=== PATIENT | female | born 1995 | race Caucasian/White ===

== ENCOUNTER 2020-06-16 15:54 | Emergency (ER) | payer OTHER ==
[~2020-06-16] VITALS: Ht 167.6 cm; Wt 80.1 kg
--- OUTSIDE RECORDS SUMMARY | 2020-06-16 15:59 | CCD ---
Author Author [employer] [facility] Syst ems Organization [employer] Syst em[employer] Address Unknown Phone Unavailable Care Team Providers Care Recruiting Specialist Name Role Phone Concha Obrien Unavailable PROBLEMS Type Condition ICD9-CM Code CCI27-AN Code Onset Dates Condition S tatus W/U Status Risk SNOMED Code Notes Problem Supervision of other normal Z34.80 Ac tive confirm [id number] Problem 11 weeks gestation of Z3A.11 Active confi rmed [id number] ALLERGIES No Known Allergies ENCOUNTERS from 1995 to 2020-05-31 Encounter Location Date Provider Diagnosis [facility] [address] [place] [address] May, Concha Obrien IMMUNIZATIONS No Information SOCIAL HISTORY Tobacco Use: Social History Observation Description Date Details (start date - stop date) Former Smoker Sex Assigned At : Social History Observation Description Sex Assigned At Unknown Domestic Violence: Question Answer Notes Status: No history of abuse Tobacco Use: Question Answer Notes Are you a: former smoker REASON FOR REFERRAL No Information VITAL SIGNS No information MEDICATIONS Medication SIG (Take, Route, Frequency, Duration) Notes Start Da te End Date Status Azithromycin (5 day) 250 mg as directed Orally 2 pills on day 1, then 1 pill daily until gone for 5 days May, Acti ve Wellbutrin XL 150 MG 1 tablet in the morning Orally Once a day f or 30 day(s) May, Active 27-1 MG 1 tablet Orally Once a day Active Glycerin (Adult) 2 GM 1 suppository as needed for constipation Rectal Once a day for 30 day(s) Apr, Active Crinone 8 % 1 applicator full Vaginal every night for 30 day(s) Jan, Not-Taking Zofran 4 MG 1 tablet Orally every 6 hours as needed for nausea Jan, Active Protonix 40 MG 1 tablet Orally Once a day for 30 day(s) Active Reglan 10 MG 1 tablet before meals Orally once per day for 30 day(s) Apr, Active Diflucan 150 MG 1 tablet Orally now and agai n in 5 days if symptoms are still present Jan, Not-Taking Keflex 500 MG 1 capsule Orally every 6 hours for 5 day(s) Not-Taking PROCEDURES No Information RESULTS No Results REASON FOR VISIT sinus infection MEDICAL (GENERAL) HISTORY Type Description Date Medical History Esophageal reflux Medical History Atrial fibrillation x1 - fixed itself Surgical History gall bladder Hospitalization History childbirth Hospitalization History surgery Goals Section No Information Health Concerns No Information MEDICAL EQUIPMENT No Information MENTAL STATUS No Information FUNCTIONAL STATUS No Information ASSESSMENTS No Information PLAN OF TREATMENT Medication Medication Name Sig Start Date Stop Date Azithromycin (5 day) 250 mg as directed Orally 2 pills on day 1, then 1 pill daily until gone for 5 days May, Reglan 10 MG 1 tablet before meals Orally once per da y for 30 day(s) Apr, Wellbutrin XL 150 MG 1 tablet in the morning Orally Once a d ay for 30 day(s) May, Next Appt Details Provider Name:Concha Obrien, 2020-06-05 02:20:00 PM, [address] [place], [address], Insurance Providers Payer Name Payer Address Payer Phone Insured Name Patient Relati onship to Insured Coverage Start Date Coverage End Date [facility] [address] [facility] [id number] [address]YSSA BISHOP [facility] HEALTH INSURANCE [address] [place] [address] SHITAL PFEIFFER
--- OUTSIDE RECORDS SUMMARY | 2020-06-16 15:59 | CCD ---
Author Author [facility] Syst ems Organization [employer] Syst ems Address Unknown Phone Unavailable Care Team Providers Care Outsole Compressor Name Role Phone Concha Obrien Unavailable PROBLEMS Type Condition ICD9-CM Code BVM87-CK Code Onset Dates Condition S tatus W/U Status Risk SNOMED Code Notes Problem Supervision of other normal Z34.80 Ac tive confirm [id number] Problem 11 weeks gestation of Z3A.11 Active confi rmed [id number] ALLERGIES No Known Allergies ENCOUNTERS from 1995 to 2020-05-28 Encounter Location Date Provider Diagnosis [facility] [address] [place] [address] May, Concha Obrien IMMUNIZATIONS No Information SOCIAL [...] Notes Start Da te End Date Status Protonix 40 MG 1 tablet Orally Once a day for 30 day(s) Active 27-1 MG 1 tablet Orally Once a day Active Keflex 500 MG 1 capsule Orally every 6 hours for 5 day(s) Not-Taking Glycerin (Adult) 2 GM 1 suppository as needed for constipation Rectal Once a day for 30 day(s) Apr, Active Wellbutrin XL 150 MG 1 tablet in the morning Orally Once a day f or 30 day(s) May, Active Diflucan 150 MG 1 tablet Orally now and agai n in 5 days if symptoms are still present Jan, Not-Taking Reglan 10 MG 1 tablet before meals Orally once per day for 30 day(s) Apr, Active Crinone 8 % 1 applicator full Vaginal every night for 30 day(s) Jan, Not-Taking Zofran 4 MG 1 tablet Orally every 6 hours as needed for nausea Jan, Active PROCEDURES No Information RESULTS No Results REASON FOR VISIT refill MEDICAL (GENERAL) HISTORY Type Description Date Medical History Esophageal reflux Medical History Atrial fibrillation x1 - fixed itself Surgical History gall bladder Hospitalization History childbirth Hospitalization History surgery Goals Section No Information Health Concerns No Information MEDICAL EQUIPMENT No Information MENTAL STATUS No Information FUNCTIONAL STATUS No Information ASSESSMENTS No Information PLAN OF TREATMENT Medication Medication Name Sig Start Date Stop Date Wellbutrin XL 150 MG 1 tablet in the morning Orally Once a d ay for 30 day(s) May, Reglan 10 MG 1 tablet before meals Orally once per da y for 30 day(s) Apr, Next Appt Details Provider Name:Concha Obrien, 2020-06-05 02:20:00 PM, [address] [place], [address], Insurance Providers Payer Name Payer Address Payer Phone Insured Name Patient Relati onship to Insured Coverage Start Date Coverage End Date [facility] [address] [facility] [id number] ELYSSA BISHOP [facility] HE[facility] INSURANCE [address] [place] [address] SHITAL PFEIFFER
--- OUTSIDE RECORDS SUMMARY | 2020-06-16 15:59 | CCD ---
Author Author [facility] Syst ems Organization [employer] Syst ems Address Unknown Phone Unavailable Care Team Providers Care Solid Waste Division Supervisor Name Role Phone Concha Obrien Unavailable PROBLEMS Type Condition ICD9-CM Code NRJ65-XM Code Onset Dates Condition S tatus SNOMED Code Notes Problem Supervision of other normal Z34.80 Ac tive [id number] Problem 11 weeks gestation of Z3A.11 Active 24149213 ALLERGIES No Known Allergies ENCOUNTERS from 1995 to 2020-05-19 Encounter Location Date Provider Diagnosis [facility] [address] [place] [address] Apr, Concha Obrien Dysuria R30.0 and Ot her specified related conditions, first trimester O26.891 IMMUNIZATIONS No Information SOCIAL HISTORY Tobacco Use: [...] Once a day for 30 day(s) Active Keflex 500 MG 1 capsule Orally every 6 hours for 5 day(s) Not-Taking Glycerin (Adult) 2 GM 1 suppository as needed for constipation Rectal Once a day for 30 day(s) Apr, Active 27-1 MG 1 tablet Orally Once a day Active Diflucan 150 MG 1 tablet Orally [...] nausea Jan, Active PROCEDURES No Information RESULTS Component Value Reference Range UA URINALYSIS Reviewed date:05/19/2020 18:35:32 Interpretation: Performing Lab:[facility], [facility] [address] [facility] [address] , ,[place] [address] REASON FOR VISIT UTI? MEDICAL (GENERAL) HISTORY Type Description Date Medical History Esophageal reflux Medical History Atrial fibrillation x1 - fixed itself Surgical History gall bladder Hospitalization History childbirth Hospitalization History surgery Goals Section No Information Health Concerns No Information MEDICAL EQUIPMENT No Information MENTAL STATUS No Information FUNCTIONAL STATUS No Information ASSESSMENTS Encounter Date Diagnosis Assessment Notes Treatment Notes Treatm ent Clinical Notes Apr, Dysuria (ICD-10 - R30.0) Apr, Other specified re lated conditions, first trimester (ICD- 10 - O26.891) PLAN OF TREATMENT Medication Medication Name Sig Start Date Stop Date Reglan 10 MG 1 tablet before meals Orally once per da y for 30 day(s) Apr, Treatment Notes Test Name Order Date URINE CULTURE 2020-05-19 Next Appt Details Provider Name:Concha Obrien, 2020-06-05 02:20:00 PM, [address] [place], [address], Insurance Providers Payer Name Payer Address Payer Phone Insured Name Patient Relati onship to Insured Coverage Start Date Coverage End Date [facility]URANCE [address] [place] [facility] [address] SHITAL PFEIFFER [facility] [address] [facility] [address] ELYSSA BISHOP
--- OUTSIDE RECORDS SUMMARY | 2020-06-16 16:00 | CCD ---
Author Author [facility] [employer] [facility] Syst ems Organization [facility] Syst ems Address Unknown Phone Unavailable Care Team Providers Care Assistant Manager Retail Name Role Phone Concha Obrien Unavailable PROBLEMS Type Condition ICD9-CM Code WHN21-XW Code Onset Dates Condition S tatus SNOMED Code Notes Problem Supervision of other normal Z34.80 Ac tive 955162210 Problem 11 weeks gestation of Z3A.11 Active 88058566 ALLERGIES No Known Allergies ENCOUNTERS from 1995 to 2020-05-14 Encounter Location Date Provider Diagnosis [facility] [address] [place] [address] Apr, Concha Obrien Other specified preg yaa related conditions, first trimester O26.891 ; Epigastric pain R10.13 and 11 weeks gestation of Z3A.11 IMMUNIZATIONS No Information SOCIAL HISTORY Tobacco Use: Social History Observation Description Date Details (start date - stop date) Former Smoker Sex Assigned At : Social History Observation Description Sex Assigned At Unknown Domestic Violence: Question Answer Notes Status: No history of abuse Tobacco Use: Question Answer Notes Are you a: former smoker REASON FOR REFERRAL No Information VITAL SIGNS Weight 172 lbs Apr, Height 66 in Apr, BMI 27.762 kg/m2 Apr, Blood pressure systolic 100 mm Hg Apr, Blood pressure diastolic 62 mm Hg Apr, MEDICATIONS Medication SIG (Take, Route, Frequency, Duration) [...] No Information RESULTS Component Value Reference Range H PYLORI STOOL ANTIGEN Reviewed date:05/12/2020 09:13:57 Interpretation: Performing Lab:[facility], [facility] [address] [address] , ,[place] [address] H PYLORI STOOL ANTIGEN Negative Negative REASON FOR VISIT 4wk pn MEDICAL (GENERAL) HISTORY Type Description Date Medical History Esophageal reflux Medical History Atrial fibrillation x1 - fixed itself Surgical History gall bladder Hospitalization History childbirth Hospitalization History surgery Goals Section No Information Health Concerns No Information MEDICAL EQUIPMENT No Information MENTAL STATUS No Information FUNCTIONAL STATUS No Information ASSESSMENTS Encounter Date Diagnosis Assessment Notes Treatment Notes Treatm ent Clinical Notes Apr, Other specified re lated conditions, first trimester (ICD- 10 - O26.891) Apr, Epigastric pain (ICD-10 - R10.13) Apr, 11 weeks gestation of (ICD-10 - Z3A.11 ) PLAN OF TREATMENT Medication Medication Name Sig Start Date Stop Date Reglan 10 MG 1 tablet before meals Orally once per da y for 30 day(s) Apr, Next Appt Details 4 Weeks Reason: Provider Name:Concha Obrien, 2020-06-05 02:20:00 PM, [address] [place], [address], Follow Up:4 Weeksprenatal Insurance Providers Payer Name Payer Address Payer Phone Insured Name Patient Relati onship to Insured Coverage Start Date Coverage End Date [facility] [address] [facility] [address] [place]FEIFFER [facility] [address] [facility] [id number] ELYSSA BISHOP
--- OUTSIDE RECORDS SUMMARY | 2020-06-16 16:00 | CCD ---
Author Author [employer] Syst em[facility] Organization [employer] Syst [facility] Address Unknown Phone Unavailable Care Team Providers Care Advanced Quality Engineer Name Role Phone Concha Obrien Unavailable PROBLEMS Type Condition ICD9-CM Code XGE94-JN Code Onset Dates Condition S tatus SNOMED Code Notes Problem Supervision of other normal Z34.80 Ac tive 677909692 ALLERGIES No Known Allergies ENCOUNTERS from 1995 to 2020-04-23 Encounter Location Date Provider Diagnosis [facility] [address] [place] [phone] Mar, Concha Micah IMMUNIZATIONS No Information SOCIAL HISTORY Tobacco Use: [...] Once a day for 30 day(s) Active Diflucan 150 MG 1 tablet Orally now and agai n in 5 days if symptoms are still present Jan, Not-Taking Keflex 500 MG 1 capsule Orally every 6 hours for 5 day(s) Not-Taking 27-1 MG 1 tablet Orally Once a day Active Zofran 4 MG 1 tablet Orally every 6 hours as needed for nausea Jan, Active Crinone 8 % 1 applicator full Vaginal every night for 30 day(s) Jan, Not-Taking Lovenox 40 MG/0.4ML 0.4 ml Subcutaneous Once a day for 30 day(s) Mar, Active PROCEDURES No Information RESULTS No Results [...] Medication Name Sig Start Date Stop Date Lovenox 40 MG/0.4ML 0.4 ml Subcutaneous Once a day for 30 day(s) Mar, Zofran 4 MG 1 tablet Orally every 6 hours as needed for naus ea Jan, Next Appt Details Provider Name:Concha Obrien, 2020 11:40:00 AM, [address] [place], [address], Insurance Providers Payer Name Payer Address Payer Phone Insured Name Patient Relati onship to Insured Coverage Start Date Coverage End Date [facility] INSURANCE [address] [facility] [address] SHITAL PFEIFFER [facility] [address] [facility] [id number] ELYSSA BISHOP
--- OUTSIDE RECORDS SUMMARY | 2020-06-16 16:00 | CCD ---
Author Author [employer] [facility] Syst ems Organization [employer] Syst ems Address Unknown Phone Unavailable Care Team Providers Care Assistant Front Office Manager Name Role Phone Concha Obrien Unavailable PROBLEMS Type Condition ICD9-CM Code IST14-WB Code Onset Dates Condition S tatus SNOMED Code Notes Problem Supervision of other normal Z34.80 Ac tive 743847735 ALLERGIES No Known Allergies ENCOUNTERS from 1995 to 2020-05-01 Encounter Location Date Provider Diagnosis [facility] [place] [address] Apr, Concha Obrien IMMUNIZATIONS No Information SOCIAL HISTORY [...] every 6 hours for 5 day(s) Not-Taking Crinone 8 % 1 applicator full Vaginal every night for 30 day(s) Jan, Not-Taking Lovenox 40 MG/0.4ML 0.4 ml Subcutaneous Once a day for 30 day(s) Mar, Active 27-1 MG 1 tablet Orally Once a day Active Zofran 4 MG 1 tablet Orally every 6 hours as needed for nausea Jan, Active Glycerin (Adult) 2 GM 1 suppository as needed for constipation Rectal Once a day for 30 day(s) Apr, Active Diflucan 150 MG 1 tablet Orally now and agai n in 5 days if symptoms are still present Jan, Not-Taking PROCEDURES No Information RESULTS No Results REASON FOR VISIT constipation MEDICAL (GENERAL) HISTORY Type Description Date Medical History Esophageal reflux Medical History Atrial fibrillation x1 - fixed itself Surgical History gall bladder Hospitalization History childbirth Hospitalization History surgery Goals Section No Information Health Concerns No Information MEDICAL EQUIPMENT No Information MENTAL STATUS No Information FUNCTIONAL STATUS No Information ASSESSMENTS No Information PLAN OF TREATMENT Medication Medication Name Sig Start Date Stop Date Glycerin (Adult) 2 GM 1 suppository as needed for constipation Rectal Once a day for 30 day(s) Apr, Zofran 4 MG 1 tablet Orally every 6 hours as needed for naus ea Jan, Lovenox 40 MG/0.4ML 0.4 ml Subcutaneous Once a day for 30 day(s) Mar, Next Appt Details Provider Name:Concha Weiss Micah, 2020 11:40:00 AM, [address] [place], [address], Insurance Providers Payer Name Payer Address Payer Phone Insured Name Patient Relati onship to Insured Coverage Start Date Coverage End Date [facility] [address] [facility] [address] ELYSSA BISHOP [facility] HEALTH INSURANCE [address] [place] [address] SHITAL PFEIFFER
--- OUTSIDE RECORDS SUMMARY | 2020-06-16 16:00 | CCD ---
Author Author [facility] [facility] Syst ems Organization [employer] Syst ems Address Unknown Phone Unavailable Care Team Providers Care Town Planner Name Role Phone Concha Obrien Unavailable PROBLEMS Type Condition ICD9-CM Code HRS91-IM Code Onset Dates Condition S tatus SNOMED Code Notes Problem Supervision of other normal Z34.80 Ac tive 843643263 ALLERGIES No Known Allergies ENCOUNTERS from 1995 to 2020-04-20 Encounter Location Date Provider Diagnosis [facility] [place] [address] Mar, Concha Obrien Other diseases of th e blood and blood- forming organs and certain disorders involving the immune mechanism complicating , first trimester O99.111 ; 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 ; 7 weeks gestation of Z3A.01 and 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, 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 IMMUNIZATIONS No Information SOCIAL HISTORY Tobacco Use: Social History Observation Description Date Details (start date - stop date) Former Smoker Sex Assigned At : Social History Observation Description Sex Assigned At Unknown Domestic Violence: Question Answer Notes Status: No history of abuse Tobacco Use: Question Answer Notes Are you a: former smoker REASON FOR REFERRAL No Information VITAL SIGNS Weight 177.8 lbs Mar, Height 66 in Mar, BMI 28.698 kg/m2 Mar, Blood pressure systolic 110 mm Hg Mar, Blood pressure diastolic 70 mm Hg Mar, MEDICATIONS Medication SIG (Take, Route, Frequency, Duration) Notes Start Da te End Date Status 27-1 MG 1 tablet Orally Once a day Active Diflucan 150 MG 1 tablet Orally now and agai n in 5 days if symptoms are still present Jan, Not-Taking Keflex 500 MG 1 capsule Orally every 6 hours for 5 day(s) Not-Taking Crinone 8 % 1 applicator full Vaginal every night for 30 day(s) Jan, Not-Taking Protonix 40 MG 1 tablet Orally Once a day for 30 day(s) Active Zofran 4 MG 1 tablet Orally every 8 hours as needed for nausea Jan, Active Lovenox 40 MG/0.4ML 0.4 ml Subcutaneous Once a day for 30 day(s) Mar, Active PROCEDURES No Information RESULTS REASON FOR VISIT 1ST PN MEDICAL (GENERAL) HISTORY Type Description Date Medical History Esophageal reflux Medical History Atrial fibrillation x1 - fixed itself Surgical History gall bladder Hospitalization History childbirth Hospitalization History surgery Goals Section No Information Health Concerns No Information MEDICAL EQUIPMENT No Information MENTAL STATUS No Information FUNCTIONAL STATUS No Information ASSESSMENTS Encounter Date Diagnosis Assessment Notes Treatment Notes Treatm ent Clinical Notes Mar, Other diseases of the blood and blood-forming organs and certain disorders involving the immune mechanism complicating , first trimester (ICD-10 - O99.111) Mar, 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, antepartum (ICD-10 - O26.21) PLAN OF TREATMENT Medication Medication Name Sig Start Date Stop Date Lovenox 40 MG/0.4ML 0.4 ml Subcutaneous Once a day for 30 day(s) Mar, Treatment Notes Test Name Order Date CHLAMYDIA & GC DNA AMPLIFICAT 2020-04-20 Next Appt Details Provider Name:Concha Obrien, 2020 11:40:00 AM, [address] [place], [address], Insurance Providers Payer Name Payer Address Payer Phone Insured Name Patient Relati onship to Insured Coverage Start Date Coverage End Date [facility] [address] [facility] [address] ELYSSA BISHOP [facility] INSURANCE [address] [place] [address] SHITAL PFEIFFER
--- OUTSIDE RECORDS SUMMARY | 2020-06-16 16:00 | CCD ---
Author Author [facility] Syst ems Organization [employer] Syst ems Address Unknown Phone Unavailable Care Team Providers Care Economic Research Assistant Name Role Phone Concha Obrien Unavailable PROBLEMS Type Condition ICD9-CM Code NCB31-PI Code Onset Dates Condition S tatus SNOMED Code Notes Problem Supervision of other normal Z34.80 Ac tive 693141979 Problem 11 weeks gestation of Z3A.11 Active 80443394 ALLERGIES No Known Allergies ENCOUNTERS from 1995 to 2020-05-16 Encounter Location Date Provider Diagnosis [facility] [address] [place] [phone] Apr, Concha Micah IMMUNIZATIONS No Information SOCIAL HISTORY [...] Information RESULTS No Results REASON FOR VISIT medications MEDICAL (GENERAL) HISTORY Type Description Date Medical [...] day(s) Apr, Next Appt Details Provider Name:Concha Weiss Micah, 2020-06-05 02:20:00 PM, [address] [place], [address], Insurance Providers Payer Name Payer Address Payer Phone Insured Name Patient Relati onship to Insured Coverage Start Date Coverage End Date [facility] [address] [facility] [id number] [facility] [address] [facility] [address] SHITAL PFEIFFER
--- OUTSIDE RECORDS SUMMARY | 2020-06-16 16:01 | CCD ---
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 Name Role Phone Mita Zavala MD Unavailable Unavailable Mita Zavala MD Unavailable Unavailable Mita Zavala MD Unavailable Unavailable Mita Zavala MD Unavailable Unavailable Mita Zavala MD Unavailable Unavailable Mita Zavala MD Unavailable Unavailable Mita Zavala MD Unavailable Unavailable Mita Zavala MD Unavailable Unavailable Mita Zavala MD Unavailable Unavailable Mita Zavala MD Unavailable Unavailable Mita Zavala MD Unavailable Unavailable Mita Zavala MD Unavailable Unavailable Mita Zavala MD Unavailable Unavailable Mita Zavala MD Unavailable Unavailable Mita Zavala MD Unavailable Unavailable Mita Zavala MD Unavailable Unavailable Mita Zavala MD Unavailable Unavailable Mita Zavala MD Unavailable Unavailable Mita Zavala MD Unavailable Unavailable Mita Zavala MD Unavailable Unavailable Mita Zavala MD Unavailable Unavailable Mita Zavala MD Unavailable Unavailable Mita Zavala MD Unavailable Unavailable Mita Zavala MD Unavailable Unavailable Mita Zavala MD Unavailable Unavailable Mita Zavala MD Unavailable Unavailable Mita Zavala MD Unavailable Unavailable Mita aZvala MD Unavailable Unavailable Sally S Armando LUNA Unavailable Unavailable Sally, S Armando MD Unavailable Unavailable Sally, S Armando MD Unavailable Unavailable Sally, S Armando LUNA Unavailable Unavailable Sally, S Armando MD Unavailable Unavailable Sally, S Armando MD Unavailable Unavailable Sally, S Armando MD Unavailable Unavailable Sally, S Armando MD Unavailable Unavailable Sally, S Armando MD Unavailable Unavailable Sally, S Armando MD Unavailable Unavailable Sally, S Armando MD Unavailable Unavailable Sally, S Armando MD Unavailable Unavailable Sally, S Armando MD Unavailable Unavailable Sally, S Armando MD Unavailable Unavailable Sally, S Armando MD Unavailable Unavailable Sally, S Armando MD Unavailable Unavailable Sally, S Armando MD Unavailable Unavailable Sally, S Armando MD Unavailable Unavailable Sally, S Armando MD Unavailable Unavailable Sally, S Armando MD Unavailable Unavailable Sally, S Armando MD Unavailable Unavailable Sally, S Armando MD Unavailable Unavailable Swatsworth, A Alexys PA Unavailable Unavailable Swatsworth, A Alexys PA Unavailable Unavailable Swatsworth, A Alexys PA Unavailable Unavailable Swatsworth, A Alexys PA Unavailable Unavailable Swatsworth, A Alexys PA Unavailable Unavailable Swatsworth, A Alexys PA Unavailable Unavailable Swatsworth, A Alexys PA Unavailable Unavailable Swatsworth, A Alexys PA Unavailable Unavailable Swatsworth, A Alexys PA Unavailable Unavailable Swatsworth, A Alexys PA Unavailable Unavailable Swatsworth, A Alexys PA Unavailable Unavailable Swatsworth, A Alexys PA Unavailable Unavailable Swatsworth, A Alexys PA Unavailable Unavailable Swatsworth, A Alexys PA Unavailable Unavailable Mollura, E Hazel PA Unavailable Unavailable Mollura, E Hazel PA Unavailable Unavailable Mollura, E Hazel PA Unavailable Unavailable Mollura, E Hazel PA Unavailable Unavailable Mollura, E Hazel PA Unavailable Unavailable Mollura, E Hazel PA Unavailable Unavailable Mollura, E Hazel PA Unavailable Unavailable Mollura, E Hazel PA Unavailable Unavailable Mollura, E Hazel PA Unavailable Unavailable Mollura, E Hazel PA Unavailable Unavailable Mollura, E Hazel PA Unavailable Unavailable Mollura, E Hazel PA Unavailable Unavailable Mollura, E Hazel PA Unavailable Unavailable Mollura, E Hazel PA Unavailable Unavailable Mollura, E Hazel PA Unavailable Unavailable Mollura, E Hazel PA Unavailable Unavailable Mollura, E Hazel PA Unavailable Unavailable Mollura, E Hazel PA Unavailable Unavailable Mollura, E Hazel PA Unavailable Unavailable Mollura, E Hazel PA Unavailable Unavailable Mollura, E Hazel PA Unavailable Unavailable Mollura, E Hazel PA Unavailable Unavailable Mollura, E Hazel PA Unavailable Unavailable Mollura, E Hazel PA Unavailable Unavailable Mollura, E Hazel PA Unavailable Unavailable Mollura, E Hazel PA Unavailable Unavailable Mollura, E Hazel PA Unavailable Unavailable Mollura, E Hazel PA Unavailable Unavailable Mollura, E Hazel PA Unavailable Unavailable Mollura, E Hazel PA Unavailable Unavailable Mollura, E Hazel PA Unavailable Unavailable Mollura, E Hazel PA Unavailable Unavailable Mollura, E Hazel PA Unavailable Unavailable Mollura, E Hazel PA Unavailable Unavailable Mollura, E Hazel PA Unavailable Unavailable Mollura, E Hazel PA Unavailable Unavailable Alfreda, Juanita Beasley PA-C Unavailable Unavailable Alfreda, Juanita Beasley PA-C Unavailable Unavailable Alfreda, Juanita Beasley PA-C Unavailable Unavailable Alfreda, Juanita Beasley PA-C Unavailable Unavailable Alfreda, Juanita Beasley PA-C Unavailable Unavailable Alfreda, Juanita Beasley PA-C Unavailable Unavailable Alfreda, Juanita Beasley PA-C Unavailable Unavailable Alfreda, Juanita Beasley PA-C Unavailable Unavailable Alfreda, Juanita Beasley PA-C Unavailable Unavailable Alfreda, Juanita Beasley PA-C Unavailable Unavailable Alfreda, Juanita Beasley PA-C Unavailable Unavailable TURRIN, CEDRIC Unavailable Unavailable TURRIN, CEDRIC Unavailable Unavailable TURRIN, CEDRIC Unavailable Unavailable TURRIN, CEDRIC Unavailable Unavailable TORRES, MAQBOOL CARLOS MD Unavailable Unavailable TORRES, MAQBOOL CARLOS MD Unavailable Unavailable TORRES, MAQBOOL CARLOS MD Unavailable Unavailable TORRES, MAQBOOL CARLOS MD Unavailable Unavailable TORRES, MAQBOOL CARLOS MD Unavailable Unavailable TORRES, MAQBOOL CARLOS MD Unavailable Unavailable TORRES, MAQBOOL CARLOS MD Unavailable Unavailable TORRES, MAQBOOL CARLOS MD Unavailable Unavailable TORRES, MAQBOOL CARLOS MD Unavailable Unavailable TORRES, MAQBOOL CARLOS MD Unavailable Unavailable TORRES, MAQBOOL CARLOS MD Unavailable Unavailable TORRES, MAQBOOL CARLOS MD Unavailable Unavailable TORRES, MAQBOOL CARLOS MD Unavailable Unavailable TORRES, MAQBOOL CARLOS MD Unavailable Unavailable TORRES, MAQBOOL CARLOS MD Unavailable Unavailable TORRES, MAQBOOL CARLOS MD Unavailable Unavailable TORRES, MAQBOOL CARLOS MD Unavailable Unavailable TORRES, MAQBOOL CARLOS MD Unavailable Unavailable TORRES, MAQBOOL CARLOS MD Unavailable Unavailable TORRES, MAQBOOL CARLOS MD Unavailable Unavailable TORRES, MAQBOOL CARLOS MD Unavailable Unavailable TORRES, MAQBOOL CARLOS MD Unavailable Unavailable TORRES, MAQBOOL CARLOS MD Unavailable Unavailable TORRES, MAQBOOL CARLOS MD Unavailable Unavailable TORRES, MAQBOOL CARLOS MD Unavailable Unavailable TORRES, MAQBOOL CARLOS MD Unavailable Unavailable TORRES, MAQBOOL CARLOS MD Unavailable Unavailable TORRES, MAQBOOL CARLOS MD Unavailable Unavailable TORRES, MAQBOOL CARLOS MD Unavailable Unavailable TORRES, MAQBOOL CARLOS MD Unavailable Unavailable TORRES, MAQBOOL CARLOS MD Unavailable Unavailable TORRES, MAQBOOL CARLOS MD Unavailable Unavailable TORRES, MAQBOOL CARLOS MD Unavailable Unavailable TORRES, MAQBOOL CARLOS MD Unavailable Unavailable TORRES, MAQBOOL CARLOS MD Unavailable Unavailable TORRES, MAQBOOL CARLOS MD Unavailable Unavailable TORRES, MAQBOOL CARLOS MD Unavailable Unavailable TORRES, MAQBOOL CARLOS MD Unavailable Unavailable TORRES, MAQBOOL CARLOS MD Unavailable Unavailable TORRES, MAQBOOL CARLOS MD Unavailable Unavailable TORRES, MAQBOOL CARLOS MD Unavailable Unavailable TORRES, MAQBOOL CARLOS MD Unavailable Unavailable TORRES, MAQBOOL CARLOS MD Unavailable Unavailable TORRES, MAQBOOL CARLOS MD Unavailable Unavailable TORRES, MAQBOOL CARLOS MD Unavailable Unavailable TORRES, MAQBOOL CARLOS MD Unavailable Unavailable TORRES, MAQBOOL CARLOS MD Unavailable Unavailable TORRES, MAQBOOL CARLOS MD Unavailable Unavailable TORRES, MAQBOOL CARLOS MD Unavailable Unavailable TORRES, MAQBOOL CARLOS MD Unavailable Unavailable TORRES, MAQBOOL CARLOS MD Unavailable Unavailable TORRES, MAQBOOL CARLOS MD Unavailable Unavailable TORRES, MAQBOOL CARLOS MD Unavailable Unavailable TORRES, MAQBOOL CARLOS MD Unavailable Unavailable TORRES, MAQBOOL CARLOS MD Unavailable Unavailable TORRES, MAQBOOL CARLOS MD Unavailable Unavailable TORRES, MAQBOOL CARLOS MD Unavailable Unavailable TORRES, MAQBOOL CARLOS MD Unavailable Unavailable TORRES, MAQBOOL CARLOS MD Unavailable Unavailable TORRES, MAQBOOL CARLOS MD Unavailable Unavailable TORRES, MAQBOOL CARLOS MD Unavailable Unavailable TORRES, MAQBOOL CARLOS MD Unavailable Unavailable TORRES, MAQBOOL CARLOS MD Unavailable Unavailable TORRES, MAQBOOL CARLOS MD Unavailable Unavailable TORRES, MAQBOOL CARLOS MD Unavailable Unavailable TORRES, MAQBOOL CARLOS MD Unavailable Unavailable TORRES, MAQBOOL CARLOS MD Unavailable Unavailable TORRES, MAQBOOL CARLOS MD Unavailable Unavailable TORRES, MAQBOOL CARLOS MD Unavailable Unavailable TORRES, MAQBOOL CARLOS MD Unavailable Unavailable TORRES, MAQBOOL CARLOS MD Unavailable Unavailable TORRES, MAQBOOL CARLOS MD Unavailable Unavailable TORRES, MAQBOOL CARLOS MD Unavailable Unavailable TORRES, MAQBOOL CARLOS MD Unavailable Unavailable Kunnumpurath, F Lisandra MD Unavailable Unavailable Kunnumpurath, F Lisandra MD Unavailable Unavailable Kunnumpurath, F Lisandra MD Unavailable Unavailable Kunnumpurath, F Lisandra MD Unavailable Unavailable Kunnumpurath, F Lisandra MD Unavailable Unavailable Kunnumpurath, F Lisandra MD Unavailable Unavailable Kunnumpurath, F Lisandra MD Unavailable Unavailable Kunnumpurath, F Lisandra MD Unavailable Unavailable Kunnumpurath, F Lisandra MD Unavailable Unavailable Kunnumpurath, F Lisandra MD Unavailable Unavailable Kunnumpurath, F Lisandra MD Unavailable Unavailable Kunnumpurath, F Lisandra MD Unavailable Unavailable Kunnumpurath, F Lisandra MD Unavailable Unavailable Kunnumpurath, F Lisandra MD Unavailable Unavailable Kunnumpurath, F Lisandra MD Unavailable Unavailable Kunnumpurath, F Lisandra MD Unavailable Unavailable Kunnumpurath, F Lisandra MD Unavailable Unavailable Kunnumpurath, F Lisandra MD Unavailable Unavailable Kunnumpurath, F Lisandra MD Unavailable Unavailable Kunnumpurath, F Lisandra MD Unavailable Unavailable Kunnumpurath, F Lisandra MD Unavailable Unavailable Kunnumpurath, F Lisandra MD Unavailable Unavailable Kunnumpurath, F Lisandra MD Unavailable Unavailable Kunnumpurath, F Lisandra MD Unavailable Unavailable Kunnumpurath, F Lisandra MD Unavailable Unavailable Kunnumpurath, F Lisandra MD Unavailable Unavailable Kunnumpurath, F Lisandra MD Unavailable Unavailable Kunnumpurath, F Lisandra MD Unavailable Unavailable Kunnumpurath, F Lisandra MD Unavailable Unavailable Kunnumpurath, F Lisandra MD Unavailable Unavailable Kunnumpurath, F Lisandra MD Unavailable Unavailable Kunnumpurath, F Lisandra MD Unavailable Unavailable Kunnumpurath, F Lisandra MD Unavailable Unavailable Kunnumpurath, F Lisandra MD Unavailable Unavailable Kunnumpurath, F Lisandra MD Unavailable Unavailable Kunnumpurath, F Lisandra MD Unavailable Unavailable Kunnumpurath, F Lisandra MD Unavailable Unavailable Kunnumpurath, F Lisandra MD Unavailable Unavailable Kunnumpurath, F Lisandra MD Unavailable Unavailable Kunnumpurath, F Lisandra MD Unavailable Unavailable Kunnumpurath, F Lisandra MD Unavailable Unavailable Kunnumpurath, F Lisandra MD Unavailable Unavailable Kunnumpurath, F Lisandra MD Unavailable Unavailable Kunnumpurath, F Lisandra MD Unavailable Unavailable Kunnumpurath, F Lisandra MD Unavailable Unavailable Kunnumpurath, F Lisandra MD Unavailable Unavailable Kunnumpurath, F Lisandra MD Unavailable Unavailable Kunnumpurath, F Lisandra MD Unavailable Unavailable Kunnumpurath, F Lisandra MD Unavailable Unavailable Kunnumpurath, F Lisandra MD Unavailable Unavailable Kunnumpurath, F Lisandra MD Unavailable Unavailable Kunnumpurath, F Lisandra MD Unavailable Unavailable Kunn[place]urath, F Lisandra MD Unavailable Unavailable Kunnumpurath, F Lisandra MD Unavailable Unavailable K[place]urath, F Lisandra MD Unavailable Unavailable Kunnumpurath, F Lisandra MD Unavailable Unavailable Kunnumpurath, F Lisandra MD Unavailable Unavailable Kunnumpurath, F Lisandra MD Unavailable Unavailable Kunn[place]urath, F Lisandra MD Unavailable Unavailable Kunnumpurath, F Lisandra MD Unavailable Unavailable Kunnumpurath, F Lisandra MD Unavailable Unavailable Kunnumpurath, F Lisandra MD Unavailable Unavailable Kunnumpurath, F Lisandra MD Unavailable Unavailable Kunnumpurath, F Lisandra MD Unavailable Unavailable Kunn[place]urath, F Lisandra MD Unavailable Unavailable Kunnumpurath, F Lisandra MD Unavailable Unavailable K[place]urath, F Lisandra MD Unavailable Unavailable [place]urath, F Lisandra MD Unavailable Unavailable [place]ath, F Lisandra MD Unavailable Unavailable [place]urath, F Lisandra MD Unavailable Unavailable [place]ath, F Lisandra MD Unavailable Unavailable [place]ath, F Lisandra MD Unavailable Unavailable [place], F Lisandra MD Unavailable Unavailable [place]ath, F Lisandra MD Unavailable Unavailable Kunn[place]ath, F Lisandra MD Unavailable Unavailable Kunnumpurath, F Lisandra MD Unavailable Unavailable LETTIERE, A VITA PA Unavailable Unavailable LETTIERE, A VITA PA Unavailable Unavailable LETTIERE, A VITA PA Unavailable Unavailable LETTIERE, A VITA PA Unavailable Unavailable LETTIERE, A VITA PA Unavailable Unavailable LETTIERE, A VITA PA Unavailable Unavailable LETTIERE, A VITA PA Unavailable Unavailable LETTIERE, A VITA PA Unavailable Unavailable LETTIERE, A VITA PA Unavailable Unavailable LETTIERE, A VITA PA Unavailable Unavailable LETTIERE, A VITA PA Unavailable Unavailable LETTIERE, A VITA PA Unavailable Unavailable LETTIERE, A VITA PA Unavailable Unavailable LETTIERE, A VITA PA Unavailable Unavailable LETTIERE, A VITA PA Unavailable Unavailable LETTIERE, A VITA PA Unavailable Unavailable LETTIERE, A VITA PA Unavailable Unavailable LETTIERE, A VITA PA Unavailable Unavailable LETTIERE, A VITA PA Unavailable Unavailable LETTIERE, A VITA PA Unavailable Unavailable LETTIERE, A VITA PA Unavailable Unavailable LETTIERE, A VITA PA Unavailable Unavailable LETTIERE, A VITA PA Unavailable Unavailable LETTIERE, A VITA PA Unavailable Unavailable LETTIERE, A VITA PA Unavailable Unavailable LETTIERE, A VITA PA Unavailable Unavailable LETTIERE, A VITA PA Unavailable Unavailable LETTIERE, A VITA PA Unavailable Unavailable LETTIERE, A VITA PA Unavailable Unavailable Re-disclosure Warning The records that you are about to access may contain information from federally-assisted alcohol or drug abuse programs. If such information is present, then the following federally mandated warning applies: This information has been disclosed to you from records protected by federal confidentiality rules (42 CFR part 2). The federal rules prohibit you from making any further disclosure of this information unless further disclosure is expressly permitted by the written consent of the person to whom it pertains or as otherwise permitted by 42 CFR part 2. A general authorization for the release of medical or other information is NOT sufficient for this purpose. The Federal rules restrict any use of the information to criminally investigate or prosecute any alcohol or drug abuse patient.The records that you are about to access may contain highly sensitive health information, the redisclosure of which is protected by Article 27-F of the [facility] Public Health law. If you continue you may have access to information: Regarding HIV / AIDS; Provided by facilities licensed or operated by the [facility] Office of Mental Health; or Provided by the [facility] Office for People With Developmental Disabilities. If such information is present, then the following [facility] mandated warning applies: This information has been disclosed to you from confidential records which are protected by state law. State law prohibits you from making any further disclosure of this information without the specific written consent of the person to whom it pertains, or as otherwise permitted by law. Any unauthorized further disclosure in violation of state law may result in a fine or senior living sentence or both. A general authorization for the release of medical or other information is NOT sufficient authorization for further disc losure. Allergies and Adverse Reactions Type Description Substance Reaction Status Data Source(s ) NO KNOWN ALLERGIES NO KNOWN ALLERGIES [facility] ([place]) Drug Class NO KNOWN ALLERGIES NO KNOWN ALLERGIES [facility] Propensity to adverse reactions to drug PENICILLINS Penicillins Active (qualifier value) [facility] No Known Drug Allergies No Known Drug Allergies [facility] Family History Family Member Name Family Member Gender Family Member Status Date o f Status Description Data Source(s) Unknown Male Problem [facility]ENT ([facility]) Encounters Encounter Providers Location Date Indications Data Source(s ) [place] [address] [facility] [address] 05/30/2020 12:00:00 AM EST eCW1 ([facility]) [place] [address] [facility] [facility] [address] 05/27/2020 12:00:00 AM EST eCW1 ([facility]) [place] [address] [facility] [facility] [address] 05/19/2020 12:00:00 AM EST eCW1 ([facility]) [place] [address] [facility] [place] [address] 05/14/2020 12:00:00 AM EST eCW1 ([facility]) ( ESTOB) [facility] [address] [place] [address] 2020 12:00:00 AM EST eCW1 ([facility]) [place] [address] [facility] [address] 04/30/2020 12:00:00 AM EST eCW1 ([facility]) [place] [address] [facility] [address] 04/23/2020 12:00:00 AM EST eCW1 ([facility]) ( ESTOB) [facility] [address] [place] [address] 04/10/2020 12:00:00 AM EST eCW1 ([facility]) Emergency Attender: CEDRIC OHARAConsultant: Lisandra clifton MD 02/27/2020 08:00:00 PM EST - 02/27/2020 09:41:00 PM EST [facility] Patient discharged. Emergency Attender: Ramos PALOMO-CConsultant: Lisandra cerna MD 02/19/2020 05:47:00 PM EDT - 02/19/2020 06:45:00 PM EDT [facility] Patient discharged. Outpatient Attender: Armando Zavala MD Main Office 12/04/2019 01:30:00 PM EDT [facility] ([facility]) Outpatient Attender: Lisandra Nova MD 0 11/09/2019 02:16:00 PM EDT - 11/09/2019 02:16:00 PM EDT [facility] Outpatient Attender: Lisandra Nova MD Family Practice 0 11/09/2019 02:00:00 PM EDT [facility] Outpatient 11/01/2019 08:27:00 AM EDT [facility] ([facility]) Outpatient 10/31/2019 08:45:00 AM EDT [facility] ([place]) Outpatient 10/03/2019 11:00:00 AM EDT - 020 11:35:04 AM EDT [facility] Patient discharged. Outpatient 10/03/2019 11:00:00 AM EDT [facility] Outpatient 09/19/2019 03:15:00 PM EDT [facility] Outpatient 09/18/2019 04:00:00 PM EDT [facility] Outpatient 09/11/2019 04:00:00 PM EDT - 020 04:45:46 PM EDT [facility] Patient discharged. Outpatient 09/11/2019 03:45:00 PM EDT [facility] Outpatient 09/10/2019 02:15:00 PM EDT [facility] Emergency 09/08/2019 02:18:11 PM EDT - 020 03:46:00 PM EDT dizziness [facility] dizziness Patient discharged. Emergency 09/08/2019 12:00:00 AM EDT [facility] Outpatient 08/17/2019 01:00:00 PM EDT - 020 01:11:45 PM EDT [facility] Patient discharged. Outpatient 08/13/2019 04:58:35 PM EDT [facility] Outpatient 08/10/2019 06:58:00 AM EDT [facility] ([place]) Outpatient 08/09/2019 03:56:08 PM EDT - 020 11:59:00 PM EDT [facility] Outpatient 08/09/2019 02:15:00 PM EDT - 020 02:33:38 PM EDT [facility] Patient discharged. Outpatient 08/09/2019 07:12:00 AM EDT [facility] ([place]) Outpatient 08/09/2019 12:00:00 AM EDT [facility] Outpatient 07/11/2019 07:16:00 AM EDT [facility] ([facility]) Outpatient 07/10/2019 06:52:00 AM EDT [facility] ([facility]) Outpatient 06/30/2019 07:08:00 AM EST [facility] ([facility]) Outpatient 06/29/2019 07:27:00 AM EST [facility] ([facility]) Outpatient 06/28/2019 11:30:00 AM EST [facility] Outpatient 06/26/2019 04:45:00 PM EST [facility] Outpatient 06/23/2019 07:08:00 AM EST [facility] ([facility]) Outpatient 06/22/2019 07:13:00 AM EST [facility] ([facility]) Outpatient 06/18/2019 12:00:00 AM EST - 020 11:59:00 PM EST [facility] Outpatient 06/13/2019 03:45:00 PM EST [facility] Outpatient 06/12/2019 03:00:00 PM EST - 020 04:28:52 PM EST [facility] Patient discharged. Emergency Attender: CARLOS Knight lamberto: Alexys Ramsey PAConsultant: Hazel PALOMO 05/23/2019 05:15:00 PM EST - 05/23/2019 07:58: 00 PM EST [facility] Patient discharged. Outpatient Attender: VITA lara 05/23/2019 02:05:00 PM EST [facility] ([facility]) Emergency 04/20/2019 04:01:51 AM EST - 04/20/2019 05:22:00 AM EST chest pain [facility] chest pain Patient discharged. Emergency 04/20/2019 12:00:00 AM EST [facility] Medications Medication Brand Name Start Date Product Form Dose Route Admi nistrative Instructions Pharmacy Instructions Status Indications Reaction Description Data Source(s) Azithromycin (5 day) 250 mg UNK 05/30/2020 12:00:00 AM EST active Azithromycin (5 day) 250 mg eCW1 ([facility]) 250 mg 05/30/2020 12:00:00 AM EST tablet 6 TAKE TWO TABLETS BY MOUTH AT ONCE ON THE FIRST DAY THEN TAKE ONE DAILY THEREAFTER TAKE TWO TABLETS BY MOUTH AT ONCE ON THE FIRST DAY THEN TAKE ONE DAILY THEREAFTER SOLD: 06/01/2020 [facility] 24 HR Bupropion Hydrochloride 150 MG Extended Release Oral T ablet BUPROPION HCL 05/27/2020 12:00:00 AM EST tablet extended release 24 hr 30 TAKE ONE TABLET BY MOUTH EVERY MORNING TAKE ONE TABLET BY MOUTH EVERY MORNING SOLD: 06/01/2020 [facility] 24 HR Bupropion Hydrochloride 150 MG Ext ended Release Oral Tablet [Wellbutrin] Wellbutrin XL 150 MG Wellbutrin XL 150 MG 05/27/2020 12:00:00 AM EST 1.0 {tablet_in_the_morning} active Wellbutr in XL 150 MG eCW1 ([facility]) 24 HR Bupropion Hydrochloride 150 MG Ext ended Release Oral Tablet [Wellbutrin] Wellbutrin XL 150 MG Wellbutrin XL 150 MG 05/27/2020 12:00:00 AM EST 1.0 {tablet_in_the_morning} active Wellbutr in XL 150 MG eCW1 ([facility]) 10 mg 05/15/2020 12:00:00 AM EST tablet 30 TAKE ONE TABLET BY MOUTH EVERY DAY BEFORE A MEAL TAKE ONE TABLET BY MOUTH EVERY DAY BEFORE A MEAL SOLD: 05/15/2020 [facility] Metoclopramide 10 MG Oral Tablet [Reglan] Reglan 10 MG Latoya n 10 MG 05/14/2020 12:00:00 AM EST 1.0 {tablet_before_meals} active Reglan 10 MG eCW1 ([facility]) Metoclopramide 10 MG Oral Tablet [Reglan] Reglan 10 MG Latoya n 10 MG 05/14/2020 12:00:00 AM EST 1.0 {tablet_before_meals} active Reglan 10 MG eCW1 ([facility]) Metoclopramide 10 MG Oral Tablet [Reglan] Reglan 10 MG Latoya n 10 MG 05/14/2020 12:00:00 AM EST 1.0 {tablet_before_meals} active Reglan 10 MG eCW1 ([facility]) Metoclopramide 10 MG Oral Tablet [Reglan] Reglan 10 MG Latoya n 10 MG 05/14/2020 12:00:00 AM EST 1.0 {tablet_before_meals} active Reglan 10 MG eCW1 ([facility]) Metoclopramide 10 MG Oral Tablet [Reglan] Reglan 10 MG Latoya n 10 MG 05/14/2020 12:00:00 AM EST 1.0 {tablet_before_meals} active Reglan 10 MG eCW1 ([facility]) Glycerin 2000 MG Rectal Suppository Glycerin (Adult) 2 GM Gl ycerin (Adult) 2 GM 04/30/2020 12:00:00 AM EST active Glycerin (Adult) 2 GM eCW1 ([facility]) Glycerin 2000 MG Rectal Suppository Glycerin (Adult) 2 GM Gl ycerin (Adult) 2 GM 04/30/2020 12:00:00 AM EST active Glycerin (Adult) 2 GM eCW1 ([facility]) Glycerin 2000 MG Rectal Suppository Glycerin (Adult) 2 GM Gl ycerin (Adult) 2 GM 04/30/2020 12:00:00 AM EST active Glycerin (Adult) 2 GM eCW1 ([facility]) Glycerin 2000 MG Rectal Suppository Glycerin (Adult) 2 GM Gl ycerin (Adult) 2 GM 04/30/2020 12:00:00 AM EST active Glycerin (Adult) 2 GM eCW1 ([facility]) Glycerin 2000 MG Rectal Suppository Glycerin (Adult) 2 GM Gl ycerin (Adult) 2 GM 04/30/2020 12:00:00 AM EST active Glycerin (Adult) 2 GM eCW1 ([facility]) Glycerin 2000 MG Rectal Suppository Glycerin (Adult) 2 GM Gl ycerin (Adult) 2 GM 04/30/2020 12:00:00 AM EST active Glycerin (Adult) 2 GM eCW1 ([facility]) 4 mg 04/23/2020 12:00:00 AM EST tablet 45 TAKE ONE TABLET BY MOUTH EVERY 6 HOURS NEEDED FOR NAUSEA TAKE ONE TABLET BY MOUTH EVERY 6 HOURS A S NEEDED FOR NAUSEA SOLD: 05/15/2020 [facility] 4 mg 04/23/2020 12:00:00 AM EST tablet 45 TAKE ONE TABLET BY MOUTH EVERY 6 HOURS NEEDED FOR NAUSEA TAKE ONE TABLET BY MOUTH EVERY 6 HOURS A S NEEDED FOR NAUSEA SOLD: 04/23/2020 [facility] 0.4 ML Enoxaparin sodium 100 MG/ML Prefi lled Syringe [Lovenox] Lovenox 40 MG/0.4ML Lovenox 40 MG/0.4ML 04/10/2020 12:00:00 AM EST 0.4 {ml} active Lovenox 40 MG/0.4ML eCW1 ([facility]) 0.4 ML Enoxaparin sodium 100 MG/ML Prefi lled Syringe [Lovenox] Lovenox 40 MG/0.4ML Lovenox 40 MG/0.4ML 04/10/2020 12:00:00 AM EST 0.4 {ml} active Lovenox 40 MG/0.4ML eCW1 ([facility]) 0.4 ML Enoxaparin sodium 100 MG/ML Prefi lled Syringe [Lovenox] Lovenox 40 MG/0.4ML Lovenox 40 MG/0.4ML 04/10/2020 12:00:00 AM EST 0.4 {ml} active Lovenox 40 MG/0.4ML eCW1 ([facility]) 40 mg/0.4 mL 04/10/2020 12:00:00 AM EST syringe 12 INJECT 0.4ML UNDER THE SKIN ONCE DAILY INJECT 0.4ML UNDER THE SKIN ONCE DAILY SOLD: 04/10/2020 [facility] pantoprazole 40 MG Delayed Release Oral Tablet PANTOPRAZOLE SODIUM 03/13/2020 12:00:00 AM EST tablet,delayed release (DR/EC) 30 T FARIDA ONE TABLET BY MOUTH EVERY DAY TAKE ONE TABLET BY MOUTH EVERY DAY SOLD: 05/14/2020 [facility] pantoprazole 40 MG Delayed Release Oral Tablet PANTOPRAZOLE SODIUM 03/13/2020 12:00:00 AM EST tablet,delayed release (DR/EC) 30 T FARIDA ONE TABLET BY MOUTH EVERY DAY TAKE ONE TABLET BY MOUTH EVERY DAY SOLD: 03/14/2020 [facility] pantoprazole 40 MG Delayed Release Oral Tablet PANTOPRAZOLE SODIUM 03/13/2020 12:00:00 AM EST tablet,delayed release (DR/EC) 30 T FARIDA ONE TABLET BY MOUTH EVERY DAY TAKE ONE TABLET BY MOUTH EVERY DAY SOLD: 04/14/2020 [facility] Simethicone 80 MG Chewable Tablet Simethicone 03/05/2020 12:00:[address] active MEDENT ([facility] ) Ondansetron 4 MG Oral Tablet [Zofran] Zofran 4 MG Zofran 4 M G 02/18/2020 12:00:00 AM EDT 1.0 {tablet} active Zo david 4 MG eCW1 ([facility]) Ondansetron 4 MG Oral Tablet [Zofran] Zofran 4 MG Zofran 4 M G 02/18/2020 12:00:00 AM EDT 1.0 {tablet} active Zo david 4 MG eCW1 ([facility]) Ondansetron 4 MG Oral Tablet [Zofran] Zofran 4 MG Zofran 4 M G 02/18/2020 12:00:00 AM EDT 1.0 {tablet} active Zo david 4 MG eCW1 ([facility]) Ondansetron 4 MG Oral Tablet [Zofran] Zofran 4 MG Zofran 4 M G 02/18/2020 12:00:00 AM EDT 1.0 {tablet} active Zo david 4 MG eCW1 ([facility]) 4 mg 02/18/2020 12:00:00 AM EDT tablet 45 TAKE ONE TABLET BY MOUTH EVERY 8 HOURS NEEDED FOR NAUSEA TAKE ONE TABLET BY MOUTH EVERY 8 HOURS A S NEEDED FOR NAUSEA SOLD: 04/03/2020 [facility] Ondansetron 4 MG Oral Tablet [Zofran] Zofran 4 MG Zofran 4 M G 02/18/2020 12:00:00 AM EDT 1.0 {tablet} active Zo david 4 MG eCW1 ([facility]) Ondansetron 4 MG Oral Tablet [Zofran] Zofran 4 MG Zofran 4 M G 02/18/2020 12:00:00 AM EDT 1.0 {tablet} active Zo david 4 MG eCW1 ([facility]) Ondansetron 4 MG Oral Tablet [Zofran] Zofran 4 MG Zofran 4 M G 02/18/2020 12:00:00 AM EDT 1.0 {tablet} active Zo david 4 MG eCW1 ([facility]) Ondansetron 4 MG Oral Tablet [Zofran] Zofran 4 MG Zofran 4 M G 02/18/2020 12:00:00 AM EDT 1.0 {tablet} active Zo david 4 MG eCW1 ([facility]) 4 mg 02/18/2020 12:00:00 AM EDT tablet 45 TAKE ONE TABLET BY MOUTH EVERY 8 HOURS NEEDED FOR NAUSEA TAKE ONE TABLET BY MOUTH EVERY 8 HOURS A S NEEDED FOR NAUSEA SOLD: 02/19/2020 [facility] Progesterone 0.08 MG/MG Vaginal Gel [Crinone] Crinone 8 % Cr inone 8 % 02/15/2020 12:00:00 AM EDT suspended Crin one 8 % eCW1 ([facility]) Progesterone 0.08 MG/MG Vaginal Gel [Crinone] Crinone 8 % Cr inone 8 % 02/15/2020 12:00:00 AM EDT suspended Crin one 8 % eCW1 ([facility]) Progesterone 0.08 MG/MG Vaginal Gel [Crinone] Crinone 8 % Cr inone 8 % 02/15/2020 12:00:00 AM EDT suspended Crin one 8 % eCW1 ([facility]) Progesterone 0.08 MG/MG Vaginal Gel [Crinone] Crinone 8 % Cr inone 8 % 02/15/2020 12:00:00 AM EDT suspended Crin one 8 % eCW1 ([facility]) Progesterone 0.08 MG/MG Vaginal Gel [Crinone] Crinone 8 % Cr inone 8 % 02/15/2020 12:00:00 AM EDT suspended Crin one 8 % eCW1 ([facility]) Progesterone 0.08 MG/MG Vaginal Gel [Crinone] Crinone 8 % Cr inone 8 % 02/15/2020 12:00:00 AM EDT suspended Crin one 8 % eCW1 ([facility]) Progesterone 0.08 MG/MG Vaginal Gel [Crinone] Crinone 8 % Cr inone 8 % 02/15/2020 12:00:00 AM EDT suspended Crin one 8 % eCW1 ([facility]) Progesterone 0.08 MG/MG Vaginal Gel [Crinone] Crinone 8 % Cr inone 8 % 02/15/2020 12:00:00 AM EDT suspended Crin one 8 % eCW1 ([facility]) Fluconazole 150 MG Oral Tablet [Diflucan] Diflucan 150 MG Di flucan 150 MG 02/13/2020 12:00:00 AM EDT 1.0 {tablet} suspended Diflucan 150 MG eCW1 ([facility]) Fluconazole 150 MG Oral Tablet [Diflucan] Diflucan 150 MG Di flucan 150 MG 02/13/2020 12:00:00 AM EDT 1.0 {tablet} suspended Diflucan 150 MG eCW1 ([facility]) Fluconazole 150 MG Oral Tablet [Diflucan] Diflucan 150 MG Di flucan 150 MG 02/13/2020 12:00:00 AM EDT 1.0 {tablet} suspended Diflucan 150 MG eCW1 ([facility]) Fluconazole 150 MG Oral Tablet [Diflucan] Diflucan 150 MG Di flucan 150 MG 02/13/2020 12:00:00 AM EDT 1.0 {tablet} suspended Diflucan 150 MG eCW1 ([facility]) 150 mg 02/13/2020 12:00:00 AM EDT tablet 2 TAKE ONE TABLET BY MOUTH NOW, REPEAT IN 5 DAYS IF SYMPTOMS ARE STILL PRESENT TAKE ONE TABLET BY MOUTH NOW, REPEAT IN 5 DAYS IF SYMPTOMS ARE STILL PRESENT SOLD: 02/13/2020 [facility] Fluconazole 150 MG Oral Tablet [Diflucan] Diflucan 150 MG Di flucan 150 MG 02/13/2020 12:00:00 AM EDT 1.0 {tablet} suspended Diflucan 150 MG eCW1 ([facility]) Fluconazole 150 MG Oral Tablet [Diflucan] Diflucan 150 MG Di flucan 150 MG 02/13/2020 12:00:00 AM EDT 1.0 {tablet} suspended Diflucan 150 MG eCW1 ([facility]) Fluconazole 150 MG Oral Tablet [Diflucan] Diflucan 150 MG Di flucan 150 MG 02/13/2020 12:00:00 AM EDT 1.0 {tablet} suspended Diflucan 150 MG eCW1 ([facility]) Fluconazole 150 MG Oral Tablet [Diflucan] Diflucan 150 MG Di flucan 150 MG 02/13/2020 12:00:00 AM EDT 1.0 {tablet} suspended Diflucan 150 MG eCW1 ([facility]) Cephalexin 500 MG Oral Capsule CEPHALEXIN 02/11/2020 12:00:00 AM EDT capsule 20 TAKE ONE CAPSULE BY MOUTH EVERY 6 HOURS FOR 5 DAYS LAYLA E ONE CAPSULE BY MOUTH EVERY 6 HOURS FOR 5 DAYS SOLD: 02/12/2020 [facility] 100 mg 01/31/2020 12:00:00 AM EDT capsule 10 TAKE ONE CAPSULE BY MOUTH TWICE A DAY TAKE ONE CAPSULE BY MOUTH TWICE A DAY SOLD: 01/31/2020 [facility] 200 mg 01/31/2020 12:00:00 AM EDT tablet 6 TAKE ONE TABLET BY MOUTH THREE TIMES A DAY TAKE ONE TABLET BY MOUTH THREE TIMES A DAY SOLD: 01/31/2020 [facility] 300 mg 01/14/2020 12:00:00 AM EDT capsule 20 TAKE ONE CAPSULE BY MOUTH EVERY 12 HOURS FOR 10 DAYS TAKE ONE CAPSULE BY MOUTH EVERY 12 HOURS FOR 10 DAYS S OLD: 01/14/2020 [facility] 90 mcg/actuation 01/14/2020 12:00:00 AM EDT HFA aerosol inha ler 8 INHALE 2 PUFFS BY MOUTH THREE TIMES A DAY FOR 10 DAYS INHALE 2 PUFFS BY MOUTH THREE TIMES A DAY FOR 10 DAYS SOLD: 01/14/2020 [facility] 250 mg 01/04/2020 12:00:00 AM EDT tablet 6 TAKE TWO TABLETS BY MOUTH AT ONCE ON THE FIRST DAY THEN TAKE ONE DAILY THEREAFTER TAKE TWO TABLETS BY MOUTH AT ONCE ON THE FIRST DAY THEN TAKE ONE DAILY THEREAFTER SOLD: 01/04/2020 [facility] 4 mg 12/26/2019 12:00:00 AM EDT tablet,disintegrating 1 6 DISSOLVE ONE TABLET ON TONGUE EVERY 6 TO 8 HOURS NEEDED FOR NAUSEA AND VOMITING DISSOLVE ONE TABLET ON TONGUE EVERY 6 TO 8 HOURS NEEDED FOR NAUSEA AND VOMITING SOLD: 12/27/2019 [facility] 17.5-3.13-1.6 gram 12/05/2019 12:00:00 AM EDT recon soln 354 USE DIRECTED USE DIRECTED SOLD: 12/10/2019 [facility] Suprep Bowel Prep Kit Suprep Bowel Prep Kit 12/04/2019 12:00:00 AM EDT active [facility]ENT ([facility]) 24 HR Bupropion Hydrochloride 150 MG Extended Release Oral T ablet BUPROPION HCL 11/21/2019 12:00:00 AM EDT tablet extended release 24 hr 90 TAKE ONE TABLET BY MOUTH EVERY DAY TAKE ONE TABLET BY MOUTH EVERY DAY SOLD: 11/21/2019 [facility] pantoprazole 40 MG Delayed Release Oral Tablet PANTOPRAZOLE SODIUM 11/09/2019 12:00:00 AM EDT tablet,delayed release (DR/EC) 30 T FARIDA ONE TABLET BY MOUTH EVERY DAY TAKE ONE TABLET BY MOUTH EVERY DAY SOLD: 12/10/2019 [facility] pantoprazole 40 MG Delayed Release Oral Tablet PANTOPRAZOLE SODIUM 11/09/2019 12:00:00 AM EDT tablet,delayed release (DR/EC) 30 T FARIDA ONE TABLET BY MOUTH EVERY DAY TAKE ONE TABLET BY MOUTH EVERY DAY SOLD: 11/10/2019 [facility] pantoprazole 40 MG Delayed Release Oral Tablet PANTOPRAZOLE SODIUM 11/09/2019 12:00:00 AM EDT tablet,delayed release (DR/EC) 30 T FARIDA ONE TABLET BY MOUTH EVERY DAY TAKE ONE TABLET BY MOUTH EVERY DAY SOLD: 01/10/2020 [facility] pantoprazole 40 MG Delayed Release Oral Tablet PANTOPRAZOLE SODIUM 11/09/2019 12:00:00 AM EDT tablet,delayed release (DR/EC) 30 T FARIDA ONE TABLET BY MOUTH EVERY DAY TAKE ONE TABLET BY MOUTH EVERY DAY SOLD: 02/12/2020 [facility] 4 mg 10/30/2019 12:00:00 AM EDT tablet 10 TAKE ONE TABLET BY MOUTH TWICE A DAY NEEDED FOR NAUSEA AND VOMITING TAKE ONE TABLET BY MOUTH TWICE A DAY NEEDED FOR NAUSEA AND VOMITING SOLD: 10/30/2019 [facility] 24 HR Bupropion Hydrochloride 150 MG Extended Release Oral T ablet BUPROPION HCL 10/17/2019 12:00:00 AM EDT tablet extended release 24 hr 30 TAKE ONE TABLET BY MOUTH EVERY MORNING TAKE ONE TABLET BY MOUTH EVERY MORNING SOLD: 10/17/2019 [facility] pantoprazole (PROTONIX) 40 mg in 0.9% sodium chloride 10 mL injection 09/08/2019 02:32:00 PM EDT 40 mg IntraVENous completed 40 mg, IntraVENous, ONCE, 1 dose, 09/08/19 at 1432 [facility] Medication administered onsite sodium chloride 0.9 % bolus infusion 1,000 mL [id number] 09/08/2019 02:31:00 PM EDT 1000 mL IntraVENous completed 1, 000 mL, at 1,000 mL/hr, Administer over 60 Minutes, IntraVENous, 1 dose [facility] Medication administered onsite 1 ML Lorazepam 2 MG/ML Injection LORazepam (ATIVAN) in jection 1 mg LORazepam (ATIVAN) injection 1 mg 09/08/2019 02:31:00 PM EDT 1 mg IntraVENo us completed 1 mg, IntraVENous, ONCE, 1 dose, 09/08/19 at 1431 [facility] Medication administered onsite pantoprazole 40 MG Delayed Release Oral Tablet pantoprazole (Protonix) 40 mg tablet pantoprazole (Protonix) 40 mg tablet 09/08/2019 12:00:00 AM EDT 40 mg Oral active Take 1 Tab by mouth daily for 20 days. [facility] 24 HR Bupropion Hydrochloride 150 MG Ext ended Release Oral Tablet buPROPion XL (WELLBUTRIN XL) 150 mg tablet buPROPion XL (WELLBUTRIN XL) 150 mg tablet 08/17/2019 12:00:00 AM EDT 150 mg Oral active Take 1 Tab by mouth every morning. [facility] Dexamethasone 1 MG/ML / Tobramycin 3 MG/ ML Ophthalmic Suspension tobramycin- dexamethasone (TOBRADEX) ophthalmic suspension tobramycin-dexamethasone (TOBRADEX) ophthalmic suspension 08/09/2019 12:00:00 AM EDT 1 [drp] Right Eye aborted Acute follicular conjunctivitis of right eye Administer 1 Drop to right eye every four (4) hours (while awake). [facility] Acute follicular conjunctivitis of right eye Cefuroxime 250 MG Oral Tablet cefUROXime (CEFTIN) 250 mg tablet cefUROXime (CEFTIN) 250 mg tablet 06/12/2019 12:00:00 AM EST 250 mg Oral active Acute maxillary sinusitis, recurrence not specified Take 1 Tab by mouth two (2) times a day. [facility] Acute maxillary sinusitis, recurrence no t specified No Active Medications 05/23/2019 12:00:00 AM EST active MEDENT ([facility]) pantoprazole 40 MG Delayed Release Oral Tablet pantoprazole (PROTONIX) tablet 40 mg pantoprazole (PROTONIX) tablet 40 mg 04/20/2019 04:19:00 AM EST 40 mg Oral completed 40 mg, Oral, NOW, 1 dose, Tue04/20/19 at 0419 [email or web address] Medication administered onsite Aluminum Hydroxide 40 MG/ML / Magnesium Hydroxide 40 MG/ML / Simethicone 4 MG/ML Oral Suspension alum-mag hydroxide-simeth (MYLANTA) oral suspension 30 mL alum- mag hydroxide-simeth (MYLANTA) oral suspension 30 mL 04/20/2019 04:16:33 AM EST 30 mL Oral aborted 30 mL, Oral, JONATHAN RY 4 HOURS NEEDED, Starting Tue04/20/19 at 0416, Until Discontinued, Indigestion [facility] [facility] Medication administered onsite lansoprazole 30 MG Delayed Release Oral Capsule lansoprazole (PREVACID) 30 mg capsule lansoprazole (PREVACID) 30 mg capsule 04/20/2019 12:00:00 AM EST 30 mg Oral active Take 1 Cap by mouth hola y for 20 days. [facility] [facility] Insurance Providers Payer name Policy type / Coverage type Policy ID Covered republican ID Covered republican's relationship to manzanares Policy [place] Plan Information SELF PAY [facility] [id number] SP [id number] [facility] [id number] HU2 [id number] [facility] [id number] FA2 [id number] [facility] [id number] SP [id number] [facility] [[email or web address] [id number] [facility] [id number] SELF PAY ONLY [facility] O [id number] S [id number] [facility] O [id number] C [id number] [facility] EMPIRE BRAD DIV [id number] FA2 [id number] SELF PAY ONLY [id number] SP [id number] EMPIRE [employer] CLAIMS ONLY [id number] SP [id number] [facility] HUMANA - O/P [id number] 01 [id number] EMPIRE [facility] BLUE SHIELD -O/P [id number] 19 [id number] BC[employer] EMPIRE BRAD DIV [id number] FA2 [id number] [facility] [id number] SP [id number] [facility] [id number] 18 [id number] [facility] [place] [id number] [facility] THE EMPIRE PLAN [id number] [place] E[place] PPO [id number] GENERIC COMMERCIAL [id number] [facility] [id number] [place] P[place] [id number] [facility] THE EMPIRE PLAN [id number] [facility] PPO [id number] [employer] PPO [id number] GENERIC COMMERCIAL ERI, ELYSSA ERI, ELYSSA [facility] EMPIRE -PHYSICIAN [id number] 19 [id number] [facility] [id number] GENERIC COMMERCIAL Commerical [id number] [facility] PPO [id number] [facility] [id number] Child [id number] [place] [id number] Child [id number] [facility] AT [facility] [id number] 18 [id number] [facility] [id number] SP [id number] [facility] [id number] SP [id number] [facility] AT [facility] -PHYSICIAN [id number] 18 [id number] [facility] Commercial [id number] Self [id number] [facility] Commercial [id number] Self [id number] [facility] Commercial [id number] Self [id number] [facility] Commercial [id number] Self [id number] [facility] Commercial [id number] Self [id number] [facility] Commercial [id number] Self [id number] [employer] [place] [id number] [employer] PPO [id number] [facility] Commercial [id number] Self [id number] [facility] Commercial [id number] Self [id number] [facility] Commercial [id number] Self [id number] [facility] Commercial [id number] Self [id number] [facility] [id number] 18 [id number] [facility] [id number] 18 [id number] [facility] Commercial [id number] Self [id number] [facility] Commercial [id number] Self [id number] [facility] -PHYSICIAN [id number] 18 [id number] [facility] [id number] 18 [id number] [facility] AT [facility] -I/P [id number] 18 [id number] [facility] -I/P [id number] 18 [id number] [facility] [id number] 18 [id number] [facility] [place] [id number] 18 [id number] [facility] -[facility]YSICIAN [place] [id number] 18 [id number] [facility] Commercial [id number] Self [id number] [facility] Commercial [id number] Self [id number] [facility] Commercial [id number] Self [id number] [facility] Commercial [id number] Self [id number] [facility] Commercial [id number] Self 000 [id number] [facility] Commercial [id number] Self [id number] Problems, Conditions, and Diagnoses Code Display Name Description Problem Type Effective Dates Data Source(s) Z3A.11 [id number] 11 weeks gestation of Problem 2020 12:00:00 AM EST eCW1 ([facility]) Z34.80 care Supervision of other normal P roblem 04/04/2020 12:00:00 AM EST eCW1 ([facility]) [id number] Irritable bowel syndrome Irritable bowel syndrome Prob heath 12/04/2019 12:00:00 AM EDT MED[facility] ([facility]) [id number] Abdominal pain Abdominal pain Problem 11/09/2019 12:00: 00 AM EDT MEDENT ([facility]) H47515 Personal history of nicotine dependence Personal history of nicotine dependence Diagnosis 02/27/2020 08:00:00 PM [facility] Z7982 emt intermediate (current) use of aspirin emt intermediate (cu rrent) use of aspirin Diagnosis 02/27/2020 08:00:00 PM [facility] I4820 Chronic atrial fibrillation, unspecified Chronic atrial fibrillation, unspecified Diagnosis 02/27/2020 08:00:00 PM [facility] R1031 Right lower quadrant pain Right lower quadrant pain Di agnosis 02/27/2020 08:00:00 PM [facility] N760 Acute vaginitis Acute vaginitis Diagnosis 02/19/2020 05:4 7:00 PM EDT [facility] R102 Pelvic and perineal pain Pelvic and perineal pain Diag nosis 02/19/2020 05:47:00 PM EDT [facility] Z1331 Encounter for screening for depression E ncounter for screening for depression Diagnosis 11/09/2019 02:16:00 PM EDT [facility] J358 Other chronic diseases of tonsils and ad enoids Other chronic diseases of tonsils and adenoids Diagnosis 11/09/2019 02:16:[address] [facility] N924 Excessive bleeding in the premenopausal period Excessive bleeding in the premenopausal period Diagnosis 11/09/2019 02:16:[address] [facility] R110 Nausea Nausea Diagnosis 11/09/2019 02:16:00 PM ED T [facility] R109 Unspecified abdominal pain Unspecified abdominal pain Diagnosis 11/09/2019 02:16:00 PM EDT [facility] J06.9 Acute upper respiratory infection, unspe cified Acute upper respiratory infection, unspecified Diagnosis 09/11/2019 04:19:06 PM [facility]T [facility] [place] R07.89 Other chest pain Other chest pain Diagnosis 09/08/2019 02 :15:33 PM EDT [facility] K21.0 Gastro-esophageal reflux disease with es ophagitis Gastro-esophageal reflux disease with esophagitis Diagnosis 08/17/2019 01:01:34 PM EDT [facility] Z20.828 Contact with and (suspected) exposure to other viral communicable diseases Contact with and (suspected) exposure to other viral communicable diseases Diagnosis 08/09/2019 03:56:08 PM EDT [facility] H10.011 Acute follicular conjunctivitis, right e ye Acute follicular conjunctivitis, right eye Diagnosis 08/09/2019 02:10:08 PM EDT [facility] Z20.828 Contact with and (suspected) exposure to other viral communicable diseases Contact with and (suspected) exposure to other viral communicable diseases Diagnosis 08/09/2019 02:10:08 PM EDT [employer] Z00.00 Encounter for general adult medical examination without abnormal findings Encounter for general adult medical examination withou t abnormal findings Diagnosis 06/18/2019 11:30:00 AM [facility] J020 Streptococcal pharyngitis Streptococcal pharyngitis Di agnosis 05/23/2019 05:15:00 PM [facility] R05 Cough Cough Diagnosis 05/23/2019 05:15:00 PM ES [facility] K21.9 Gastro-esophageal reflux disease without esophagitis Gastro-esophageal reflux disease without esophagitis Diagnosis 04/20/2019 04:01:51 AM ES [facility] Surgeries/Procedures Procedure Description Date Indications Data Source(s) Brief Emotional/Behav Assessment W/ Scoring Doc Per Standard Inst 11/09/2019 12:00:00 AM EDT MEDENT ([facility]) Admin Patient Focused Health Risk Assessment Instrument 11/09/2019 12:00:00 AM EDT [facility] ([facility]) HCG QL SERUM HCG QL SERUM STAT 09/08/2019 2:40 PM EDT 09/08/2019 02:40:00 PM EDT [employer] CBC WITH AUTOMATED DIFF CBC WITH AUTOMATED DIFF STAT 0 2:40 PM EDT 09/08/2019 02:40:00 PM EDT [employer] METABOLIC PANEL, COMPREHENSIVE METABOLIC PANEL, COMPREHENSIVE S TAT 09/08/2019 2:40 PM EDT 09/08/2019 02:40:00 PM EDT [facility] [employer] MAGNESIUM MAGNESIUM STAT 09/08/2019 2:40 PM EDT 09/08/2019 02:40:00 PM EDT [employer] LIPASE LIPASE STAT 09/08/2019 2:40 PM EDT 09/08/19 20 02:40:00 PM EDT [employer] EKG, 12 LEAD, INITIAL EKG, 12 LEAD, INITIAL STAT 09/08/2019 2:2 5 PM EDT 09/08/2019 02:25:51 PM EDT [email or web address] QUANTIFERON-TB PLUS,RFLX QUANTIFERON-TB PLUS,RFLX Routine 06/18/2019 12:28 PM EST 06/18/2019 05:28:00 PM EST [facility] [email or web address] TB CELL MEDIATED ANTIGN RESPNSE GAMMA INTERFERON QUANTIFERO N-TB GOLD PLUS Routine 06/18/2019 12:28 PM EST Routine general medical examination at a health care facility 06/18/2019 05:28:00 PM EST Routine general medical examination at a health care [facility] Routine general medical examination at a health care facility HC REF HEPATITIS B SURFACE ANTI HC REF HEPATITIS B SURFACE ANTI Routine 06/18/2019 12:28 PM EST Routine general medical examination at a health care facility 06/18/2019 05:28:00 PM EST Routine general medical examination at a [facility] Routine general medical examination at a health care facility XR CHEST PA LAT XR CHEST PA LAT STAT 04/20/2019 4:42 AM EST 04/20/2019 09:42:32 AM EST [employer] CBC WITH AUTOMATED DIFF CBC WITH AUTOMATED DIFF STAT 9 4:23 AM EST 04/20/2019 09:23:00 AM EST [employer] [employer] TROPONIN I TROPONIN I STAT 04/20/2019 4:23 AM EST 04/20/2019 09:23:00 AM EST [employer] METABOLIC PANEL, COMPREHENSIVE METABOLIC PANEL, COMPREHENSIVE S TAT 04/20/2019 4:23 AM EST 04/20/2019 09:23:00 AM EST [email or web address] LIPASE LIPASE STAT 04/20/2019 4:23 AM EST 04/20/20 09:23:00 AM EST [employer] EKG, 12 LEAD, SUBSEQUENT EKG, 12 LEAD, SUBSEQUENT STAT 4:19 AM EST 04/20/2019 09:19:41 AM EST [employer] EKG, 12 LEAD, INITIAL EKG, 12 LEAD, INITIAL STAT 04/20/2019 4:0 6 AM EST 04/20/2019 09:06:17 AM EST [facility] Results ID Date Data Source UA URINALYSIS 05/19/2020 12:00:00 AM EST eCW1 ([facility]) Name Value Range Interpretation Code Description Data Jie rce(s) Supporting Document(s) UA URINALYSIS eCW1 ([facility]) ID Date Data Source H PYLORI STOOL ANTIGEN 05/09/2020 12:00:00 AM EST eCW1 ([facility]) Name Value Range Interpretation Code Description Data Jie rce(s) Supporting Document(s) Negative Negative H PYLORI STOOL ANTIGEN eC W1 ([facility]) ID Date Data Source [id number] 05/05/2020 12:30:00 PM EST [facility] Name Value Range Interpretation Code Description Data Jie rce(s) Supporting Document(s) SARS coronavirus 2 RNA Not Detected [facility] [place] This lab was ordered by [facility] and reported by [facility]. ID Date Data Source ANTI-CARDIOLIPIN ANTIBODIES 04/10/2020 12:00:00 AM EST eCW1 ([facility]) Name Value Range Interpretation Code Description Data Jie rce(s) Supporting Document(s) <9 0-11 eCW1 ([facility]) 11 0-12 eCW1 ([facility]) <9 0-14 eCW1 ([facility]) ID Date Data Source HBSAG 04/10/2020 12:00:00 AM EST eCW1 ([facility]) Name Value Range Interpretation Code Description Data Jie rce(s) Supporting Document(s) NEGATIVE NEGATIVE eCW1 ([facility]) ID Date Data Source URINE CULTURE 04/10/2020 12:00:00 AM EST eCW1 ([facility]) Name Value Range Interpretation Code Description Data Jie rce(s) Supporting Document(s) eCW1 ([facility]) ID Date Data Source RUBELLA IMMUNE STATUS IgG 04/10/2020 12:00:00 AM EST eCW1 ([facility]) Name Value Range Interpretation Code Description Data Jie rce(s) Supporting Document(s) IMMUNE IMMUNE eCW1 ([facility]) ID Date Data Source SYPHILIS ANTIBODY (RPR SCREEN) 04/10/2020 12:00:00 AM EST eC W1 ([facility]) Name Value Range Interpretation Code Description Data Jie rce(s) Supporting Document(s) NONREACTIVE NONREACTIVE eCW1 ([facility]) ID Date Data Source [id number] 04/10/2020 12:00:00 AM EST eCW1 ([facility]) Name Value Range Interpretation Code Description Data Jie rce(s) Supporting Document(s) eCW1 ([facility]) ID Date Data Source HEPATITIS C ANTIBODY INDEX 04/10/2020 12:00:00 AM EST eCW1 ( [facility]) Name Value Range Interpretation Code Description Data Jie rce(s) Supporting Document(s) 0.2 <0.8 eCW1 ([facility]) ID Date Data Source CBC - Complete Blood Count 04/10/2020 12:00:00 AM EST eCW1 ( [facility]) Name Value Range Interpretation Code Description Data Jie rce(s) Supporting Document(s) 4.06 4.00-5.40 eCW1 ([facility]) 38.7 36.0-47.0 eCW1 ([facility]) 12.4 12.0-15.5 eCW1 ([facility]) 10.4 4.0-10.0 eCW1 ([facility]) 32.0 32.0-36.5 eCW1 ([facility]) 11.9 11.5-14.5 eCW1 ([facility]) 249 150-450 eCW1 ([facility]) 95.3 80.0-96.0 eCW1 ([facility]) 30.5 27.0-33.0 eCW1 ([facility]) ID Date Data Source Type and Screen Prenatal1 04/10/2020 12:00:00 AM EST eCW1 ([facility]) Name Value Range Interpretation Code Description Data Jie rce(s) Supporting Document(s) NEGATIVE eCW1 ([facility]) ID Date Data Source [id number] 02/27/2020 08:00:00 PM EST [facility] 1 OrderSheet [facility] Emergency Department [address] [place] [address] Phone #: ext- [phone] 02/27/2020 19:47 Patient: ELYSSA PFEIFFER Sex: F : 1995 Age: 24yWEIGHT:80.7 kg HEIGHT:66 inches (S) BMI:28.7ALLERGIES: No Known Drug AllergyCHIEF COMPLAINT: abdominal painDIAGNOSIS: Abdominal painLAB ORDERSOrder Description Priority Entered Acknowledged InitialedCBC w Diff STAT 20:07 02/27/2020 20:20 Petra Beltran Riccardo Lynnette R.N. M.D.;CMP STAT 20:07 02/27/2020 20:20 Petra Beltran Riccardo Lynnette R.N. M.D.;Lipase STAT 20:07 02/27/2020 20:20 Petra Beltran Riccardo Lynnette R.N. M.D.;Urinalysis (Clean STAT 20:07 02/27/2020 20:14 DevinCatch) Cedric Ohara R.N. M.D.;Beta-HCG, Qual STAT 20:07 02/27/2020 20:20 Devin,Serum Cedric Ohara R.N. M.D.;Lactic Acid STAT 20:07 02/27/2020 20:20 ePtra Beltran Riccardo Lynnette R.N. M.D.;DIAGNOSTIC STUDY ORDERSOrder Description Priority Entered Acknowledged InitialedMEDICATION/IV/DRIP/FLUID ORDERSOrder Description Priority Entered Acknowledged InitialedNS IV 1000 mL 20:08 02/27/2020 20:22 Devin,Bolus: : Bolus 1000 Cedric Ohara R.N.mL (X1) M.DMarquis;Toradol 15 mg IVP 20:08 02/27/2020 20:24 Erica Beltran dose: 15 mg Cedric Ohara R.N.(NOW x1) M.DMarquis;Zofran 4 mg IVP X 1 20:08 02/27/2020 Cancelled: Physician Order 20:13 Turrin, 2 OrderSheet [facility] Emergency Department [address] [place] [address] Phone #: ext- [phone] 02/27/2020 19:47 Patient: ELYSSA PFEIFFER Sex: F : 1995 Age: 24ydose: 4 mg (NOW Cedric Ohara MAshax1) M.D.;GENERAL ORDERSOrder Description Priority Entered Acknowledged InitialedNPO 20:07 02/27/2020 20:14 Petra Beltran Riccardo Lynnette R.N. M.D.;Saline Lock 20:07 02/27/2020 20:14 Petra Beltran Riccardo Lynnette R.N. M.D.;[Electronically signed by Kim Beltran R.N. (21:44 02/27/2020)][Electronically signed by Cedric Ohara M.D. (08:34 02/28/2020)][Electronically locked by Kim Beltran R.N. (21:44 02/27/2020)] Name Value Range Interpretation Code Description Data Jie rce(s) Supporting Document(s) ID Date Data Source [id number] 02/27/2020 08:00:00 PM EST [facility] 1 Medication Reconciliation Report [facility] Emergency Department [address] [place] [address] Phone #: ext- [phone] 02/27/2020 19:47 [id number] Sex[facility] F : 1995 Age: 24yWeight: 80.7 kgHeight/Length: 66 in.BMI: 28.7ALLERGIES: No Known Drug AllergyThe patient's Home Medications are listed below:CONTINUE TAKING THE FOLLOWING MEDICATIONS: Aspirin Oral Pantoprazole Sodium Oral Wellbutrin Oral Zofran ODT OralThe source(s) of the original Home Medication information:patientThe following Medications were given to the patient in the Emergency Department:NS IV bolus 0, then 1000ml, administered: 02/27/2020 8:22:00 PMToradol [IVP] IVP 15 mg, administered: 02/27/2020 8:24:00 PMThe following Medications were prescribed to the patient:None. Name Value Range Interpretation Code Description Data Jie rce(s) Supporting Document(s) ID Date Data Source [id number] 02/27/2020 08:00:00 PM EST [facility] 1 Medication Administration Record [facility] Emergency Department [address] [place] [address] Phone #: ext- [phone] 02/27/2020 19:47 Patient: ELYSSA PFEIFFER Sex: F : 1995 Age: 24yWeight: 80.7 kgHeight/Length: 66 inBMI: 28.7ALLERGIES: No Known Drug Allergy Date/Time Medication Administered Medication OrderedStart NS * NS IV 1000 mL Bolus: : Bolus [id number] 02/27/2020 Dose: 1000ml * IV mL (X1)Kim Beltran R.N.----Stop21:04 02/27/2020Kim Beltran R.N.Given TORADOL [IVP] (KETOROLAC Toradol 15 mg IVP X1 dose: 15 mg20:24 02/27/2020 TROMETHAMINE) (NOW x1)Kim Beltran R.N. Dose: 15 mg IVP Site: #1 left Name Value Range Interpretation Code Description Data Jie rce(s) Supporting Document(s) ID Date Data Source [id number] 02/27/2020 08:00:00 PM EST [facility] 1 General Instructions [facility] Emergency Department [address] [place] [address] Phone #: ext- [phone] 02/27/2020 19:47 Patient: [id number] Sex: F : 1995 Age: 24yAcute right lower quadrant abdominal pain of unknown cause, now resolved.INSTRUCTIONSDrink plenty of fluids. Avoid alcohol. Avoid fatty, fried/greasy, lactose-containing (such as milk, cheeseand ice cream), salty and spicy foods. No alcohol. Do not smoke.Warnings: Further evaluation is necessary. It is very important to follow up with a healthcare provider.GENERAL WARNINGS: Return or contact your physician immediately if your condition worsens orchanges unexpectedly, if not improving as expected, or if other problems arise. SPECIFICALLY, return ifyou develop pain in the abdomen, pelvis, back or shoulder, fever, vomiting, the inability to keep fluidsdown, blood in vomitus, blood in diarrhea, fainting, lightheadedness or vaginal bleeding.Your Current Medications: Your current home medications have been reviewed.CONTINUE TAKING THE FOLLOWING MEDICATIONS:Aspirin Oral.Pantoprazole Sodium Oral.Wellbutrin Oral.Zofran ODT Oral.Follow-up:Return to the emergency department as needed. Follow up with your healthcare provider in two days ifnot better. Call for an appointment. Reason for referral: evaluation and treatment. Summary of careprovided to patient via paper.Understanding of the discharge instructions verbalized by patient. Expected course of illness, dischargeinstructions, activity level, diet, follow-up appointment and risks and benefits of treatment reviewed withpatient and understanding verbalized. Agrees to plan of care. ADDITIONAL INFORMATIONUnknown Causes of Abdominal Pain (Female) 2 General Instructions [facility] Emergency Department [address] [place] [address] Phone #: ext- [phone] 02/27/2020 19:47 Patient: ELYSSA PFEIFFER Sex: F : 1995 Age: 24yThe exact cause of your belly (abdominal) pain is not clear. This does not mean that this is somethingto worry about. Everyone likes to know the exact cause of the problem. But sometimes with bellypain, there is no clear-cut cause, and this could be a good thing. The good news is that yoursymptoms can be treated, and you will feel better.Your condition does not seem serious now. But sometimes the signs of a serious problem may takemore time to appear. For this reason, it is important for you to watch for any new symptoms,problems, or worsening of your condition.Over the next few days, the abdominal pain may come and go. Or it may be constant. Other commonsymptoms can include nausea and vomiting. Sometimes it can be difficult to tell if you feel nauseous.You may just feel bad and not connect that feeling to nausea. Constipation, diarrhea, and a fever maygo along with the pain.The pain may continue even if treated correctly over the following days. Depending on how things go,sometimes the cause can become clear and may need more or different treatment. Additionalevaluations, medicines, or tests may also be needed.Home careYour healthcare provider may prescribe medicine for pain, symptoms, or an infection. Follow thehealthcare provider's instructions for taking these medicines. 3 General Instructions [facility] Emergency Department [address] [place] [address] Phone #: ext- [phone] 02/27/2020 19:47 Patient: ELYSSA PFEIFFER Sex: F : 1995 Age: 24yGeneral care Rest as much as you can until your next exam. No strenuous activities. Try to find positions that ease discomfort. A small pillow placed on the abdomen may help relieve pain. Something warm on your abdomen (such as a heating pad) may help, but be careful not to burn yourself.Diet Don't force yourself to eat, especially if having cramps, vomiting, or diarrhea. Water is important so you don't get dehydrated. Soup may also be good. Sports drinks may also help, especially if they are not too acidic. Don't drink sugary drinks as this can make things worse. Take liquids in small amounts. Don't guzzle them. Caffeine sometimes makes the pain and cramping worse. Don't take dairy products if you have vomiting or diarrhea. Don't eat large amounts at a time. Wait a few minutes between bites. Eat a diet low in fiber (called a low-residue diet). Foods allowed include refined breads, white rice, fruit and vegetable juices without pulp, tender meats. These foods will pass more easily through the intestine. Don't have whole-grain foods, whole fruits and vegetables, meats, seeds and nuts, fried or fatty foods, dairy, alcohol and spicy foods until your symptoms go away.Follow-up careFollow up with your healthcare provider, or as advised, if your pain does not begin to improve in thenext 24 hours.Call [phone] if any of these occur: Trouble breathing Confusion Fainting or loss of consciousness Rapid heart rate 4 General Instructions [facility] Emergency Department [address] [place] [address] Phone #: ext- [phone] 02/27/2020 19:47 Patient: ELYSSA PFEIFFER Sex: F : 1995 Age: 24y SeizureWhen to seek medical adviceCall your healthcare provider right away if any of these occur: Pain gets worse or moves to the right lower abdomen New or worsening vomiting or diarrhea Swelling of the abdomen Unable to pass stool for more than 3 days Fever of 100.4F (38C) or higher, or as directed by your healthcare provider. Blood in vomit or bowel movements (dark red or black color) Yellow color of eyes and skin (jaundice) Weakness, dizziness Chest, arm, back, neck, or jaw pain Unexpected vaginal bleeding or missed period Can't keep down liquids or water and you are getting dehydrated [phone] [employer]. [address] [place] [address]. All rights reserved. This information is not intended as asubstitute for professional medical care. Always follow your healthcare professional's instructions. You have been given the following additional information: Abdominal Pain, Unknown Cause, (Female)(Electronically signed by Cedric Ohara M.D. 02/28/2020 08:34) Name Value Range Interpretation Code Description Data Jie rce(s) Supporting Document(s) ID Date Data Source [id number] 02/27/2020 08:00:00 PM EST [facility] 1 Clinical Report - Nurses [facility] Emergency Department [address] [place] [address] Phone #: [phone]- [phone] 02/27/2020 19:47 Patient: ELYSSA PFEIFFER Sex: F : 1995 Age: 24yTRIAGEArrived by private vehicle. Historian: patient. ( pt reports sudden onset right sided abd pain that startedafter she came home from work. Pt has hx of colitis and diverticulitis. pt took 8mg of zofran [employer]. Pt reportsshe has a prescription. Pt saw GI over the summer (Sally) Pt did not get a colonoscopy.).Triage time: 19:48 02/27/2020. Acuity: LEVEL 3.Alert.This started just prior to arrival. 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 The patient has hadnausea (zofran not helping). Last oral intake by patient was (1700).Treatment [employer]:(zofran). --19:54 02/27/20 Kim Beltran R.N.19:48 02/27/20. BP: 131/72. HR: 84. RR: 19. O2 saturation: 98%. Temp: 96.9 F. Pain level now 11/01.--19:54 02/27/20 Kim Beltran R.N.Chief Complaint: ABDOMINAL PAIN.20:43 02/27/20. --21:43 02/27/20 Kim Beltran R.N.Weight: 80.7 kg. Height/Length: 66 inches Per Patient. BMI: 28.7. --19:47 02/27/20 Kim Beltran R.N.MedicationsZofran ODT Oral. --19:55 02/27/20 Kim Beltran R.N. Pantoprazole Sodium Oral. --19:55 02/27/20 Kim Beltran R.N. Wellbutrin Oral. --19:55 02/27/20 Kim Beltran R.N. Aspirin Oral. --19:55 02/27/20 Kim Beltran R.N.AllergiesNo Known Drug Allergy. --19:55 02/27/20 Kim Beltran R.N.PROBLEMS:GERD.Diverticulosis. --19:56 02/27/20 Kim Beltran R.N.Anxiety Reaction.Atrial Fibrillation: (Pt admitted for this once about 2 years ago at [facility] but never had another episode. ptsaw dr way). --20:12 02/27/20 Cedric Ohara M.D.Colitis. --20:16 02/27/20 Cedric Ohara M.D.The following entry was modified by Cedric Ohara M.D., 20:12 02/27/20Atrial Fibrillation: (Pt admitted for this once about 2 years ago at [facility] but never had another episode. pt 2 Clinical Report - Nurses [facility] Emergency Department [address] [place] [address] Phone #: ext- [phone] 02/27/2020 19:47 Patient: ELYSSA PFEIFFER Sex: F : 1995 Age: 24[address]). --19:56 02/27/20 Kim Beltran R.N. The following entry was modified by Cedric Ohara M.D., 20:12 02/27/20 Anxiety Reaction. --19:56 02/27/20 Kim Beltran R.N. The following entry was modified by Cedric Ohara M.D., 20:16 02/27/20 Colitis. --19:55 02/27/20 Kim Beltran R.N.. Medication/allergy information source: the patient. --19:54 02/27/20 Kim Beltran R.N. ADDITIONAL SURGERIES: Cholecystectomy. --19:56 02/27/20 Kim Beltran R.N. History PAST MEDICAL HX: Immunizations: up-to-date. Last normal menstrual period- february 19. SOCIAL HX: Former smoker. No alcohol use or drug use. No recent travel. No known contact with a sick individual. The patient was offered HIV testing but declined and hepatitis C testing but declined. The patient has not traveled outside the [place] Infectious disease exposure: No infectious disease exposure. SELF HARM ASSESSMENT: Self harm assessment was performed. The patient answered "no" to the question(s) "Have you recently felt down, depressed, or hopeless?", "Do you have thoughts of harming or killing yourself?", "Do you have a plan for harming or killing yourself?", "Have you recently had thoughts about harming or killing others?", "Do you have any dangerous items in your possession?", "Have you noticed less interest or pleasure in doing things?", "Are you here because you tried to hurt yourself?" and "Have you ever tried to hurt yourself before today?". ABUSE ASSESSMENT: Abuse assessment. No suspicion of abuse. No report of abuse. NUTRITIONAL RISK ASSESSMENT: The nutritional risk assessment revealed no deficiencies. FUNCTIONAL ASSESSMENT: Functional assessment: no impairments noted. LEARNING NEEDS ASSESSMENT: The learning needs assessment revealed no barriers. FALL RISK ASSESSMENT: Fall risk assessment completed per protocol. SKIN INTEGRITY ASSESSMENT: Skin integrity risk assessment completed. No skin integrity risk identified. --19:54 02/27/20 Kim Beltran R.N.PHYSICAL ASSESSMENTGENERAL / NEURO / PSYCH: Alert. Oriented X 4. Appears in pain.RESPIRATORY: Respirations not labored.CVS: Normal sinus rhythm noted.GI / : Abdomen soft. Abdominal t enderness diffusely and in the right side of the abdomen. Guardingpresent. Bowel sounds within normal limits. No diarrhea. No CVA tenderness. No blood in the stool. 3 Clinical Report - Nurses [facility] Emergency Department [address] [place] [address] Phone #: ext- [phone] 02/27/2020 19:47 Patient: ELYSSA PFEIFFER Sex: F : 1995 Age: 24y ( pt reports pain in right side does radiate into back slightly and to other side of abd). SKIN: Skin is warm and dry. --19:59 02/27/20 Kim Beltran R.N.NURSING PROGRESS NOTESThe plan of care for this patient has been created. Patient gowned. Head of bed elevated.Reassurance given. Call light placed in reach. Bed placed in lowest position. Brakes of bed on.Patient ready for evaluation. --19:54 02/27/20 Kim Beltran R.N. 20:22 02/27/2020 NS * IV 1000ml --20:22 02/27/20 Kim Beltran R.N. 20:23 02/27/2020 Site #1 started via IV in the left antecubital space with an 20g angiocath, with aseptic technique and good blood return; one attempt. Blood drawn: rainbow set. Labeled in the presence of the patient and sent to the lab. Saline lock flushed with 5 mL saline. --20:23 02/27/20 Kim Beltran R.N. 20:24 02/27/2020 Toradol (Ketorolac Tromethamine) IVP 15 mg given over 30 second(s) via site #1. Allergies verified and confirmed 5 rights. IV patency established. IV site checked: no pain, redness, or swelling. IV flushed thoroughly pre- and post- medication administration. IVP given by RN. Information reviewed with patient including reason for taking this medication. Verbalizes understanding. --20:24 02/27/20 Kim Beltran R.N. The patient reports no complaints and she is calm. ( pt resting in room. awaiting further tx plan. pt medicated for pain. will continue to monitor.). --20:41 02/27/20 Kim Beltran R.N. 21:04 02/27/2020 NS IV Discontinued: bag #1 completed. Total amount infused: 1000 mL. IV patency established. IV site checked: no pain, redness, or swelling. IV flushed thoroughly. --21:04 02/27/20 Kim Beltran R.N. Overall patient status is improved. --21:41 02/27/20 Kim Beltran R.N. 21:38 02/27/2020 Site #1 removed upon discharge. Bandaid applied. --21:43 02/27/20 Kim Beltran R.N.DISPOSITION / DISCHARGE Departure time: 21:41 02/27/2020. Condition at departure: stable. No learning barriers present. Reviewed medication(s). Reviewed diet. Patient verbalized understanding. Written instructions provided in Hebrew. The patient was discharged by the physician. She was discharged home and unaccompanied at time of discharge. She left ambulatory and via private vehicle. Patient driving. Medication list reviewed and validated. --21:43 02/27/20 Kim Beltran R.N. 21:41 02/27/20. BP: deferred. HR: 80. RR: 16. O2 saturation: 98% on room air. Temp: 97.8 F. Pain level now: 0/10. Additional comments: PT DECLINED. --21:43 02/27/20 Kim Beltran R.N. 4 Clinical Report - Nurses [facility] Emergency Department [address] [place] [address] Phone #: ext- [phone] 02/27/2020 19:47 Patient: ELYSSA PFEIFFER Sex: F : 1995 Age: 24yLocked/Released at 02/27/2020 21:44 by Kim Beltran R.N. Name Value Range Interpretation Code Description Data Jie rce(s) Supporting Document(s) ID Date Data Source [id number] 02/27/2020 08:00:00 PM EST [facility] 1 Clinical Report - Physicians/Mid Levels [facility] Emergency Department [address] [place] [address] Phone #: ext- [phone] 02/27/2020 19:47 Patient: ELYSSA PFEIFFER Sex: F : 1995 Age: 24y Time Seen: 20:00 02/27/2020; initial patient contact. Arrived- By private vehicle. Historian- patient. Disposition decision: 21:31 02/27/2020.HISTORY OF PRESENT ILLNESS Chief Complaint: ABDOMINAL PAIN. It is described as "pain" and sharp. No radiation. It is described as located in the right abdomen and right lower quadrant. This started 3 hours ago and is still present. It was abrupt in onset and has been constant. At its maximum, severity described as severe and 8 / 10. When seen in the E.D., severity described as severe and 8 / 10. Modifying factors. Not worsened by anything. Not relieved by anything. The patient has had nausea. No loss of appetite, vomiting or diarrhea. No recent travel. Similar symptoms previously. Patient has had similar symptoms many times. ( has Hx of recurrent abdominal pain, has been here a few times for this; was dxed w colitis on CT in 2019; saw 2 GI's this year, no colonoscopy yet, was told she has IBS). Recent medical care: Not recently seen/assessed.REVIEW OF SYSTEMSNo constipation, black stools, hematemesis, difficulty with urination or pain with urination. No urinaryfrequency, bloody stools, fever, headache or sore throat. No blurred vision, chest pain, difficulty breathing,cough or joint pain. No skin rash, chills or back pain. The patient has not had weight loss. All othersystems reviewed and are negative.PAST HISTORYSee nurses notes. Problems: Colitis. Gastroesophageal Reflux Disease. Anxiety Reaction. Atrial Fibrillation. GERD. Diverticulosis. Additional Surgeries: Cholecystectomy. Medications: Aspirin Oral. 2 Clinical Report - Physicians/Mid Levels [facility] Emergency Department [address] [place] [address] Phone #: [phone] 02/27/2020 19:47 Patient: ELYSSA PFEIFFER Sex: F : 1995 Age: 24y Wellbutrin Oral. Pantoprazole Sodium Oral. Zofran ODT Oral. Allergies: No Known Drug Allergy.SOCIAL HISTORYFormer smoker. No alcohol use or drug use.ADDITIONAL NOTESThe nursing notes have been reviewed with agreement regarding the chief complaint, HPI, ROS, PMH andpatient medications and allergies.PHYSICAL EXAMVital Signs: 02/27/2020 19:48 BP: 131/72. MAP: 91. HR: 84. RR: 19. O2 saturation: 98%. Temp: 96.9 F.Have been reviewed. Oxygen saturation normal.Appearance: Alert. Oriented X3. No acute distress.Eyes: Pupils equal, round and reactive to light. Eyes normal inspection.ENT: Ears normal. Nose normal. Pharynx normal.Neck: Normal inspection. Neck supple.CVS: Normal heart rate and rhythm. Heart sounds normal. Pulses normal.Respiratory: No respiratory distress. Painless inspiration. Breath sounds normal. Chest nontender.Abdomen: Soft. Mild tenderness in the right side of the abdomen and right lower quadrant. No guardingor rebound tenderness. Bowel sounds normal. No organomegaly. No mass. Femoral pulses equal.Back: Normal inspection. No CVA tenderness.Skin: Skin warm and dry. Normal skin color. No rash. Normal skin turgor.Extremities: Extremities exhibit normal ROM. No lower extremity edema.Neuro: Oriented X 3. No motor deficit. No sensory deficit. Reflexes normal.LABS, X-RAYS, AND EKGLaboratory Tests: Laboratory tests have been ordered, with results reviewed and considered in themedical decision making process. CBC w Diff: (JELLY: 02/27/2020 20:17) ( MsgRcvd 02/27/2020 20:30) Final results Test Result Flag Units (Reference) CBC W/AUTOMATED DIFF COMPLETE BLOOD COUNT WBC 9.7 10/uL (4.2 - 11.0) RBC 4.18 L 10/uL (4.20 - 5.40) HEMOGLOBIN 13.3 g/dL (12.0 - 16.0) HEMATOCRIT 39.2 % (37.0 - 47.0) MCV 93.8 fL (81.0 - 101) MCH 31.8 pg (27.0 - 34.0) MCHC 33.9 g/dL (31.0 - 36.0) RDW 11.8 % (11.5 - 14.5) PLATELETS 265 10/uL (150 - 450) MPV 8.6 fL (7.4 - 10.4) NEUT 67.0 % (37.0 - 80.0) 3 Clinical Report - Physicians/Mid Levels [facility] Emergency Department [address] [place] [address] Phone #: ext- [phone] 02/27/2020 19:47 Patient: ELYSSA PFEIFFER Sex: F : 1995 Age: 24y LYMPH 22.3 L % (25.0 - 40.0) MONO 7.7 % (3.0 - 8.0) EOS 2.3 % (0.0 - 7.0) BASO 0.5 % (0.0 - 2.5) %IG 0.2 H % (0.0 - 0.0) %NRBC 0.0 % (0.0 - 0.0) #NEUT 6.53 10/uL (2.00 - 6.90) #LYMPH 2.17 10/uL (0.60 - 3.40) #MONO 0.75 10/uL (0.00 - 0.90) #EOS 0.22 10/uL (0.00 - 0.70) #BASO 0.05 10/uL (0.00 - 0.20) #IG 0.02 10/uL (0.00 - 0.10) #NRBC 0.00 10/uL (0.00 - 0.00) MANUAL DIFF NOT INDICATED RBC MORPH NOT INDICATEDCMP: (JELLY: 02/27/2020 20:17) ( MsgRcvd 02/27/2020 20:51) Final results Test Result Flag Units (Reference) COMPREHENSIVE METABOLIC PANEL COMPREHENSIVE METABOLIC PANEL SODIUM 138 mEq/L (134 - 153) POTASSIUM 3.8 mEq/L (3.6 - 5.0) CHLORIDE 102 mEq/L (98 - 107) CO2 30 MEQ/L (22 - 30) GLUCOSE 98 MG/DL (65 - 110) BUN 13 MG/DL (7 - 21) CREATININE 0.8 MG/DL (0.7 - 1.5) BUN/CREAT 16 (8 - 27) TOTAL PROTEIN 8.0 G/DL (6.3 - 8.2) ALBUMIN 4.6 G/DL (3.9 - 5.0) GLOBULIN 3.4 H GM/DL (2.4 - 3.2) A/G RATIO 1.4 (0.8 - 2.0) CALCIUM 9.6 MG/DL (8.4 - 10.2) TOTAL BILI <0.7 MG/DL (0.2 - 1.3) ALKALINE PHOS 79 U/L (38 - 126) SGOT/AST 23 U/L (5 - 40) SGPT/ALT 16 U/L (7 - 56) ANION GAP 6.0 L mmol/L (8.0 - 16.0) AGE 24 yrs NON-AA GFR >60 mL/min AFR AMER GFR >60 mL/min Male GFR Interprentation 20-49 yrs >60 mL/min Sifexz30-02 yrs >56 mL/min Normal 60-69 yrs >49 mL/min Normal 70-79yrs>42 mL/min Normal 80 and above >35 mL/min Normal Female GFRInterpretation 20-39 yrs >60 mL/min Normal 40-49 yrs >58 mL/minNormal 50-59 yrs >51 mL/min Normal 60-69 yrs >45 mL/min Otrtly99-90 yrs >39 mL/min Normal 80 and above >32 mL/min NormalLipase: (JELLY: 02/27/2020 20:17) ( MsgRcvd 02/27/2020 20:51) Final results Test Result Flag Units (Reference) LIPASE 36 U/L (13 - 60)Urinalysis: (JELLY: 02/27/2020 20:05) ( MsgRcvd 02/27/2020 20:31) Final results Test Result Flag Units (Reference) URINALYSIS URINALYSIS 4 Clinical Report - Physicians/Mid Levels [facility] Emergency Department [address] [place] [address] Phone #: ext- [phone] 02/27/2020 19:47 Patient: ELYSSA PFEIFFER Sex: F : 1995 Age: 24y SOURCE Clean Catch COLOR yellow (NORMAL: Yello CLARITY clear (NORMAL: Clear SPEC GRAVITY 1.010 (1.001 - 1.030 pH 8 (5 - 9) GLUCOSE NORM (NORMAL: Negat BILIRUBIN NEG (NORMAL: Negat KETONE NEG (NORMAL: Negat PROTEIN NEG (NORMAL: Negat NITRITE NEG (NORMAL: Negat BLOOD NEG (NORMAL: Negat LEUK EST 25 (NORMAL: Negat UROBILINOGEN NOR (less than 1.0 MICROSCOPIC See Below WBC 3 - 5 (NORMAL: NONE EPITHELIAL FEW (NORMAL: NONE BACTERIA Trace (NORMAL: NONE Beta-HCG, Qual Serum: (JELLY: 02/27/2020 20:17) ( [facility]38[facility] Final results Test Result Flag Units (Reference) HCG SERUM QUAL NEGATIVE (NORMAL: NEGAT HCG SERUM QL REENTER NEGATIVE (NORMAL: NEGAT { KIT LOT # [id number] ){ KIT EXP DATE 01/28/21 ){ PROCEDURAL CONTROL VALID ) Lactic Acid: (JELLY: 02/27/2020 20:17) ( [facility] 02/27/2020 20:28) Final results Test Result Flag Units (Reference) LACTIC ACID 1.3 MMOL/L (0.2 - 2.2).PROGRESS AND PROCEDURESCourse of Care: 21:28 02/27/20. workup all in and reviewed and nml, incl. WBC, lactic, UA, lipase; pt isnow asymptomatic, feeling great; pt reexamined and abdomen is soft and has no pain; pt had multiple CT'sin the past and right now, radiation risks outweigh benefits; pt agrees that CT is not warranted now sincepain is gone and abdomen is benign, so will d/c home and advised to return to ER if pain recurs; ptunderstands and agrees. Patient counseled in person regarding the patient's stable condition, test results, diagnosis and need for follow-up. Patient agrees with plan of care. Disposition: Condition: good and stable. Discharge decision based on the following: patient's condition is stable; patient's condition is improved; patient is ambulatory; patient is active; patient drinking fluids; patient eating; patient's pain is controlled; patient's exam is improved; no abnormal test results; resolved condition on multiple repeat evaluations; social support is good; transportation is available; follow-up is available; clinical impression is consistent with outpatient treatment.CLINICAL IMPRESSION 5 Clinical Report - Physicians/Mid Levels [facility] Emergency Department [address] [place] [address] Phone #: ext- [phone] 02/27/2020 19:47 [id number] Sex[facility] F : 1995 Age: 24y Acute right lower quadrant abdominal pain of unknown cause, now resolved.INSTRUCTIONS Drink plenty of fluids. Avoid alcohol. Avoid fatty, fried/greasy, lactose-containing (such as milk, cheese and ice cream), salty and spicy foods. No alcohol. Do not smoke. Warnings: Further evaluation is necessary. It is very important to follow up with a healthcare provider. GENERAL WARNINGS: Return or contact your physician immediately if your condition worsens or changes unexpectedly, if not improving as expected, or if other problems arise. SPECIFICALLY, return if you develop pain in the abdomen, pelvis, back or shoulder, fever, vomiting, the inability to keep fluids down, blood in vomitus, blood in diarrhea, fainting, lightheadedness or vaginal bleeding. Your Current Medications: Your current home medications have been reviewed. CONTINUE TAKING THE FOLLOWING MEDICATIONS: Aspirin Oral. Pantoprazole Sodium Oral. Wellbutrin Oral. Zofran ODT Oral. Follow-up: Return to the emergency department as needed. Follow up with your healthcare provider in two days if not better. Call for an appointment. Reason for referral: evaluation and treatment. Summary of care provided to patient via paper. Understanding of the discharge instructions verbalized by patient. Expected course of illness, discharge instructions, activity level, diet, follow-up appointment and risks and benefits of treatment reviewed with patient and understanding verbalized. Agrees to plan of care.(Electronically signed by Cedric Ohara M.D. 02/28/2020 08:34) Name Value Range Interpretation Code Description Data [facility] rce(s) Supporting Document(s) ID Date Data Source [id number] 02/27/2020 08:25:00 PM EST [facility] Name Value Range Interpretation Code Description Data [facility] rce(s) Supporting Document(s) CBC W/AUTOMATED DIFF [facility] COMPLETE BLOOD COUNT Leukocytes [#/volume] in Blood by Automated count 9.7 10^3/uL 4.2 - 1 1.0 [facility] Erythrocytes [#/volume] in Blood by Automated count 4.18 10^6/uL 4. 20 - 5.40 L [facility] Hemoglobin [Mass/volume] in Blood 13.3 g/dL 12.0 - 16.0 [facility] Hematocrit [Volume Fraction] of Blood by Automated count 39.2 % 3 7.0 - 47.0 [facility] Erythrocyte mean corpuscular volume [Entitic volume] by Auto mated count 93.8 fL 81.0 - 101 [facility] Erythrocyte mean corpuscular hemoglobin [Entitic mass] by Automated count 31.8 pg 27.0 - 34.0 [facility] Erythrocyte mean corpuscular hemoglobin concentration [Mass/volume] by Automated count 33.9 g/dL 31.0 - 36.0 [facility] Erythrocyte distribution width [Ratio] by Automated count 11.8 % 11.5 - 14.5 [facility] Platelets [#/volume] in Blood by Automated count 265 10^3/uL 150 - 45 0 [facility] Platelet mean volume [Entitic volume] in Blood by Automated count 8.6 fL 7.4 - 10.4 [facility] Neutrophils/100 leukocytes in Blood by Automated count 67.0 % 37. 0 - 80.0 [facility] Lymphocytes/100 leukocytes in Blood by Manual count 22.3 % 25.0 - 40.0 L [facility] Monocytes/100 leukocytes in Blood by Automated count 7.7 % 3.0 - 8.0 [facility] Eosinophils/100 leukocytes in Blood by Automated count 2.3 % 0.0 - 7.0 [facility] Basophils/100 leukocytes in Blood by Automated count 0.5 % 0.0 - 2.5 [facility] %IG 0.2 % 0.0 - 0.0 H [facility] %NRBC 0.0 % 0.0 - 0.0 [facility] al Neutrophils [#/volume] in Blood by Automated count 6.53 10^3/uL 2.00 - 6.90 [facility] Lymphocytes [#/volume] in Blood by Automated count 2.17 10^3/uL 0.60 - 3.40 [facility] Monocytes [#/volume] in Blood by Automated count 0.75 10^3/uL 0.00 - 0.90 [facility] Eosinophils [#/volume] in Blood by Automated count 0.22 10^3/uL 0.00 - 0.70 [facility] Basophils [#/volume] in Blood by Automated count 0.05 10^3/uL 0.00 - 0.20 [facility] #IG 0.02 10^3/uL 0.00 - 0.10 [facility] #NRBC 0.00 10^3/uL 0.00 - 0.00 [facility] MANUAL DIFF NOT INDICATED [facility] RBC MORPH NOT INDICATED [facility] ID Date Data Source [id number] 02/27/2020 08:28:00 PM EST [facility] Name Value Range Interpretation Code Description Data Jie rce(s) Supporting Document(s) Lactate [Moles/volume] in Serum or Plasma 1.3 MMOL/L 0.2 - 2.2 [facility] ID Date Data Source [id number] 02/27/2020 08:17:00 PM EST [facility] ([facility]) Name Value Range Interpretation Code Description Data Jie rce(s) Supporting Document(s) Lipase [Enzymatic activity/volume] in Serum or Plasma 36 U/L 13-6 0 [facility] ([facility]) ID Date Data Source [id number] 02/27/2020 08:17:00 PM EST [facility] ([facility]) Name Value Range Interpretation Code Description Data Jie rce(s) Supporting Document(s) Sodium 138 meq/L 134-153 [facility] ([facility]) Comprehensive [employer]abo Laboratory test result [facility] ([facility]) COMPREHENSIVE METABOLIC PANEL Chloride 102 meq/L 98-107 [facility] ([facility]) Potassium 3.8 meq/L 3.6-5.0 [facility] ([facility]) Glucose 98 mg/dL 65-110 [facility] ([facility]) Co2 30 meq/L 22-30 [facility] ([facility]) BUN 13 mg/dL 7-21 [facility] ([facility]) BUN/Creat 16 8-27 [facility] ([facility]) Creatinine 0.8 mg/dL 0.7-1.5 [facility] ([facility]) Albumin 4.6 g/dL 3.9-5.0 [facility] ([facility]) A/G Ratio 1.4 0.8-2.0 [facility] ([facility]) Total Protein 8.0 g/dL 6.3-8.2 [facility] ([facility]) Globulin 3.4 GM/DL 2.4-3.2 Above high normal [facility] ([facility]) Calcium 9.6 mg/dL 8.4-10.2 [facility] ([facility]) Total Bili Laboratory test result 0.2-1.3 [facility] ([facility]) Alkaline Phos 79 U/L 38-126 [facility] ([facility]) Age 24 yrs [facility] ([facility]) Sgot/Ast 23 U/L 5-40 [facility] ([facility]) Anion Gap 6.0 mmol/L 8.0-16.0 Below low normal [facility] ( [facility]) SGPT/Alt 16 U/L 7-56 [facility] ([facility]) Non-Aa GFR Laboratory test result [facility] ([facility]) Afr Amer GFR Laboratory test result [facility] ([facility]) Male GFR Interprentation 20-49 yrs >60 mL/min Normal 50-59 yrs >56 mL/min Normal 60-69 yrs >49 mL/min Normal 70-79yrs >42 mL/min Normal 80 and above >35 mL/min Normal Female GFR Interpretation 20-39 yrs >60 mL/min Normal 40-49 yrs >58 mL/min Normal 50-59 yrs >51 mL/min Normal 60-69 yrs >45 mL/min Normal 70-79 yrs >39 mL/min Normal 80 and above >32 mL/min Normal ID Date Data Source [id number] 02/27/2020 08:17:00 PM EST [facility] ([facility]) Name Value Range Interpretation Code Description Data Jie rce(s) Supporting Document(s) HCG Serum Qual Laboratory test result [facility] ([facility]) HCG Serum QL [place]enter Laboratory test result [facility] ([facility]) { KIT LOT # [id number] ) { KIT EXP DATE 01/28/21 ) { PROCEDURAL CONTROL VALID ) ID Date Data Source [id number] 02/27/2020 08:17:00 PM EST [facility] ([facility]) Name Value Range Interpretation Code Description Data Jie rce(s) Supporting Document(s) CBC W/Automated Diff Laboratory test result [facility] ([facility]) COMPLETE BLOOD COUNT Hemoglobin 13.3 g/dL 12.0-16.0 [facility] ([facility]) Hematocrit 39.2 % 37.0-47.0 [facility] ([facility]) RBC 4.18 10^6/uL 4.20-5.40 Below low normal [facility] ([facility]) WBC 9.7 10^3/uL 4.2-11.0 [facility] ([facility]) MCH 31.8 pg 27.0-34.0 [facility] ([facility]) MCHC 33.9 g/dL 31.0-36.0 [facility] ([facility]) MCV 93.8 fL 81.0-101 [facility] ([facility]) MPV 8.6 fL 7.4-10.4 [facility] ([facility]) Platelets 265 10^3/uL 150-450 [facility] ([facility]) Neut 67.0 % 37.0-80.0 [facility] ([facility]) RDW 11.8 % 11.5-14.5 [facility] ([facility]) Baso 0.5 % 0.0-2.5 [facility] ([facility]) Lymph 22.3 % 25.0-40.0 Below low normal [facility] ( [facility]) [place] 7.7 % 3.0-8.0 [facility] ([facility]) Eos 2.3 % 0.0-7.0 [facility] ([facility]) %NRBC 0.0 % 0.0-0.0 [facility] ([facility]) %Ig 0.2 % 0.0-0.0 Above high normal [facility] ([facility]) #Neut 6.53 10^3/uL 2.00-6.90 [facility] ([facility]) #Eos 0.22 10^3/uL 0.00-0.70 [facility] ([facility]) #Lymph 2.17 10^3/uL 0.60-3.40 [facility] ([facility]) #[place] 0.75 10^3/uL 0.00-0.90 [facility] ([facility]) #Baso 0.05 10^3/uL 0.00-0.20 [facility] ([facility]) Manual Diff Laboratory test result M [facility] ([facility]) #NRBC 0.00 10^3/uL 0.00-0.00 [facility] ([facility]) #Ig 0.02 10^3/uL 0.00-0.10 [facility] ([facility]) RBC Morph Laboratory test result [facility] ([facility]) ID Date Data Source [id number] 02/27/2020 08:17:00 PM EST [facility] ([facility]) Name Value Range Interpretation Code Description Data Jie rce(s) Supporting Document(s) Lactate [Mass/volume] in Serum or Plasma 1.3 mmol/L 0.2-2.2 [facility] ([facility]) ID Date Data Source [id number] 02/27/2020 08:51:00 PM [facility] Name Value Range Interpretation Code Description Data Jie rce(s) Supporting Document(s) Lipase [Enzymatic activity/volume] in Serum or Plasma 36 U/L 13 - 60 [facility] ID Date Data Source [id number] 02/27/2020 08:51:00 PM EST [facility] Name Value Range Interpretation Code Description Data Jie rce(s) Supporting Document(s) COMPREHENSIVE METABOLIC PANEL [facility] COMPREHENSIVE METABOLIC PANEL Sodium [Moles/volume] in Serum or Plasma 138 mEq/L 134 - 153 [facility] Potassium [Moles/volume] in Serum or Plasma 3.8 mEq/L 3.6 - 5.0 [facility] Chloride [Moles/volume] in Serum or Plasma 102 mEq/L 98 - 107 [facility] Carbon dioxide, total [Moles/volume] in Serum or Plasma 30 MEQ/L 22 - 30 [facility] Glucose [Mass/volume] in Serum or Plasma 98 MG/DL 65 - 110 [facility] BUN 13 MG/DL 7 - 21 [facility] al Creatinine [Mass/volume] in Serum or Plasma 0.8 MG/DL 0.7 - 1.5 [facility] BUN/CREAT 16 8 - 27 [facility] Protein [Mass/volume] in Serum or Plasma 8.0 G/DL 6.3 - 8.2 [facility] Albumin [Mass/volume] in Serum or Plasma 4.6 G/DL 3.9 - 5.0 [facility] Globulin [Mass/volume] in Serum by calculation 3.4 GM/DL 2.4 - 3.2 H [facility] A/G RATIO 1.4 0.8 - 2.0 [facility] Calcium [Mass/volume] in Serum or Plasma 9.6 MG/DL 8.4 - 10.2 [facility] Bilirubin.total [Mass/volume] in Serum or Plasma <0.7 MG/DL 0.2 - 1.3 [facility] Alkaline phosphatase [Enzymatic activity/volume] in Serum or Plasma 79 U/L 38 - 126 [facility] Aspartate aminotransferase [Enzymatic activity/volume] in Serum or Plasma 23 U/L 5 - 40 [facility] Alanine aminotransferase [Enzymatic activity/volume] in Seru m or Plasma 16 U/L 7 - 56 [facility] Anion gap 3 in Serum or Plasma 6.0 mmol/L 8.0 - 16.0 L [facility] 24 [facility]60 mL/min [facility] AFR AMER GFR >60 mL/min [facility] Male GFR In terprentation 20-49 yrs >60 mL/min Normal 50-59 yrs >56 mL/min Normal 60-69 yrs >49 mL/min Normal 70-79yrs >42 mL/min Normal 80 and above >35 mL/min Normal Female GFR Interpretation 20-39 yrs >60 mL/min Normal 40-49 yrs >58 mL/min Normal 50-59 yrs >51 mL/min Normal 60-69 yrs >45 mL/min Normal 70-79 yrs >39 mL/min Normal 80 and above >32 mL/min Normal ID Date Data Source [id number] 02/27/2020 08:38:00 PM EST [facility] Name Value Range Interpretation Code Description Data Jie rce(s) Supporting Document(s) HCG SERUM QUAL NEGATIVE NORMAL: NEGATIVE [facility] HCG SERUM QL REENTER NEGATIVE NORMAL: NEGATIVE [facility] { KIT LOT # [id number] ){ KIT EXP DATE 01/28/21 ){ PROCEDURAL CONTROL VALID ) ID Date Data Source [id number] 02/27/2020 08:30:00 PM [facility] Name Value Range Interpretation Code Description Data Jie rce(s) Supporting Document(s) [facility] SOURCE Clean Catch [facility] COLOR yellow NORMAL: Yellow [facility] CLARITY clear NORMAL: Clear [facility] Specific gravity of Urine by Test strip 1.010 1.001 - 1.030 [facility] pH 8 5 - 9 [facility] Glucose [Mass/volume] in Urine by Test strip NORM NORMAL: [facility]at [facility] Bilirubin.total [Presence] in Urine by Test strip NEG NORMAL: Negative [facility] Ketones [Presence] in Urine by Test strip NEG NORMAL: Negative [facility] Protein [Mass/volume] in Urine by Test strip NEG NORMAL: Negat [facility] Nitrite [Presence] in Urine by Test strip NEG NORMAL: Negative [facility] BLOOD NEG NORMAL: Negative [facility] Leukocyte esterase [Presence] in Urine by Test strip 25 MEKHI L: Negative [facility] Urobilinogen [Mass/volume] in Urine by Test strip NOR less dragan n 1.0 mg/dL [facility] MICROSCOPIC See Below [facility] ital WBC 3 - 5 NORMAL: NONE SEEN [facility] EPITHELIAL FEW NORMAL: NONE SEEN [facility] Bacteria [Presence] in Urine sediment by Light microscopy Tr claudia NORMAL: NONE SEEN [facility] ID Date Data Source [id number] 02/27/2020 08:05:00 PM EST [facility] ([facility]) Name Value Range Interpretation Code Description Data Jie rce(s) Supporting Document(s) Urinalysis Laboratory test result [facility] ([facility]) SOURCE: Clean Catch Source Laboratory test result [facility] ([facility]) SOURCE: Clean Catch Color Laboratory test result [facility] ([facility]) SOURCE: Clean Catch Clarity Laboratory test result [facility] ([facility]) SOURCE: Clean Catch Glucose Laboratory test result [facility] ([facility]) SOURCE: Clean Catch Spec Castine 1.010 1.001-1.030 [facility] ([facility]) SOURCE: Clean Catch pH 8 5-9 [facility] ([facility]) SOURCE: Clean Catch Bilirubin Laboratory test result [facility] ([facility]) SOURCE: Clean Catch Protein Laboratory test result [facility] ([facility]) SOURCE: Clean Catch Ketone Laboratory test result [facility] ([facility]) SOURCE: Clean Catch Blood Laboratory test result [facility] ([facility]) SOURCE: Clean Catch Nitrite Laboratory test result [facility] ([facility]) SOURCE: Clean Catch Urobilinogen Laboratory test result [facility] ([facility]) SOURCE: Clean Catch Leuk Est 25 [facility] ([facility]) SOURCE: Clean Catch Microscopic Laboratory test result [facility] ([facility]) SOURCE: Clean Catch WBC Laboratory test result [facility] ([facility]) SOURCE: Clean Catch Epithelial Laboratory test result [facility] ([facility]) SOURCE: Clean Catch Bacteria Laboratory test result [facility] ([facility]) SOURCE: Clean Catch ID Date Data Source [id number] 02/19/2020 05:47:00 PM EDT [facility] 1 OrderSheet [facility] Emergency Department [address] [place], [place] [address] Phone #: [phone]- [phone] 02/19/2020 17:30 Patient: ELYSSA PFEIFFER Sex: F : 1995 Age: 24yWEIGHT:81.1 kg (S)ALLERGIES: PenicillinsCHIEF COMPLAINT: pelvic pain, dysuriaDIAGNOSIS: VaginitisLAB ORDERSOrder Description Priority Entered Acknowledged InitialedUrinalysis (Clean STAT 17:44 02/19/2020 18:02 Nancy Peraza R.N.;HCG Urine Qual STAT 17:44 02/19/2020 18:02 Delmi Peraza R.N.;Culture, Genital STAT 18:09 02/19/2020 18:41 Delmi Peraza R.N.; NOTES: VaginalChlamydia/GC STAT 18:09 02/19/2020 18:41 Delmi Peraza R.N.;Bacterial Vaginosis STAT 18:09 02/19/2020 18:41 Delmi Peraza R.N.;Culture, Urine STAT 18:09 02/19/2020 18:10 Sorbero,(Urine, Angela PALOMO;DIAGNOSTIC STUDY ORDERSOrder Description Priority Entered Acknowledged InitialedMEDICATION/IV/DRIP/FLUID ORDERSOrder Description Priority Entered Acknowledged InitialedGENERAL ORDERSOrder Description Priority Entered Acknowledged InitialedPelvic Exam Setup 18:09 02/19/2020 18:15 Delmi Peraza R.N.; 2 OrderSheet [facility] Emergency Department [address] [place] [address] Phone #: ext- [phone] 02/19/2020 17:30 Patient: ELYSSA PFEIFFER Sex: F : 1995 Age: 24y[Electronically signed by Delmi Peraza R.N. (18:48 02/19/2020)][Electronically signed by Alexys Ramsey (20:56 02/19/2020)][Electronically locked by Delmi Peraza R.N. (18:48 02/19/2020)] Name Value Range Interpretation Code Description Data Jie rce(s) Supporting Document(s) ID Date Data Source [id number] 02/19/2020 05:47:00 PM EDT [facility] 1 Medication Reconciliation Report [facility] Emergency Department [address] [place] [address] Phone #: ext- [phone] 02/19/2020 17:30 Patient: ELYSSA PFEIFFER Sex: F : 1995 Age: 24yWeight: 81.1 kgHeight/Length: 66 in.BMI: 28.9ALLERGIES: PenicillinsThe patient's Home Medications are listed below:NONE.The source(s) of the original Home Medication information:patientThe following Medications were given to the patient in the Emergency Department:None.The following Medications were prescribed to the patient:fluconazole 150 mg tablet Take 1 tablet single dose as needed for 1 days -- May repeat in 1 week if s/spersist. Dispense 2 tablet. Refills: 0. Substitution permitted.[id number] [phone]. .Flagyl 500 mg tablet Take 1 tablet twice a day as directed for 7 days -- Dispense 14 tablet. Refills: 0.Substitution permitted.[id number] [address] [place], [place] [phone]. .Pyridium 200 mg tablet Take 1 tablet three times a day as needed for pain for 2 days -- Dispense 6tablet. Refills: 0. Substitution permitted.Pharmacy [id number] [place] [phone]. . -- STACIA Waed Name Value Range Interpretation Code Description Data Jie rce(s) Supporting Document(s) ID Date Data Source [id number] 02/19/2020 05:47:00 PM EDT [facility] 1 Medication Administration Record [facility] Emergency Department [address] [place] [address] Phone #: ext- [phone] 02/19/2020 17:30 Patient: ELYSSA PFEIFFER Sex: F : 1995 Age: 24yWeight: 81.1 kgHeight/Length: 66 inBMI: 28.9ALLERGIES: PenicillinsDate/Time Medication Administered Medication Ordered Name Value Range Interpretation Code Description Data Jie rce(s) Supporting Document(s) ID Date Data Source [id number] 02/19/2020 05:47:00 PM EDT [facility] 1 General Instructions [facility] Emergency Department [address] [place], [place] [address] Phone #: ext- [phone] 02/19/2020 17:30 Patient: ELYSSA PFEIFFER Sex: F : 1995 Age: 24yAcute moderate vaginitisINSTRUCTIONSYour Current Medications: .No home medication.Prescription Medications:fluconazole 150 mg tablet Take 1 tablet single dose as needed for 1 days -- May repeat in 1 week if s/spersist. Dispense 2 tablet. Refills: 0. Substitution permitted.[id number] [place] [phone]. .Flagyl 500 mg tablet Take 1 tablet twice a day as directed for 7 days -- Dispense 14 tablet. Refills: 0.Substitution permitted.[id number] [phone]. .Pyridium 200 mg tablet Take 1 tablet three times a day as needed for pain for 2 days -- Dispense 6tablet. Refills: 0. Substitution permitted.[id number] [address] [place], [place] [phone]. .Follow-up:Follow up with your doctor in three days if not better. Reason for referral: evaluation and treatment.Summary of care provided to patient.Understanding of the discharge instructions verbalized by patient. ADDITIONAL INFORMATIONYeast Infection (Cheryl Vaginal Infection) 2 General Instructions [facility] Emergency Department [address] [place] [address] Phone #: ext- [phone] 02/19/2020 17:30 Patient: ELYSSA PFEIFFER Sex: F : 1995 Age: 24yYou have a Cheryl vaginal infection. This is also known as a yeast infection. It is most often causedby a type of yeast (fungus) called Cheryl. Cheryl are normally found in the vagina. But if theyincrease in number, this can lead to infection and cause symptoms.Symptoms of a yeast infection can include: Clumpy or thin, white discharge, which may look like cottage cheese Itching or burning Burning with urinationCertain factors can make a yeast infection more likely. These can include: Taking certain medicines, such as antibiotics or control pills Diabetes Weak immune systemA yeast infection is most often treated with antifungal medicine. This may be given as a vaginal creamor pills you take by mouth. Treatment may last for about 1 to 7 days. Women with severe or recurrentinfections may need longer courses of treatment.Home care If you're prescribed medicine, be sure to use it as directed. Finish all of the medicine, even if your symptoms go away. Note: Don't try to treat yourself using mcdo-jfg-pqhvuvx products without talking to your provider first. He or she will let you know if this is a good option for you. Ask your provider what steps you can take to help reduce your risk of having a yeast infection 3 General Instructions [facility] Emergency Department [address] [place] [address] Phone #: ext- [phone] 02/19/2020 17:30 Patient: ELYSSA PFEIFFERN: [id number] Sex: F : 1995 Age: 24y in the future.Follow-up careFollow up with your healthcare provider, or as directed.When to seek medical adviceCall your healthcare provider right away if: You have a fever of 100.4F (38C) or higher, or as directed by your provider. Your symptoms worsen, or they don't go away within a few days of starting treatment. You have new pain in the lower belly or pelvic region. You have side effects that bother you or a reaction to the cream or pills you're prescribed. You or any partners you have sex with have new symptoms, such as a rash, joint pain, or sores. 4443-7160 [employer]. [address] [place] [address]. All rights reserved. This information is not intended as asubstitute for professional medical care. Always follow your healthcare professional's instructions. You have been given the following additional information: Yeast Infection, Vaginal (Cheryl Vaginal Infection)(Electronically signed by STACIA Wade 02/19/2020 20:56) Name Value Range Interpretation Code Description Data Jie rce(s) Supporting Document(s) ID Date Data Source [id number] 02/19/2020 05:47:00 PM EDT [facility] 1 Clinical Report - Nurses [facility] Emergency Department [address] [place] [address] Phone #: ext- [phone] 02/19/2020 17:30 Patient: ELYSSA PFEIFFER Sex: F : 1995 Age: 24yTRIAGEArrived by private vehicle. Historian: patient. ( presents with pelvic pain, pressureburning on urination).Triage time: 17:38 02/19/2020. Acuity: LEVEL 3.Chief Complaint: PELVIC PAIN and PAINFUL URINATION and URGENCY.17:37 02/19/20. Alert. No acute distress.Onset. (4 days). The patient has had abdominal pain. 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 No suspected or confirmed signs of infection present. --17: Preston Ramires R.N.17:37 02/19/20. BP: 132/77. MAP: 95. HR: 76. RR: 16. O2 saturation: 100% on room air. Temp: 97.5 F.Pain level now: 12/02. --17:44 02/19/20 Preston Ramires R.N.Weight: 81.1 kg stated. Height/Length: 66 inches Per Patient. BMI: 28.9. --17:37 02/19/20 Preston Ramires R.N.MedicationsNone. --18:14 02/19/20 Preston Ramires R.N.AllergiesPenicillins. --18:14 02/19/20 Preston Ramires R.N.The following entry was struck by Preston Ramires R.N., 18:14 (02/19/20) Reason - wrong value. No Known Drug Allergy. --17:40 02/19/20 Preston Ramires R.N. .PROBLEMS:Acid reflux. --17:44 02/19/20 Preston Ramires R.N.Anxiety Reaction. --18:07 02/19/20 Alexys Roxy, PACystitis.Colitis: Onset 05/2018.Abdominal Pain.Diver ticulitis.Pharyngitis.Palpitations.UTI - Urinary Tract Infection. 2 Clinical Report - Nurses [facility] Emergency Department [address] [place] [address] Phone #: ext- [phone] 02/19/2020 17:30 Patient: ELYSSA PFEIFFER Sex: F : 1995 Age: 24yGastroenteritis.Dizziness. --18:15 02/19/20 Preston Ramires R.N.The following entry was modified by STACIA Wade, 18:07 02/19/20Anxiety Reaction. --17:43 02/19/20 Preston Ramires R.N.The following entry was modified by Preston Ramires R.N., 18:15 02/19/20Atrial Fibrillation. --18:14 02/19/20 Preston Ramires R.N.The following entry was modified by Preston Ramires R.N., 18:15 02/19/20Gastroesophageal Reflux Disease. --18:14 02/19/20 Preston Ramires R.N..17:37 02/19/20. Medication/allergy information source: the patient. --17:44 02/19/20 Preston Ramires R.N.ADDITIONAL SURGERIES:Cholecystectomy. --17:44 02/19/20 Preston Ramires R.N.Zubtxfi13:37 02/19/20.PAST MEDICAL HX: Possibly : unsure if . Denies current .SOCIAL HX: Never smoker. No alcohol use or drug use. The patient was offered HIV testing butdeclined and hepatitis C testing but declined. The patient has not traveled outside the [place]Infectious disease exposure: No infectious disease exposure. The patient was not exposed to Coronavirus.Patient is not a known carrier of tuberculosis, hepatitis, HIV, MRSA or VRE. Patient is not a known carrierof CRE.SELF HARM ASSESSMENT: Self harm assessment was performed. The patient answered "no" to thequestion(s) "Have you recently felt down, depressed, or hopeless?", "Do you have thoughts of harming orkilling yourself?", "Do you have a plan for harming or killing yourself?" and "Have you recently had thoughtsabout harming or killing others?".ABUSE ASSESSMENT: No report of abuse.FALL RISK ASSESSMENT: Fall risk assessment completed. No risk factors identified. --17:44 02/19/20Preston interiano R.N.Lmzvuvouya66:37 02/19/20. The patient states feels the same. --17:44 02/19/20 Preston Ramires R.N.Bnhltxqovkrsa42:37 02/19/20. Identification band on patient. To treatment room. --17:44 02/19/20 Preston Ramires R.N.PHYSICAL ASSESSMENT 3 Clinical Report - Nurses [facility] Emergency Department [address] [place] [address] Phone #: ext- [phone] 02/19/2020 17:30 Patient: ELYSSA PFEIFFER Sex: F : 1995 Age: 24y GENERAL / NEURO / PSYCH: Alert. Oriented X 4. Appears in no acute distress. HEENT: Mucous membranes are pink. RESPIRATORY: Respirations not labored. Breath sounds within normal limits. CVS: Capillary refill less than 2 seconds. GI / : Abdomen soft and nontender. Bowel sounds within normal limits. ( Pt c/o suprapubic pain, center of body, does not radiate. Denies N/V, dysuria. Remains in NAD). SKIN: Skin is warm and dry. --18:03 02/19/20 Delmi Peraaz R.N.NURSING PROGRESS NOTES17:44 02/19/20. Patient gowned. Reassurance given. Two patient identifiers checked. Call lightplaced in reach. Bed placed in lowest position. Brakes of bed on. Patient ready for evaluation- PAnotified. --17:44 02/19/20 Preston Ramires R.N. 18:32 02/19/20. ( PA explained dc instructions, pt verbalizes understanding). --18:47 02/19/20 Delmi Peraza R.N.DISPOSITION / DISCHARGE 18:42 02/19/20. BP: 127/87. MAP: 100. HR: 81. RR: 16. O2 saturation: 99%. Temp: 98.1 F. --18:42 02/19/20 Slime [facility] ED, ER Tech1 18:45 02/19/20. Condition at departure: stable. No learning barriers present. Discharge instructions provided and reviewed with the patient. Reviewed medication(s) side effects, precautions, dosing and course information. Prescription(s) sent electronically to pharmacy. Patient verbalized understanding. Written instructions provided in Hebrew. The patient was discharged by the physician facilities maintenance assistant. She was discharged home. She left ambulatory and via private vehicle. Patient driving. --18:48 02/19/20 Delmi Peraza R.N. 18:45 02/19/20. BP: 121/67. MAP: 85. HR: 73. RR: 18. O2 saturation: 98% on room air. Temp: deferred. Pain level now: 07/02. --18:48 02/19/20 Delmi Peraza R.N.Locked/Released at 02/19/2020 18:48 by Delmi Peraza R.N. Name Value Range Interpretation Code Description Data Jie rce(s) Supporting Document(s) ID Date Data Source [id number] 02/19/2020 05:47:00 PM EDT [facility] 1 Clinical Report - Physicians/Mid Levels [facility] Emergency Department [address] [place] [address] Phone #: ext- [phone] 02/19/2020 17:30 Patient: ELYSSA PFEIFFER Sex: F : 1995 Age: 24y Time Seen: 17:55 02/19/2020. Arrived- By private vehicle. Historian- patient.HISTORY OF PRESENT ILLNESS Chief Complaint: PELVIC PAIN and DYSURIA. This started 2 weeks ago; presents with pelvic pain, pressureburning on urination was seen by PCP 2 weeks ago and took 5 day course of Macrobid, no relief, worse pain and pressure for the past 4 days, whitish discharge. and still present. It was abrupt in onset and has been constant. The symptoms are de scribed as moderate. The patient has had pelvic pain and a vaginal discharge. No abdominal pain, vaginal pain, low back pain, flank pain or missed period(s). No irregular periods, abnormal bleeding, vaginal itching, genital lesions or urgency of urination. No hematuria. The patient has had pain with urination. The patient has had urinary frequency. Last normal menstrual period unknown. Similar symptoms previously. Patient has had similar symptoms several times. Recent medical care: The patient was seen recently in a clinic.REVIEW OF SYSTEMSNo nausea, vomiting, diarrhea, black stools or headache. No fever, chills, anorexia, eye discomfort orsore throat. No cough, difficulty breathing, chest pain, skin rash or enlarged lymph nodes. No joint pain.PAST HISTORYProblems:.Acid reflux. Additional Surgeries: Cholecystectomy. Allergies: No Known Drug Allergy.SOCIAL HISTORYNever smoker. No alcohol use or drug use.PHYSICAL EXAMVital Signs: 02/19/2020 17:37 BP: 132/77. MAP: 95. HR: 76. RR: 16. O2 saturation: 100% on room air.Temp: 97.5 F. Pain level now: 12/02. Have been reviewed as normal. Oxygen saturation normal.Appearance: Alert. Oriented X3. No acute distress. 2 Clinical Report - Physicians/Mid Levels [facility] Emergency Department [address] [place] [address] Phone #: ext- [phone] 02/19/2020 17:30 [id number] Sex[facility] F : 1995 Age: 24y HEENT: Normal external inspection. Neck: Neck supple. CVS: Heart sounds normal. Respiratory: No respiratory distress. Abdomen: Soft. Mild tenderness in the suprapubic area. Bowel sounds normal. No organomegaly. No mass. Back: No CVA tenderness. : Speculum exam performed. A scant amount of thick, white and malodorous vaginal discharge present. No vaginal bleeding. Cervical os closed. No cervical dilation. No cervicitis. No herpes-like lesions. No tenderness with movement of the cervix. Skin: Skin warm and dry. Normal skin color. No rash. Normal skin turgor. Extremities: Extremities nontender. Neuro: Oriented X 3.LABS, X-RAYS, AND EKGLaboratory Tests: Laboratory tests have been ordered, with results reviewed and considered in themedical decision making process. Culture, Urine: (JELLY: 02/19/2020 18:09) ( [facility] 18:11) Canceled SOURCE: Urine, Clean Catch Urinalysis: (JELLY: 02/19/2020 17:50) ( [facility] 02/19/2020 18:07) Final results Test Result Flag Units (Reference) URINALYSIS URINALYSIS SOURCE R COLOR juanita (NORMAL: Yello CLARITY clear (NORMAL: Clear SPEC GRAVITY 1.030 (1.001 - 1.030 pH 5 (5 - 9) GLUCOSE NORM (NORMAL: Negat BILIRUBIN NEG (NORMAL: Negat KETONE 5 A (NORMAL: Negat PROTEIN 15 (NORMAL: Negat NITRITE POS (NORMAL: Negat BLOOD NEG (NORMAL: Negat LEUK EST 25 (NORMAL: Negat UROBILINOGEN 1 (less than 1.0 MICROSCOPIC See Below WBC 3 - 5 (NORMAL: NONE RBC 0 - 1 (NORMAL: NONE EPITHELIAL MODERATE A (NORMAL: NONE BACTERIA 2+ MOD A (NORMAL: NONE MUCOUS 2+ A (NORMAL: NONE Beta-HCG, Qual Urine: (JELLY: 02/19/2020 17:50) ( [facility] 18:08) Final results Test Result Flag Units (Reference) HCG URINE QUAL NEGATIVE (NORMAL: NEGAT HCG URINE QL REENTER NEGATIVE (NORMAL: NEGAT { KIT LOT # [id number] ){ KIT EXP DATE 01.28.21 ){ PROCEDURAL CONTROL VALID 3 Clinical Report - Physicians/Mid Levels [facility] Emergency Department [address] [place] [address] Phone #: ext- [phone] 02/19/2020 17:30 Patient: ELYSSA PFEIFFER Sex: F : 1995 Age: 24y ) . Lab Tests Pending: Urine and gonorrhea / chlamydia c ulture. (BV).PROGRESS AND PROCEDURESCourse of Care: 18:35 Feb 19 2020. Evaluation after observation. (Discussed UA and Pelvic examfindings and pt is agreeable with dx and tx plan.). Patient counseled in person regarding the patient's stable condition, test results, diagnosis and need for follow-up. Patient agrees with plan of care. 18:36 Feb 19 2020. Disposition: Discharged home in good and improved condition (18:36 Feb 19 2020).CLINICAL IMPRESSION Acute moderate vaginitisINSTRUCTIONS Your Current Medications: . No home medication. Prescription Medications: fluconazole 150 mg tablet Take 1 tablet si ngle dose as needed for 1 days -- May repeat in 1 week if s/s persist. Dispense 2 tablet. Refills: 0. Substitution permitted. [id number] [phone]. . Flagyl 500 mg tablet Take 1 tablet twice a day as directed for 7 days -- Dispense 14 tablet. Refills: 0. Substitution permitted. [id number] [address] [place], [place] [phone]. . Pyridium 200 mg tablet Take 1 tablet three times a day as needed for pain for 2 days -- Dispense 6 tablet. Refills: 0. Substitution permitted. [id number] [address] [place], [place] [phone]. . Follow-up: Follow up with your doctor in three days if not better. Reason for referral: evaluation and treatment. 4 Clinical Report - Physicians/Mid Levels [facility] Emergency Department [address] [place] [address] Phone #: ext- [phone] 02/19/2020 17:30 Patient: ELYSSA PFEIFFER Sex: F : 1995 Age: 24y Summary of care provided to patient. Understanding of the discharge instructions verbalized by patient.(Electronically signed by STACIA Wade 02/19/2020 20:56) Name Value Range Interpretation Code Description Data Jie rce(s) Supporting Document(s) ID Date Data Source [id number] 02/25/2020 09:58:00 AM EST [facility] Name Value Range Interpretation Code Description Data Jie rce(s) Supporting Document(s) CULTURE GENITAL [facility] _GENITAL CULTURE_$$[id number]$$[id number]$$ [id number]$$[id number]$$[id number]$$[id number] DATE/TIME: 02/25/2020 09:05Culture: CULTURE GENITAL Status: FinalGenital Culture, Routine: [id number] genital trini.P1 Test performed by: Gali SARGENT #: [id number] [address] [place] [phone] [facility] [id number] Director : John Crespo MD NPI #:Tip Banding Machine Operator : 02/25/[email or web address].XMT.SENT REF ID Date Data Source [id number] 02/23/2020 06:55:00 AM EDT [facility] Name Value Range Interpretation Code Description Data Jie rce(s) Supporting Document(s) Chlamydia trachomatis rRNA [Presence] in Unspecified specimen by Probe and target amplification method Negative Negative [facility] Neisseria gonorrhoeae rRNA [Presence] in Unspecified specimen by Probe and target amplification method Negative Negative [facility] ID Date Data Source [id number] 02/22/2020 08:28:00 PM EDT [facility] Name Value Range Interpretation Code Description Data Jie rce(s) Supporting Document(s) Cheryl sp rRNA [Presence] in Vaginal fluid by DNA probe Negative N egative [facility] Gardnerella vaginalis rRNA [Presence] in Genital specimen by DNA probe Negative Negative [facility] Trichomonas vaginalis rRNA [Presence] in Genital specimen by DNA probe Negative Negative [facility] ID Date Data Source [id number] 02/19/2020 06:30:00 PM EDT [facility]) Name Value Range Interpretation Code Description Data Jie rce(s) Supporting Document(s) Culture Genital Laboratory test result [facility] ([facility]) _GENITAL CULTURE_ ^^[id number] ^$[id number] $$[id number] ^^[id number] $$[id number] $$[id number] $$[id number] $$[id number] $$[id number] REPORTED DATE/TIME: 02/25/2020 09:05 Culture: CULTURE GENITAL Status: Final Genital Culture, Routine: P1 Routine genital trini. P1 Test performed by: [facility] #: [id number] [address] [place] [phone] [facility] [id number] Manager Community : John Crespo MD NPI #: Tip Banding Machine Operator : 02/25/[email or web address].XMT.SENT REF ID Date Data Source [id number] 02/19/2020 06:30:00 PM EDT [facility] ([facility]) Name Value Range Interpretation Code Description Data Jie rce(s) Supporting Document(s) Chlamydia trachomatis,Britni Laboratory test result [facility] ([facility]) Neisseria gonorrhoeae,Britni Laboratory test result [facility] ([facility]) ID Date Data Source [id number] 02/19/2020 06:30:00 PM EDT [facility] ([facility]) Name Value Range Interpretation Code Description Data Jie rce(s) Supporting Document(s) Cheryl species Laboratory test result [facility] ([facility]) Trichomonas vaginalis Laboratory test result [facility] ([facility]) Gardnerella vaginalis Laboratory test result [facility] ([facility]) ID Date Data Source [id number] 02/19/2020 05:50:00 PM EDT [facility] ([facility]) Name Value Range Interpretation Code Description Data Jie rce(s) Supporting Document(s) Culture Urine Laboratory test result [facility] ([facility]) _CULTURE URINE_ ^$[id number] ^^[id number] $$[id number] ^^[id number] $$[id number] $$[id number] $$[id number] $$[id number] $$[id number] $$601937 $$[id number] $$288002 $$596800 $$084893 $$323271 $$[id number] $$[id number] $$[id number] $$228500 $$[id number] $$[id number] $$263115 $$257592 $$[id number] $$463204 $$[id number] $$[id number] ^^611027 $$[id number] $$[id number] $$[id number] -- Continued on next page -- Patient: KENTRELL Weiss Order: [id number] Page 2 Culture: CULTURE URINE Status: Final -- Continued on next page -- Patient: KENTRELL Weiss Order: [id number] Page 2 Culture: CULTURE URINE Status: Prelim $$[id number] $$[id number] REPORTED DATE/TIME: 02/24/2020 15:05 Culture: CULTURE URINE Status: Final Urine Culture,Comprehensive: P1 No growth in 36 - 48 hours. Previous result entered on 02/23/2020 09:20 ET No growth after 18-24 hours. P1 Test performed by: [facility] SARGENT #: [id number] [address] [place] [address] [id number] [facility] [id number] Manager Community : John Crespo MD NPI #: Tip Banding Machine Operator : 02/23/20.1024.XMT.SENT REF 02/24/20.1526.XMT.SENT REF ID Date Data Source [id number] 02/24/2020 03:26:00 PM EST [facility] Name Value Range Interpretation Code Description Data Jie rce(s) Supporting Document(s) CULTURE URINE [facility] _CULTURE URINE_$$[id number]$$[id number]$$[id number]$$[id number]$$[id number]$$415201$$050732$$554230$$513328$$ 361035$$816747$$270869$$824025$$221146$$276104$$164725$$748453$$767477$$466288$$ 426829$$168805$$086325$$094598$$631303$$646971$$125071$$[id number] -- Continued on next page --Patient: KENTRELL Weiss Order: [id number] Page 2Culture: CULTURE URINE Status: Final ==== -- Continued on next page --Patient: KENTRELL Weiss Order: [id number] Page 2Culture: CULTURE URINE Status: Prelim =====$$[id number]$$[id number] DATE/TIME: 02/24/2020 15:05Culture: CULTURE URINE Status: FinalUrine Culture,Comprehensive: P1No growth in 36 - 48 hours. Previous result entered on 02/23/2020 09:20 ET No growth after 18-24 hours.P1 Test performed by: [facility] #: [id number] [address] [facility] [address] [phone] [facility] [id number] Director : John Crespo MD NPI #:Lab Di mark : 02/23/20.1024.XMT.SENT REF 02/24/20.1526.XMT.SENT REF ID Date Data Source [id number] 02/19/2020 06:08:00 PM EDT [facility] Name Value Range Interpretation Code Description Data Jie rce(s) Supporting Document(s) HCG URINE QUAL NEGATIVE NORMAL: NEGATIVE [facility] HCG URINE QL REENTER NEGATIVE NORMAL: NEGATIVE [facility] { KIT LOT # [id number] ){ KIT EXP DATE 01.28.21 ){ PROCEDURAL CONTROL VALID ) ID Date Data Source [id number] 02/19/2020 06:06:00 PM EDT [facility] Name Value Range Interpretation Code Description Data Jie rce(s) Supporting Document(s) [facility] juanita NORMAL: Yellow [facility] CLARITY clear NORMAL: Clear [facility] Specific gravity of Urine by Test strip 1.030 1.001 - 1.030 [facility] pH 5 5 - 9 [facility] Glucose [Mass/volume] in Urine by Test strip NORM NORMAL: Negat [facility] Bilirubin.total [Presence] in Urine by Test strip NEG NORMAL: Negative [facility] Ketones [Presence] in Urine by Test strip 5 NORMAL: Negative A [facility] Protein [Mass/volume] in Urine by Test strip 15 NORMAL: Negat [facility] Nitrite [Presence] in Urine by Test strip POS NORMAL: Negative [facility] BLOOD NEG NORMAL: Negative [facility] Leukocyte esterase [Presence] in Urine by Test strip 25 MEKHI L: Negative [facility] Urobilinogen [Mass/volume] in Urine by Test strip 1 less dragan n 1.0 mg/dL [facility] MICROSCOPIC See Below [facility] WBC 3 - [address]: [address] [facility] Erythrocytes [#/volume] in Urine by Test strip 0 - 1 NORMAL: NON E SEEN [facility] EPITHELIAL MODERATE NORMAL: NONE SEEN A [facility] Bacteria [Presence] in Urine sediment by Light microscopy 2+ MOD NORMAL: NONE SEEN A [facility] Mucus [Presence] in Urine sediment by Light microscopy 2+ NOR MAL: NONE SEEN A [facility] ID Date Data Source [id number] 02/19/2020 05:50:00 PM EDT [facility] ([facility]) Name Value Range Interpretation Code Description Data Jie rce(s) Supporting Document(s) HCG Urine Qual Laboratory test result [facility] ([facility]) HCG Urine QL [facility] Laboratory test result [facility] ([facility]) { KIT LOT # [id number] ) { KIT EXP DATE 01.28.21 ) { PROCEDURAL CONTROL VALID ) ID Date Data Source [id number] 02/19/2020 05:50:00 PM EDT [facility] ([facility]) Name Value Range Interpretation Code Description Data Jie rce(s) Supporting Document(s) Urinalysis Laboratory test result [facility] ([facility]) URINALYSIS Source Laboratory test result [facility] ([facility]) Color Laboratory test result [facility] ([facility]) Spec Castine 1.030 1.001-1.030 [facility] ([facility]) Clarity Laboratory test result [facility] ([facility]) Glucose Laboratory test result [facility] ([facility]) pH 5 5-9 [facility] ([facility]) Bilirubin Laboratory test result [facility] ([facility]) Ketone 5 Abnormal (applies to non-numeric res ults) [facility] ([facility]) Protein 15 [facility] ([facility]) Nitrite Laboratory test result [facility] ([facility]) Leuk Est 25 [facility] ([facility]) Blood Laboratory test result [facility] ([facility]) Urobilinogen 1 [facility] ([facility]) Microscopic Laboratory test result [facility] ([facility]) RBC Laboratory test result [facility] ([facility]) WBC Laboratory test result [facility] ([facility]) Epithelial Laboratory test result Abnormal (applies to non -numeric results) [facility] ([facility]) Bacteria Laboratory test result Abnormal (applies to non -numeric results) [facility] ([facility]) Mucous Laboratory test result Abnormal (applies to non -numeric results) [facility] ([facility]) ID Date Data Source [id number] 11/09/2019 03:19:00 PM EDT [facility] ([facility]) Name Value Range Interpretation Code Description Data Jie rce(s) Supporting Document(s) Thyrotropin [Units/volume] in Serum or Plasma 0.68 uIU/mL 0.47-5.01 [facility] ([facility]) Is patient fasting? N ID Date Data Source [id number] 11/09/2019 03:19:00 PM EDT [facility] ([facility]) Name Value Range Interpretation Code Description Data Jie rce(s) Supporting Document(s) Sodium 138 meq/L 134-153 [facility] ([facility]) Is patient fasting? N Potassium 3.9 meq/L 3.6-5.0 [facility] ([facility]) Is patient fasting? N Comprehensive Metabo Laboratory test result [facility] ([facility]) Is patient fasting? N Co2 28 meq/L 22-30 [facility] ([facility]) Is patient fasting? N Glucose 97 mg/dL 65-110 [facility] ([facility]) Is patient fasting? N Chloride 101 meq/L 98-107 [facility] ([facility]) Is patient fasting? N BUN 12 mg/dL 7-21 [facility] ([facility]) Is patient fasting? N Creatinine 0.7 mg/dL 0.7-1.5 [facility] ([facility]) Is patient fasting? N BUN/Creat 17 8-27 [facility] ([facility]) Is patient fasting? N Total Protein 7.0 g/dL 6.3-8.2 [facility] ([facility]) Is patient fasting? N A/G Ratio 2.0 0.8-2.0 [facility] ([facility]) Is patient fasting? N Albumin 4.7 g/dL 3.9-5.0 [facility] ([facility]) Is patient fasting? N Globulin 2.3 GM/DL 2.4-3.2 Below low normal [facility]) Is patient fasting? N Total Bili 0.9 mg/dL 0.2-1.3 [facility] ([facility]) Is patient fasting? N Calcium 9.6 mg/dL 8.4-10.2 [facility] ([facility]) Is patient fasting? N Alkaline Phos 77 U/L 38-126 [facility] ([facility]) Is patient fasting? N Anion Gap 9.0 mmol/L 8.0-16.0 [facility] ([facility]) Is patient fasting? N SGPT/Alt 11 U/L 7-56 [facility] ([facility]) Is patient fasting? N Sgot/Ast 15 U/L 5-40 [facility] ([facility]) Is patient fasting? N Non-Aa GFR Laboratory test result [facility] ([facility]) Is patient fasting? N Age 24 yrs [facility] ([facility]) Is patient fasting? N Afr Amer GFR Laboratory test result [facility] ([facility]) Is patient fasting? N ID Date Data Source [id number] 11/09/2019 03:19:00 PM EDT [facility] ([facility]) Name Value Range Interpretation Code Description Data Jie rce(s) Supporting Document(s) CBC No Diff Laboratory test result [facility] ([facility]) Is patient fasting? N RBC 3.96 10^6/uL 4.20-5.40 Below low normal [facility] ([facility]) Is patient fasting? N Hemoglobin 12.6 g/dL 12.0-16.0 [facility] ([facility]) Is patient fasting? N WBC 7.6 10^3/uL 4.2-11.0 [facility] ([facility]) Is patient fasting? N Hematocrit 38.2 % 37.0-47.0 [facility] ([facility]) Is patient fasting? N MCV 96.5 fL 81.0-101 [facility] ([facility]) Is patient fasting? N MCH 31.8 pg 27.0-34.0 [facility] ([facility]) Is patient fasting? N MCHC 33.0 g/dL 31.0-36.0 [facility] ([facility]) Is patient fasting? N Platelets 242 10^3/uL 150-450 [facility] ([facility]) Is patient fasting? N RDW 12.0 % 11.5-14.5 [facility] ([facility]) Is patient fasting? N MPV 9.8 fL 7.4-10.4 [facility] ([facility]) Is patient fasting? N ID Date Data Source [id number] 11/09/2019 09:12:00 PM EDT [facility] Name Value Range Interpretation Code Description Data Jie rce(s) Supporting Document(s) Thyrotropin [Units/volume] in Serum or Plasma by Detec tion limit <= 0.05 mIU/L 0.68 uIU/mL 0.47 - 5.01 [facility] ID Date Data Source [id number] 11/09/2019 09:09:00 PM EDT [facility] Name Value Range Interpretation Code Description Data Jie rce(s) Supporting Document(s) COMPREHENSIVE METABOLIC PANEL [facility] COMPREHENSIVE METABOLIC PANEL Sodium [Moles/volume] in Serum or Plasma 138 mEq/L 134 - 153 [facility] Potassium [Moles/volume] in Serum or Plasma 3.9 mEq/L 3.6 - 5.0 [facility] Chloride [Moles/volume] in Serum or Plasma 101 mEq/L 98 - 107 [facility] Carbon dioxide, total [Moles/volume] in Serum or Plasma 28 MEQ/L 22 - 30 [facility] Glucose [Mass/volume] in Serum or Plasma 97 MG/DL 65 - 110 [facility] BUN 12 MG/DL 7 - 21 [facility] Creatinine [Mass/volume] in Serum or Plasma 0.7 MG/DL 0.7 - 1.5 [facility] BUN/CREAT 17 8 - 27 [facility] al Protein [Mass/volume] in Serum or Plasma 7.0 G/DL 6.3 - 8.2 [facility] Albumin [Mass/volume] in Serum or Plasma 4.7 G/DL 3.9 - 5.0 [facility] Globulin [Mass/volume] in Serum by calculation 2.3 GM/DL 2.4 - 3.2 L [facility] A/G RATIO 2.0 0.8 - 2.0 [facility] Calcium [Mass/volume] in Serum or Plasma 9.6 MG/DL 8.4 - 10.2 [facility] Bilirubin.total [Mass/volume] in Serum or Plasma 0.9 MG/DL 0.2 - 1.3 [facility] Alkaline phosphatase [Enzymatic activity/volume] in Serum or Plasma 77 U/L 38 - 126 [facility] Aspartate aminotransferase [Enzymatic activity/volume] in Serum or Plasma 15 U/L 5 - 40 [facility] Alanine aminotransferase [Enzymatic activity/volume] in Seru m or Plasma 11 U/L 7 - 56 [facility] Anion gap 3 in Serum or Plasma 9.0 mmol/L 8.0 - 16.0 [facility] AGE 24 yrs [facility] al NON-AA GFR >60 mL/min [facility] AFR AMER GFR >60 mL/min [facility] Male GFR In terprentation 20-49 yrs >60 mL/min Normal 50-59 yrs >56 mL/min Normal 60-69 yrs >49 mL/min Normal 70-79yrs >42 mL/min Normal 80 and above >35 mL/min Normal Female GFR Interpretation 20-39 yrs >60 mL/min Normal 40-49 yrs >58 mL/min Normal 50-59 yrs >51 mL/min Normal 60-69 yrs >45 mL/min Normal 70-79 yrs >39 mL/min Normal 80 and above >32 mL/min Normal ID Date Data Source [id number] 11/09/2019 08:37:00 PM EDT [facility] Name Value Range Interpretation Code Description Data Jie rce(s) Supporting Document(s) CBC NO DIFF [facility] ital COMPLETE BLOOD COUNT Leukocytes [#/volume] in Blood by Automated count 7.6 10^3/uL 4.2 - 1 1.0 [facility] Erythrocytes [#/volume] in Blood by Automated count 3.96 10^6/uL 4. 20 - 5.40 L [facility] Hemoglobin [Mass/volume] in Blood 12.6 g/dL 12.0 - 16.0 [facility] Hematocrit [Volume Fraction] of Blood by Automated count 38.2 % 3 7.0 - 47.0 [facility] Erythrocyte mean corpuscular volume [Entitic volume] by Auto mated count 96.5 fL 81.0 - 101 [facility] Erythrocyte mean corpuscular hemoglobin [Entitic mass] by Automated count 31.8 pg 27.0 - 34.0 [facility] Erythrocyte mean corpuscular hemoglobin concentration [Mass/volume] by Automated count 33.0 g/dL 31.0 - 36.0 [facility] Erythrocyte distribution width [Ratio] by Automated count 12.0 % 11.5 - 14.5 [facility] Platelets [#/volume] in Blood by Automated count 242 10^3/uL 150 - 45 0 [facility] Platelet mean volume [Entitic volume] in Blood by Automated count 9.8 fL 7.4 - 10.4 [facility] ID Date Data Source [id number] 09/08/2019 03:46:56 PM EDT [facility] ENCY DEPT [address] [place] [id number] Elyssa Nolan (Female) [id number] CARIDAD 3 ED Dispo:DISCHARGE Chief Complaint: Chest Pain Diagnosis: Anxiety [] Gastroesophageal reflux disease without esophagitis [] Atypical chest pain [] Current Providers: Attending: Tashia Byrnes Primary Nurse: VIRGIE KayN: [phone] [phone] [employer] [phone] - [facility] MrnMRN: [id number] [employer] [id number] - [facility] Age SexDOB 1995 AGE 24 SEX Female Primary Care Provider: Bairon Gallegos MD Oaeepcg Agents Noted Type Reaction(s)PENICILLINS 06/12/2019 9 - Nausea and *Date Reviewed: 09/08/2019Reviewed by: Marisol Kay RN - Review CompleteED Provider Notes: All notesHNO ID: [id number]: Marquise Byrnes MDService: Emergency MedicineAuthor Type: PhysicianFiled: 09/08/19 1533Note Text:24 yrs old female with PMHX of anxiety and depression.BIBA because of Dizziness,Chest tightness,abdominal discomfort withdecrease PO intake for 3 days.Associated with nausea,No vomiting.Nothing makes her symptoms better or worse.Past Medical History:Diagnosis Date Anxiety Atrial fibrillation (HCC) Depression GERD (gastroesophageal reflux disease)Past Surgical History:Procedure Laterality Date HX CHOLECYSTECTOMYFamily History:Problem Relation Age of Onset Asthma Mother Diabetes Father Hypertension Father Heart Disease Paternal GrandmotherSocial HistorySocioeconomic History Marital status: Spouse name: Shaggy Number of children: Not on file Years of education: Not on file Highest education level: Not on fileOccupational History Not on fileSocial Needs Financial resource strain: Not hard at all Food insecurity Worry: Never true Inability: Never true Transportation needs Medical: No Non-medical: NoTobacco Use Smoking status: Former Smoker Years: 1.00 Types: Cigarettes Last attempt to quit: 04/11/2013 Years since quittin.4 Smokeless tobacco: Never UsedSubstance and Sexual Activity Alcohol use: Not Currently Frequency: Monthly or less Drinks per session: 1 or 2 Binge frequency: Never Drug use: No Sexual activity: Yes Partners: Male control/protection: PillLifestyle Physical activity Days per week: Not on file Minutes per session: Not on file Stress: Not on fileRelationships Social connections Talks on phone: More than three times a week Gets together: Three times a week Attends hinduism service: Never Active member of club or organization: No Attends meetings of clubs or organizations: Never Relationship status: Intimate partner violence Fear of current or ex partner: Not on file Emotionally abused: Not on file Physically abused: Not on file Forced sexual activity: Not on fileOther Topics Concern Not on fileSocial History Narrative Not on fileALLERGIES: PenicillinsReview of SystemsConstitutional: Negative for chills, diaphoresis and fever.HENT: Negative for facial swelling and hearing loss.Eyes: Negative for photophobia and pain.Respiratory: Negative for cough and shortness of breath.Cardiovascular: Positive for chest pain. Negative for palpitations.Gastrointestinal: Positive for abdominal pain and nausea. Negative fordiarrhea and vomiting.Endocrine: Negative for polydipsia and polyuria.Genitourinary: Negative for dysuria and urgency.Musculoskeletal: Negative for back pain and neck stiffness.Skin: Negative for rash and wound.Allergic/Immunologic: Negative for environmental allergies andimmunocompromised state.Neurological: Positive for dizziness. Negative for weakness and numbness.Hematological: Negative for adenopathy.Psychiatric/Behavioral: Negative for agitation and hallucinations.Vitals: 09/08/19 1415 09/08/19 1424BP: 115/73Pulse: 76Resp: 18Temp: 98.3 F (36.8 C)SpO2: 100% 100%Weight: 83.5 kg (184 lb)Height: 5' 6" (1.676 m)Physical ExamConstitutional: Appearance: She is well-developed.HENT: Head: Normocephalic and atraumatic.Eyes: Extraocular Movements: Extraocular movements intact. Conjunctiva/sclera: Conjunctivae normal. Pupils: Pupils are equal, round, and reactive to light.Neck: Musculoskeletal: Normal range of motion and neck supple. Vascular: No JVD.Cardiovascular: Rate and Rhythm: Normal rate and regular rhythm. Heart sounds: Normal heart sounds. No murmur. No friction rub. [place].Pulmonary: Effort: Pulmonary effort is normal. No respiratory distress. Breath sounds: Normal breath sounds. No decreased breath sounds,wheezing or rales.Chest: Chest wall: No tenderness.Abdominal: General: Bowel sounds are normal. There is no distension. Palpations: Abdomen is soft. There is no mass. Tenderness: There is no abdominal tenderness. There is no guarding orrebound. Hernia: No hernia is present.Musculoskeletal: Normal range of motion. General: No tenderness.Lymphadenopathy: Cervical: No cervical adenopathy.Skin: General: Skin is warm and dry. Capillary Refill: Capillary refill takes less than 2 seconds.Neurological: General: No focal deficit present. Mental Status: She is alert and oriented to person, place, and time. Cranial Nerves: No cranial nerve deficit.Psychiatric: Behavior: Behavior normal. Comments: AnxiousMDM<EMERGENCY DEPARTMENT CASE SUMMARY> Impression/Differential Diagnosis: Chest pain,Anxiety,GERD.Plan: D/C home.ED Course:Time:1532I reviewed imaging results with pt.Pt feels better after she was medicated in the ED.Pt will be D/C home on Protonix to F/U with PMD.No results found.Recent Results (from the past 24 hour(s))EKG, 12 LEAD, INITIAL Collection Time: 09/08/19 2:25 PMResult Value Ref Range Ventricular Rate 62 BPM Atrial Rate 62 BPM P-R Interval 136 ms QRS Duration 104 ms Q-T Interval 384 ms QTC Calculation (Bezet) 389 ms Calculated P [place] 44 degrees Calculated R [place] 79 degrees Calculated T [place] 55 degrees Diagnosis Normal sinus rhythmNormal ECGMETABOLIC PANEL, COMPREHENSIVE Collection Time: 09/08/19 2:40 PMResult Value Ref Range Sodium 142 136 - 145 mmol/L Potassium 3.6 3.5 - 5.1 mmol/L Chloride 103 98 - 107 mmol/L CO2 27 21 - 32 mmol/L Anion gap 12 4 - 12 mmol/L Glucose 100 74 - 106 mg/dL BUN 12 7 - 18 mg/dL Creatinine 0.86 0.55 - 1.02 mg/dL GFR est AA >60 >60 ml/min/1.73m2 GFR est non-AA >60 >60 ml/min/1.73m2 Calcium 9.0 8.5 - 10.1 mg/dL Bilirubin, total 1.3 (H) 0.2 - 1.0 mg/dL ALT (SGPT) 29 12 - 78 U/L AST (SGOT) 20 15 - 37 U/L Alk. phosphatase 112 46 - 116 U/L Protein, total 8.2 6.4 - 8.2 g/dL Albumin 4.2 3.4 - 5.0 g/dL Globulin 4.0 (H) 2.8 - 3.9 g/dL A-G Ratio 1.0 1.0 - 1.5MAGNESIUM Collection Time: 09/08/19 2:40 PMResult Value Ref Range Magnesium 1.9 1.8 - 2.4 mg/dLCBC WITH AUTOMATED DIFF Collection Time: 09/08/19 2:40 PMResult Value Ref Range WBC 8.0 4.8 - 10.6 K/uL RBC 4.41 4.20 - 5.40 M/uL HGB 14.1 12.0 - 16.0 g/dL HCT 41.5 36.0 - 47.0 % MCV 94.1 (H) 81.0 - 94.0 FL MCH 32.0 27.0 - 35.0 PG MCHC 34.0 30.7 - 37.3 g/dL RDW 11.8 11.5 - 14.0 % PLATELET 260 130 - 400 K/uL MPV 8.7 (L) 9.2 - 11.8 FL NRBC 0.0 0 PER 100 WBC ABSOLUTE NRBC 0.00 0.0 - 0.01 K/uL NEUTROPHILS 63 48.0 - 72.0 % LYMPHOCYTES 26 18.0 - 40.0 % MONOCYTES 10 2.0 - 12.0 % EOSINOPHILS 1 0.0 - 7.0 % BASOPHILS 1 0.0 - 3.0 % IMMATURE GRANULOCYTES 0 0.0 - 0.5 % ABS. NEUTROPHILS 5.0 2.3 - 7.6 K/UL ABS. LYMPHOCYTES 2.0 0.9 - 4.2 K/UL ABS. MONOCYTES 0.8 0.1 - 1.7 K/UL ABS. EOSINOPHILS 0.1 0.0 - 1.0 K/UL ABS. BASOPHILS 0.1 0.0 - 0.4 K/UL ABS. IMM. GRANS. 0.0 0.0 - 0.17 K/UL DF AUTOMATEDHCG QL SERUM Collection Time: 09/08/19 2:40 PMResult Value Ref Range HCG, Ql. Negative NEGLIPASE Collection Time: 09/08/19 2:40 PMResult Value Ref Range Lipase 89 73 - 393 U/LFinal Impression/Diagnosis: Anxiety,GERD,Atypical CP.Patient condition at time of disposition: Improved.I have reviewed the following home medications:Prior to Admission medicationsMedication Sig Start Date End Date Taking? Authorizing ProviderbuPROPion XL (WELLBUTRIN XL) 150 mg tablet Take 1 Tab by mouth everymorning. 08/17/19 Yes Bairon Gallegos MDtobramycin-dexamethasone (TOBRADEX) ophthalmic suspension Administer 1Drop to right eye every four (4) hours (while awake). 08/09/19 09/08/19Bairon maguire MDAbdul Elfar, MDEKG shows SR @62/m,Nl axis,Nl intervals,No acute ischemic changes.ProceduresED Orders [id number] EKG, 12 LEAD, INITIAL [#[id number]] Priority: STAT Class: Hospital Performed Standing Order Information Remaining Occurrences:0/1 Interval:ONE TIME Last released:09/08/2019 Released orders: Sat September 08, 2019 2:23 PM by: MARISOL KAY Reason for Exam: -> chest tightness [id number] EKG, 12 LEAD, INITIAL [#[id number]] Priority: STAT Class: Hospital Performed Specimen Collected: 09/08/2019 2:25 PM Resulting Agency: [facility] MUSE Test ID: [id number] Reason for Exam: -> chest tightness Released on: 09/08/2019 2:23 PM [id number] METABOLIC PANEL, COMPREHENSIVE [#[id number]] Priority: STAT Class: ER Collect Standing Order Information Remaining Occurrences:0/1 Interval:ONE TIME Last released:09/08/2019 Released orders: Sat September 08, 2019 2:30 PM by: MARQUISE BYRNES [id number] MAGNESIUM [#[id number]] Priority: STAT Class: ER Collect Standing Order Information Remaining Occurrences:0/1 Interval:ONE TIME Last released:09/08/2019 Released orders: Sat September 08, 2019 2:30 PM by: MARQUISE BYRNES [id number] CBC WITH AUTOMATED DIFF [#[id number]] Priority: STAT Class: ER Collect Standing Order Information Remaining Occurrences:0/1 Interval:ONE TIME Last released:09/08/2019 Released orders: Sat September 08, 2019 2:30 PM by: MARQUISE BYRNES [id number] HCG QL SERUM [#[id number]] Priority: STAT Class: ER Collect Standing Order Information Remaining Occurrences:0/1 Interval:ONE TIME Last released:09/08/2019 Released orders: Sat September 08, 2019 2:30 PM by: MARQUISE BYRNES [id number] LIPASE [#[id number]] Priority: STAT Class: ER Collect Standing Order Information Remaining Occurrences:0/1 Interval:ONE TIME Last released:09/08/2019 Released orders: Sat September 08, 2019 2:30 PM by: MARQUISE BYRNES [id number] METABOLIC PANEL, COMPREHENSIVE [#[id number]] Priority: STAT Class: ER Collect Specimen Source: Plasma Specimen Collected: 09/08/2019 2:40 PM Resulting Agency: [facility] Test ID: MPL Released on: 09/08/2019 2:30 PM [id number] MAGNESIUM [#[id number]] Priority: STAT Class: ER Collect Specimen Source: Plasma Specimen Collected: 09/08/2019 2:40 PM Resulting Agency: [facility] Test ID: MGPL Released on: 09/08/2019 2:30 PM [id number] CBC WITH AUTOMATED DIFF [#[id number]] Priority: STAT Class: ER Collect Specimen Source: Whole Blood Specimen Collected: 09/08/2019 2:40 PM Resulting Agency: [facility] Test ID: [id number] Released on: 09/08/2019 2:30 PM [id number] HCG QL SERUM [#[id number]] Priority: STAT Class: ER Collect Specimen Source: Serum Specimen Collected: 09/08/2019 2:40 PM Resulting Agency: [facility] Test ID: [id number] Released on: 09/08/2019 2:30 PM [id number] LIPASE [#[id number]] Priority: STAT Class: ER Collect Specimen Source: Plasma Specimen Collected: 09/08/2019 2:40 PM Resulting Agency: [facility] Test ID: HLPSE Released on: 09/08/2019 2:30 PM SODIUM CHLORIDE 0.9% BOLUS IV [#[id number]] Priority: STAT Class: Normal LORAZEPAM 2 MG/ML IJ SOLN [#[id number]] Priority: STAT Class: Normal PANTOPRAZOLE 40 MG + NS 10 ML IV [#[id number]] Priority: STAT Class: Normal PPI INDICATION -> Symptomatic GERD PANTOPRAZOLE 40 MG TAB, DELAYED RELE* [#[id number]] Priority: Routine Class: Elyssa Colvin MR#: [id number] * Rm: [id number]: 5' 6" Wt: 184 lb Code: Not on file Iso:Diagnosis:Allergies: Penicillins Current as of: 09/08/19 1546 GI=Given IC=IV Completed NB=New Bag ---------pantoprazole (PROTONIX) injection 40 mg #[id number] Admin Amount: 40 mg Ordered Dose: 40 mg Route: IntraVENous Freq: ONCE Start Date: 03/16/14 No administration times (back 96 hours, ahead 96 hours). ------pantoprazole (PROTONIX) injection 40 mg #[id number] Admin Amount: 40 mg Ordered Dose: 40 mg Route: IntraVENous Freq: ONCE Start Date: 04/17/14 No administration times (back 96 hours, ahead 96 hours). ------sodium chloride 0.9 % bolus infusion 1,000 mL #[id number] Admin Amount: 1,000 mL Ordered Dose: 1,000 mL Route: IntraVENous Freq: ONCE Start Date: 04/17/14 Rate: 1,000 mL/hr Duration: 60 Minutes No administration times (back 96 hours, ahead 96 hours). ------ondansetron (ZOFRAN) injection 4 mg #[id number] Admin Amount: 2 mL = 4 mg of 4 mg/2 mL Ordered Dose: 4 mg Route: IntraVENous Freq: ONCE Start Date: 04/17/14 No administration times (back 96 hours, ahead 96 hours).----- dicycl omine (BENTYL) capsule 10 mg #[id number] Admin Amount: 1 Cap (1 x 10 mg Cap) Ordered Dose: 10 mg Route: Oral Freq: NOW Start Date: 04/17/14 No administration times (back 96 hours, ahead 96 hours). alum-mag hydroxide-simeth (MYLANTA) oral suspension 30 mL #[id number] Admin Amount: 30 mL Ordered Dose: 30 mL Route: Oral Freq: NOW Start Date: 04/17/14 No administration times (back 96 hours, ahead 96 hours). ------lidocaine (XYLOCAINE) 2 % viscous solution 15 mL #[id number] Admin Amount: 15 mL Ordered Dose: 15 mL Route: Mouth/Throat Freq: NOW Start Date: 04/17/14 No administration times (back 96 hours, ahead 96 hours).Elyssa Nolan MR#: [id number] * Rm: [id number]: 5' 6" Wt: 184 lb Code: Not on file Iso:Diagnosis:Allergies: Peni cillins ------ Current as of: 09/08/19 1546 GI=Given IC=IV Completed NB=New Bag lidocaine (XYLOCAINE) 2 % viscous solution 15 mL #[id number] Admin Amount: 15 mL Ordered Dose: 15 mL Route: Mouth/Throat Freq: NOW Start Date: 05/19/14 No administration times (back 96 hours, ahead 96 hours). ------alum-mag hydroxide-simeth (MYLANTA) oral suspension 30 mL #[id number] Admin Amount: 30 mL Ordered Dose: 30 mL Route: Oral Freq: NOW Start Date: 05/19/14 No administration times (back 96 hours, ahead 96 hours). ------famotidine (PF) (PEPCID) 20 mg in sodium chloride 0.9 % 10 mL inject*#[id number] Admin Amount: 20 mg Ordered Dose: 20 mg Route: IntraVENous Freq: NOW Start Date: 05/19/14 No administration times (back 96 hours, ahead 96 hours). ondansetron (ZOFRAN) injection 4 mg #[id number] Admin Amount: 2 mL = 4 mg of 4 mg/2 mL Ordered Dose: 4 mg Route: IntraVENous Freq: ONCE Start Date: 05/19/14 No administration times (back 96 hours, ahead 96 hours). iohexol (OMNIPAQUE) solution 10-50 mL #[id number] Admin Amount: 10-50 mL Ordered Dose: 10-50 mL Route: Oral Freq: RAD ONCE Start Date: 05/19/14 No administration times (back 96 hours, ahead 96 hours). ------ioversol (OPTIRAY) 320 mg iodine/mL contrast injection 51-100 mL #[id number] Admin Amount: 51-100 mL Ordered Dose: 51-100 mL Route: IntraVENous Freq: RAD ONCE Start Date: 05/19/14 No administration times (back 96 hours, ahead 96 hours). ------famotidine (PF) (PEPCID) injection 20 mg #[id number] Admin Amount: 20 mg Ordered Dose: 20 mg Route: IntraVENous Freq: NOW Start Date: 06/15/14 No administration times (back 96 hours, ahead 96 hours). ondansetron (ZOFRAN) injection 4 mg #[id number] Admin Amount: 2 mL = 4 mg of 4 mg/2 mL Ordered Dose: 4 mg Route: IntraVENous Freq: NOW Start Date: 06/15/14 No administration times (back 96 hours, ahead 96 hours).Elyssa Nolan MR#: [id number] * Rm: [id number]: 5' 6" Wt: 184 lb Code: Not on file Iso:Diagnosis:Allergies: Penicillins Current as of: 09/08/19 1546 GI=Given IC=IV Completed NB=New Bag --morphine injection 2 mg #[id number] Admin Amount: 0.5 mL = 2 mg of 4 mg/mL Ordered Dose: 2 mg Route: IntraVENous Freq: NOW Start Date: 06/15/14 No administration times (back 96 hours, ahead 96 hours). ------ondansetron (ZOFRAN) injection 4 mg #[id number] Admin Amount: 2 mL = 4 mg of 4 mg/2 mL Ordered Dose: 4 mg Route: IntraVENous Freq: NOW Start Date: 06/24/14 No administration times (back 96 hours, ahead 96 hours).--- famo tidine (PF) (PEPCID) injection 20 mg #[id number] Admin Amount: 20 mg Ordered Dose: 20 mg Route: IntraVENous Freq: NOW Start Date: 06/24/14 No administration times (back 96 hours, ahead 96 hours). bnlnvosqd-fjrzff-qioaxzje-scop () elixir 10 mL #[id number] Admin Amount: 10 mL Ordered Dose: 10 mL Route: Oral Freq: NOW Start Date: 06/24/14 No administration times (back 96 hours, ahead 96 hours). ------sodium chloride 0.9 % bolus infusion 1,000 mL #[id number] Admin Amount: 1,000 mL Ordered Dose: 1,000 mL Route: IntraVENous Freq: ONCE Start Date: 06/24/14 Rate: 1,000 mL/hr Duration: 60 Minutes No administration times (back 96 hours, ahead 96 hours). ------dicyclomine (BENTYL) capsule 20 mg #[id number] Admin Amount: 2 Cap (2 x 10 mg Cap) Ordered Dose: 20 mg Route: Oral Freq: NOW Start Date: 06/24/14 No administration times (back 96 hours, ahead 96 hours). ------0.9% sodium chloride infusion #[id number] Ordered Dose: 1,000 mL/hr Route: IntraVENous Freq: CONTINUOUS Start Date: 07/29/14 Rate: 1,000 mL/hr Duration: No administration times (back 96 hours, ahead 96 hours).Elyssa Nolan MR#: [id number] * Rm: [id number]: 5' 6" Wt: 184 lb Code: Not on file Iso:Diagnosis:Allergies: Penicillins Current as of: 09/08/19 1546 GI=Given IC=IV Completed NB=New Bag --ondansetron (ZOFRAN) injection 4 mg #[id number] Admin Amount: 2 mL = 4 mg of 4 mg/2 mL Ordered Dose: 4 mg Route: IntraVENous Freq: NOW Start Date: 07/29/14 No administration times (back 96 hours, ahead 96 hours). ------ketorolac (TORADOL) injection 30 mg #[id number] Admin Amount: 1 mL = 30 mg of 30 mg/mL Ordered Dose: 30 mg Route: IntraVENous Freq: NOW Start Date: 07/29/14 No administration times (back 96 hours, ahead 96 hours). ------0.9% sodium chloride infusion 1,000 mL #[id number] Admin Amount: 1,000 mL Ordered Dose: 1,000 mL Route: IntraVENous Freq: NOW Start Date: 08/13/14 No administration times (back 96 hours, ahead 96 hours).- ke torolac (TORADOL) injection 30 mg #[id number] Admin Amount: 1 mL = 30 mg of 30 mg/mL Ordered Dose: 30 mg Route: IntraVENous Freq: NOW Start Date: 08/13/14 No administration times (back 96 hours, ahead 96 hours). ondansetron (ZOFRAN ODT) tablet 4 mg #[id number] Admin Amount: 1 Tab (1 x 4 mg Tab) Ordered Dose: 4 mg Route: Oral Freq: NOW Start Date: 09/30/14 No administration times (back 96 hours, ahead 96 hours). ------trimethoprim-sulfamethoxazole (BACTRIM DS, SEPTRA DS) 160-800 mg per*#[id number] Admin Amount: 1 Tab Ordered Dose: 1 Tab Route: Oral Freq: NOW Start Date: 09/30/14 No administration times (back 96 hours, ahead 96 hours). ------0.9% sodium chloride infusion #[id number] Ordered Dose: 1,000 mL/hr Route: IntraVENous Freq: CONTINUOUS Start Date: 11/16/14 Rate: 1,000 mL/hr Duration: No administration times (back 96 hours, ahead 96 hours). ------ondansetron (ZOFRAN) injection 4 mg #[id number] Admin Amount: 2 mL = 4 mg of 4 mg/2 mL Ordered Dose: 4 mg Route: IntraVENous Freq: NOW Start Date: 11/16/14 No administration times (back 96 hours, ahead 96 hours).Elyssa Nolan MR#: [id number] * Rm: [id number]: 5' 6" Wt: 184 lb Code: Not on file Iso:Diagnosis:Allergies: Penicillins Current as of: 09/08/19 0666 GI=Given IC=IV Completed NB=New Bag --pantoprazole (PROTONIX) injection 40 mg #[id number] Admin Amount: 40 mg Ordered Dose: 40 mg Route: IntraVENous Freq: NOW Start Date: 11/16/14 No a dministration times (back 96 hours, ahead 96 hours). ------ondansetron (ZOFRAN) injection 4 mg #[id number] Admin Amount: 2 mL = 4 mg of 4 mg/2 mL Ordered Dose: 4 mg Route: IntraVENous Freq: ONCE Start Date: 04/04/15 No administration times (back 96 hours, ahead 96 hours). ------ketorolac (TORADOL) injection 60 mg #[id number] Admin Amount: 2 mL = 60 mg of 30 mg/mL Ordered Dose: 60 mg Route: IntraMUSCular Freq: NOW Start Date: 04/11/15 No administration times (back 96 hours, ahead 96 hours). hydrOXYzine HCl (ATARAX) tablet 50 mg #[id number] Admin Amount: 1 Tab (1 x 50 mg Tab) Ordered Dose: 50 mg Route: Oral Freq: NOW Start Date: 04/09/17 No administration times (back 96 hours, ahead 96 hours). acetaminophen (OFIRMEV) infusion 1,000 mg #[id number] Admin Amount: 100 mL = 1,000 mg of 1,000 mg/100 mL Ordered Dose: 1,000 mg Route: IntraVENous Freq: ONCE Start Date: 09/17/17 Rate: 400 mL/hr Duration: 15 Minutes No administration times (back 96 hours, ahead 96 hours). ondansetron (ZOFRAN) injection 4 mg #[id number] Admin Amount: 2 mL = 4 mg of 4 mg/2 mL Ordered Dose: 4 mg Route: IntraVENous Freq: ONCE Start Date: 09/17/17 No administration times (back 96 hours, ahead 96 hours). iohexol (OMNIPAQUE) solution 50 mL #[id number] Admin Amount: 50 mL Ordered Dose: 50 mL Route: Oral Freq: RAD ONCE Start Date: 09/17/17 No administration times (back 96 hours, ahead 96 hours).Elyssa Nolan MR#: [id number] * Rm: [id number]: 5' 6" Wt: 184 lb Code: Not on file Iso:Diagnosis:Allergies: Penicillins Current as of: 09/08/19 1546 GI=Given IC=IV Completed NB=New Bag------- iopamido l (ISOVUE 300) 61 % contrast injection 100 mL #[id number] Admin Amount: 100 mL Ordered Dose: 100 mL Route: IntraVENous Freq: RAD ONCE Start Date: 09/17/17 No administration times (back 96 hours, ahead 96 hours). ondansetron (ZOFRAN) injection 4 mg #[id number] Admin Amount: 2 mL = 4 mg of 4 mg/2 mL Ordered Dose: 4 mg Route: IntraVENous Freq: ONCE Start Date: 09/17/17 No administration times (back 96 hours, ahead 96 hours). ------ciprofloxacin HCl (CIPRO) tablet 500 mg #[id number] Admin Amount: 2 Tab (2 x 250 mg Tab) Ordered Dose: 500 mg Route: Oral Freq: NOW Start Date: 09/17/17 No administration times (back 96 hours, ahead 96 hours). ------metroNIDAZOLE (FLAGYL) tablet 500 mg #[id number] Admin Amount: 2 Tab (2 x 250 mg Tab) Ordered Dose: 500 mg Route: Oral Freq: NOW Start Date: 09/17/17 No administration times (back 96 hours, ahead 96 hours). ------ketorolac (TORADOL) injection 30 mg #[id number] Admin Amount: 1 mL = 30 mg of 30 mg/mL Ordered Dose: 30 mg Route: IntraVENous Freq: NOW Start Date: 09/19/17 No administration times (back 96 hours, ahead 96 hours). sodium chloride 0.9 % bolus infusion 1,000 mL #[id number] Admin Amount: 1,000 mL Ordered Dose: 1,000 mL Route: IntraVENous Freq: ONCE Start Date: 09/19/17 Rate: 1,000 mL/hr Duration: 60 Minutes No administration times (back 96 hours, ahead 96 hours). dicyclomine (BENTYL) capsule 20 mg #[id number] Admin Amount: 2 Cap (2 x 10 mg Cap) Ordered Dose: 20 mg Route: Oral Freq: NOW Start Date: 09/19/17 No administration times (back 96 hours, ahead 96 hours).Elyssa Nolan MR#: [id number] * Rm: [id number]: 5' 6" Wt: 184 lb Code: Not on file Iso:Diagnosis:Allergies: Penicillins Current as of: 09/08/19 1546 GI=Given IC=IV Completed NB=New Bag --acetaminophen (OFIRMEV) infusion 1,000 mg #[id number] Admin Amount: 100 mL = 1,000 mg of 1,000 mg/100 mL Ordered Dose: 1,000 mg Route: IntraVENous Freq: ONCE Start Date: 09/19/17 Rate: 400 mL/hr Duration: 15 Minutes No administration times (back 96 hours, ahead 96 hours). ------alum-mag hydroxide-simeth (MYLANTA) oral suspension 30 mL #[id number] Admin Amount: 30 mL Ordered Dose: 30 mL Route: Oral Freq: NOW Start Date: 09/19/17 No administration times (back 96 hours, ahead 96 hours). ------lidocaine (XYLOCAINE) 2 % viscous solution 15 mL #[id number] Admin Amount: 15 mL Ordered Dose: 15 mL Route: Mouth/Throat Freq: NOW Start Date: 09/19/17 No administration times (back 96 hours, ahead 96 hours). ondansetron (ZOFRAN ODT) tablet 8 mg #[id number] Admin Amount: 2 Tab (2 x 4 mg Tab) Ordered Dose: 8 mg Route: Oral Freq: NOW Start Date: 04/30/18 No administration times (back 96 hours, ahead 96 hours). -------rho D immune globulin (RHOGAM) 1,500 unit (300 mcg) injection 0.3 mg #[id number] Admin Amount: 1 mL = 0.3 mg of 0.3 mg/mL Ordered Dose: 300 mcg Route: IntraMUSCular Freq: ONCE Start Date: 10/21/18 No administration times (back 96 hours, ahead 96 hours). ------pantoprazole (PROTONIX) tablet 40 mg #[id number] Admin Amount: 1 Tab (1 x 40 mg Tab) Ordered Dose: 40 mg Route: Oral Freq: NOW Start Date: 04/20/19 No ad ministration times (back 96 hours, ahead 96 hours). ------sodium chloride 0.9 % bolus infusion 1,000 mL #[id number] Admin Amount: 1,000 mL Ordered Dose: 1,000 mL Route: IntraVENous Freq: ONCE Start Date: 09/08/19 Rate: 1,000 mL/hr Duration: 60 Minutes Administration times (back 96 hours, ahead 96 hours): 09/08/19: 1445NB 1541Elyssa Jules MR#: [id number] * Rm: [id number]: 5' 6" Wt: 184 lb Code: Not on file Iso:Diagnosis:Allergies: Penicillins Current as of: 09/08/19 1546 GI=Given IC=IV Completed NB=New Bag---- LORaz epam (ATIVAN) injection 1 mg #[id number] Admin Amount: 0.5 mL = 1 mg of 2 mg/mL Ordered Dose: 1 mg Route: IntraVENous Freq: ONCE Start Date: 09/08/19 Administration times (back 96 hours, ahead 96 hours): 09/08/19: 1449GI pantoprazole (PROTONIX) 40 mg in 0.9% sodium chloride 10 mL injection#[id number] Admin Amount: 10 mL = 40 mg of 40 mg/10 mL Ordered Dose: 40 mg Route: IntraVENous Freq: ONCE Start Date: 09/08/19 Administration times (back 96 hours, ahead 96 hours): 09/08/19: 1448 ED Current OP Medicationspantoprazole (Protonix) 40 mg tabletSig:Take 1 Tab by mouth daily for 20 days.Dispense Amount:20 TabStart Date:09/08/2019End Date:09/28/2019Doc. Provider: Marquise Byrnes MDbuPROPion XL (WELLBUTRIN XL) 150 mg tabletSig:Take 1 Tab by mouth every morning.Dispense Amount:30 TabStart Date:08/17/2019End Date:Doc. Provider: Bairon Gallegos MDtobramycin-dexamethasone (TOBRADEX) ophthalmic suspension (Status: Discontinued)Sig:Administer 1 Drop to right eye every four (4) hours (while awake).Dispense Amount:10 mLStart Date:08/09/2019End Date:09/08/2019Doc. Provider: Bairon Gallegos MD ED Prescriptionspantoprazole (Protonix) 40 mg tabletSig:Take 1 Tab by mouth daily for 20 days.Dispense Amount:20 TabStart Date:09/08/2019End Date:09/28/2019[facility]. Provider: Marquise Byrnes MDFollow-up InformationFollow-up With:[facility] DEPTDetails:In 2 daysComments:If symptoms worsenContact Info:[address] [facility] [phone] [id number] With:Bairon Gallegos MDDetails:Schedule an appointment as soon as possible for a visit in 1 dayComments:Contact Info:[address] [facility] [phone] Name Value Range Interpretation Code Description Data Jie rce(s) Supporting Document(s) ID Date Data Source [id number] 09/08/2019 03:41:28 PM EDT [facility] Pt. Discharged with understanding to ret urn if worse, and to follow up with PMD. Name Value Range Interpretation Code Description Data Jie rce(s) Supporting Document(s) ID Date Data Source [id number] 09/08/2019 03:36:48 PM EDT [facility] Pt. Denies chest heaviness, feeling a lo t better. Name Value Range Interpretation Code Description Data Jie rce(s) Supporting Document(s) ID Date Data Source [id number] 09/08/2019 03:33:58 PM EDT [facility] 24 yrs old female with PMHX of anxiety a nd depression.BIBA because of Dizziness,Chest tightness,abdominal discomfort with decrease POintake for 3 days.Associated with nausea,No vomiting.Nothing makes her symptoms better or worse.Past Medical History:Diagnosis Date Anxiety Atrial fibrillation (HCC) Depression GERD (gastroesophageal reflux disease)Past Surgical History:Procedure Laterality Date HX CHOLECYSTECTOMYFamily History:Problem Relation Age of Onset Asthma Mother Diabetes Father Hypertension Father Heart Disease Paternal GrandmotherSocial HistorySocioeconomic History Marital status: Spouse name: Shaggy Number of children: Not on file Years of education: Not on file Highest education level: Not on fileOccupational History Not on fileSocial Needs Financial resource strain: Not hard at all Food insecurity Worry: Never true Inability: Never true Transportation needs Medical: No Non-medical: NoTobacco Use Smoking status: Former Smoker Years: 1.00 Types: Cigarettes Last attempt to quit: 04/11/2013 Years since quittin.4 Smokeless tobacco: Never UsedSubstance and Sexual Activity Alcohol use: Not Currently Frequency: Monthly or less Drinks per session: 1 or 2 Binge frequency: Never Drug use: No Sexual activity: Yes Partners: Male control/protection: PillLifestyle Physical activity Days per week: Not on file Minutes per session: Not on file Stress: Not on fileRelationships Social connections Talks on phone: More than three times a week Gets together: Three times a week Attends hinduism service: Never Active member of club or organiz ation: No Attends meetings of clubs or organizations: Never Relationship status: Intimate partner violence Fear of current or ex partner: Not on file Emotionally abused: Not on file Physically abused: Not on file Forced sexual activity: Not on fileOther Topics Concern Not on fileSocial History Narrative Not on fileALLERGIES: PenicillinsReview of SystemsConstitutional: Negative for chills, diaphoresis and fever.HENT: Negative for facial swelling and hearing loss.Eyes: Negative for photophobia and pain.Respiratory: Negative for cough and shortness of breath.Cardiovascular: Positive for chest pain. Negative for palpitations.Gastrointestinal: Positive for abdominal pain and nausea. Negative for diarrheaand vomiting.Endocrine: Negative for polydipsia and polyuria.Genitourinary: Negative for dysuria and urgency.Musculoskeletal: Negative for back pain and neck stiffness.Skin: Negative for rash and wound.Allergic/Immunologic: Negative for environmental allergies and immunocompromisedstate.Neurological: Positive for dizziness. Negative for weakness and numbness.Hematological: Negative for adenopathy.Psychiatric/Behavioral: Negative for agitation and hallucinations.Vitals: 09/08/19 1415 09/08/19 1424BP: 115/73Pulse: 76Resp: 18Temp: 98.3 F (36.8 C)SpO2: 100% 100%Weight: 83.5 kg (184 lb)Height: 5' 6" (1.676 m)Physical ExamConstitutional: Appearance: She is well-developed.HENT: Head: Normocephalic and atraumatic.Eyes: Extraocular Movements: Extraocular movements intact. Conjunctiva/sclera: Conjunctivae normal. Pupils: Pupils are equal, round, and reactive to light.Neck: Musculoskeletal: Normal range of motion and neck supple. Vascular: No JVD.Cardiovascular: Rate and Rhythm: Normal rate and regular rhythm. Heart sounds: Normal heart sounds. No murmur. No friction rub. No gallop.Pulmonary: Effort: Pulmonary effort is normal. No respiratory distress. Breath sounds: Normal breath sounds. No decreased breath sounds, wheezing orrales.Chest: Chest wall: No tenderness.Abdominal: General: Bowel sounds are normal. There is no distension. Palpations: Abdomen is soft. There is no mass. Tenderness: There is no abdominal tenderness. There is no guarding orrebound. Hernia: No hernia is present.Musculoskeletal: Normal range of motion. General: No tenderness.Lymphadenopathy: Cervical: No cervical adenopathy.Skin: General: Skin is warm and dry. Capillary Refill: Capillary refill takes less than 2 seconds.Neurological: General: No focal deficit present. Mental Status: She is alert and oriented to person, place, and time. Cranial Nerves: No cranial nerve deficit.Psychiatric: Behavior: Behavior normal. Comments: AnxiousMDM<EMERGENCY DEPARTMENT CASE SUMMARY>Impression/Differential Diagnosis: Chest pain,Anxiety,GERD.Plan: D/C home.ED Course:Time:1531I reviewed imaging results with pt.Pt feels better after she was medicated in the ED.Pt will be D/C home on Protonix to F/U with PMD.No results found.Recent Results (from the past 24 hour(s))EKG, 12 LEAD, INITIAL Collection Time: 09/08/19 2:25 PMResult Value Ref Range Ventricular Rate 62 BPM Atrial Rate 62 BPM P-R Interval 136 ms QRS Duration 104 ms Q-T Interval 384 ms QTC Calculation (Bezet) 389 ms Calculated P [place] 44 degrees Calculated R [place] 79 degrees Calculated T [place] 55 degrees Diagnosis Normal sinus rhythmNormal ECGMETABOLIC PANEL, COMPREHENSIVE Collection Time: 09/08/19 2:40 PMResult Value Ref Range Sodium 142 136 - 145 mmol/L Potassium 3.6 3.5 - 5.1 mmol/L Chloride 103 98 - 107 mmol/L CO2 27 21 - 32 mmol/L Anion gap 12 4 - 12 mmol/L Glucose 100 74 - 106 mg/dL BUN 12 7 - 18 mg/dL Creatinine 0.86 0.55 - 1.02 mg/dL GFR est AA >60 >60 ml/min/1.73m2 GFR est non-AA >60 >60 ml/min/1.73m2 Calcium 9.0 8.5 - 10.1 mg/dL Bilirubin, total 1.3 (H) 0.2 - 1.0 mg/dL ALT (SGPT) 29 12 - 78 U/L AST (SGOT) 20 15 - 37 U/L Alk. phosphatase 112 46 - 116 U/L Protein, total 8.2 6.4 - 8.2 g/dL Albumin 4.2 3.4 - 5.0 g/dL Globulin 4.0 (H) 2.8 - 3.9 g/dL A-G Ratio 1.0 1.0 - 1.5MAGNESIUM Collection Time: 09/08/19 2:40 PMResult Value Ref Range Magnesium 1.9 1.8 - 2.4 mg/dLCBC WITH AUTOMATED DIFF Collection Time: 09/08/19 2:40 PMResult Value Ref Range WBC 8.0 4.8 - 10.6 K/uL RBC 4.41 4.20 - 5.40 M/uL HGB 14.1 12.0 - 16.0 g/dL HCT 41.5 36.0 - 47.0 % MCV 94.1 (H) 81.0 - 94.0 FL MCH 32.0 27.0 - 35.0 PG MCHC 34.0 30.7 - 37.3 g/dL RDW 11.8 11.5 - 14.0 % PLATELET 260 130 - 400 K/uL MPV 8.7 (L) 9.2 - 11.8 FL NRBC 0.0 0 PER 100 WBC ABSOLUTE NRBC 0.00 0.0 - 0.01 K/uL NEUTROPHILS 63 48.0 - 72.0 % LYMPHOCYTES 26 18.0 - 40.0 % MONOCYTES 10 2.0 - 12.0 % EOSINOPHILS 1 0.0 - 7.0 % BASOPHILS 1 0.0 - 3.0 % IMMATURE GRANULOCYTES 0 0.0 - 0.5 % ABS. NEUTROPHILS 5.0 2.3 - 7.6 K/UL ABS. LYMPHOCYTES 2.0 0.9 - 4.2 K/UL ABS. MONOCYTES 0.8 0.1 - 1.7 K/UL ABS. EOSINOPHILS 0.1 0.0 - 1.0 K/UL ABS. BASOPHILS 0.1 0.0 - 0.4 K/UL ABS. IMM. GRANS. 0.0 0.0 - 0.17 K/UL DF AUTOMATEDHCG QL SERUM Collection Time: 09/08/19 2:40 PMResult Value Ref Range HCG, Ql. Negative NEGLIPASE Collection Time: 09/08/19 2:40 PMResult Value Ref Range Lipase 89 73 - 393 U/LFinal Impression/Diagnosis: Anxiety,GERD,Atypical CP.Patient condition at time of disposition: Improved.I have reviewed the following home medications:Prior to Admission medicationsMedication Sig Start Date End Date Taking? Authorizing ProviderbuPROPion XL (WELLBUTRIN XL) 150 mg tablet Take 1 Tab by mouth every morning.08/17/19 Yes Bairon Gallegos MDtobramycin-dexamethasone (TOBRADEX) ophthalmic suspension Administer 1 Drop toright eye every four (4) hours (while awake). 08/09/19 09/08/19 Bairon Gallegos MDAbdul Elfar, MDEKG shows SR @62/m,Nl axis,Nl intervals,No acute ischemic changes.Procedures Name Value Range Interpretation Code Description Data [employer] [facility] Supporting Document[facility]s) ID Date Data Source [id number] 09/08/2019 03:02:56 PM EDT [facility] Pt. Resting, texting on cell phone, stat es feeling "Okay". Will continue tomonitor. Name Value Range Interpretation Code Description Data [facility](s) Supporting Document(s) ID Date Data Source [id number] 09/08/2019 02:53:32 PM EDT [facility] Pt. Medicated as ordered, side rails up. Call mesa in reach. Will monitor. Name Value Range Interpretation Code Description Data [facility](s) Supporting Document(s) ID Date Data Source [id number] 09/08/2019 02:46:21 PM EDT [facility] The patient received Ativan while in the Emergency Department which canpotentially cause sedation. Prior to receipt of that medication, the patient waswarned of the potential side effects including, but not limited to, drowsiness,dizziness, loss of balance and confusion. The patient also was advised not todrive a vehicle, operate machinery, or participate in any activities which couldpotentially result in injury (i.e., standing on a ladder or riding a bicycle)for 24 hours following receipt of medication. The patient was advised She shouldnot drive home. Should discharge be indicated today, She will need to arrange aride home. Patient confirms She will ride home with Mom. Name Value Range Interpretation Code Description Data [facility] Supporting Document(s) ID Date Data Source [id number] 09/08/2019 03:03:22 PM ED[address] [facility] Name Value Range Interpretation Code Description Data [facility]s) Supporting Document(s) Sodium [Moles/volume] in Serum or Plasma 142 mmol/L 136-145 [facility] Potassium [Moles/volume] in Serum or Plasma 3.6 mmol/L 3.5-5.1 [facility] [employer] [facility] Chloride [Moles/volume] in Serum or Plasma 103 mmol/L 98-107 [facility] [employer] [facility] Carbon dioxide, total [Moles/volume] in Serum or Plasma 27 mmol/L 21 -32 [facility] [employer] [facility] Anion gap in Serum or Plasma 12 mmol/L 4-12 [facility] [employer] [facility] Glucose [Mass/volume] in Serum or Plasma 100 mg/dL 74-106 [facility] [employer] [facility] Urea nitrogen [Mass/volume] in Serum or Plasma 12 mg/dL 7-18 [facility] [employer] [facility] Creatinine [Mass/volume] in Serum or Plasma 0.86 mg/dL 0.55-1.[address] [facility] Agnes [employer] [facility] Glomerular filtration rate/1.73 sq M pre dicted among blacks [Volume Rate/Area] in Serum or Plasma by Creatinine-based formula (MDRD) >60 [facility] [employer] AgnesReframe It [facility] Glomerular filtration rate/1.73 sq M pre dicted among non-blacks [Volume Rate/Area] in Serum or Plasma by Creatinine-based formula (MDRD) >[address] [facility] AgnesCelltrix [facility] (NOTE)Estimated GFR is calculated using the Modification of Diet in RenalDisease (MDRD) Study equation, reported for both Americans(GFRAA) and non- Americans (GFRNA), and normalized to 1.66f9ljlt surface area. The physician must decide which value applies tothe patient. The MDRD study equation should only be used inindividuals age 18 or older. It has not been validated for thefollowing: women, patients with serious comorbid conditions,or on certain medications, or persons with extremes of body size,muscle mass, or nutritional status. Calcium [Mass/volume] in Serum or Plasma 9.0 mg/dL 8.5-10.1 [email or web address] Bilirubin.total [Mass/volume] in Serum or Plasma 1.3 mg/dL 0.2-1.0 Above high normal [email or web address] Alanine aminotransferase [Enzymatic activity/volume] in Seru m or Plasma 29 U/L 12-78 [employer] Aspartate aminotransferase [Enzymatic ac tivity/volume] in Serum or Plasma by With P-5'-P 20 U/L 15-37 [employer] [place] [employer] [facility] Alkaline phosphatase [Enzymatic activity/volume] in Serum or Plasma 112 U/L 46-116 [employer] Protein [Mass/volume] in Serum or Plasma 8.2 g/dL 6.4-8.2 [employer] Albumin [Mass/volume] in Serum or Plasma by Bromocresol purple (BCP) dye binding method 4.2 g/dL 3.4-5.0 [facility] Globulin [Mass/volume] in Serum by calculation 4.0 g/dL 2 .8-3.9 Above high normal [employer] Albumin/Globulin [Mass Ratio] in Serum or Plasma 1.0 1.0-1.5 [email or web address] ID Date Data Source [id number] 09/08/2019 03:03:22 PM EDT [employer] Name Value Range Interpretation Code Description Data Jie rce(s) Supporting Document(s) Magnesium [Mass/volume] in Serum or Plasma 1.9 mg/dL 1.8-2.4 [email or web address] ID Date Data Source [id number] 09/08/2019 03:03:06 PM EDT [employer] Name Value Range Interpretation Code Description Data Jie rce(s) Supporting Document(s) Choriogonadotropin ( test) [Presence] in Serum or Plasma NEG [employer] BannerMedlert [facility] ID Date Data Source [id number] 09/08/2019 02:57:59 PM EDT [employer] Name Value Range Interpretation Code Description Data Jie rce(s) Supporting Document(s) Lipase [Enzymatic activity/volume] in Serum or Plasma 89 U/L 73-3 93 [facility] [employer] [facility] ID Date Data Source [id number] 09/08/2019 02:49:04 PM EDT [employer] BannerDish.fm [facility] [employer] Name Value Range Interpretation Code Description Data Jie rce(s) Supporting Document(s) Leukocytes [#/volume] in Blood by Automated count 8.0 K/uL 4.8-10.[address] [facility] Ag[facility]Cellt[facility] Erythrocytes [#/volume] in Blood by Automated count 4.41 M/uL 4.20-[address] [facility] [employer]Cell[employer] [facility] Hemoglobin [Mass/volume] in Blood 14.1 g/dL 12.0-16.0 [facility] Hematocrit [Volume Fraction] of Blood by Automated count 41.5 % 3 6.0-47.[address] [facility] AgnesCell[employer] Erythrocyte mean corpuscular volume [Entitic volume] by Auto mated count 94.1 FL 81.0-94.0 Above high normal [facility] [employer] Erythrocyte mean corpuscular hemoglobin [Entitic mass] by Automated count 32.0 PG 27.0-35.0 [facility] [employer] Erythrocyte mean corpuscular hemoglobin concentration [Mass/volume] by Automated count 34.0 g/dL 30.7-37.[address] [facility] Agnes [facility] h System [facility] Erythrocyte distribution width [Ratio] by Automated count 11.8 % 11.5-14.[address] [facility] AgnesCelltrix [facility] Platelets [#/volume] in Blood by Automated count 260 K/uL 130-[address] [facility] AgnesCelltrix [facility] Platelet mean volume [Entitic volume] in Blood by Automated count 8.7 FL 9.2-11.8 Below low normal [facility] [employer] Nucleated erythrocytes/100 leukocytes [Ratio] in Blood 0.0 PER 100 WB C [address] [facility] HospitalIND[facility] Biosciences AgnesCelltrix [facility] Inc Nucleated erythrocytes [#/volume] in Blood 0.00 K/uL 0.0-0.01 [email or web address] Segmented neutrophils/100 leukocytes in Blood 63 % 48.0-72.[address] [employer] [address] [facility] Lymphocytes/100 leukocytes in Blood 26 % 18.0-40.[address] [facility] Monocytes/100 leukocytes in Blood 10 % 2.0-12.[address] [facility] Eosinophils/100 leukocytes in Blood 1 % 0.0-7.[address] [facility] Basophils/100 leukocytes in Blood 1 % 0.0-3.0 [email or web address] Immature granulocytes/100 leukocytes in Blood by Automated count 0 % 0.0-0.5 [email or web address] Segmented neutrophils [#/volume] in Blood 5.0 K/UL 2.3-7.6 [facility] [employer]or [facility] Lymphocytes [#/volume] in Blood 2.0 K/UL 0.9-4.2 [email or web address] Monocytes [#/volume] in Blood 0.8 K/UL 0.1-1.[address] [facility] Eosinophils [#/volume] in Blood 0.1 K/UL 0.0-1.[address] [facility] Basophils [#/volume] in Blood 0.1 K/UL 0.0-0.4 [facility] [employer] Immature granulocytes [#/volume] in Blood by Automated count 0.0 K/UL 0.0-0.17 [facility] [employer] Differential cell count method - Blood [facility] [employer] [facility] ID Date Data Source [id number] 09/08/2019 02:25:55 PM EDT [facility] Physical assessment completed. The patie nt's level of consciousness is alert.The patient's mood is calm. The patient's appearance shows normal skinassessment. The patient does not indicate signs or symptoms of abuse orneglect. Name Value Range Interpretation Code Description Data Jie rce(s) Supporting Document(s) ID Date Data Source [id number] 09/08/2019 02:25:40 PM EDT [facility] Pt. 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 Name Value Range Interpretation Code Description Data Jie rce(s) Supporting Document(s) ID Date Data Source [id number] 09/08/2019 02:18:11 PM EDT [facility] Pt. C/o tightness in chest, nausea, dizz iness, started 3 days ago, no pain. Novomiting or diarrhea. Name Value Range Interpretation Code Description Data Jie rce(s) Supporting Document(s) ID Date Data Source [id number] 08/14/2019 03:52:33 PM EDT [facility] Patient notified. Name Value Range Interpretation Code Description Data Jie rce(s) Supporting Document(s) ID Date Data Source [id number] 08/14/2019 01:01:01 PM EDT [facility] Please let pt know.she is covid neg Name Value Range Interpretation Code Description Data Jie rce(s) Supporting Document(s) ID Date Data Source [id number] 08/13/2019 04:59:22 PM EDT [facility] Patient contacted regarding pending COVI D test result and was offeredopportunity to ask questions.PATIENTS SYMPTOMS ARE improved. States she has some congestion. Last weeksymptoms were sore throat, headache, felt tired. States, no cough, no fever, noSOB. Relates her symptoms to her quitting vaping.Reinforced the following education with patient:? Stay home, whether you are ill or not. Practice social distancing when in sameroom as others, spacing 6' from others? Avoid public areas, unless absolutely necessary (i.e supermarket). Wash anddisinfect hands immediately upon return home? Wash your hands often with soap and water for at least 20 seconds especiallyafter you have been in a public place, or after blowing your nose, coughing, orsneezing. If soap and water are not readily available, use a hand sanitizerthat contains at least 60% alcohol. Cover all surfaces of your hands and rubthem together until they feel dry.? Avoid touching your eyes, nose, and mouth? Avoid close contact with everyone, whether sick or not? Put distance between yourself and other people. This is especially importantfor people who are at higher risk of getting very sick.? >65 years old? Underlying medical conditions considered high risk (respiratory conditions,Cardiac conditions, DM, Renal disease)? Frail, immunocompromised? Stay in touch with your doctor. Call before you get medical care. Be sure toget care if you feel worse or you think it is an emergency. Monitor for thesessymptoms and contact your provider if they develop:? Fever? Cough? Shortness of breath? Flu-Like Symptoms? Decreased appetite? DiarrheaSYMPTOMS NEEDING IMMEDIATE EVALUATION? Trouble breathing? Persistent pain or pressure in the chest? New confusion or inability to arouse? Bluish lips or facePNEUMONIA PREVENTION AND EDUCATION* Get plenty of rest. Getting enough sleep will give your body the strength itneeds to fight the illness.* Take deep breaths and cough several times each hour to loosen up mucus and getit out of your lungs.* Wash your hands with soap and water or use an alcohol-based hand rub afterblowing your nose,using the bathroom, before you eat.* Cough or sneeze into a tissue or into your elbow or sleeve.* If you smoke, stop. Ask your healthcare provider about support groups,medicines, and other ways to help you quit smoking.* Drink several glasses of water a day. Fluids help thin and loosen up the mucusin your lungs and throat. (unless Contraindicated by tour physician)* Eat a balanced diet so your body can work its best and heal quicklyDEHYDRATION To prevent dehydration, drink plenty of fluids, enough so that your urine islight yellow or clear like water. Choose water and other caffeine-free clearliquids until you feel better. If you have kidney, heart, or liver disease andhave to limit fluids, talk with your doctor before you increase the amount offluids you drink. If you do not feel like eating or drinking, try taking small sips of water,sports drinks, or other rehydration drinks, pedialyte or gatorade Get plenty of rest. If you are on a diuretic and are vomiting or have diarrhea, speak with yourdoctor regarding your medication as taking it could worsen your condition duringthis episodeReinforced need to contact PCP with any symptoms lasting >24hrs, s/s of fever (2degrees higher than normal temp), n/v/d, chills, h/a, palpitations, change ineating or bowel habits and sob lasting > 6 hours. Educated on 15/11 availabilityof providers. Recommended contacting PCP prior to going to ED for possiblecoordination of alternative options. Provided number to [email or web address] hotline [phone] they have additional questions or to follow up on test results. Name Value Range Interpretation Code Description Data Jie rce(s) Supporting Document(s) ID Date Data Source [id number] 08/14/2019 11:57:31 AM EDT [facility] Name Value Range Interpretation Code Description Data Jie rce(s) Supporting Document(s) SARS coronavirus 2 RNA [Presence] in uns pecified specimen by BRITNI with probe detection Not detected [facility] (NOTE)NOTE: Please consider re-collectio n of a new specimen, if clinicallyindicated.NOTE: The COVID-19 assay has been cleared by the U.S. Food and DrugAdministration under the Emergency Use Authorization (EUA).[facility] is designated as a high complexity laboratory by theClinicalLaboratory Improvement Amendments of 1988(CLIA) and is qualified toperformthis test. ASSAY INFORMATION: Real Time RT-[id number] Michael Reyes [place], [place] [address]HzasxKailash Camara M.D. ID Date Data Source [id number] 08/09/2019 12:00:00 AM EDT [facility] Name Value Range Interpretation Code Description Data Jie rce(s) Supporting Document(s) 2019-nCoV RNA XXX BRITNI+probe-Imp [facility] This lab was ordered by [facility] and reported by [employer] ID Date Data Source [id number] 06/21/2019 03:05:21 AM EST [facility] Name Value Range Interpretation Code Description Data Jie rce(s) Supporting Document(s) [facility] Mycobacterium tuberculosis stimulated gamma interferon [Pres ence] in Blood NEGATIVE [facility] (NOTE)Performed At: [facility] [place] [id number] Crespo MD Ph:[phone] ID Date Data Source [id number] 06/21/2019 03:05:21 AM [facility] Comment(NOTE)The QuantiFERON-TB Gold Plu s result is determined by subtractingthe Nil value from either TB antigen (Ag) tube. The mitogen tubeserves as a control for the test.0.090.110.10>10.00(NOTE)Performed At: [facility] [address] [place], [place] [id number] Crespo MD Ph:[phone] Name Value Range Interpretation Code Description Data Jie rce(s) Supporting Document(s) ID Date Data Source [id number] 06/19/2019 06:05:59 AM [facility] Name Value Range Interpretation Code Description Data Jie rce(s) Supporting Document(s) Hepatitis B virus surface Ab [Presence] in Serum [facility] (NOTE) Non Reactive: Inconsi stent with immunity, less than 10 mIU/mL Reactive: Consistent with immunity, greater than 9.9 mIU/mLPerformed At: [facility] [place], [place] [id number] Crespo MD Ph:[phone] ID Date Data Source [id number] 05/25/2019 09:17:00 [place] [address] PHONE: [phone] FAX: [phone] Name .................. : KENTRELL Weiss Acct Number.................. : [id number] ROOM. ................. : TR-1B MR Number ................... : [id number] Stay type ............. : E/R Discharge Date......... ... : 05/23/19 Admit Date ......... : 05/23/19 Admit Phys .................... : TORRES BARRERA Date of ....... : 1995 Family Phys ................... : SEBASTIEN Phone .................. : [phone] Age ................................ : 24 Film# .................. .:[id number] Sex ................................. : F Unsigned transcriptions are preliminary reports and do not represent a medical or legal document CHEST 2 VIEWS [id number] COMPLETE:05/23/19 18:09 [facility] [place] [id number] Reason(s): Fever CHEST X-RAY: PA AND LATERAL VIEWS HISTORY: Fever. COMPARISON: 06/06/18 FINDINGS: The cardiac and mediastinal silhouettes appear normal and the lungs are clear. The bones and soft tissues are normal. The upper abdomen is unremarkable. IMPRESSION: No acute disease identifiable. Electronically Reviewed and Signed By Vita Goyal MD , 05/25/19 09:17, [facility] Transcribe Initials: DARRIAN , Transcribe Date: 05/23/19 20:46, Dictation Date: Copy for: EVGENY WARE via fax Copy for: ROXY ROBISON via fax Copy for: EMERGENCY DEPT via mode Copy for: 710 MED REC DISCHARGED Page 1 of 1 Name Value Range Interpretation Code Description Data Jie rce(s) Supporting Document(s) ID Date Data Source [id number] 05/23/2019 05:03:00 PM EST [facility] 1 OrderSheet [facility] Emergency Department [address] [place] [address] Phone #: ext- [phone] 05/23/2019 16:53 Patient: ELYSSA PFEIFFER Sex: F : 1995 Age: 24yWEIGHT:86.1 kg (S) HEIGHT:66 inches (S) BMI:30.7ALLERGIES: PenicillinsCHIEF COMPLAINT: fever, coughDIAGNOSIS: PharyngitisLAB ORDERSOrder Description Priority Entered Acknowledged InitialedInfluenza Nasal A B STAT 17:12 05/23/2019 17:12 Kristi Miller Julie R.N.; R.N. Verbal order per; Lc Mendez-CRapid Strep Screen STAT 17:12 05/23/2019 17:12 Kristi Miller Julie R.N.; R.N. Verbal order per; Lc Mendez-CCBC w Diff STAT 17:27 05/23/2019 17:27 Kristi Miller R.N. P.A.-C;CMP STAT 17:27 05/23/2019 17:27 Kristi Miller R.N. P.A.-C;Urinalysis (Clean STAT 17:05/23/2019 17:35 Winifred Miller) Lc Roberto R.N. P.A.-C;DIAGNOSTIC STUDY ORDERSOrder Description Priority Entered Acknowledged InitialedChest 2 View STAT 17:27 05/23/2019 17:27 Kristi Miller(Oxygen?(No)) Lc Robetro R.N. P.A.-C; Reason for Study: FeverMEDICATION/IV/DRIP/FLUID ORDERSOrder Description Priority Entered Acknowledged InitialedAcetaminophen PO 17 :16 05/23/2019 17:17 Kristi Miller1000 mg (NOW x1) Kristi Miller R.N.; R.N. 2 OrderSheet [facility] Emergency Department [address] [place] [address] Phone #: ext- [phone] 05/23/2019 16:53 Patient: ELYSSA PFEIFFER Sex: F : 1995 Age: 24y Verbal order per; Lc FIORE NS : Bolus 500 17:27 05/23/2019 17:54 Kathie Miller, then 125 mL/hr Lc Roberto R.N. P.A.-C;Zofran IVP 4 mg 17:05/23/2019 17:55 Kristi Miller R.N. P.A.-C;GENERAL ORDERSOrder Description Priority Entered Acknowledged InitialedNPO 17:05/23/2019 17:27 Kristi Miller R.N.AMarquis-Pablo;Saline Lock 17:05/23/2019 17:54 Kristi Miller R.N. PMarquisAMarquis-C;[Electronically signed by Lc Roberto P.A.-C (21:49 05/23/2019)][Electronically signed by Abiola Mckay R.N. (01:31 05/24/2019)][Electronically locked by Abiola Mckay R.N. (01:31 0 05/24/2019)] Name Value Range Interpretation Code Description Data Jie rce(s) Supporting Document(s) ID Date Data Source [id number] 05/23/2019 05:03:00 PM EST [facility] 1 Medication Reconciliation Report [facility] Emergency Department [address] [place] [address] Phone #: ext- [phone] 05/23/2019 16:53 Patient: ELYSSA PFEIFFER Sex: F : 1995 Age: 24yWeight: 86.1 kgHeight/Length: 66 in.BMI: 30.7ALLERGIES: PenicillinsThe patient's Home Medications are listed below:NONE.The source(s) of the original Home Medication information:Not obtained.The following Medications were given to the patient in the Emergency Department:Acetaminophen [PO] PO 1000 mg, administered: 05/23/2019 5:17:00 PMIV NS IV Fluids bolus 500 mL over 1 hour(s), then 125 mL/hr, administered: 05/23/2019 5:54:00 PMZofran [IVP] IVP 4 mg, administered: 05/23/2019 5:55:00 PMThe following Medications were prescribed to the patient:azithromycin 250 mg tablet Take 2 tablet single dose for 1 days -- Take 2 tabs by mouth and day 1 andthen 1 tab by mouth for days 2-5. Dispense 6 tablet. Refills: 0. Substitution permitted. Note to Pharmacy -z-pac pack.Pharmacy - [id number] - [address], [place] [id number]. . -- Lc Roberto P.A.-C Name Value Range Interpretation Code Description Data Jie rce(s) Supporting Document(s) ID Date Data Source [id number] 05/23/2019 05:03:00 PM EST [facility] 1 Medication Administration Record [facility] Emergency Department [address] [place] [address] Phone #: ext- [phone] 05/23/2019 16:53 Patient: ELYSSA PFEIFFER Sex: F : 1995 Age: 24yWeight: 86.1 kgHeight/Length: 66 inBMI: 30.7ALLERGIES: Penicillins Date/Time Medication Administered Medication OrderedGiven ACETAMINOPHEN [PO] Acetaminophen PO 1000 mg17:17 05/23/2019 Dose: 1000 mg Tablets PO (NOW x1)Kristi Miller R.N.Start IV NS IV NS : Bolus 500 mL, then 52046:54 05/23/2019 Dose: IV Fluids mL/hrKristi Miller R.N. Rate: 125 mL/hr over 2 hour(s)---- Bolus: 500 mL over 1 hour(s)Stop Dispensed: 1000 mL bag19:16 05/23/2019 Site: #1 right Kristi Petersen R.N.Given ZOFRAN [IVP] (ONDANSETRON HCL) Zofran IVP 4 mg17:55 05/23/2019 Dose: 4 mg IVPRoKristi leblanc R.N. Site: #1 right AC Name Value Range Interpretation Code Description Data Jie rce(s) Supporting Document(s) ID Date Data Source [id number] 05/23/2019 05:03:00 PM EST [facility] 1 General Instructions [facility] Emergency Department [address] [place] [address] Phone #: ext- [phone] 05/23/2019 16:53 Patient: ELYSSA PFEIFFER Sex: F : 1995 Age: 24yAcute streptococcal pharyngitis.INSTRUCTIONSTake Tylenol (Acetaminophen) or Motrin (Ibuprofen) as needed for fever control. Take medicationaccording to label instructions. Do not work tomorrow or go to school tomorrow.Drink plenty of fluids. No dietary restrictions.(Recommend to utilize OTC Motrin and Tylenol to control inflammation and pain management.Recommend to follow the instructions on the bottle and not to exceed.).Warnings: GENERAL WARNINGS: Return or contact your physician immediately if your conditionworsens or changes unexpectedly, if not improving as expected, or if other problems arise.Prescription Medications:azithromycin 250 mg tablet Take 2 tablet single dose for 1 days -- Take 2 tabs by mouth and day 1 andthen 1 tab by mouth for days 2-5. Dispense 6 tablet. Refills: 0. Substitution permitted. Note to Pharmacy -z-pac pack.[id number] [address] [facility] [address] ; [place], [place] [id number]. .Follow-up:Return to the emergency department as needed. Follow up with your healthcare provider in about threedays if not better. Call for an appointment. ADDITIONAL INFORMATIONPharyngitis: Strep (Presumed) 2 General Instructions [facility] Emergency Department [address] [place] [address] Phone #: ext- [phone] 05/23/2019 16:53 Patient: ELYSSA PFEIFFER Sex: F : 1995 Age: 24yYou have pharyngitis (sore throat). The healthcare staff think your sore throat is caused bystreptococcus (strep) bacteria. This is often called strep throat. Strep throat can cause throat pain thatis worse when swallowing, aching all over, headache, and fever. The infection is contagious. It maybe spread by coughing, kissing, or touching others after touching your mouth or nose. Antibioticmedicine is given to treat the infection. 3 General Instructions [facility] Emergency Department [address] [place] [address] Phone #: ext- [phone] 05/23/2019 16:53 Patient: ELYSSA PFEIFFER Abhishek Sex: Valarie : 1995 Age: 2 4yHome care Rest at home. Drink plenty of fluids so you won't get dehydrated. Stay home from work or school for the first 2 days of taking the antibiotics. After this time, you will not be contagious. You can then return to work or school if you are feeling better. Take the antibiotic medicine for the full 10 days, even when you feel better. This is very important to make sure the infection is fully treated. It is also important to prevent medicine- resistant germs from growing. If you were given an antibiotic shot, no more antibiotics are needed. You may use acetaminophen or ibuprofen to control pain or fever, unless another medicine was prescribed for this. If you have chronic liver or kidney disease or ever had a stomach ulcer or GI bleeding, talk with your healthcare provider before using these medicines. Use throat lozenges or a throat-numbing spray to help reduce throat pain. Gargling with warm salt water can also help reduce throat pain. Dissolve 1/2 teaspoon of salt in 1 glass of warm water. Don't eat salty or spicy foods. These can irritate the throat.Follow-up careFollow up with your healthcare provider or our staff if you don't get better over the next week.When to seek medical adviceCall your healthcare provider right away if any of these occur: Fever as directed by your healthcare provider New or worse ear pain, sinus pain, or headache Painful lumps in the back of neck Stiff neck Lymph nodes that get larger Can't swallow liquids, a lot of drooling, or can't open mouth wide due to throat pain Signs of dehydration, such as very dark urine or no urine, sunken eyes, dizziness Trouble breathing or noisy breathing Muffled voice New rash 4 General Instructions [facility] Emergency Department [address] [place] [address] Phone #: ext- [phone] 05/23/2019 16:53 Patient: ELYSSA PFEIFFER Sex: F : 1995 Age: 24yPreventionHere are steps you can take to help prevent an infection: Keep good hand washing habits. Don't have close contact with people who have sore throats, colds, or other upper respiratory infections. Don't smoke, and stay away from secondhand smoke. Stay up to date with of your vaccines. 5100-0120 [employer]. [address] [place] [address], [place] [address]. All rights reserved. This information is not intended as asubstitute for professional medical care. Always follow your healthcare professional's instructions. You have been given the following additional information: Pharyngitis, Strep (Presumed) Do not work tomorrow or go to school tomorrow.(Electronically signed by Lc Roberto P.A.-C 05/23/2019 21:49) Name Value Range Interpretation Code Description Data Jie rce(s) Supporting Document(s) ID Date Data Source [id number] 05/23/2019 05:03:00 PM EST [facility] 1 Clinical Report - Nurses [facility] Emergency Department [address] [place] [address] Phone #: ext- [phone] 05/23/2019 16:53 Patient: ELYSSA PFEIFFER Sex: F : 1995 Age: 24yTRIAGEArrived by private vehicle. Historian: patient.Acuity: LEVEL 3.Chief Complaint: BODY ACHES and SINUS CONGESTION (LEFT EAR PAIN, CHEST CONGESTION,HEADACHE).( Kristi CISNEROS was made aware that said pt was positive for sepsis due to the increased HR and Temp).This started yesterday. 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 (0700).SEPSIS SCREEN: POSITIVE temperature greater than 38.3 degrees C (101 degrees F) and heart rategreater than 90.ABDIRAHMAN COMA SCORE: 15- eyes open- spontaneous (4); best verbal response- oriented (5); bestmotor response- obeys commands (6). --17:00 05/23/19 Aquilino Arellano RN16:53 05/23/19. BP: 129/77. MAP: 94. HR: 113. RR: 16. O2 saturation: 99% on room air. Temp: 101.1 F(oral). Pain level now: 08/02. --17:00 05/23/19 Aquilino Arellano RN.Weight: 86.1 kg stated. Height/Length: 66 inches Per Patient. BMI: 30.7. --16:52 05/23/19 Aquilino Arellano RN.MedicationsNone. --16:55 05/23/19 Aquilino Arellano RN.AllergiesPenicillins. --16:55 05/23/19 Aquilino Arellano RN.PROBLEMS:no known problems.ADDITIONAL SURGERIES:Cholecystectomy. --16:56 05/23/19 Aquilino Arellano RN.HistoryPAST MEDICAL HX: Immunizations: up-to-date. Last normal menstrual period- May 08.SOCIAL HX: Never smoker. Occasional alcohol use; consumes wine by the glass. No drug use. No 2 Clinical Report - Nurses [facility] Emergency Department [address] [place] [address] Phone #: ext- [phone] 05/23/2019 16:53 Patient: ELYSSA PFEIFFER Sex: F : 1995 Age: 24y recent travel. No known contact with a sick individual. She was offered HIV testing but declined and hepatitis C testing but declined. She has not traveled outside the [place] Infectious disease exposure: No infectious disease exposure. SELF HARM ASSESSMENT: Self harm assessment was performed. The patient answered "no" to the question(s) "Have you recently felt down, depressed, or hopeless?", "Do you have thoughts of harming or killing yourself?", "Do you have a plan for harming or killing yourself?", "Have you recently had thoughts about harming or killing others?", "Do you have any dangerous items in your possession?", "Have you noticed less interest or pleasure in doing things?", "Are you here because you tried to hurt yourself?" and "Have you ever tried to hurt yourself before today?". ABUSE ASSESSMENT: No report of abuse. NUTRITIONAL RISK ASSESSMENT: The nutritional risk assessment revealed no deficiencies. FUNCTIONAL ASSESSMENT: Functional assessment: no impairments noted. LEARNING NEEDS ASSESSMENT: The learning needs assessment revealed no barriers. FALL RISK ASSESSMENT: Fall risk assessment completed. No risk factors identified. SKIN INTEGRITY ASSESSMENT: Skin integrity risk assessment completed. No skin integrity risk identified. --17:00 05/23/19 Aquilino Arellano RN. Interventions To treatment room. --17:00 05/23/19 Aquilino Arellano RN.PHYSICAL ASSESSMENTGENERAL / NEURO / PSYCH: Alert. Oriented X 4. Appears in no acute distress.HEENT: Pharyngeal erythema. Runny nose. Mucous membranes are pink.RESPIRATORY: Respirations not labored. Chest nontender. Breath sounds within normal limits.CVS: Normal sinus rhythm noted. Capillary refill less than 2 seconds. Pulses within normal limits.GI / : Abdomen soft and nontender and normal bowel sounds.SKIN: Skin intact. Skin is warm and dry. Normal skin turgor. --17:11 05/23/19 Kristi Miller R.N.NURSING PROGRESS NOTESPatient gowned. Reassurance given. Patient ID band checked for patient name and birthdate: patientconfirmed. Flu swab obtained by RN via nasal swab. Labeled in the presence of the patient and sent to lab.Patient ID band checked for patient name and birthdate: patient confirmed. Throat swab obtained by nursefor rapid strep; labeled in the presence of the patient and sent to lab. Two patient identifiers checked.Call light placed in reach. Side rails up x 2. Bed placed in lowest position. Brakes of bed on. Patientready for evaluation- PA notified. --17:12 05/23/19 Kristi Miller R.N. 17:17 05/23/2019 Acetaminophen PO Tablets 1000 mg given. Allergies verified and confirmed 5 rights. 3 Clinical Report - Nurses [facility] Emergency Department [address] [place] [address] Phone #: ext- [phone] 05/23/2019 16:53 Patient: ELYSSA PFEIFFER Sex: F : 1995 Age: 24y Information reviewed with patient including reason for taking this medication, signs of allergic reaction and precautions. Verbalizes understanding . --17:17 05/23/19 Kristi Miller R.N. Patient walked to radiology with tech. --17:35 05/23/19 Kristi Miller R.N. Patient ID band checked for patient name and birthdate: patient confirmed. Instructions provided to collect clean catch urine and patient verbalized understanding. Clean catch urine collected; sample sent to lab for urinalysis. Specimen labeled in the presence of the patient. --17:36 05/23/19 Kristi Miller R.N. Patient walked back from radiology with tech. --17:43 05/23/19 Kristi Miller R.N. 17:54 05/23/2019 Site #1 started via IV in the right antecubital space with an 20g angiocath, with aseptic technique and good blood return; two attempts. --17:54 05/23/19 Kristi Miller R.N. 17:54 05/23/2019 Started bag #1 1000 mL IV Fluids IV NS; bolus of 500 mL over 1 hour(s) then at 125 mL/hr over 2 hour(s) via site #1 via IV pump. Allergies verified and confirmed 5 rights. IV patency established. IV site checked: no pain, redness, or swelling. IV flushed thoroughly pre- and post-medication administration. Information reviewed with patient including reason for taking this medication, signs of allergic reaction and precautions. Verbalizes understanding. --17:54 05/23/19 Kristi Miller R.N. 17:55 05/23/2019 Zofran (Ondansetron HCl) IVP 4 mg given over 2 minute(s) via site #1. Allergies verified and confirmed 5 rights. IV patency established. IV site checked: no pain, redness, or swelling. IV flushed thoroughly pre- and post-medication administration. IVP given by RN. Information reviewed with patient. --17:55 05/23/19 Kristi Miller R.N. 18:16 05/23/19. BP: 112/74. MAP: 86. HR: 110. RR: 17. O2 saturation: 100%. Temp: 99.5 F. --18:17 05/23/19 [facility] auger supervisor, SPENCER Jeffries Tech1 ( pt made aware that strep and flu negative awaiting PA). --18:51 05/23/19 Kristi Miller R.N. 19:16 05/23/2019 Site #1 removed upon discharge. Pressure dressing applied. --19:17 05/23/19 Kristi Miller R.N. 19:16 05/23/2019 IV Fluids IV NS via IV site #1 Discontinued: STOPPED upon discharge. Total amount infused: 750 mL. IV patency established. IV site checked: no pain, redness, or swelling. IV flushed thoroughly. --19:16 05/23/19 Kristi Miller R.N. Care transferred and report given (abiola). --19:26 05/23/19 Kristi Miller R.N.DISPOSITION / DISCHARGE 19:17 05/23/19. BP: 117/77. MAP: 90. HR: 97. RR: 18. O2 saturation: 100%. Temp: 98.9 F. Pain level now: 07/02. --19:17 05/23/19 Kristi Miller R.N. Departure time: 19:58 05/23/2019. --20:03 05/23/19 Abiola Spicer R.N. 4 Clinical Report - Nurses [facility] Emergency Department [address] [place] [address] Phone #: ext- [phone] 05/23/2019 16:53 [id number] Sex[facility] F : 1995 Age: 24y Condition at departure: improved and stable. No learning barriers present. Reviewed medication(s). Prescription(s) sent electronically to pharmacy. Patient verbalized understanding. Written instructions provided in Hebrew. The patient was discharged by the physician facilities maintenance assistant. She was discharged home. She left ambulatory and via private vehicle. --20:03 05/23/19 Abiola Spicer R.N.Locked/Released at 05/24/2019 01:31 by Abiola Spicer R.N. Name Value Range Interpretation Code Description Data Jie rce(s) Supporting Document(s) ID Date Data Source [id number] 05/23/2019 05:03:00 PM [facility] 1 Clinical Report - Physicians/Mid Levels [facility] Emergency Department [address] [place] [address] Phone #: ext- [phone] 05/23/2019 16:53 Patient: ELYSSA PFEIFFER Sex: F : 1995 Age: 24y Time Seen: 17:26 05/23/2019; initial patient contact, initial documentation. Arrived- By private vehicle. Historian- patient.HISTORY OF PRESENT ILLNESS Chief Complaint: FEVER and COUGH. This started yesterday and is still present. The patient has had sinus drainage, a sore throat, fever and a nasal discharge. No muscle aches, headache, nasal congestion, chills or cough. No difficulty breathing, chest discomfort or chest pain, nausea or vomiting. No diarrhea, loss of appetite or sputum production. The patient has had contact with a sick relative. Symptoms of the sick contact include fever and sore throat. They have had similar symptoms. Similar symptoms previously. None. Recent medical care: Not recently seen/assessed.REVIEW OF SYSTEMSNo fatigue, weight loss, photophobia, sinus pain or weakness. No dizziness, palpitations, calf pain,abdominal pain or bloody stools. No urinary incontinence, joint pain, enlarged lymph nodes or back pain.All other systems reviewed and are negative.PAST HISTORYSee nurses notes. Problems: Colitis. Cystitis. Abdominal Pain. Anxiety Reaction. Atrial Fibrillation. Diverticulitis. Palpitations. UTI - Urinary Tract Infection. Dizziness. Gastroenteritis. Gastroesophageal Reflux Disease. Additional Surgeries: Cholecystectomy. Immunizations: Immunization status is up-to-date. 2 Clinical Report - Physicians/Mid Levels [facility] Emergency Department [address] [place] [address] Phone #: ext- [phone] 05/23/2019 16:53 Patient: [id number] Sex: F : 1995 Age: 24y Medications: None. Allergies: Penicillins.SOCIAL HISTORYNever smoker. Occasional alcohol use. No drug use.ADDITIONAL NOTESThe nursing notes have been reviewed.PHYSICAL EXAMVital Signs: 05/23/2019 16:53 BP: 129/77. MAP: 94. HR: 113. RR: 16. O2 saturation: 99% on room air.Temp: 101.1 F. Pain level now: 10. Have been reviewed. Tachycardic. Febrile. Oxygen saturationnormal.Appearance: Alert. No acute distress.ENT: Airway intact. Rhinorrhea present. Nose normal. Nares normal. Uvula not deviated.Pharyngeal erythema. Abnormal tonsils. Moist mucous membranes. Uvula midline. Voice normal.Ear (right): There is dullness of the tympanic membrane and abnormal insufflation. No tenderness of theauricle, pain with movement of the auricle, erythema of the external canal, swelling of the external canal ormaterial in the external canal. Right ear normal. Normal mastoid. No hearing deficit.Ear (left): There is dullness of the tympanic membrane and abnormal insufflation. No tenderness of theauricle, pain with movement of the auricle, lymphadenopathy, erythema of the external canal or swelling ofthe external canal. No material in the external canal. Left ear normal. Normal mastoid. No hearingdeficit.Neck: Mild right submandibular and mild left submandibular lymphadenopathy present.CVS: Normal heart rate and rhythm. No JVD present. Pulses normal. Capillary refill normal. Strongperipheral pulses. Heart sounds normal. Pulses: right radial 2+; left radial 2+.Respiratory: Chest normal on inspection. No respiratory distress. Unlabored respirations. Lungs clear.Good chest movement. Breath sounds normal and equal.Back: Normal inspection.Skin: Skin warm and dry.Neuro: Awake. Alert. Mood/affect normal. Speech normal. No motor deficit. No sensory deficit.Psych: Cognition normal. Thought process and content normal. Insight and judgement normal.LABS, X-RAYS, AND EKGChest X-ray: No acute disease. (Jay Jay simon Michael - 05/23/2019 5:38:41 PM Normal). The X-rays were interpreted by the radiologist. Laboratory Tests: CBC w Diff: (JELLY: 05/23/2019 17:46) ( MsgRcvd 05/23/2019 17:53) Final results Test Result Flag Units (Reference) CBC W/AUTOMATED DIFF COMPLETE BLOOD COUNT 3 Clinical Report - Physicians/Mid Levels [facility] Emergency Department [address] [place] [address] Phone #: ext- [phone] 05/23/2019 16:53 Patient: ELYSSA PFEIFFER Sex: F : 1995 Age: 24y WBC 10.0 10/uL (4.2 - 11.0) RBC 4.30 10/uL (4.20 - 5.40) HEMOGLOBIN 13.4 g/dL (12.0 - 16.0) HEMATOCRIT 40.0 % (37.0 - 47.0) MCV 93.0 fL (81.0 - 101) MCH 31.2 pg (27.0 - 34.0) MCHC 33.5 g/dL (31.0 - 36.0) RDW 12.2 % (11.5 - 14.5) PLATELETS 234 10/uL (150 - 450) MPV 8.7 fL (7.4 - 10.4) NEUT 79.5 % (37.0 - 80.0) LYMPH 10.6 L % (25.0 - 40.0) MONO 8.3 H % (3.0 - 8.0) EOS 0.7 % (0.0 - 7.0) BASO 0.5 % (0.0 - 2.5) %IG 0.4 H % (0.0 - 0.0) %NRBC 0.0 % (0.0 - 0.0) #NEUT 7.92 H 10/uL (2.00 - 6.90) #LYMPH 1.06 10/uL (0.60 - 3.40) #MONO 0.83 10/uL (0.00 - 0.90) #EOS 0.07 10/uL (0.00 - 0.70) #BASO 0.05 10/uL (0.00 - 0.20) #IG 0.04 10/uL (0.00 - 0.10) #NRBC 0.00 10/uL (0.00 - 0.00) MANUAL DIFF NOT INDICATED RBC MORPH NOT INDICATEDCMP: (JELLY: 05/23/2019 17:46) ( MsgRcvd 05/23/2019 18:25) Final results Test Result Flag Units (Reference) COMPREHENSIVE METABOLIC PANEL COMPREHENSIVE METABOLIC PANEL SODIUM 141 mEq/L (134 - 153) POTASSIUM 3.8 mEq/L (3.6 - 5.0) CHLORIDE 103 mEq/L (98 - 107) CO2 27 MEQ/L (22 - 30) GLUCOSE 107 MG/DL (65 - 110) BUN 8 MG/DL (7 - 21) CREATININE 0.6 L MG/DL (0.7 - 1.5) BUN/CREAT 13 (8 - 27) TOTAL PROTEIN 8.4 H G/DL (6.3 - 8.2) ALBUMIN 4.8 G/DL (3.9 - 5.0) GLOBULIN 3.6 H GM/DL (2.4 - 3.2) A/G RATIO 1.3 (0.8 - 2.0) CALCIUM 9.7 MG/DL (8.4 - 10.2) TOTAL BILI 0.9 MG/DL (0.2 - 1.3) ALKALINE PHOS 115 U/L (38 - 126) SGOT/AST 24 U/L (5 - 40) SGPT/ALT 20 U/L (7 - 56) ANION GAP 11.0 mmol/L (8.0 - 16.0) AGE 24 yrs NON-AA GFR >60 mL/min AFR AMER GFR >60 mL/min Male GFR Interprentation 20-49 yrs >60 mL/min Ukflim05-97 yrs >56 mL/min Normal 60-69 yrs >49 mL/min Normal 70-79yrs>42 mL/min Normal 80 and above >35 mL/min Normal Female GFRInterpretation 20-39 yrs >60 mL/min Normal 40-49 yrs >58 mL/minNormal 50-59 yrs >51 mL/min Normal 60-69 yrs >45 mL/min Ldojyq10-83 yrs >39 mL/min Normal 80 and above >32 mL/min NormalUrinalysis: (JELLY: 05/23/2019 17:25) ( MsgRcvd 05/23/2019 19:46) Final results Test Result Flag Units (Reference) URINALYSIS URINALYSIS SOURCE R 4 Clinical Report - Physicians/Mid Levels [facility] Emergency Department [address] [place] [address] Phone #: ext- [phone] 05/23/2019 16:53 Patient: ELYSSA PFEIFFER Sex: F : 1995 Age: 24y COLOR yellow (NORMAL: Yello CLARITY clear (NORMAL: Clear SPEC GRAVITY 1.030 (1.001 - 1.030 pH 8 (5 - 9) GLUCOSE NORM (NORMAL: Negat BILIRUBIN NEG (NORMAL: Negat KETONE NEG (NORMAL: Negat PROTEIN NEG (NORMAL: Negat NITRITE NEG (NORMAL: Negat BLOOD NEG (NORMAL: Negat LEUK EST NEG (NORMAL: Negat UROBILINOGEN NOR (less than 1.0 MICROSCOPIC Not Indicate Chest 2 View: (JELLY: 05/23/2019 17:27) ( [facility]09[facility] In Progress CHEST 2 VIEWS Reason(s): Fever TRANSPORTATION: IV? O2? Oxygen?(No) Room: ED : Will sign waiver Influenza Nasal A B: (JELLY: 05/23/2019 17:05) ( [facility] 17:50) Final results Test Result Flag Units (Reference) INFLUENZA A NEGATIVE (NORMAL: NEGAT INFLUENZA B NEGATIVE (NORMAL: NEGAT INFLUENZA A REENTER NEGATIVE (NORMAL: NEGAT INFLUENZA B REENTER NEGATIVE (NORMAL: NEGAT PROCEDURAL CONTROL VALID KIT LOT # [id number] 05/23/19.[place] . . . KIT EXP DATE _02/23/20 05/23/19.[place] . . .The Influenza A utilizing an isothermal nucleic acid amplification technology for thequalitative detection of influenza A and B viral RNA.Negative results do not preclude influenza virus infection and should not beused as the sole basis for diagnosis, treatment or other patient managementdecisions. Rapid Strep Screen: (JELLY: 05/23/2019 17:05) ( MsgRcvd 05/23/2019 17:47) Final results Test Result Flag Units (Reference) RAPID STREP NEGATIVE (NORMAL: NEGAT RAPID STREP REENTER NEGATIVE (NORMAL: NEGAT { PROCEDURAL CONTROL VALID ){ KIT LOT # [id number] ){ KIT EXP DATE 06/21/20 )The Strep A 2 assay utilizes isothermal nucleic acid amplification technology fothe qualitative detection of Group A Strep bacterial nucleic acid in throat swabspecimens.All negative test results no longer need to be confirmed with a culture. Follow-up testing requiring a culture is necessary if clinical symptoms persist, or inthe event of an acute rheumatic fever outbreak. A culture will need to beordered by the Qualified Medical Provider.Negative results do not preclude infection with Group A Strep and should not beused as the sole basis for treatment..PROGRESS AND PROCEDURESCourse of Care: VSS, NAD, AOx3, interacting well and appropriately, no use of accessory muscle, able tospeak full sentences, stable, non-toxic looking. Enter room and pt lying peacefully in bed in NAD. Patient stable. Denies any new issues, concerns, or complaints. PE demos potential st rep throat, recent (+) exposure. Pending results. Will obtina labs and imaigng for furhter eval. Pending results. Enter room and patient lying peacefully in bed in NAD. Patient stable. Denies any new issues, concerns, 5 Clinical Report - Physicians/Mid Levels [facility] Emergency Department [address] [place] [address] Phone #: ext- [phone] 05/23/2019 16:53 Patient: ELYSSA PFIEFFER Sex: F : 1995 Age: 24y or complaints. Pending full reuslts. Pt sts that she feels much better, has no complaints; noted that temp decreased and pulse decreased. Pendng final results. Reviewed results. Enter room and patient lying peacefully in bed in NAD. Patient stable. Denies any new issues, concerns, or complaints. Discussed results with pt. Discussed tx plan with pt. Discussed and counseled on stable condition. Discussed importance of a f/u with PCP. Discussed return to ER criteria. Answered their questions. Indicates and verbalizes that they understand, agree, and will comply with above. Denies any new questions or concerns. Patient has capacity to understand. Based on PE and exposure, will tx. Pt agrees. Discharge decision based on the following: patient's condition is stable; patient's exam is stable; social support is adequate; transportation is available; follow-up is available. Discussed of OTC Motrin and Tylenol to control inflammation and pain management. Informed to follow directions on bottle that are appropriate for age and/or weight. Disposition: Discharged home in good and improved condition. Condition: good and stable.CLINICAL IMPRESSION Acute streptococcal pharyngitis.INSTRUCTIONS Take Tylenol (Acetaminophen) or Motrin (Ibuprofen) as needed for fever control. Take medication according to label instructions. Do not work tomorrow or go to school tomorrow. Drink plenty of fluids. No dietary restrictions. (Recommend to utilize OTC Motrin and Tylenol to control inflammation and pain management. Recommend to follow the instructions on the bottle and not to exceed.). Warnings: GENERAL WARNINGS: Return or contact your physician immediately if your condition worsens or changes unexpectedly, if not improving as expected, or if other problems arise. Prescription Medications: azithromycin 250 mg tablet Take 2 tablet single dose for 1 days -- Take 2 tabs by mouth and day 1 and then 1 tab by mouth for days 2- 5. Dispense 6 tablet. Refills: 0. Substitution permitted. Note to Pharmacy - z- pac pack. 6 Clinical Report - Physicians/Mid Levels [facility] Emergency Department [address] [place] [address] Phone #: ext- [phone] 05/23/2019 16:53 Patient: [id number] Sex: F : 1995 Age: 24y Pharmacy - [id number] - [address] [place], [place] [id number]. . Follow-up: Return to the emergency department as needed. Follow up with your healthcare provider in about three days if not better. Call for an appointment.(Electronically signed by Lc Roberto P.A.-C 05/23/2019 21:49) Name Value Range Interpretation Code Description Data Jie e(s) Supporting Document(s) ID Date Data Source [id number] 05/23/2019 06:25:00 PM EST [facility] Name Value Range Interpretation Code Description Data [facility](s) Supporting Document(s) COMPREHENSIVE METABOLIC PANEL [facility] COMPREHENSIVE METABOLIC PANEL Sodium [Moles/volume] in Serum or Plasma 141 mEq/L 134 - 153 [facility] Potassium [Moles/volume] in Serum or Plasma 3.8 mEq/L 3.6 - 5.0 [facility] Chloride [Moles/volume] in Serum or Plasma 103 mEq/L 98 - 107 [facility] Carbon dioxide, total [Moles/volume] in Serum or Plasma 27 MEQ/L 22 - 30 [facility] Glucose [Mass/volume] in Serum or Plasma 107 MG/DL 65 - 110 [facility] BUN 8 MG/DL 7 - 21 [facility] Creatinine [Mass/volume] in Serum or Plasma 0.6 MG/DL 0.7 - 1.5 L [facility] BUN/CREAT 13 8 - 27 [facility] Protein [Mass/volume] in Serum or Plasma 8.4 G/DL 6.3 - 8.2 H [facility] Albumin [Mass/volume] in Serum or Plasma 4.8 G/DL 3.9 - 5.0 [facility] Globulin [Mass/volume] in Serum by calculation 3.6 GM/DL 2.4 - 3.2 H [facility] A/G RATIO 1.3 0.8 - 2.0 [facility] Calcium [Mass/volume] in Serum or Plasma 9.7 MG/DL 8.4 - 10.2 [facility] Bilirubin.total [Mass/volume] in Serum or Plasma 0.9 MG/DL 0.2 - 1.3 [facility] Alkaline phosphatase [Enzymatic activity/volume] in Serum or Plasma 115 U/L 38 - 126 [facility] Aspartate aminotransferase [Enzymatic activity/volume] in Serum or Plasma 24 U/L 5 - 40 [facility] Alanine aminotransferase [Enzymatic activity/volume] in Seru m or Plasma 20 U/L 7 - 56 [facility] Anion gap 3 in Serum or Plasma 11.0 mmol/L 8.0 - 16.0 [facility] AGE 24 yrs [facility] NON-AA GFR >60 mL/min [facility] ital AFR AMER GFR >60 mL/min [facility] spital Male GFR In terprentation 20-49 yrs >60 mL/min Normal 50-59 yrs >56 mL/min Normal 60-69 yrs >49 mL/min Normal 70-79yrs >42 mL/min Normal 80 and above >35 mL/min Normal Female GFR Interpretation 20-39 yrs >60 mL/min Normal 40-49 yrs >58 mL/min Normal 50-59 yrs >51 mL/min Normal 60-69 yrs >45 mL/min Normal 70-79 yrs >39 mL/min Normal 80 and above >32 mL/min Normal ID Date Data Source [id number] 05/23/2019 05:53:00 PM EST [facility] Name Value Range Interpretation Code Description Data Jie rce(s) Supporting Document(s) CBC W/AUTOMATED DIFF [facility] COMPLETE BLOOD COUNT Leukocytes [#/volume] in Blood by Automated count 10.0 10^3/uL 4.2 - 11.0 [facility] Erythrocytes [#/volume] in Blood by Automated count 4.30 10^6/uL 4. 20 - 5.40 [facility] Hemoglobin [Mass/volume] in Blood 13.4 g/dL 12.0 - 16.0 [facility] Hematocrit [Volume Fraction] of Blood by Automated count 40.0 % 3 7.0 - 47.0 [facility] Erythrocyte mean corpuscular volume [Entitic volume] by Auto mated count 93.0 fL 81.0 - 101 [facility] Erythrocyte mean corpuscular hemoglobin [Entitic mass] by Automated count 31.2 pg 27.0 - 34.0 [facility] Erythrocyte mean corpuscular hemoglobin concentration [Mass/volume] by Automated count 33.5 g/dL 31.0 - 36.0 [facility] Erythrocyte distribution width [Ratio] by Automated count 12.2 % 11.5 - 14.5 [facility] Platelets [#/volume] in Blood by Automated count 234 10^3/uL 150 - 45 0 [facility] Platelet mean volume [Entitic volume] in Blood by Automated count 8.7 fL 7.4 - 10.4 [facility] Neutrophils/100 leukocytes in Blood by Automated count 79.5 % 37. 0 - 80.0 [facility] Lymphocytes/100 leukocytes in Blood by Manual count 10.6 % 25.0 - 40.0 L [facility] Monocytes/100 leukocytes in Blood by Automated count 8.3 % 3.0 - 8.0 H [facility] Eosinophils/100 leukocytes in Blood by Automated count 0.7 % 0.0 - 7.0 [facility] Basophils/100 leukocytes in Blood by Automated count 0.5 % 0.0 - 2.5 [facility] %IG 0.4 % 0.0 - 0.0 [facility] %NRBC 0.0 % 0.0 - 0.0 [facility] al Neutrophils [#/volume] in Blood by Automated count 7.92 10^3/uL 2.00 - 6.90 H [facility] Lymphocytes [#/volume] in Blood by Automated count 1.06 10^3/uL 0.60 - 3.40 [facility] Monocytes [#/volume] in Blood by Automated count 0.83 10^3/uL 0.00 - 0.90 [facility] Eosinophils [#/volume] in Blood by Automated count 0.07 10^3/uL 0.00 - 0.70 [facility] Basophils [#/volume] in Blood by Automated count 0.05 10^3/uL 0.00 - 0.20 [facility] #IG 0.04 10^3/uL 0.00 - 0.10 [facility] ospital #NRBC 0.00 10^3/uL 0.00 - 0.00 [facility] MANUAL DIFF NOT INDICATED [facility] RBC MORPH NOT INDICATED [facility] ID Date Data Source [id number] 05/23/2019 07:46:00 PM EST [facility] Name Value Range Interpretation Code Description Data Jie rce(s) Supporting Document(s) URINALYSIS [facility] sharmaine UR[facility] yellow NORMAL: Yellow [facility] CLARITY clear NORMAL: Clear [facility] Specific gravity of Urine by Test strip 1.030 1.001 - 1.030 [facility] pH 8 5 - 9 [facility] Glucose [Mass/volume] in Urine by Test strip NORM NORMAL: Negat [facility] Bilirubin.total [Presence] in Urine by Test strip NEG NORMAL: Negative [facility] Ketones [Presence] in Urine by Test strip NEG NORMAL: Negative [facility] Protein [Mass/volume] in Urine by Test strip NEG NORMAL: Negat [facility] Nitrite [Presence] in Urine by Test strip NEG NORMAL: Negative [facility] BLOOD NEG NORMAL: Negative [facility] Leukocyte esterase [Presence] in Urine by Test strip NEG MEKHI L: Negative [facility] Urobilinogen [Mass/volume] in Urine by Test strip NOR less dragan n 1.0 mg/dL [facility] MICROSCOPIC Not Indicate [facility] ID Date Data Source [id number] 05/23/2019 05:50:00 PM [facility] Name Value Range Interpretation Code Description Data Jie rce(s) Supporting Document(s) Influenza virus A Ag [Presence] in Nasopharynx by Immunoassa y NEGATIVE NORMAL: NEGATIVE [facility] Influenza virus B Ag [Presence] in Nasopharynx by Immunoassa y NEGATIVE NORMAL: NEGATIVE [facility] NEGATIVENEGATIVE PROCEDURAL CO NTROL VALID KIT LOT # _[id number] 05/23/19.[facility] . . . KIT EXP DATE _02/23/20 05/23/19.[facility] . . .The Influenza A & B assay is a rapid molecular in vitro diagnostic testutilizing an isothermal nucleic acid amplification technology for thequalitative detection of influenza A and B viral RNA.Negative results do not preclude influenza virus infection and should not beused as the sole basis for diagnosis, treatment or other patient managementdecisions. ID Date Data Source [id number] 05/23/2019 05:47:00 PM [facility] Name Value Range Interpretation Code Description Data Jie rce(s) Supporting Document(s) RAPID STREP NEGATIVE NORMAL: NEGATIVE [facility] RAPID STREP REENTER NEGATIVE NORMAL: NEGATIVE [facility] { PROCEDURAL CONTROL VALID ){ KIT LOT # [id number] ){ KIT EXP DATE 06/21/20 )The Strep A 2 assay utilizes isothermal nucleic acid amplification technology fothe qualitative detection of Group A Strep bacterial nucleic acid in throat swabspecimens.All negative test results no longer need to be confirmed with a culture. Follow-up testing requiring a culture is necessary if clinical symptoms persist, or inthe event of an acute rheumatic fever outbreak. A culture will need to beordered by the Qualified Medical Provider.Negative results do not preclude infection with Group A Strep and should not beused as the sole basis for treatment. ID Date Data Source [id number] 04/20/2019 07:57:11 AM [facility] X-RAY CHEST PA & LATERALPRIOR: Multiple: Most recent April 30, 2018: "No evidence of active chestdisease or significant change from the prior study. "HISTORY: Chest pain, unspecified type, gastroesophageal reflux, esophagitis,anxiety, atrial fibrillation-I48.91.FINDINGS: No infiltrates, effusions, nodules or masses are identified. The heart, elaina and mediastinum are unremarkable.IMPRESSION: 1. No acute cardiopulmonary disease. Signing date/time: 04/20/2019 7:57 AMSigned by: FERCHO JEFFERSON Name Value Range Interpretation Code Description Data Jie rce(s) Supporting Document(s) ID Date Data Source [id number]*ENCOUNTER [id number] 04/20/2019 05:22:10 AM [facility] DEPT [address] [place] [id number] Elyssa Pfeiffer (Female) [id number] CARIDAD 3 ED Dispo:DISCHARGE Chief Complaint: Chest Pain Diagnosis: Chest pain, unspecified type [] Gastroesophageal reflux disease, esophagitis presence not specified [] Current Providers: Attending: Jon Clark Primary Nurse: VIRGIE SilvaN: [id number] [employer] [id number] - [facility] MrnMRN: [id number] [employer] [id number] - [facility] Age SexDOB 1995 AGE 23 SEX Female Primary Care Provider: Donnellergies: (No Known Allergies)Date Reviewed: 04/20/2019Reviewed by: Milagros Silva RN - Review CompleteED Provider Notes: All notesHNO ID: [id number]: Libertad Clark MDService: -Author Type: PhysicianFiled: 04/20/19 0509Note Text:CC: Chest tightnessHPI:Patient is a 23 y.o. female who presents with L sided chest tightnessthat began last jonathan. Pt sates she was able to go to sleep but then awokewith the pain again and c/o SOBPt sates the pain is intermittent lasting for min at a timePt also noted epigastric burning t hroughout the day todaySx present for 1 daysPt denies: fever, cough, radiation of the painPCP: NonePMHx:Past Medical History:Diagnosis Date Anxiety Atrial fibrillation (HCC) Depression GERD (gastroesophageal reflux disease)PSHx:Past Surgical History:Procedure Laterality Date HX CHOLECYSTECTOMYSoc Hx / Fam Hx:Social HistorySocioeconomic History Marital status: Spouse name: Not on file Number of children: Not on file Years of education: Not on file Highest education level: Not on fileSocial Needs Financial resource strain: Not hard at all Food insecurity: Worry: Never true Inability: Never true Transportation needs: Medical: No Non- medical: NoTobacco Use Smoking status: Former Smoker Years: 1.00 Types: Cigarettes Last attempt to quit: 04/11/2013 Years since quittin.0 Smokeless tobacco: Never UsedSubstance and Sexual Activity Alcohol use: Yes Frequency: Monthly or less Drinks per session: 1 or 2 Binge frequency: Never Drug use: No Sexual activity: Yes Partners: Male control/protection: PillFamily HistoryProblem Relation Age of Onset GERD Mother Diabetes Father Hypertension Father Blindness Maternal AuntROS:Const: no fever, no fatigueEy es; no pain, no vision changesOrophar: no sore throat, no ear painResp: no cough, no SOBCard: chest pain, no palpitationsAbd: no vomiting, no diarrheaGU: no dysuria, no hematuriaMusc: no back pain, no joint painNeuro: no headache, no numbnessSkin: no rash, no petechiaPE:Vs: per RN notesVisit VitalsBP 107/70Pulse 81Temp 98.2 F (36.8 C)Resp 20Ht 5' 6" (1.676 m)Wt 84.8 kg (187 lb)SpO2 98%BMI 30.18 kg/m Head: NCATConst: WDWN, no distressEyes: conj pink, anictericOrophar: no edema, no erythemaNeck: trachea midline, suppleResp: nl excursions, normal BS, no rales, no wheezesCard: nl rate, regular rhythm, no murmur, Good cap refill in all extrem (< 3 sec)Abd: non- distended, soft, tenderness = slight epigastricBack: supple, not tenderGU:Musc: no leg edema, no cyanosisNeuro: awake and alert CN: no facial asymmetry Motor: symmetric strength in upper and lower extremSkin: warm, moist, no rashPsych: calm, normal affectLab results:Recent Results (from the past 24 hour(s))EKG, 12 LEAD, INITIAL Collection Time: 04/20/19 4:06 AMResult Value Ref Range Ventricular Rate 66 BPM Atrial Rate 66 BPM P-R Interval 150 ms QRS Duration 98 ms Q-T Interval 386 ms QTC Calculation (Bezet) 404 ms Calculated P [place] 51 degrees Calculated R [place] 79 degrees Calculated T [place] 55 degrees Diagnosis Normal sinus rhythmNormal ECGNo previous ECGs availableEKG, 12 LEAD, SUBSEQUENT Collection Time: 04/20/19 4:19 AMResult Value Ref Range Ventricular Rate 65 BPM Atrial Rate 65 BPM P-R Interval 148 ms QRS Duration 96 ms Q-T Interval 400 ms QTC Calculation (Bezet) 416 ms Calculated P [place] 47 degrees Calculated R [place] 73 degrees Calculated T [place] 53 degrees Diagnosis Normal sinus rhythm with sinus arrhythmiaNormal ECGWhen compared with ECG of 20-APR-2019 04:06,No significant change was foundCBC WITH AUTOMATED DIFF Collection Time: 04/20/19 4:23 AMResult Value Ref Range WBC 8.6 4.8 - 10.6 K/uL RBC 4.08 (L) 4.20 - 5.40 M/uL HGB 12.8 12.0 - 16.0 g/dL HCT 38.6 36.0 - 47.0 % MCV 94.6 (H) 81.0 - 94.0 FL MCH 31.4 27.0 - 35.0 PG MCHC 33.2 30.7 - 37.3 g/dL RDW 12.0 11.5 - 14.0 % PLATELET 232 130 - 400 K/uL MPV 9.0 (L) 9.2 - 11.8 FL NRBC 0.0 0 PER 100 WBC ABSOLUTE NRBC 0.00 0.0 - 0.01 K/uL NEUTROPHILS 51 48.0 - 72.0 % LYMPHOCYTES 38 18.0 - 40.0 % MONOCYTES 9 2.0 - 12.0 % EOSINOPHILS 1 0.0 - 7.0 % BASOPHILS 1 0.0 - 3.0 % IMMATURE GRANULOCYTES 0 0.0 - 0.5 % ABS. NEUTROPHILS 4.4 2.3 - 7.6 K/UL ABS. LYMPHOCYTES 3.3 0.9 - 4.2 K/UL ABS. MONOCYTES 0.8 0.1 - 1.7 K/UL ABS. EOSINOPHILS 0.1 0.0 - 1.0 K/UL ABS. BASOPHILS 0.1 0.0 - 0.4 K/UL ABS. IMM. GRANS. 0.0 0.0 - 0.17 K/UL DF AUTOMATEDMETABOLIC PANEL, COMPREHENSIVE Collection Time: 04/20/19 4:23 AMResult Value Ref Range Sodium 135 (L) 136 - 145 mmol/L Potassium 4.0 3.5 - 5.1 mmol/L Chloride 104 98 - 107 mmol/L CO2 29 21 - 32 mmol/L Anion gap 2 (L) 4 - 12 mmol/L Glucose 102 74 - 106 mg/dL BUN 17 7 - 18 mg/dL Creatinine 0.81 0.55 - 1.02 mg/dL GFR est AA >60 >60 ml/min/1.73m2 GFR est non-AA >60 >60 ml/min/1.73m2 Calcium 8.8 8.5 - 10.1 mg/dL Bilirubin, total 0.5 0.2 - 1.0 mg/dL ALT (SGPT) 38 12 - 78 U/L AST (SGOT) 27 15 - 37 U/L Alk. phosphatase 103 46 - 116 U/L Protein, total 7.3 6.4 - 8.2 g/ dL Albumin 3.7 3.4 - 5.0 g/dL Globulin 3.6 2.8 - 3.9 g/dL A-G Ratio 1.0 1.0 - 1.5LIPASE Collection Time: 04/20/19 4:23 AMResult Value Ref Range Lipase 122 73 - 393 U/LTROPONIN I Collection Time: 04/20/19 4:23 AMResult Value Ref Range Troponin-I, Qt. <0.04 0.00 - 0.05 NG/MLRad results:XR CHEST PA LAT (Results Pending)ED Course: Pt reports relief with medicationsVisit VitalsBP 107/70Pulse 81Temp 98.2 F (36.8 C)Resp 20Ht 5' 6" (1.676 m)Wt 84.8 kg (187 lb)SpO2 98%BMI 30.18 kg/m Medicationsalum-mag hydroxide-simeth (MYLANTA) oral suspension 30 mL (30 mL OralGiven 04/20/19425)pantoprazole (PROTONIX) tablet 40 mg (40 mg Oral Given 04/20/19425)Critical care time (if provided) excluding procedural time was 0minutes.FINAL DX:Diagnoses that have been ruled out:NoneDiagnoses that are still under consideration:NoneFinal diagnoses:Chest pain, unspecified typeGastroesophageal reflux disease, esophagitis presence not specifiedDISPO:D/C HOMECondition: stableRx:I have reviewed the following home medications:Prior to Admission medicationsMedication Sig Start Date End Date Taking? Authorizing Providerondansetron hcl (ZOFRAN) 4 mg tablet Take 4 mg by mouth every eight (8)hours as needed for Nausea. Yes Other, Phys, lansoprazole (PREVACID) 30 mg capsule Take 1 Cap by mouth daily for 20days. 04/20/19 05/10/19 Yes Libertad Clark, Bouchra Clark MDED Orders ONDANSETRON HCL 4 MG TAB [#[id number]] Priority: Routine Class: Historical Med PANTOPRAZOLE 40 MG TAB, DELAYED RELE* [#[id number]] Priority: STAT Class: Normal PPI INDICATION -> Other (describe in comments) ALUM-MAG HYDROXIDE-SIMETH 200 MG-200* [#[id number]] Priority: STAT Class: Normal LANSOPRAZOLE 30 MG CAP, DELAYED RELE* [#[id number]] Priority: Routine Class: Normal [id number] EKG, 12 LEAD, INITIAL [#[id number]] Priority: STAT Class: Hospital Performed Standing Order Information Remaining Occurrences:0/1 Interval:ONE TIME Last released:04/20/2019 Released orders: TueApr 20, 2019 4:01 AM by: MILAGROS SILVA Reason for Exam: -> cp [id number] EKG, 12 LEAD, INITIAL [#[id number]] Priority: STAT Class: Hospital Performed Specimen Collected: 04/20/2019 4:06 AM Resulting Agency: [facility] Test ID: [id number] Reason for Exam: -> cp Released on: 04/20/2019 4:01 AM [id number] EKG, 12 LEAD, SUBSEQUENT [#[id number]] Priority: STAT Class: Hospital Performed Standing Order Information Remaining Occurrences:0/1 Interval:ONE TIME Last released:04/20/2019 Released orders: TueApr 20, 2019 4:15 AM by: LIBERTAD CLARK Reason for Exam: -> chest pain EKG, 12 LEAD, SUBSEQUENT [#[id number]] Priority: STAT Class: Hospital Performed Specimen Collected: 04/20/2019 4:19 AM Resulting Agency: [facility] Test ID: [id number] Reason for Exam: -> chest pain Released on: 04/20/2019 4:15 AM [id number] CBC WITH AUTOMATED DIFF [#[id number]] Priority: STAT Class: ER Collect Standing Order Information Remaining Occurrences:0/1 Interval:ONE TIME Last released:04/20/2019 Released orders: TueApr 20, 2019 4:15 AM by: LIBERTAD CLARK [id number] METABOLIC PANEL, COMPREHENSIVE [#[id number]] Priority: STAT Class: ER Collect Standing Order Information Remaining Occurrences:0/1 Interval:ONE TIME Last released:04/20/2019 Released orders: TueApr 20, 019 4:15 AM by: LIBERTAD CLARK [id number] LIPASE [#[id number]] Priority: STAT Class: ER Collect Standing Order Information Remaining Occurrences:0/1 Interval:ONE TIME Last released:04/20/2019 Released orders: TueApr 20, 2019 4:15 AM by: LIBERTAD CLARK [id number] TROPONIN I [#[id number]] Priority: STAT Class: ER Collect Standing Order Information Remaining Occurrences:0/1 Interval:ONE TIME Last released:04/20/2019 Released orders: TueApr 20, 2019 4:15 AM by: LIBERTAD CLARK [id number] CBC WITH AUTOMATED DIFF [#[id number]] Priority: STAT Class: ER Collect Specimen Source: Whole Blood Specimen Collected: 04/20/2019 4:23 AM Resulting Agency: [facility] Test ID: [id number] Released on: 04/20/2019 4:15 AM [id number] METABOLIC PANEL, COMPREHENSIVE [#[id number]] Priority: STAT Class: ER Collect Specimen Source: Plasma Specimen Collected: 04/20/2019 4:23 AM Resulting Agency: [facility] Test ID: MPL Released on: 04/20/2019 4:15 AM [id number] LIPASE [#[id number]] Priority: STAT Class: ER Collect Specimen Source: Plasma Specimen Collected: 04/20/2019 4:23 AM Resulting Agency: [facility] Test ID: [id number] Released on: 04/20/2019 4:15 AM [id number] TROPONIN I [#[id number]] Priority: STAT Class: ER Collect Specimen Source: Plasma Specimen Collected: 04/20/2019 4:23 AM Resulting Agency: [facility] Test ID: [id number] Released on: 04/20/2019 4:15 AM [id number] XR CHEST PA LAT [#[id number]] Priority: STAT Class: Hospital Performed Standing Order Information Remaining Occurrences:0/1 Interval:ONE TIME Last released:04/20/2019 Released orders: TueApr 20, 2019 4:21 AM by: LIBERTAD CLARK Reason for Exam -> chest pain [id number] XR CHEST PA LAT [#[id number]] Priority: STAT Class: Hospital Performed Resulting Agency: [facility] Test ID: [id number] Reason for Exam -> chest pain Released on: 04/20/2019 4:21 Elyssa Mishra MR#: [id number] * Rm: [id number]: 5' 6" Wt: 187 lb Code: Not on file Iso:Diagnosis:Allergies: No Known Allergies -------- Current as of: 04/20/19 0522 GI=Given pantoprazole (PROTONIX) injection 40 mg #[id number] Admin Amount: 40 mg Ordered Dose: 40 mg Route: IntraVENous Freq: ONCE Start Date: 03/16/14 No administration times (back 96 hours, ahead 96 hours). ------pantoprazole (PROTONIX) injection 40 mg #[id number] Admin Amount: 40 mg Ordered Dose: 40 mg Route: IntraVENous Freq: ONCE Start Date: 04/17/14 No administration times (back 96 hours, ahead 96 hours). ------sodium chloride 0.9 % bolus infusion 1,000 mL #[id number] Admin Amount: 1,000 mL Ordered Dose: 1,000 mL Route: IntraVENous Freq: ONCE Start Date: 04/17/14 Rate: 1,000 mL/hr Duration: 60 Minutes No administration times (back 96 hours, ahead 96 hours). ------ondansetron (ZOFRAN) injection 4 mg #[id number] Admin Amount: 2 mL = 4 mg of 4 mg/2 mL Ordered Dose: 4 mg Route: IntraVENous Freq: ONCE Start Date: 04/17/14 No administration times (back 96 hours, ahead 96 ho urs). ----dicyclomine (BENTYL) capsule 10 mg #[id number] Admin Amount: 1 Cap (1 x 10 mg Cap) Ordered Dose: 10 mg Route: Oral Freq: NOW Start Date: 04/17/14 No administration times (back 96 hours, ahead 96 hours). alum-mag hydroxide-simeth (MYLANTA) oral suspension 30 mL #[id number] Admin Amount: 30 mL Ordered Dose: 30 mL Route: Oral Freq: NOW Start Date: 04/17/14 No administration times (back 96 hours, ahead 96 hours). ------lidocaine (XYLOCAINE) 2 % viscous solution 15 mL #[id number] Admin Amount: 15 mL Ordered Dose: 15 mL Route: Mouth/Throat Freq: NOW Start Date: 04/17/14 No admin istration times (back 96 hours, ahead 96 hours).Elyssa Pfeiffer MR#: [id number] * Rm: [id number]: 5' 6" Wt: 187 lb Code: Not on file Iso:Diagnosis:Allergies: No Known Allergies -------- Current as of: 04/20/19 0522 GI=Given lidocaine (XYLOCAINE) 2 % viscous solution 15 mL #[id number] Admin Amount: 15 mL Ordered Dose: 15 mL Route: Mouth/Throat Freq: NOW Start Date: 05/19/14 No administration times (back 96 hours, ahead 96 hours). ------alum-mag hydroxide-simeth (MYLANTA) oral suspension 30 mL #[id number] Admin Amount: 30 mL Ordered Dose: 30 mL Route: Oral Freq: NOW Start Date: 05/19/14 No administration times (back 96 hours, ahead 96 hours). ------famotidine (PF) (PEPCID) 20 mg in sodium chloride 0.9 % 10 mL inject*#[id number] Admin Amount: 20 mg Ordered Dose: 20 mg Route: IntraVENous Freq: NOW Start Date: 05/19/14 No administration times (back 96 hours, ahead 96 hours). ondansetron (ZOFRAN) injection 4 mg #[id number] Admin Amount: 2 mL = 4 mg of 4 mg/2 mL Ordered Dose: 4 mg Route: IntraVENous Freq: ONCE Start Date: 05/19/14 No administration times (back 96 hours, ahead 96 hours). iohexol (OMNIPAQUE) solution 10-50 mL #[id number] Admin Amount: 10-50 mL Ordered Dose: 10-50 mL Route: Oral Freq: RAD ONCE Start Date: 05/19/14 No administration times (back 96 hours, ahead 96 hours). ------ioversol (OPTIRAY) 320 mg iodine/mL contrast injection 51-100 mL #[id number] Admin Amount: 51-100 mL Ordered Dose: 51-100 mL Route: IntraVENous Freq: RAD ONCE Start Date: 05/19/14 No administration times (back 96 hours, ahead 96 hours). ------famotidine (PF) (PEPCID) injection 20 mg #[id number] Admin Amount: 20 mg Ordered Dose: 20 mg Route: IntraVENous Freq: NOW Start Date: 06/15/14 No administration times (back 96 hours, ahead 96 hours). ondansetron (ZOFRAN) injection 4 mg #[id number] Admin Amount: 2 mL = 4 mg of 4 mg/2 mL Ordered Dose: 4 mg Route: IntraVENous Freq: NOW Start Date: 06/15/14 No administration times (back 96 hours, ahead 96 hours).Kentrell Elyssa MR#: [id number] * Rm: [id number]: 5' 6" Wt: 187 lb Code: Not on file Iso:Diagnosis:Allergies: No Known Allergies -------- Current as of: 04/20/19 0522 GI=Given -------morphine injection 2 mg #[id number] Admin Amount: 0.5 mL = 2 mg of 4 mg/mL Ordered Dose: 2 mg Route: IntraVENous Freq: NOW Start Date: 06/15/14 No administration times (back 96 hours, ahead 96 hours).---- ondan setron (ZOFRAN) injection 4 mg #[id number] Admin Amount: 2 mL = 4 mg of 4 mg/2 mL Ordered Dose: 4 mg Route: IntraVENous Freq: NOW Start Date: 06/24/14 No administration times (back 96 hours, ahead 96 hours). famotidine (PF) (PEPCID) injection 20 mg #[id number] Admin Amount: 20 mg Ordered Dose: 20 mg Route: IntraVENous Freq: NOW Start Date: 06/24/14 No administration times (back 96 hours, ahead 96 hours). ------ozlnlbvqt-pktwqk-rylkoald-scop () elixir 10 mL #[id number] Admin Amount: 10 mL Ordered Dose: 10 mL Route: Oral Freq: NOW Start Date: 06/24/14 No administration times (back 96 hours, ahead 96 hours). ------sodium chloride 0.9 % bolus infusion 1,000 mL #[id number] Admin Amount: 1,000 mL Ordered Dose: 1,000 mL Route: IntraVENous Freq: ONCE Start Date: 06/24/14 Rate: 1,000 mL/hr Duration: 60 Minutes No administration times (back 96 hours, ahead 96 hours). ------dicyclomine (BENTYL) capsule 20 mg #[id number] Admin Amount: 2 Cap (2 x 10 mg Cap) Ordered Dose: 20 mg Route: Oral Freq: NOW Start Date: 06/24/14 No administration times (back 96 hours, ahead 96 hours).- 0. 9% sodium chloride infusion #[id number] Ordered Dose: 1,000 mL/hr Route: IntraVENous Freq: CONTINUOUS Start Date: 07/29/14 Rate: 1,000 mL/hr Duration: No administration times (back 96 hours, ahead 96 hours).Elyssa Pfeiffer MR#: [id number] * Rm: [id number]: 5' 6" Wt: 187 lb Code: Not on file Iso:Diagnosis:Allergies: No Known Allergies Current as of: 04/20/19 0522 GI=Given -------ondansetron (ZOFRAN) injection 4 mg #[id number] Admin Amount: 2 mL = 4 mg of 4 mg/2 mL Ordered Dose: 4 mg Route: IntraVENous Freq: NOW Start Date: 07/29/14 No administration times (back 96 hours, ahead 96 hours). ------ketorolac (TORADOL) injection 30 mg #[id number] Admin Amount: 1 mL = 30 mg of 30 mg/mL Ordered Dose: 30 mg Route: IntraVENous Freq: NOW Start Date: 07/29/14 No administration times (back 96 hours, ahead 96 hours). 0.9% sodium chloride infusion 1,000 mL #[id number] Admin Amount: 1,000 mL Ordered Dose: 1,000 mL Route: IntraVENous Freq: NOW Start Date: 08/13/14 No administration times (back 96 hours, ahead 96 hours). ketorolac (TORADOL) injection 30 mg #[id number] Admin Amount: 1 mL = 30 mg of 30 mg/mL Ordered Dose: 30 mg Route: IntraVENous Freq: NOW Start Date: 08/13/14 No administration times (back 96 hours, ahead 96 hours). ------ondansetron (ZOFRAN ODT) tablet 4 mg #[id number] Admin Amount: 1 Tab (1 x 4 mg Tab) Ordered Dose: 4 mg Route: Oral Freq: NOW Start Date: 09/30/14 No administration times (back 96 hours, ahead 96 hours). ------trimethoprim-sulfamethoxazole (BACTRIM DS, SEPTRA DS) 160-800 mg per *#[id number] Admin Amount: 1 Tab Ordered Dose: 1 Tab Route: Oral Freq: NOW Start Date: 09/30/14 No administration times (back 96 hours, ahead 96 hours).-------- 0.9% sodium chloride infusion #[id number] Ordered Dose: 1,000 mL/hr Route: IntraVENous Freq: CONTINUOUS Start Date: 11/16/14 Rate: 1,000 mL/hr Duration: No administration times (back 96 hours, ahead 96 hours). ondansetron (ZOFRAN) injection 4 mg #[id number] Admin Amount: 2 mL = 4 mg of 4 mg/2 mL Ordered Dose: 4 mg Route: IntraVENous Freq: NOW Start Date: 11/16/14 No administration times (back 96 hours, ahead 96 hours).Elyssa Pfeiffer MR#: [id number] * Rm: [id number]: 5' 6" Wt: 187 lb Code: Not on file Iso:Diagnosis:Allergies: No Known Allergies -------- Current as of: 04/20/19 0522 GI=Given -------pantoprazole (PROTONIX) injection 40 mg #[id number] Admin Amount: 40 mg Ordered Dose: 40 mg Route: IntraVENous Freq: NOW Start Date: 11/16/14 No administration times (back 96 hours, ahead 96 hours). ondansetron (ZOFRAN) injection 4 mg #[id number] Admin Amount: 2 mL = 4 mg of 4 mg/2 mL Ordered Dose: 4 mg Route: IntraVENous Freq: ONCE Start Date: 04/04/15 No administration times (back 96 hours, ahead 96 hours). ketorolac (TORADOL) injection 60 mg #[id number] Admin Amount: 2 mL = 60 mg of 30 mg/mL Ordered Dose: 60 mg Route: IntraMUSCular Freq: NOW Start Date: 04/11/15 No administration times (back 96 hours, ahead 96 hours). ------hydrOXYzine HCl (ATARAX) tablet 50 mg #[id number] Admin Amount: 1 Tab (1 x 50 mg Tab) Ordered Dose: 50 mg Route: Oral Freq: NOW Start Date: 04/09/17 No administration times (back 96 hours, ahead 96 hours). ------acetaminophen (OFIRMEV) infusion 1,000 mg #[id number] Admin Amount: 100 mL = 1,000 mg of 1,000 mg/100 mL Ordered Dose: 1,000 mg Route: IntraVENous Freq: ONCE Start Date: 09/17/17 Rate: 400 mL/hr Duration: 15 Minutes No administration times (back 96 hours, ahead 96 hours). ------ondansetron (ZOFRAN) injection 4 mg #[id number] Admin Amount: 2 mL = 4 mg of 4 mg/2 mL Ordered Dose: 4 mg Route: IntraVENous Freq: ONCE Start Date: 09/17/17 No administration times (back 96 hours, ahead 96 hours). ------iohexol (OMNIPAQUE) solution 50 mL #[id number] Admin Amount: 50 mL Ordered Dose: 50 mL Route: Oral Freq: RAD ONCE Start Date: 09/17/17 No administration times (back 96 hours, ahead 96 hours).Elyssa Pfeiffer MR#: [id number] * Rm: [id number]: 5' 6" Wt: 187 lb Code: Not on file Iso:Diagnosis:Allergies: No Known Allergies Current as of: 04/20/19 0522 GI=Given -------iopamidol (ISOVUE 300) 61 % contrast injection 100 mL #[id number] Admin Amount: 100 mL Ordered Dose: 100 mL Route: IntraVENous Freq: RAD ONCE Start Date: 09/17/17 No administration times (back 96 hours, ahead 96 hours). ------ondansetron (ZOFRAN) injection 4 mg #[id number] Admin Amount: 2 mL = 4 mg of 4 mg/2 mL Ordered Dose: 4 mg Route: IntraVENous Freq: ONCE Start Date: 09/17/17 No administration times (back 96 hours, ahead 96 hours).----- ciprof loxacin HCl (CIPRO) tablet 500 mg #[id number] Admin Amount: 2 Tab (2 x 250 mg Tab) Ordered Dose: 500 mg Route: Oral Freq: NOW Start Date: 09/17/17 No administration times (back 96 hours, ahead 96 hours). metroNIDAZOLE (FLAGYL) tablet 500 mg #[id number] Admin Amount: 2 Tab (2 x 250 mg Tab) Ordered Dose: 500 mg Route: Oral Freq: NOW Start Date: 09/17/17 No administration times (back 96 hours, ahead 96 hours). ------ketorolac (TORADOL) injection 30 mg #[id number] Admin Amount: 1 mL = 30 mg of 30 mg/mL Ordered Dose: 30 mg Route: IntraVENous Freq: NOW Start Date: 09/19/17 No administration times (back 96 hours, ahead 96 hours). ------sodium chloride 0.9 % bolus infusion 1,000 mL #[id number] Admin Amount: 1,000 mL Ordered Dose: 1,000 mL Route: IntraVENous Freq: ONCE Start Date: 09/19/17 Rate: 1,000 mL/hr Duration: 60 Minutes No administration times (back 96 hours, ahead 96 hours). ------dicyclomine (BENTYL) capsule 20 mg #[id number] Admin Amount: 2 Cap (2 x 10 mg Cap) Ordered Dose: 20 mg Route: Oral Freq: NOW Start Date: 09/19/17 No administration times (back 96 hours, ahead 96 hours).Elyssa Pfeiffer MR#: [id number] * Rm: [id number]: 5' 6" Wt: 187 lb Code: Not on file Iso:Diagnosis:Allergies: No Known All ergies ----- Current as of: 04/20/19 0522 GI=Given -------acetaminophen (OFIRMEV) infusion 1,000 mg #[id number] Admin Amount: 100 mL = 1,000 mg of 1,000 mg/100 mL Ordered Dose: 1,000 mg Route: IntraVENous Freq: ONCE Start Date: 09/19/17 Rate: 400 mL/hr Duration: 15 Minutes No administration times (back 96 hours, ahead 96 hours). alum-mag hydroxide-simeth (MYLANTA) oral suspension 30 mL #[id number] Admin Amount: 30 mL Ordered Dose: 30 mL Route: Oral Freq: NOW Start Date: 09/19/17 No administration times (back 96 hours, ahead 96 hours). ------lidocaine (XYLOCAINE) 2 % viscous solution 15 mL #[id number] Admin Amount: 15 mL Ordered Dose: 15 mL Route: Mouth/Throat Freq: NOW Start Date: 09/19/17 No administr ation times (back 96 hours, ahead 96 hours). ------ondansetron (ZOFRAN ODT) tablet 8 mg #[id number] Admin Amount: 2 Tab (2 x 4 mg Tab) Ordered Dose: 8 mg Route: Oral Freq: NOW Start Date: 04/30/18 No administration times (back 96 hours, ahead 96 hours).------ rho D immune globulin (RHOGAM) 1,500 unit (300 mcg) injection 0.3 mg #[id number] Admin Amount: 1 mL = 0.3 mg of 0.3 mg/mL Ordered Dose: 300 mcg Route: IntraMUSCular Freq: ONCE Start Date: 10/21/18 No administration times (back 96 hours, ahead 96 hours). pantoprazole (PROTONIX) tablet 40 mg #[id number] Admin Amount: 1 Tab (1 x 40 mg Tab) Ordered Dose: 40 mg Route: Oral Freq: NOW Start Date: 04/20/19 Administration times (back 96 hours, ahead 96 hours): 04/20/19: 0426GI alum-mag hydroxide-simeth (MYLANTA) oral suspension 30 mL #[id number] Admin Amount: 30 mL Ordered Dose: 30 mL Route: Oral Freq: EVERY 4 HOURS NEEDED Start Date: 04/20/19 Administration times (back 96 hours, ahead 96 hours): 04/20/19: 0426GI ED Current OP Medicationsondansetron hcl (ZOFRAN) 4 mg tabletSig:Take 4 mg by mouth every eight (8) hours as needed for Nausea.Dispense Amount:Start Date:End Date:Doc. Provider: Reynold Sheridan MDlansoprazole (PREVACID) 30 mg capsuleSig:Take 1 Cap by mouth daily for 20 days.Dispense Amount:20 CapStart Date:04/20/2019End Date:05/10/2019Do. Provider: Libertad Clark MD ED Prescriptionslansoprazole (PREVACID) 30 mg capsuleSig:Take 1 Cap by mouth daily for 20 days.Dispense Amount:20 CapStart Date:04/20/2019End Date:05/10/2019[facility]. Provider: Libertad Clark MDFollow-up InformationFollow-up With:Tommy West DODetails:In 1 weekComments:for further evaluati onContact Info:1 Annamaria Baumann [address] [place] [address] [phone] Name Value Range Interpretation Code Description Data Jie rce(s) Supporting Document(s) ID Date Data Source [id number] 04/20/2019 05:21:49 AM [facility] I have reviewed discharge instructions w ith the patient. The patient verbalizedunderstanding. Instructed to f/u with primary care Stable at [place] with adultfemale Name Value Range Interpretation Code Description Data [facility] rce(s) Supporting Document(s) ID Date Data Source [id number] 04/20/2019 05:09:39 AM [facility] CC: Chest tightnessHPI:Patient is a 23 y.o. female who presents with L sided chest tightness thatbegan last jonathan. Pt sates she was able to go to sleep but then awoke with thepain again and c/o SOBPt sates the pain is intermittent lasting for min at a timePt also noted epigastric burning throughout the day todaySx present for 1 daysPt denies: fever, cough, radiation of the painPCP: NonePMHx:Past Medical History:Diagnosis Date Anxiety Atrial fibrillation (HCC) Depression GERD (gastroesophageal reflux disease)PSHx:Past Surgical History:Procedure Laterality Date HX CHOLECYSTECTOMYSoc Hx / Fam Hx:Social HistorySocioeconomic History Marital status: Spouse name: Not on file Number of children: Not on file Years of education: Not on file Highest education level: Not on fileSocial Needs Financial resource strain: Not hard at all Food insecurity: Worry: Never true Inability: Never true Transportation needs: Medical: No Non-medical: NoTobacco Use Smoking status: Former Smoker Years: 1.00 Types: Cigarettes Last attempt to quit: 04/11/2013 Years since quittin.0 Smokeless tobacco: Never UsedSubstance and Sexual Activity Alcohol use: Yes Frequency: Monthly or less Drinks per session: 1 or 2 Binge frequency: Never Drug use: No Sexual activity: Yes Partners: Male control/protection: PillFamily HistoryProblem Relation Age of Onset GERD Mother Diabetes Father Hypertension Father Blindness Maternal AuntROS:Const: no fever, no fatigueEyes; no pain, no vision changesOrophar: no sore throat, no ear painResp: no cough, no SOBCard: chest pain, no palpitationsAbd: no vomiting, no diarrheaGU: no dysuria, no hematuriaMusc: no back pain, no joint painNeuro: no headache, no numbnessSkin: no rash, no petechiaPE:Vs: per RN notesVisit VitalsBP 107/70Pulse 81Temp 98.2 F (36.8 C)Resp 20Ht 5' 6" (1.676 m)Wt 84.8 kg (187 lb)SpO2 98%BMI 30.18 kg/m Head: NCATConst: WDWN, no distressEyes: conj pink, anictericOrophar: no edema, no erythemaNeck: trachea midline, suppleResp: nl excursions, normal BS, no rales, no wheezesCard: nl rate, regular rhythm, no murmur, Good cap refill in all extrem (< 3 sec)Abd: non-distended, soft, tenderness = slight epigastricBack: supple, not tenderGU:Musc: no leg edema, no cyanosisNeuro: awake and alert CN: no facial asymmetry Motor: symmetric strength in upper and lower extremSkin: warm, moist, no rashPsych: calm, normal affectLab results:Recent Results (from the past 24 hour(s))EKG, 12 LEAD, INITIAL Collection Time: 04/20/19 4:06 AMResult Value Ref Range Ventricular Rate 66 BPM Atrial Rate 66 BPM P-R Interval 150 ms QRS Duration 98 ms Q-T Interval 386 ms QTC Calculation (Bezet) 404 ms Calculated P [place] 51 degrees Calculated R [place] 79 degrees Calculated T [place] 55 degrees Diagnosis Normal sinus rhythmNormal ECGNo previous ECGs availableEKG, 12 LEAD, SUBSEQUENT Collection Time: 04/20/19 4:19 AMResult Value Ref Range Ventricular Rate 65 BPM Atrial Rate 65 BPM P-R Interval 148 ms QRS Duration 96 ms Q-T Interval 400 ms QTC Calculation (Bezet) 416 ms Calculated P [place] 47 degrees Calculated R [place] 73 degrees Calculated T [place] 53 degrees Diagnosis Normal sinus rhythm with sinus arrhythmiaNormal ECGWhen compared with ECG of 20-APR-2019 04:06,No significant change was foundCBC WITH AUTOMATED DIFF Collection Time: 04/20/19 4:23 AMResult Value Ref Range WBC 8.6 4.8 - 10.6 K/uL RBC 4.08 (L) 4.20 - 5.40 M/uL HGB 12.8 12.0 - 16.0 g/dL HCT 38.6 36.0 - 47.0 % MCV 94.6 (H) 81.0 - 94.0 FL MCH 31.4 27.0 - 35.0 PG MCHC 33.2 30.7 - 37.3 g/dL RDW 12.0 11.5 - 14.0 % PLATELET 232 130 - 400 K/uL MPV 9.0 (L) 9.2 - 11.8 FL NRBC 0.0 0 PER 100 WBC ABSOLUTE NRBC 0.00 0.0 - 0.01 K/uL NEUTROPHILS 51 48.0 - 72.0 % LYMPHOCYTES 38 18.0 - 40.0 % MONOCYTES 9 2.0 - 12.0 % EOSINOPHILS 1 0.0 - 7.0 % BASOPHILS 1 0.0 - 3.0 % IMMATURE GRANULOCYTES 0 0.0 - 0.5 % ABS. NEUTROPHILS 4.4 2.3 - 7.6 K/UL ABS. LYMPHOCYTES 3.3 0.9 - 4.2 K/UL ABS. MONOCYTES 0.8 0.1 - 1.7 K/UL ABS. EOSINOPHILS 0.1 0.0 - 1.0 K/UL ABS. BASOPHILS 0.1 0.0 - 0.4 K/UL ABS. IMM. GRANS. 0.0 0.0 - 0.17 K/UL DF AUTOMATEDMETABOLIC PANEL, COMPREHENSIVE Collection Time: 04/20/19 4:23 AMResult Value Ref Range Sodium 135 (L) 136 - 145 mmol/L Potassium 4.0 3.5 - 5.1 mmol/L Chloride 104 98 - 107 mmol/L CO2 29 21 - 32 mmol/L Anion gap 2 (L) 4 - 12 mmol/L Glucose 102 74 - 106 mg/dL BUN 17 7 - 18 mg/dL Creatinine 0.81 0.55 - 1.02 mg/dL GFR est AA >60 >60 ml/min/1.73m2 GFR est non-AA >60 >60 ml/min/1.73m2 Calcium 8.8 8.5 - 10.1 mg/dL Bilirubin, total 0.5 0.2 - 1.0 mg/dL ALT (SGPT) 38 12 - 78 U/L AST (SGOT) 27 15 - 37 U/L Alk. phosphatase 103 46 - 116 U/L Protein, total 7.3 6.4 - 8.2 g/ dL Albumin 3.7 3.4 - 5.0 g/dL Globulin 3.6 2.8 - 3.9 g/dL A-G Ratio 1.0 1.0 - 1.5LIPASE Collection Time: 04/20/19 4:23 AMResult Value Ref Range Lipase 122 73 - 393 U/LTROPONIN I Collection Time: 04/20/19 4:23 AMResult Value Ref Range Troponin-I, Qt. <0.04 0.00 - 0.05 NG/MLRad results:XR CHEST PA LAT (Results Pending)ED Course: Pt reports relief with medicationsVisit VitalsBP 107/70Pulse 81Temp 98.2 F (36.8 C)Resp 20Ht 5' 6" (1.676 m)Wt 84.8 kg (187 lb)SpO2 98%BMI 30.18 kg/m Medicationsalum-mag hydroxide-simeth (MYLANTA) oral suspension 30 mL (30 mL Oral Given04/20/19425)pantoprazole (PROTONIX) tablet 40 mg (40 mg Oral Given 04/20/19425)Critical care time (if provided) excluding procedural time was 0 minutes.FINAL DX:Diagnoses that have been ruled out:NoneDiagnoses that are still under consideration:NoneFinal diagnoses:Chest pain, unspecified typeGastroesophageal reflux disease, esophagitis presence not specifiedDISPO:D/C HOMECondition: stableRx:I have reviewed the following home medications:Prior to Admission medicationsMedication Sig Start Date End Date Taking? Authorizing Providerondansetron hcl (ZOFRAN) 4 mg tablet Take 4 mg by mouth every eight (8) hours asneeded for Nausea. Yes Other, Phys, MDlansoprazole (PREVACID) 30 mg capsule Take 1 Cap by mouth daily for 20 days.04/20/19 05/10/19 Yes Libertad Clark, Bouchra Clark MD Name Value Range Interpretation Code Description Data Jie rce(s) Supporting Document(s) ID Date Data Source [id number] 04/20/2019 04:47:13 AM EST [email or web address] Name Value Range Interpretation Code Description Data Jie rce(s) Supporting Document(s) Troponin I.cardiac [Mass/volume] in Serum or Plasma 0.00-0 .05 [email or web address] (NOTE)The presence of detectable troponi n above the reference rangeindicates myocardial injury which may be due to ischemia,myocarditis, trauma, etc. Clinical correlation is necessary todetermine the significance of this finding. Sequential testing isrecommended to determine if the typical rise and fall of cTnI isdemonstrated. Note, cardiac troponin-I has a relatively longhalf-life and may be present well after the CK MB has returned tobaseline. cTnI results in the indeterminate/delcid zone for myocardial infarction: 0.06 to 0.59 ng/mL cTnI cutoff/range of values consistent with myocardial infarction: 0.60 to 1.50 ng/mL ID Date Data Source [id number] 04/20/2019 04:47:12 AM EST [employer] [facility] Name Value Range Interpretation Code Description Data [facility](s) Supporting Document(s) Sodium [Moles/volume] in Serum or Plasma 135 mmol/L 136-145 Below low normal [facility] AgnesReframe It [facility] Potassium [Moles/volume] in Serum or Plasma 4.0 mmol/L 3.5-5.[address] [facility] Chloride [Moles/volume] in Serum or Plasma 104 mmol/L 98-[address] [facility] HospitalIND[facility] Biosciences AgnesReframe It [facility] Carbon dioxide, total [Moles/volume] in Serum or Plasma 29 mmol/L 21 -[address] [facility] Anion gap in Serum or Plasma 2 mmol/L 4-12 Below low normal [facility] Glucose [Mass/volume] in Serum or Plasma 102 mg/dL 74-[address] [facility] Urea nitrogen [Mass/volume] in Serum or Plasma 17 mg/dL 7-[address] [facility] Creatinine [Mass/volume] in Serum or Plasma 0.81 mg/dL 0.55-1.[address] [facility] Glomerular filtration rate/1.73 sq M pre dicted among blacks [Volume Rate/Area] in Serum or Plasma by Creatinine-based formula (MDRD) >60 [facility] MobAppCreator [facility] Glomerular filtration rate/1.73 sq M pre dicted among non-blacks [Volume Rate/Area] in Serum or Plasma by Creatinine-based formula (MDRD) >6 0 [email or web address] (NOTE)Estimated GFR is calculated using the Modification of Diet in RenalDisease (MDRD) Study equation, reported for both Americans(GFRAA) and non- Americans (GFRNA), and normalized to 1.63v1weje surface area. The physician must decide which value applies tothe patient. The MDRD study equation should only be used inindividuals age 18 or older. It has not been validated for thefollowing: women, patients with serious comorbid conditions,or on certain medications, or persons with extremes of body size,muscle mass, or nutritional status. Calcium [Mass/volume] in Serum or Plasma 8.8 mg/dL 8.5-10.1 [email or web address] Bilirubin.total [Mass/volume] in Serum or Plasma 0.5 mg/dL 0.2-1.0 [email or web address] Alanine aminotransferase [Enzymatic activity/volume] in Seru m or Plasma 38 U/L 12-78 [employer] Aspartate aminotransferase [Enzymatic ac tivity/volume] in Serum or Plasma by With P-5'-P 27 U/L 15-37 [facility] [employer] [facility] Alkaline phosphatase [Enzymatic activity/volume] in Serum or Plasma 103 U/L 46-116 [employer] Protein [Mass/volume] in Serum or Plasma 7.3 g/dL 6.4-8.2 [email or web address] Albumin [Mass/volume] in Serum or Plasma by Bromocresol purple (BCP) dye binding method 3.7 g/dL 3.4-5.0 [facility] Globulin [Mass/volume] in Serum by calculation 3.6 g/dL 2.8-3.9 [email or web address] Albumin/Globulin [Mass Ratio] in Serum or Plasma 1.0 1.0-1.5 [email or web address] ID Date Data Source [id number] 04/20/2019 04:47:13 AM EST [employer] Name Value Range Interpretation Code Description Data Jie rce(s) Supporting Document(s) Lipase [Enzymatic activity/volume] in Serum or Plasma 122 U/L 73-3 93 [facility] [email or web address] ID Date Data Source [id number] 04/20/2019 04:29:55 AM EST [email or web address] [facility] Name Value Range Interpretation Code Description Data Jie rce(s) Supporting Document(s) Leukocytes [#/volume] in Blood by Automated count 8.6 K/uL 4.8-10.[address] [facility] HospitalMedl[facility] Erythrocytes [#/volume] in Blood by Automated count 4.08 M/uL 4.20-5.40 Below low normal [facility] Hemoglobin [Mass/volume] in Blood 12.8 g/dL 12.0-16.[address] [facility] Hematocrit [Volume Fraction] of Blood by Automated count 38.6 % 3 6.0-47.[address] [facility] Erythrocyte mean corpuscular volume [Entitic volume] by Auto mated count 94.6 FL 81.0-94.0 Above high normal [facility] Erythrocyte mean corpuscular hemoglobin [Entitic mass] by Automated count 31.4 PG 27.0-35.[address] [facility] HospitalIND[facility] [employer] Erythrocyte mean corpuscular hemoglobin concentration [Mass/volume] by Automated count 33.2 g/dL 30.7-37.[address] [facility] HospitalIND[facility] Erythrocyte distribution width [Ratio] by Automated count 12.0 % 11.5-14.[address] [facility] HospitalMed[facility] Platelets [#/volume] in Blood by Automated count 232 K/uL 130-[address] [facility] HospitalIND[facility] [employer]nesCelltrix [facility] Platelet mean volume [Entitic volume] in Blood by Automated count 9.0 FL 9.2-11.8 Below low normal [facility] HospitalMedlert [facility] Inc Nucleated erythrocytes/100 leukocytes [Ratio] in Blood 0.0 PER 100 WB C 0 [employer] [facility] AgnesCellt[facility] Nucleated erythrocytes [#/volume] in Blood 0.00 K/uL 0.0-0.01 [employer] [facility] Segmented neutrophils/100 leukocytes in Blood 51 % 48.0-72.0 [facility] Lymphocytes/100 leukocytes in Blood 38 % 18.0-40.[address] [employer] [address] [facility] Monocytes/100 leukocytes in Blood 9 % 2.0-12.[address] [employer] [address] [facility] Eosinophils/100 leukocytes in Blood 1 % 0.0-7.[address] [facility] Basophils/100 leukocytes in Blood 1 % 0.0-3.[address] [employer] [address] [facility] Immature granulocytes/100 leukocytes in Blood by Automated count 0 % 0.0-0.[address] [facility] Segmented neutrophils [#/volume] in Blood 4.4 K/UL 2.3-7.[address] [facility] Lymphocytes [#/volume] in Blood 3.3 K/UL 0.9-4.[address] [facility] Monocytes [#/volume] in Blood 0.8 K/UL 0.1-1.[address] [facility] Eosinophils [#/volume] in Blood 0.1 K/UL 0.0-1.[address] [facility] Basophils [#/volume] in Blood 0.1 K/UL 0.0-0.[address] [facility] Immature granulocytes [#/volume] in Blood by Automated count 0.0 K/UL 0.0-0.[address] [employer] [address] [facility] Differential cell count method - Blood [facility] HospitalAff[facility] Procedure Social History Code Duration Value Status Description Data Source(s ) Smoking 05/29/2020 12:00:00 AM EST Former Smoker completed Former Smoker [email or web address] ([facility]) Smoking 05/04/2020 12:00:00 AM EST Former Smoker completed Former Smoker eCW1 ([facility]) Smoking 05/04/2020 12:00:00 AM EST Former Smoker completed Former Smoker eCW1 ([facility]) Smoking 05/04/2020 12:00:00 AM EST Former Smoker completed Former Smoker eCW1 ([facility]) Smoking 05/04/2020 12:00:00 AM EST Former Smoker completed Former Smoker eCW1 ([facility]) Smoking 04/04/2020 12:00:00 AM EST Former Smoker completed Former Smoker eCW1 ([facility]) Smoking 04/04/2020 12:00:00 AM EST Former Smoker completed Former Smoker eCW1 ([facility]) Smoking 04/04/2020 12:00:00 AM EST Former Smoker completed Former Smoker eCW1 ([facility]) Alcohol intake 09/08/2019 12:00:00 AM EDT Ex-drinker (finding) comp leted [facility] [employer] [facility] Smoking 09/08/2019 12:00:00 AM EDT Former smoker completed [facility] [employer] Alcohol intake 08/09/2019 12:00:00 AM EDT Current drinker of al cohol (finding) completed Current drinker of alcohol (finding) [facility] [email or web address] [facility] Smoking 08/09/2019 12:00:00 AM EDT Former smoker completed [facility] [employer] Alcohol intake 06/12/2019 12:00:00 AM EST Current drinker of al cohol (finding) completed Current drinker of alcohol (finding) [facility] [email or web address] [facility] Smoking 06/12/2019 12:00:00 AM EST Former smoker completed [facility] Alcohol intake 04/20/2019 12:00:00 AM EST Current drinker of al cohol (finding) completed Current drinker of alcohol (finding) [facility] Smoking 04/20/2019 12:00:00 AM EST Former smoker completed [facility] Vital Signs ID Date Data Source UNK Name Value Range Interpretation Code Description Data Source(s) Body mass index (BMI) [Ratio] 27.762 kg/m2 27.7 62 kg/m2 W1 ([facility]) Body height 66 [in_i] 66 [in_i] W1 ([facility]) Body weight 172 [lb_av] 172 [lb_av] W1 ([facility]) Diastolic blood pressure 62 mm[Hg] 62 mm[Hg] eCW1 ([facility]) Systolic blood pressure 100 mm[Hg] 100 mm[Hg] e CW1 ([facility]) Diastolic blood pressure 70 mm[Hg] 70 mm[Hg] eCW1 ([facility]) Systolic blood pressure 110 mm[Hg] 110 mm[Hg] e CW1 ([facility]) Body mass index (BMI) [Ratio] 28.698 kg/m2 28.6 98 kg/m2 eCW1 ([facility]) Body height 66 [in_i] 66 [in_i] W1 ([facility]) Body weight 177.8 [lb_av] 177.8 [lb_av] eCW1 ([facility]) Body weight 83.462 kg 83.462 kg MEDENT ([facility], ) Excel body weight 130 [lb_av] 130 [lb_av] MEDEN T ([facility], ) Body mass index (BMI) [Ratio] 29.7 kg/m2 29.7 k g/m2 MEDENT ([facility]) Body weight 184.00 [lb_av] 184.00 [lb_av] MEDEN T ([facility], ) Body height 66 [in_i] 66 [in_i] MEDENT ([facility], ) 5'6" Diastolic blood pressure 62 mm[Hg] 62 mm[Hg] MEDENT ([facility], ) Systolic blood pressure 116 mm[Hg] 116 mm[Hg] [facility] Body weight 81.194 kg 81.194 kg MEDENT ([facility] Body mass index (BMI) [Ratio] 28.9 kg/m2 28.9 k g/m2 MEDENT ([facility]) Heart rate 70 /min 70 /min MEDENT ([facility]) Diastolic blood pressure 69 mm[Hg] 69 mm[Hg] MEDENT ([facility]) Systolic blood pressure 120 mm[Hg] 120 mm[Hg] M EDENT ([facility]) Body weight 179.00 [lb_av] 179.00 [lb_av] MEDEN T ([facility]) Temp 97.0 Body height 66 [in_i] 66 [in_i] MEDENT ([facility]) 5'6" Body surface area Derived from formula 1.89 m2 1.89 m2 MEDENT ([facility]) Body mass index (BMI) [Ratio] 28.4 kg/m2 28.4 k g/m2 MEDENT ([facility]) Body height 66 [in_i] 66 [in_i] [facility] ([facility]) 5'6" Body weight 79.834 kg 79.834 [facility] Body weight 176.00 [lb_av] 176.00 [lb_av] MEDEN T ([facility]) Oxygen saturation in Arterial blood by Pulse oximetry 97 % 97 % MEDENT ([facility]) Respiratory rate 16 /min 16 /min MEDENT ( [facility]) Body temperature 97.7 [degF] 97.7 [degF] MEDENT ([facility]) Heart rate 71 /min 71 /min [facility] ([facility]) Diastolic blood pressure 60 mm[Hg] 60 mm[Hg] MEDENT ([facility]) Systolic blood pressure 102 mm[Hg] 102 mm[Hg] M EDENT ([facility]) Body surface area 1.89 m2 1.89 m2 MEDENT ([facility]) Oxygen saturation in Arterial blood by Pulse oximetry 100 % 100 % [employer] Respiratory rate 15 /min 15 /min [facility] [employer] Heart rate 75 /min 75 /min [facility] [employer] Diastolic blood pressure 76 mm[Hg] 76 mm[Hg] [employer] Systolic blood pressure 113 mm[Hg] 113 mm[Hg] B on [employer] Body mass index (BMI) [Ratio] 29.70 kg/m2 29.70 kg/m2 [employer] Body weight 83.462 kg 83.462 kg [facility] Body height 167.6 cm 167.6 cm [facility] [employer] [facility] [employer] Body temperature 36.83 Jeannine 36.83 Jeannine [employer] Oxygen saturation in Arterial blood by Pulse oximetry 98 % 98 % [employer] Body mass index (BMI) [Ratio] 31.31 kg/m2 31.31 kg/m2 [employer] Body weight 87.998 kg 87.998 kg [employer] Body height 167.6 cm 167.6 cm [employer] Respiratory rate 16 /min 16 /min [employer] Body temperature 37.22 Jeannine 37.22 Jeannine [employer] Heart rate 72 /min 72 /min [employer] Diastolic blood pressure 68 mm[Hg] 68 mm[Hg] Bon [employer] Systolic blood pressure 108 mm[Hg] 108 mm[Hg] B on [employer] [facility] Body mass index (BMI) [Ratio] 30.7 kg/m2 30.7 k g/m2 MEDENT ([facility]) Body height 66 [in_i] 66 [in_i] MEDENT ([facility], [facility]) 5'6" Body weight 190.00 [lb_av] 190.00 [lb_av] MEDEN T ([facility], [facility]) Body temperature 98.6 [degF] 98.6 [degF] MEDENT ([facility], [facility]) Oxygen saturation in Arterial blood by Pulse oximetry 98 % 98 % MEDENT ([facility]) Respiratory rate 14 /min 14 /min MEDENT ( [facility]) Heart rate 83 /min 83 /min MEDENT ([facility], [facility]) Diastolic blood pressure 81 mm[Hg] 81 mm[Hg] MEDENT ([facility], [facility]) Systolic blood pressure 125 mm[Hg] 125 mm[Hg] EDENT ([facility], [facility]) Oxygen saturation in Arterial blood by Pulse oximetry 99 % 99 % [employer] Respiratory rate 18 /min 18 /min [employer] Heart rate 67 /min 67 /min [employer] Diastolic blood pressure 74 mm[Hg] 74 mm[Hg] [facility] [employer] Systolic blood pressure 95 mm[Hg] 95 mm[Hg] B on [employer] [facility] Body mass index (BMI) [Ratio] 30.18 kg/m2 30.18 kg/m2 [facility] [employer] [facility] Body weight 84.823 kg 84.823 kg Layo [facility]el [facility] [employer] [facility] Body height 167.6 cm 167.6 cm Layo Pawel [facility] [employer] [facility] Body temperature 36.78 Jeannine 36.78 Jeannine Layo godinez [facility] Patient Treatment Plan of Care Planned Activity Planned Date Details Description Data Source (s) Azithromycin (5 day) 250 mg 05/30/2020 12:00:00 AM EST eCW1 ([facility]) 24 HR Bupropion Hydrochloride 150 MG Extended Release Oral Tablet [Wellbutrin] 05/27/2020 12:00:00 AM EST eCW1 ([facility]) 24 HR Bupropion Hydrochloride 150 MG Extended Release Oral Tablet [Wellbutrin] 05/27/2020 12:00:00 AM EST eCW1 ([facility]) Metoclopramide 10 MG Oral Tablet [Reglan] 05/14/2020 12:00:00 AM ES T eCW1 ([facility]) Metoclopramide 10 MG Oral Tablet [Reglan] 05/14/2020 12:00:00 AM ES T eCW1 ([facility]) Metoclopramide 10 MG Oral Tablet [Reglan] 05/14/2020 12:00:00 AM ES T eCW1 ([facility]) Metoclopramide 10 MG Oral Tablet [Reglan] 05/14/2020 12:00:00 AM ES T eCW1 ([facility]) Metoclopramide 10 MG Oral Tablet [Reglan] 05/14/2020 12:00:00 AM ES T eCW1 ([facility]) Glycerin 2000 MG Rectal Suppository 04/30/2020 12:00:00 AM EST eCW1 ([facility]) 0.4 ML Enoxaparin sodium 100 MG/ML Prefilled Syringe [ Lovenox] 04/10/2020 12:00:00 AM EST eCW1 ([facility]) 0.4 ML Enoxaparin sodium 100 MG/ML Prefilled Syringe [ Lovenox] 04/10/2020 12:00:00 AM EST eCW1 ([facility]) 0.4 ML Enoxaparin sodium 100 MG/ML Prefilled Syringe [ Lovenox] 04/10/2020 12:00:00 AM EST eCW1 ([facility]) Ondansetron 4 MG Oral Tablet [Zofran] 02/18/2020 12:00:00 AM EDT eCW1 ([facility]) Ondansetron 4 MG Oral Tablet [Zofran] 02/18/2020 12:00:00 AM EDT eCW1 ([facility]) pantoprazole 40 MG Delayed Release Oral Tablet 09/08/2019 12:00:00 AM EDT [facility] 24 HR Bupropion Hydrochloride 150 MG Extended Release Oral Tablet 08/17/2019 12:00:00 AM EDT Layo [facility] Dexamethasone 1 MG/ML / Tobramycin 3 MG/ML Ophthalmic Suspension 08/09/2019 12:00:00 AM EDT Layo [facility] Cefuroxime 250 MG Oral Tablet 06/12/2019 12:00:00 AM EST [facility] lansoprazole 30 MG Delayed Release Oral Capsule 04/20/2019 12:00:00 AM EST [facility]
[2020-06-16] MEDS ORDERED: WELLTAB38 PO (16:03)
[2020-06-16] MEDS ORDERED: ZOFR4TAB16 PO (16:03)
[2020-06-16] MEDS ORDERED: FLIN1CHW PO (16:03)
[2020-06-16] MEDS ORDERED: PREN1CHW6 PO (16:03)
[2020-06-16] MEDS ORDERED: PANT40TA29 PO (16:03)
[2020-06-16] MEDS ORDERED: ECOT81TA5 PO (16:03)
--- OUTSIDE RECORDS SUMMARY | 2020-06-16 17:15 | CCD ---
Author Author [facility] Organization [facility] Address Unknown Phone Unavailable Care Team Providers Care Health Safety Instructor Name Role Phone Mita Zavala MD Unavailable [...] Unavailable Unavailable Mita Zavala MD Unavailable Unavailable Sally S Armando LUNA Unavailable Unavailable Sally S Armando LUNA Unavailable Unavailable Sally, S Armando LUNA Unavailable Unavailable Sally, S Armando LUNA Unavailable Unavailable Sally, S Armando LUNA Unavailable Unavailable Sally, S Armando LUNA Unavailable Unavailable Sally, S Armando LUNA Unavailable [...] is protected by Article 27-F of the [facility] Public Health law. If you continue you may have access to information: Regarding HIV / AIDS; Provided by facilities licensed or operated by the [facility] Office of Mental Health; or Provided by the [facility] Office for People With Developmental Disabilities. If such information is present, then the following [facility] mandated warning applies: This information has been [...] may result in a fine or senior care sentence or both. A general authorization for the release of medical or other information is NOT sufficient authorization for further disc losure. Allergies and Adverse Reactions Type Description Substance Reaction Status Data Source(s ) NO KNOWN ALLERGIES NO KNOWN ALLERGIES [facility] ([facility]) Drug Class NO KNOWN ALLERGIES NO KNOWN ALLERGIES [facility] Propensity to adverse reactions to drug PENICILLINS Penicillins Active (qualifier value) [facility] No Known Drug Allergies No Known Drug Allergies [facility] Family History Family Member Name Family Member Gender Family Member Status Date o f Status Description Data Source(s) Unknown Male Problem MEDENT ([facility]) Encounters Encounter Providers Location Date Indications Data Source(s ) [place] [address] [facility] [address] 05/30/2020 12:00:00 AM EST eCW1 ([facility]) [place] [address] [facility] [address] 05/27/2020 12:00:00 AM EST eCW1 ([facility]) [place] [address] [facility] [address] 05/19/2020 12:00:00 AM EST eCW1 ([facility]) [place] [address] [facility] [address] 05/14/2020 12:00:00 AM EST eCW1 ([facility]) (WC [facility]OB) [facility] [address] [place] [address] 2020 12:00:00 AM EST eCW1 ([facility]) [place] [address] [facility] [address] 04/30/2020 12:00:00 AM EST eCW1 ([facility]) [place] [address] [facility] [address] 04/23/2020 12:00:00 AM EST eCW1 ([facility]) ( ESTOB) [facility] [address] [place] [address] 04/10/2020 12:00:00 AM EST eCW1 ([facility]) Emergency Attender: CEDRIC OHARAConsultant: Lisandra clifton MD 02/27/2020 08:00:00 PM EST - 02/27/2020 09:41:00 PM EST [facility] Patient discharged. Emergency Attender: Ramos PALOMO-CConsultant: Lisandra cerna MD 02/19/2020 05:47:00 PM EDT - 02/19/2020 06:45:00 PM EDT [facility] Patient discharged. Outpatient Attender: Armando Zavala MD Main Office 12/04/2019 01:30:00 PM EDT [facility]OP[facility] ([facility]) Outpatient Attender: Lisandra Nova MD 0 11/09/2019 02:16:00 PM EDT - 11/09/2019 02:16:00 PM EDT [facility] Outpatient Attender: Lisandra Nova MD Family Practice 0 11/09/2019 02:00:00 PM EDT MEDOPHELIA ([facility]) Outpatient 11/01/2019 08:27:00 AM EDT NEXTGEN ([facility]) Outpatient 10/31/2019 08:45:00 AM EDT [facility] ([facility]) Outpatient 10/03/2019 11:00:00 AM EDT - 020 11:35:04 AM EDT [facility] Patient discharged. Outpatient 10/03/2019 11:00:00 AM EDT [facility] Outpatient 09/19/2019 03:15:00 PM EDT [facility] Outpatient 09/18/2019 04:00:00 PM EDT [facility] Outpatient 09/11/2019 04:00:00 PM EDT - 020 04:45:46 PM EDT [facility] Patient discharged. Outpatient 09/11/2019 03:45:00 PM EDT [facility] Outpatient 09/10/2019 02:15:00 PM EDT [facility] Emergency 09/08/2019 02:18:11 PM EDT - 020 03:46:00 PM EDT dizziness [facility] dizziness Patient discharged. Emergency 09/08/2019 12:00:00 AM EDT [facility] Outpatient 08/17/2019 01:00:00 PM EDT - 020 01:11:45 PM EDT [facility] Patient discharged. Outpatient 08/13/2019 04:58:35 PM EDT [facility] Outpatient 08/10/2019 06:58:00 AM EDT [facility] ([facility]) Outpatient 08/09/2019 03:56:08 PM EDT - 020 11:59:00 PM EDT [facility] Outpatient 08/09/2019 02:15:00 PM EDT - 020 02:33:38 PM EDT [facility] Patient discharged. Outpatient 08/09/2019 07:12:00 AM EDT [facility] ([facility]) Outpatient 08/09/2019 12:00:00 AM EDT [facility] 07:16:00 AM EDT N[facility] ([facility]) Outpatient 07/10/2019 06:52:00 AM EDT NEXTGEN ([facility]) Outpatient 06/30/2019 07:08:00 AM EST [facility] ([facility]) Outpatient 06/29/2019 07:27:00 AM EST [facility] ([facility]) Outpatient 06/28/2019 11:30:00 AM EST [facility] Outpatient 06/26/2019 04:45:00 PM EST [facility] Outpatient 06/23/2019 07:08:00 AM EST [facility] ([facility]) Outpatient 06/22/2019 07:13:00 AM EST [facility] ([facility]) Outpatient 06/18/2019 12:00:00 AM EST - 020 11:59:00 PM EST [facility] Outpatient 06/13/2019 03:45:00 PM EST [facility] Outpatient 06/12/2019 03:00:00 PM EST - 020 04:28:52 PM EST [facility] Patient discharged. Emergency Attender: CARLOS Knight lamberto: Alexys Ramsey PAConsultant: Hazel PALOMO 05/23/2019 05:15:00 PM EST - 05/23/2019 07:58: 00 PM EST [facility] Patient discharged. Outpatient Attender: VITA lara 05/23/2019 02:05:00 PM EST MEDENT ([facility]) Emergency 04/20/2019 04:01:51 AM EST - 04/20/2019 05:22:00 AM EST chest pain [facility] chest pain Patient discharged. Emergency 04/20/2019 12:00:00 AM EST [facility] Medications Medication Brand Name Start Date Product Form Dose Route Admi nistrative Instructions Pharmacy Instructions Status Indications Reaction Description Data Source(s) Azithromycin (5 day) 250 mg UNK 05/30/2020 12:00:00 AM EST active Azithromycin (5 day) 250 mg eCW1 ([facility]) 250 mg 05/30/2020 12:00:00 AM EST tablet 6 TAKE TWO TABLETS BY MOUTH AT ONCE ON THE FIRST DAY THEN TAKE ONE DAILY THEREAFTER TAKE TWO TABLETS BY MOUTH AT ONCE ON THE FIRST DAY THEN TAKE ONE DAILY THEREAFTER SOLD: 06/01/2020 [facility] 24 HR Bupropion Hydrochloride 150 MG Extended Release Oral T ablet BUPROPION HCL 05/27/2020 12:00:00 AM EST tablet extended release 24 hr 30 TAKE ONE TABLET BY MOUTH EVERY MORNING TAKE ONE TABLET BY MOUTH EVERY MORNING SOLD: 06/01/2020 [facility] 24 HR Bupropion Hydrochloride 150 MG Ext ended Release Oral Tablet [Wellbutrin] Wellbutrin XL 150 MG Wellbutrin XL 150 MG 05/27/2020 12:00:00 AM EST 1.0 {tablet_in_the_morning} active Wellbutr in XL 150 MG eCW1 ([facility]) 24 HR Bupropion Hydrochloride 150 MG Ext ended Release Oral Tablet [Wellbutrin] Wellbutrin XL 150 MG Wellbutrin XL 150 MG 05/27/2020 12:00:00 AM EST 1.0 {tablet_in_the_morning} active Wellbutr in XL 150 MG eCW1 ([facility]) 10 mg 05/15/2020 12:00:00 AM EST tablet 30 TAKE ONE TABLET BY MOUTH EVERY DAY BEFORE A MEAL TAKE ONE TABLET BY MOUTH EVERY DAY BEFORE A MEAL SOLD: 05/15/2020 [facility] Metoclopramide 10 MG Oral Tablet [Reglan] Reglan 10 MG Latoya n 10 MG 05/14/2020 12:00:00 AM EST 1.0 {tablet_before_meals} active Reglan 10 MG eCW1 ([facility]) Metoclopramide 10 MG Oral Tablet [Reglan] Reglan 10 MG Latoya n 10 MG 05/14/2020 12:00:00 AM EST 1.0 {tablet_before_meals} active Reglan 10 MG eCW1 ([facility]) Metoclopramide 10 MG Oral Tablet [Reglan] Reglan 10 MG Latoya n 10 MG 05/14/2020 12:00:00 AM EST 1.0 {tablet_before_meals} active Reglan 10 MG eCW1 ([facility]) Metoclopramide 10 MG Oral Tablet [Reglan] Reglan 10 MG Latoya n 10 MG 05/14/2020 12:00:00 AM EST 1.0 {tablet_before_meals} active Reglan 10 MG eCW1 ([facility]) Metoclopramide 10 MG Oral Tablet [Reglan] Reglan 10 MG Latoya n 10 MG 05/14/2020 12:00:00 AM EST 1.0 {tablet_before_meals} active Reglan 10 MG eCW1 ([facility]) Glycerin 2000 MG Rectal Suppository Glycerin (Adult) 2 GM Gl ycerin (Adult) 2 GM 04/30/2020 12:00:00 AM EST active Glycerin (Adult) 2 GM eCW1 ([facility]) Glycerin 2000 MG Rectal Suppository Glycerin (Adult) 2 GM Gl ycerin (Adult) 2 GM 04/30/2020 12:00:00 AM EST active Glycerin (Adult) 2 GM eCW1 ([facility]) Glycerin 2000 MG Rectal Suppository Glycerin (Adult) 2 GM Gl ycerin (Adult) 2 GM 04/30/2020 12:00:00 AM EST active Glycerin (Adult) 2 GM eCW1 ([facility]) Glycerin 2000 MG Rectal Suppository Glycerin (Adult) 2 GM Gl ycerin (Adult) 2 GM 04/30/2020 12:00:00 AM EST active Glycerin (Adult) 2 GM eCW1 ([facility]) Glycerin 2000 MG Rectal Suppository Glycerin (Adult) 2 GM Gl ycerin (Adult) 2 GM 04/30/2020 12:00:00 AM EST active Glycerin (Adult) 2 GM eCW1 ([facility]) Glycerin 2000 MG Rectal Suppository Glycerin (Adult) 2 GM Gl ycerin (Adult) 2 GM 04/30/2020 12:00:00 AM EST active Glycerin (Adult) 2 GM eCW1 ([facility]) 4 mg 04/23/2020 12:00:00 AM EST tablet [...] 0.4 {ml} active Lovenox 40 MG/0.4ML eCW1 ([facility]) 0.4 ML Enoxaparin sodium 100 MG/ML Prefi lled Syringe [Lovenox] Lovenox 40 MG/0.4ML Lovenox 40 MG/0.4ML 04/10/2020 12:00:00 AM EST 0.4 {ml} active Lovenox 40 MG/0.4ML eCW1 ([facility]) 0.4 ML Enoxaparin sodium 100 MG/ML Prefi lled Syringe [Lovenox] Lovenox 40 MG/0.4ML Lovenox 40 MG/0.4ML 04/10/2020 12:00:00 AM EST 0.4 {ml} active Lovenox 40 MG/0.4ML eCW1 ([facility]) 40 mg/0.4 mL 04/10/2020 12:00:00 AM EST syringe 12 INJECT 0.4ML UNDER THE SKIN ONCE DAILY INJECT 0.4ML UNDER THE SKIN ONCE DAILY SOLD: 04/10/2020 [facility] pantoprazole 40 MG Delayed Release Oral Tablet PANTOPRAZOLE SODIUM 03/13/2020 12:00:00 AM EST tablet,delayed release (DR/EC) 30 T FARIDA ONE TABLET BY MOUTH EVERY DAY TAKE ONE TABLET BY MOUTH EVERY DAY SOLD: 05/14/2020 [facility] pantoprazole 40 MG Delayed Release Oral [...] 03/05/2020 12:00:[address] active MEDENT ([facility] ) Ondansetron 4 MG Oral Tablet [Zofran] Zofran 4 MG Zofran 4 M G 02/18/2020 12:00:00 AM EDT 1.0 {tablet} active Zo david 4 MG eCW1 ([facility]) Ondansetron 4 MG Oral Tablet [Zofran] Zofran 4 MG Zofran 4 M G 02/18/2020 12:00:00 AM EDT 1.0 {tablet} active Zo david 4 MG eCW1 ([facility]) Ondansetron 4 MG Oral Tablet [Zofran] Zofran 4 MG Zofran 4 M G 02/18/2020 12:00:00 AM EDT 1.0 {tablet} active Zo david 4 MG eCW1 ([facility]) Ondansetron 4 MG Oral Tablet [Zofran] Zofran 4 MG Zofran 4 M G 02/18/2020 12:00:00 AM EDT 1.0 {tablet} active Zo david 4 MG eCW1 ([facility]) 4 mg 02/18/2020 12:00:00 AM EDT tablet 45 TAKE ONE TABLET BY MOUTH EVERY 8 HOURS NEEDED FOR NAUSEA TAKE ONE TABLET BY MOUTH EVERY 8 HOURS A S NEEDED FOR NAUSEA SOLD: 04/03/2020 [facility] Ondansetron 4 MG Oral Tablet [Zofran] Zofran 4 MG Zofran 4 M G 02/18/2020 12:00:00 AM EDT 1.0 {tablet} active Zo david 4 MG eCW1 ([facility]) Ondansetron 4 MG Oral Tablet [Zofran] Zofran 4 MG Zofran 4 M G 02/18/2020 12:00:00 AM EDT 1.0 {tablet} active Zo david 4 MG eCW1 ([facility]) Ondansetron 4 MG Oral Tablet [Zofran] Zofran 4 MG Zofran 4 M G 02/18/2020 12:00:00 AM EDT 1.0 {tablet} active Zo david 4 MG eCW1 ([facility]) Ondansetron 4 MG Oral Tablet [Zofran] Zofran 4 MG Zofran 4 M G 02/18/2020 12:00:00 AM EDT 1.0 {tablet} active Zo david 4 MG eCW1 ([facility]) 4 mg 02/18/2020 12:00:00 AM EDT tablet 45 TAKE ONE TABLET BY MOUTH EVERY 8 HOURS NEEDED FOR NAUSEA TAKE ONE TABLET BY MOUTH EVERY 8 HOURS A S NEEDED FOR NAUSEA SOLD: 02/19/2020 [facility] Progesterone 0.08 MG/MG Vaginal Gel [Crinone] Crinone 8 % Cr inone 8 % 02/15/2020 12:00:00 AM EDT suspended Crin one 8 % eCW1 ([facility]) Progesterone 0.08 MG/MG Vaginal Gel [Crinone] Crinone 8 % Cr inone 8 % 02/15/2020 12:00:00 AM EDT suspended Crin one 8 % eCW1 ([facility]) Progesterone 0.08 MG/MG Vaginal Gel [Crinone] Crinone 8 % Cr inone 8 % 02/15/2020 12:00:00 AM EDT suspended Crin one 8 % eCW1 ([facility]) Progesterone 0.08 MG/MG Vaginal Gel [Crinone] Crinone 8 % Cr inone 8 % 02/15/2020 12:00:00 AM EDT suspended Crin one 8 % eCW1 ([facility]) Progesterone 0.08 MG/MG Vaginal Gel [Crinone] Crinone 8 % Cr inone 8 % 02/15/2020 12:00:00 AM EDT suspended Crin one 8 % eCW1 ([facility]) Progesterone 0.08 MG/MG Vaginal Gel [Crinone] Crinone 8 % Cr inone 8 % 02/15/2020 12:00:00 AM EDT suspended Crin one 8 % eCW1 ([facility]) Progesterone 0.08 MG/MG Vaginal Gel [Crinone] Crinone 8 % Cr inone 8 % 02/15/2020 12:00:00 AM EDT suspended Crin one 8 % eCW1 ([facility]) Progesterone 0.08 MG/MG Vaginal Gel [Crinone] Crinone 8 % Cr inone 8 % 02/15/2020 12:00:00 AM EDT suspended Crin one 8 % eCW1 ([facility]) Fluconazole 150 MG Oral Tablet [Diflucan] Diflucan 150 MG Di flucan 150 MG 02/13/2020 12:00:00 AM EDT 1.0 {tablet} suspended Diflucan 150 MG eCW1 ([facility]) Fluconazole 150 MG Oral Tablet [Diflucan] Diflucan 150 MG Di flucan 150 MG 02/13/2020 12:00:00 AM EDT 1.0 {tablet} suspended Diflucan 150 MG eCW1 ([facility]) Fluconazole 150 MG Oral Tablet [Diflucan] Diflucan 150 MG Di flucan 150 MG 02/13/2020 12:00:00 AM EDT 1.0 {tablet} suspended Diflucan 150 MG eCW1 ([facility]) Fluconazole 150 MG Oral Tablet [Diflucan] Diflucan 150 MG Di flucan 150 MG 02/13/2020 12:00:00 AM EDT 1.0 {tablet} suspended Diflucan 150 MG eCW1 ([facility]) 150 mg 02/13/2020 12:00:00 AM EDT tablet [...] 1.0 {tablet} suspended Diflucan 150 MG eCW1 ([facility]) Fluconazole 150 MG Oral Tablet [Diflucan] Diflucan 150 MG Di flucan 150 MG 02/13/2020 12:00:00 AM EDT 1.0 {tablet} suspended Diflucan 150 MG eCW1 ([facility]) Fluconazole 150 MG Oral Tablet [Diflucan] Diflucan 150 MG Di flucan 150 MG 02/13/2020 12:00:00 AM EDT 1.0 {tablet} suspended Diflucan 150 MG eCW1 ([facility]) Fluconazole 150 MG Oral Tablet [Diflucan] Diflucan 150 MG Di flucan 150 MG 02/13/2020 12:00:00 AM EDT 1.0 {tablet} suspended Diflucan 150 MG eCW1 ([facility]) Cephalexin 500 MG Oral Capsule CEPHALEXIN 02/11/2020 [...] BY MOUTH EVERY DAY SOLD: 11/10/2019 [facility] pantoprazole 40 MG Delayed Release Oral Tablet [...] BY MOUTH EVERY MORNING SOLD: 10/17/2019 [facility] pantoprazole (PROTONIX) 40 mg in 0.9% sodium chloride 10 mL injection 09/08/2019 02:32:00 PM EDT 40 mg IntraVENous completed 40 mg, IntraVENous, ONCE, 1 dose, 09/08/19 at 1432 [facility] Medication administered onsite sodium chloride 0.9 % bolus infusion 1,000 mL [id number] 09/08/2019 02:31:00 PM EDT 1000 mL IntraVENous completed 1, 000 mL, at 1,000 mL/hr, Administer over 60 Minutes, IntraVENous, 1 dose [facility] Medication administered onsite 1 ML Lorazepam 2 MG/ML Injection LORazepam (ATIVAN) in jection 1 mg LORazepam (ATIVAN) injection 1 mg 09/08/2019 02:31:00 PM EDT 1 mg IntraVENo us completed 1 mg, IntraVENous, ONCE, 1 dose, 09/08/19 at 1431 [facility] Medication administered onsite pantoprazole 40 MG Delayed Release Oral Tablet pantoprazole (Protonix) 40 mg tablet pantoprazole (Protonix) 40 mg tablet 09/08/2019 12:00:00 AM EDT 40 mg Oral active Take 1 Tab by mouth daily for 20 days. [facility] 24 HR Bupropion Hydrochloride 150 MG Ext ended Release Oral Tablet buPROPion XL (WELLBUTRIN XL) 150 mg tablet buPROPion XL (WELLBUTRIN XL) 150 mg tablet 08/17/2019 12:00:00 AM EDT 150 mg Oral active Take 1 Tab by mouth every morning. [facility] Dexamethasone 1 MG/ML / Tobramycin 3 MG/ ML Ophthalmic Suspension tobramycin- dexamethasone (TOBRADEX) ophthalmic suspension tobramycin-dexamethasone (TOBRADEX) ophthalmic suspension 08/09/2019 12:00:00 AM EDT 1 [drp] Right Eye aborted Acute follicular conjunctivitis of right eye Administer 1 Drop to right eye every four (4) hours (while awake). [facility] Acute follicular conjunctivitis of right eye Cefuroxime 250 MG Oral Tablet cefUROXime (CEFTIN) 250 mg tablet cefUROXime (CEFTIN) 250 mg tablet 06/12/2019 12:00:00 AM EST 250 mg Oral active Acute maxillary sinusitis, recurrence not specified Take 1 Tab by mouth two (2) times a day. [facility] Acute maxillary sinusitis, recurrence no t specified No Active Medications 05/23/2019 12:00:00 AM EST active MEDENT ([facility]) pantoprazole 40 MG Delayed Release Oral Tablet pantoprazole (PROTONIX) tablet 40 mg pantoprazole (PROTONIX) tablet 40 mg 04/20/2019 04:19:00 AM EST 40 mg Oral completed 40 mg, Oral, NOW, 1 dose, Tue04/20/19 at 0419 [facility] Medication administered onsite Aluminum Hydroxide 40 MG/ML / Magnesium Hydroxide 40 MG/ML / Simethicone 4 MG/ML Oral Suspension alum-mag hydroxide-simeth (MYLANTA) oral suspension 30 mL alum- mag hydroxide-simeth (MYLANTA) oral suspension 30 mL 04/20/2019 04:16:33 AM EST 30 mL Oral aborted 30 mL, Oral, JONATHAN RY 4 HOURS NEEDED, Starting Tue04/20/19 at 0416, Until Discontinued, Indigestion [facility] [employer] [facility] Medication administered onsite lansoprazole 30 MG Delayed Release Oral Capsule lansoprazole (PREVACID) 30 mg capsule lansoprazole (PREVACID) 30 mg capsule 04/20/2019 12:00:00 AM EST 30 mg Oral active Take 1 Cap by mouth hola y for 20 days. [facility] [employer] [facility] Insurance Providers Payer name Policy type / Coverage type Policy ID Covered democrat ID Covered democrat's relationship to manzanares Policy [place] Plan Information [facility] [id number] HU2 [id number] [facility] [id number] FA2 [id number] [facility] [id number] FA2 [id number] SELF PAY [facility] [id number] SP [id number] [facility] [id number] FA2 [id number] [facility] [id number] [facility] [id number] SELF PAY ONLY HUMANA [facility] REG O [id number] S [id number] [facility] O [id number] C [id number] [facility] BRAD DIV [id number] [id number] SELF PAY ONLY [id number] SP [id number] [facility] IBM CLAIMS ONLY [id number] SP [id number] [facility] HUMANA - O/P [id number] 01 [id number] EMPIRE BLUE CROSS BLUE SHIELD -O/P [id number] [facility] [id number] SP [id number] [facility] [place] [id number] 18 [id number] [facility] [place] [id number] 18 [id number] [facility] THE EMPIRE PLAN [id number] [place] EMPIRE PPO [id number] GENERIC COMMERCIAL [id number] [facility] [id number] [place] [employer] EMPIRE PPO [id number] [facility] THE EMPIRE PLAN [id number] [facility] PPO [id number] BLUE CROSS PPO [id number] GENERIC COMMERCIAL ERI, ELYSSA ERI, ELYSSA [facility] EMPIRE -PHYSICIAN [id number] 19 [id number] [facility] EMPIRE PPO [id number] GENERIC COMMERCIAL Commerical [id number] [facility] PPO [id number] [facility] [id number] Child [id number] [place] [id number] Child [id number] [facility] [id number] 18 [id number] [facility] [id number] SP [id number] [facility] [id number] SP [id number] [facility] -PHYSICIAN [id number] 18 [id number] [facility] Commercial [id number] Self [id number] [facility] Commercial [id number] Self [id number] [facility] Commercial [id number] Self [id number] [facility] Commercial [id number] Self 000 [id number] [facility] Commercial [id number] Self [id number] [facility] Commercial [id number] Self 000 [id number] BLUE CROSS [id number] BLUE CROSS PPO [id number] [facility] Commercial [id number] Self [id number] [facility] Commercial [id number] Self 000 [id number] [facility] Commercial [id number] Self [id number] [facility] Commercial [id number] Self 000 [id number] [facility] [id number] 18 [id number] [facility] [id number] 18 0 [id number] [facility] Commercial [id number] Self [id number] [facility] Commercial [id number] Self 000 [id number] [facility] -PHYSICIAN [id number] 18 [id number] [facility] [id number] 18 [id number] [facility] -I/P [id number] 18 [id number] [facility] -I/P [id number] 18 [id number] [facility] [id number] 18 [id number] [facility] [place] [id number] 18 [id number] [facility] -PHYSICIAN [place] [id number] 18 [id number] [facility] Commercial [id number] Self [id number] [facility] Commercial [id number] Self [id number] [facility] Commercial [id number] Self 000 [id number] [facility] Commercial [id number] Self 000 [id number] [facility] Commercial [id number] Self 000 [id number] [facility] Commercial [id number] Self [id number] Problems, Conditions, and Diagnoses Code Display Name Description Problem Type Effective Dates Data Source(s) Z3A.11 [id number] 11 weeks gestation of Problem 2020 12:00:00 AM EST eCW1 ([facility]) Z34.80 care Supervision of other normal P roblem 04/04/2020 12:00:00 AM EST eC1 ([facility]) 47067298 Irritable bowel syndrome Irritable bowel syndrome Prob heath 12/04/2019 12:00:00 AM EDT MEDENT ([facility]) [id number] Abdominal pain Abdominal pain Problem 11/09/2019 12:00: 00 AM EDT MEDENT ([facility]) H43901 Personal history of nicotine dependence Personal history of nicotine dependence Diagnosis 02/27/2020 08:00:00 PM [facility] Z7982 [facility] (current) use of aspirin 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) use of aspirin Diagnosis 02/27/2020 08:00:00 PM [facility] I4820 Chronic atrial fibrillation, unspecified Chronic atrial fibrillation, unspecified Diagnosis 02/27/2020 08:00:00 PM [facility] R1031 Right lower quadrant pain Right lower quadrant pain Di agnosis 02/27/2020 08:00:00 PM [facility] N760 Acute vaginitis Acute vaginitis Diagnosis 02/19/2020 05:4 7:00 PM EDT [facility] R102 Pelvic and perineal pain Pelvic and perineal pain Diag nosis 02/19/2020 05:47:00 PM EDT [facility] Z1331 Encounter for screening for depression E ncounter for screening for depression Diagnosis 11/09/2019 02:16:00 PM EDT [facility] J358 Other chronic diseases of tonsils and ad enoids Other chronic diseases of tonsils and adenoids Diagnosis 11/09/2019 02:16:00 PM EDT [facility] N924 Excessive bleeding in the premenopausal period Excessive bleeding in the premenopausal period Diagnosis 11/09/2019 02:16:00 PM EDT [facility] R110 Nausea Nausea Diagnosis 11/09/2019 02:16:00 PM ED T [facility] R109 Unspecified abdominal pain Unspecified abdominal pain Diagnosis 11/09/2019 02:16:00 PM EDT [facility] J06.9 Acute upper respiratory infection, unspe cified Acute upper respiratory infection, unspecified Diagnosis 09/11/2019 04:19:06 PM [facility] [employer] R07.89 Other chest pain Other chest pain Diagnosis 09/08/2019 02 :15:33 PM EDT [facility] K21.0 Gastro-esophageal reflux disease with es ophagitis Gastro-esophageal reflux disease with esophagitis Diagnosis 08/17/2019 01:01:34 PM EDT [facility] [facility] Z20.828 Contact with and (suspected) exposure to other viral communicable diseases Contact with and (suspected) exposure to other viral communicable diseases Diagnosis 08/09/2019 03:56:08 PM EDT [facility] H10.011 Acute follicular conjunctivitis, right e ye Acute follicular conjunctivitis, right eye Diagnosis 08/09/2019 02:10:08 PM EDT [employer] [facility] Z20.828 Contact with and (suspected) exposure to other viral communicable diseases Contact with and (suspected) exposure to other viral communicable diseases Diagnosis 08/09/2019 02:10:08 PM EDT [employer] Z00.00 Encounter for general adult medical examination without abnormal findings Encounter for general adult medical examination withou t abnormal findings Diagnosis 06/18/2019 11:30:00 AM [facility] J020 Streptococcal pharyngitis Streptococcal pharyngitis Di agnosis 05/23/2019 05:15:00 PM [facility] R05 Cough Cough Diagnosis 05/23/2019 05:15:00 PM ES [facility] K21.9 Gastro-esophageal reflux disease without esophagitis Gastro-esophageal reflux disease without esophagitis Diagnosis 04/20/2019 04:01:51 AM ES [facility] Surgeries/Procedures Procedure Description Date Indications Data Source(s) Brief Emotional/Behav Assessment W/ Scoring Doc Per Standard Inst 11/09/2019 12:00:00 AM EDT [facility] ([facility]) Admin Patient Focused Health Risk Assessment Instrument 11/09/2019 12:00:00 AM EDT [facility] ([facility]) HCG QL SERUM HCG QL SERUM STAT 09/08/2019 2:40 PM EDT 09/08/2019 02:40:00 PM EDT [employer] CBC WITH AUTOMATED DIFF CBC WITH AUTOMATED DIFF STAT 0 2:40 PM EDT 09/08/2019 02:40:00 PM EDT [employer] METABOLIC PANEL, COMPREHENSIVE METABOLIC PANEL, COMPREHENSIVE S TAT 09/08/2019 2:40 PM EDT 09/08/2019 02:40:00 PM EDT [facility] [employer] MAGNESIUM MAGNESIUM STAT 09/08/2019 2:40 PM EDT 09/08/2019 02:40:00 PM EDT [employer] LIPASE LIPASE STAT 09/08/2019 2:40 PM EDT 09/08/19 20 02:40:00 PM EDT [employer] EKG, 12 LEAD, INITIAL EKG, 12 LEAD, INITIAL STAT 09/08/2019 2:2 5 PM EDT 09/08/2019 02:25:51 PM EDT [employer] QUANTIFERON-TB PLUS,RFLX QUANTIFERON-TB PLUS,RFLX Routine 06/18/2019 12:28 PM EST 06/18/2019 05:28:00 PM EST [facility] [employer] TB CELL MEDIATED ANTIGN RESPNSE GAMMA INTERFERON QUANTIFERO N-TB GOLD PLUS Routine 06/18/2019 12:28 PM EST Routine general medical examination at a health care facility 06/18/2019 05:28:00 PM EST Routine general medical examination at a health care [employer] Routine general medical examination at a health care facility HC REF HEPATITIS B SURFACE ANTI HC REF HEPATITIS B SURFACE ANTI Routine 06/18/2019 12:28 PM EST Routine general medical examination at a health care facility 06/18/2019 05:28:00 PM EST Routine general medical examination at a [facility] care [employer] Routine general medical examination at a health care facility XR CHEST PA LAT XR CHEST PA LAT STAT 04/20/2019 4:42 AM EST 04/20/2019 09:42:32 AM EST [employer] CBC WITH AUTOMATED DIFF CBC WITH AUTOMATED DIFF STAT 9 4:23 AM EST 04/20/2019 09:23:00 AM EST [employer] TROPONIN I TROPONIN I STAT 04/20/2019 4:23 AM EST 04/20/2019 09:23:00 AM EST [employer] METABOLIC PANEL, COMPREHENSIVE METABOLIC PANEL, COMPREHENSIVE S TAT 04/20/2019 4:23 AM EST 04/20/2019 09:23:00 AM EST [facility] [employer] LIPASE LIPASE STAT 04/20/2019 4:23 AM EST 04/20/20 09:23:00 AM EST [employer] EKG, 12 LEAD, SUBSEQUENT EKG, 12 LEAD, SUBSEQUENT STAT 4:19 AM EST 04/20/2019 09:19:41 AM EST [facility] [employer] EKG, 12 LEAD, INITIAL EKG, 12 LEAD, INITIAL STAT 04/20/2019 4:0 6 AM EST 04/20/2019 09:06:17 AM EST [facility] Results ID Date Data Source UA URINALYSIS 05/19/2020 12:00:00 AM EST eCW1 ([facility]) Name Value Range Interpretation Code Description Data Jie rce(s) Supporting Document(s) UA URINALYSIS eCW1 ([facility]) ID Date Data Source H PYLORI STOOL ANTIGEN 05/09/2020 12:00:00 AM EST eCW1 ([facility]) Name Value Range Interpretation Code Description Data Jie rce(s) Supporting Document(s) Negative Negative H PYLORI STOOL ANTIGEN eC W1 ([facility]) ID Date Data Source [id number] 05/05/2020 12:30:00 PM EST [facility] Name Value Range Interpretation Code Description Data Jie rce(s) Supporting Document(s) SARS coronavirus 2 RNA Not Detected [facility] [place] This lab was ordered by [facility] and reported by [facility]. ID Date Data Source ANTI-CARDIOLIPIN ANTIBODIES 04/10/2020 12:00:00 AM EST eCW1 ([facility]) Name Value Range Interpretation Code Description Data Jie rce(s) Supporting Document(s) <9 0-11 eCW1 ([facility]) 11 0-12 eCW1 ([facility]) <9 0-14 eCW1 ([facility]) ID Date Data Source HBSAG 04/10/2020 12:00:00 AM EST eCW1 ([facility]) Name Value Range Interpretation Code Description Data Jie rce(s) Supporting Document(s) NEGATIVE NEGATIVE eCW1 ([facility]) ID Date Data Source URINE CULTURE 04/10/2020 12:00:00 AM EST eCW1 ([facility]) Name Value Range Interpretation Code Description Data Jie rce(s) Supporting Document(s) eCW1 ([facility]) ID Date Data Source RUBELLA IMMUNE STATUS IgG 04/10/2020 12:00:00 AM EST eCW1 ([facility]) Name Value Range Interpretation Code Description Data Jie rce(s) Supporting Document(s) IMMUNE IMMUNE eCW1 ([facility]) ID Date Data Source SYPHILIS ANTIBODY (RPR SCREEN) 04/10/2020 12:00:00 AM EST eC W1 ([facility]) Name Value Range Interpretation Code Description Data Jie rce(s) Supporting Document(s) NONREACTIVE NONREACTIVE eCW1 ([facility]) ID Date Data Source [id number] 04/10/2020 12:00:00 AM EST eCW1 ([facility]) Name Value Range Interpretation Code Description Data Jie rce(s) Supporting Document(s) eCW1 ([facility]) ID Date Data Source HEPATITIS C ANTIBODY INDEX 04/10/2020 12:00:00 AM EST eCW1 ( [facility]) Name Value Range Interpretation Code Description Data Jie rce(s) Supporting Document(s) 0.2 <0.8 eCW1 ([facility]) ID Date Data Source CBC - Complete Blood Count 04/10/2020 12:00:00 AM EST eCW1 ( [facility]) Name Value Range Interpretation Code Description Data Jie rce(s) Supporting Document(s) 4.06 4.00-5.40 eCW1 ([facility]) 38.7 36.0-47.0 eCW1 ([facility]) 12.4 12.0-15.5 eCW1 ([facility]) 10.4 4.0-10.0 eCW1 ([facility]) 32.0 32.0-36.5 eCW1 ([facility]) 11.9 11.5-14.5 eCW1 ([facility]) 249 150-450 eCW1 ([facility]) 95.3 80.0-96.0 eCW1 ([facility]) 30.5 27.0-33.0 eCW1 ([facility]) ID Date Data Source Type and Screen Prenatal1 04/10/2020 12:00:00 AM EST eCW1 ([facility]) Name Value Range Interpretation Code Description Data Jie rce(s) Supporting Document(s) NEGATIVE eCW1 ([facility]) ID Date Data Source [id number] 02/27/2020 08:00:00 PM EST [facility] 1 OrderSheet [facility] Emergency Department [address] [place] [address] Phone #: ext- [phone] 02/27/2020 19:47 Patient: ELYSSA PFEIFFER Sex: F : 1995 Age: 24yWEIGHT:80.7 kg HEIGHT:66 inches (S) BMI:28.7ALLERGIES: No Known Drug AllergyCHIEF COMPLAINT: abdominal painDIAGNOSIS: Abdominal painLAB ORDERSOrder Description Priority Entered Acknowledged InitialedCBC w Diff STAT 20:07 02/27/2020 20:20 Petra Beltran Riccardo Lynnette R.N. M.D.;CMP STAT 20:07 02/27/2020 20:20 Petra Beltran Riccardo Lynnette R.N. M.D.;Lipase STAT 20:07 02/27/2020 20:20 ePtra Beltran Riccardo Lynnette R.N. M.D.;Urinalysis (Clean STAT 20:07 02/27/2020 20:14 DevinCatch) Cedric Ohara R.N. M.D.;Beta-HCG, Qual STAT 20:07 02/27/2020 20:20 Devin,Serum Cedric Ohara R.N. M.D.;Lactic Acid STAT 20:07 02/27/2020 20:20 Petra Beltran Riccardo Lynnette R.N. M.D.;DIAGNOSTIC STUDY ORDERSOrder Description Priority Entered Acknowledged InitialedMEDICATION/IV/DRIP/FLUID ORDERSOrder Description Priority Entered Acknowledged InitialedNS IV 1000 mL 20:08 02/27/2020 20:22 Devin,Bolus: : Bolus 1000 Cedric Ohara R.N.mL (X1) MMarquisDMarquis;Toradol 15 mg IVP 20:08 02/27/2020 20:24 Erica Beltran dose: 15 mg Cedric Ohara R.N.(NOW x1) LeeannaDMarquis;Zofran 4 mg IVP X 1 20:08 02/27/2020 Cancelled: Physician Order 20:13 Turrin, 2 OrderSheet [facility] Emergency Department [address] [place] [address] Phone #: ext- [phone] 02/27/2020 19:47 Patient: ELYSSA PFEIFFER Sex: F : 1995 Age: 24ydose: 4 mg (NOW Cedric Ohara MAshax1) M.DMarquis;GENERAL ORDERSOrder Description Priority Entered Acknowledged InitialedNPO 20:07 02/27/2020 20:14 Petra Beltran Riccardo Lynnette R.N. M.D.;Saline Lock 20:07 02/27/2020 20:14 Petra Beltran Riccardo Lynnette R.N. M.D.;[Electronically signed by Kim Beltran R.N. (21:44 02/27/2020)][Electronically signed by Cedric Ohara M.D. (08:34 02/28/2020)][Electronically locked by Kim Beltran R.N. (21:44 02/27/2020)] Name Value Range Interpretation Code Description Data Jie rce(s) Supporting Document(s) ID Date Data Source [id number] 02/27/2020 08:00:00 PM EST [facility] 1 Medication Reconciliation Report [facility] Emergency Department [address] [place] [address] Phone #: ext- [phone] 02/27/2020 19:47 [id number] Sex: F : 1995 Age: 24yWeight: 80.7 [...] rce(s) Supporting Document(s) ID Date Data Source [id number] 02/27/2020 08:00:00 PM EST [facility] 1 Medication Administration Record [facility] Emergency Department [address] [place] [address] Phone #: ext- [phone] 02/27/2020 19:47 Patient: ELYSSA PFEIFFER Sex: F : 1995 Age: 24yWeight: 80.7 kgHeight/Length: 66 inBMI: 28.7ALLERGIES: No Known Drug Allergy Date/Time Medication Administered Medication OrderedStart NS * NS IV 1000 mL Bolus: : Bolus 389192:[id number] 02/27/2020 Dose: 1000ml * IV mL (X1)Kim Beltran R.N.----Stop21:04 02/27/2020Kim Beltran R.N.Given TORADOL [IVP] (KETOROLAC Toradol 15 mg IVP X1 dose: 15 mg20:24 02/27/2020 TROMETHAMINE) (NOW x1)Kim Beltran R.N. Dose: 15 mg IVP Site: #1 left Name Value Range Interpretation Code Description Data Jie rce(s) Supporting Document(s) ID Date Data Source [id number] 02/27/2020 08:00:00 PM EST [facility] 1 General Instructions [facility] Emergency Department [address] [place] [address] Phone #: ext- [phone] 02/27/2020 19:47 [id number] Sex: F : 1995 Age: 24yAcute right [...] of Abdominal Pain (Female) 2 General Instructions [facility] Emergency Department [address] [place] [address] Phone #: ext- [phone] 02/27/2020 19:47 Patient: [...] for taking these medicines. 3 General Instructions [facility] Emergency Department [address] [place] [address] Phone #: ext- [phone] 02/27/2020 19:47 Patient: [...] begin to improve in thenext 24 hours.Call [phone] if any of these occur: Trouble breathing Confusion Fainting or loss of consciousness Rapid heart rate 4 General Instructions [facility] Emergency Department [address] [place] [address] Phone #: ext- [phone] 02/27/2020 19:47 Patient: ELYSSA PFEIFFER Sex: F [...] or water and you are getting dehydrated [id number] [employer] [address] [place] [address]. All rights reserved. This information is not intended as asubstitute for professional medical care. Always follow your healthcare professional's instructions. You have been given the following additional information: Abdominal Pain, Unknown Cause, (Female)(Electronically signed by Cedric Ohara M.D. 02/28/2020 08:34) Name Value Range Interpretation Code Description Data Jie rce(s) Supporting Document(s) ID Date Data Source [id number] 02/27/2020 08:00:00 PM EST [facility] 1 Clinical Report - Nurses [facility] Emergency Department [address] [place] [address] Phone #: [phone] qtb- [phone] 02/27/2020 19:47 Patient: ELYSSA PFEIFFER Sex: F : 1995 Age: 24yTRIAGEArrived by private vehicle. Historian: patient. ( pt reports sudden onset right sided abd pain that startedafter she came home from work. Pt has hx of colitis and diverticulitis. pt took 8mg of zofran [employer]. Pt reportsshe has a prescription. Pt saw GI over the summer (Sally) Pt did not get a colonoscopy.).Triage time: 19:48 02/27/2020. Acuity: LEVEL 3.Alert.This started just prior to arrival. 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 The patient has hadnausea (zofran not helping). Last oral intake by patient was (1700).Treatment [employer]:(zofran). --19:54 02/27/20 Kim Beltran R.N.19:48 02/27/20. BP: [...] this once about 2 years ago at [facility] but never had another episode. ptsaw dr way). --20:12 02/27/20 Cedric Ohara M.D.Colitis. --20:16 02/27/20 Cedric Ohara M.D.The following entry was modified by Cedric Ohara M.D., 20:12 02/27/20Atrial Fibrillation: (Pt admitted for this once about 2 years ago at [facility] but never had another episode. pt 2 Clinical Report - Nurses [facility] Emergency Department [address] [place] [address] Phone #: ext- [phone] 02/27/2020 19:47 Patient: [...] the stool. 3 Clinical Report - Nurses [facility] Emergency Department [address] [place] [address] Phone #: ext- [phone] 02/27/2020 19:47 Patient: [...] Patient verbalized understanding. Written instructions provided in Omani. The patient was discharged by the physician. [...] Beltran R.N. 4 Clinical Report - Nurses [facility] Emergency Department [address] [place] [address] Phone #: ext- [phone] 02/27/2020 19:47 Patient: ELYSSA PFEIFFER Sex: F : 1995 Age: 24yLocked/Released at 02/27/2020 21:44 by Kim Beltran R.N. Name Value Range Interpretation Code Description Data Jie rce(s) Supporting Document(s) ID Date Data Source [id number] 02/27/2020 08:00:00 PM EST [facility] 1 Clinical Report - Physicians/Mid Levels [facility] Emergency Department [address] [place] [address] Phone #: ext- [phone] 02/27/2020 19:47 Patient: [...] Oral. 2 Clinical Report - Physicians/Mid Levels [facility] Emergency Department [address] [place] [address] Phone #: [phone] lds- [phone] 02/27/2020 19:47 Patient: ELYSSA PFEIFFER Sex: F [...] 80.0) 3 Clinical Report - Physicians/Mid Levels [facility] Emergency Department [address] [place] [address] Phone #: ext- [phone] 02/27/2020 19:47 Patient: [...] Male GFR Interprentation 20-49 yrs >60 mL/min Hddech34-63 yrs >56 mL/min Normal 60-69 yrs >49 mL/min Normal 70-79yrs>42 mL/min Normal 80 and above >35 mL/min Normal Female GFRInterpretation 20-39 yrs >60 mL/min Normal 40-49 yrs >58 mL/minNormal 50-59 yrs >51 mL/min Normal 60-69 yrs >45 mL/min Lvklpk55-33 yrs >39 mL/min Normal 80 and above >32 mL/min NormalLipase: (JELLY: 02/27/2020 20:17) ( MsgRcvd 02/27/2020 20:51) Final results Test Result Flag Units (Reference) LIPASE 36 U/L (13 - 60)Urinalysis: (JELLY: 02/27/2020 20:05) ( MsgRcvd 02/27/2020 20:31) Final results Test Result Flag Units (Reference) URINALYSIS URINALYSIS 4 Clinical Report - Physicians/Mid Levels [facility] Emergency Department [address] [place] [address] Phone #: ext- [phone] 02/27/2020 19:47 Patient: [...] Beta-HCG, Qual Serum: (JELLY: 02/27/2020 20:17) ( [facility] 02/27/2020 20:38) Final results Test Result Flag Units (Reference) HCG SERUM QUAL NEGATIVE (NORMAL: NEGAT HCG SERUM QL REENTER NEGATIVE (NORMAL: NEGAT { KIT LOT # [id number] ){ KIT EXP DATE 01/28/21 ){ PROCEDURAL CONTROL VALID ) Lactic Acid: (JELLY: 02/27/2020 20:17) ( [facility] 02/27/2020 20:28) Final results Test Result Flag [...] IMPRESSION 5 Clinical Report - Physicians/Mid Levels [facility] Emergency Department [address] [place] [address] Phone #: ext- [phone] 02/27/2020 19:47 Patient: ELYSSA PFEIFFER [facility]#: [id number] Sex: F : 1995 Age: 24y Acute [...] Name Value Range Interpretation Code Description Data [facility] rce(s) Supporting Document(s) ID Date Data Source [id number] 02/27/2020 08:25:00 PM EST [facility] Name Value Range Interpretation Code Description Data [facility] rce(s) Supporting Document(s) CBC W/AUTOMATED DIFF [facility] COMPLETE BLOOD COUNT Leukocytes [#/volume] in Blood by Automated count 9.7 10^3/uL 4.2 - 1 1.0 [facility] Erythrocytes [#/volume] in Blood by Automated count 4.18 10^6/uL 4. 20 - 5.40 L [facility] Hemoglobin [Mass/volume] in Blood 13.3 g/dL 12.0 - 16.0 [facility] Hematocrit [Volume Fraction] of Blood by Automated count 39.2 % 3 7.0 - 47.0 [facility] Erythrocyte mean corpuscular volume [Entitic volume] by Auto mated count 93.8 fL 81.0 - 101 [facility] Erythrocyte mean corpuscular hemoglobin [Entitic mass] by Automated count 31.8 pg 27.0 - 34.0 [facility] Erythrocyte mean corpuscular hemoglobin concentration [Mass/volume] by Automated count 33.9 g/dL 31.0 - 36.0 [facility] Erythrocyte distribution width [Ratio] by Automated count 11.8 % 11.5 - 14.5 [facility] Platelets [#/volume] in Blood by Automated count 265 10^3/uL 150 - 45 0 [facility] Platelet mean volume [Entitic volume] in Blood by Automated count 8.6 fL 7.4 - 10.4 [facility] Neutrophils/100 leukocytes in Blood by Automated count 67.0 % 37. 0 - 80.0 [facility] Lymphocytes/100 leukocytes in Blood by Manual count 22.3 % 25.0 - 40.0 L [facility] Monocytes/100 leukocytes in Blood by Automated count 7.7 % 3.0 - 8.0 [facility] Eosinophils/100 leukocytes in Blood by Automated count 2.3 % 0.0 - 7.0 [facility] Basophils/100 leukocytes in Blood by Automated count 0.5 % 0.0 - 2.5 [facility] %IG 0.2 % 0.0 - 0.0 H [facility] %NRBC 0.0 % 0.0 - 0.0 [facility] Neutrophils [#/volume] in Blood by Automated count 6.53 10^3/uL 2.00 - 6.90 [facility] Lymphocytes [#/volume] in Blood by Automated count 2.17 10^3/uL 0.60 - 3.40 [facility] Monocytes [#/volume] in Blood by Automated count 0.75 10^3/uL 0.00 - 0.90 [facility] Eosinophils [#/volume] in Blood by Automated count 0.22 10^3/uL 0.00 - 0.70 [facility] Basophils [#/volume] in Blood by Automated count 0.05 10^3/uL 0.00 - 0.20 [facility] #IG 0.02 10^3/uL 0.00 - 0.10 [facility] #NRBC 0.00 10^3/uL 0.00 - 0.00 [facility] MANUAL DIFF NOT INDICATED [facility] RBC MORPH NOT INDICATED [facility] ID Date Data Source [id number] 02/27/2020 08:28:00 PM EST [facility] Name Value Range Interpretation Code Description Data Jie rce(s) Supporting Document(s) Lactate [Moles/volume] in Serum or Plasma 1.3 MMOL/L 0.2 - 2.2 [facility] ID Date Data Source [id number] 02/27/2020 08:17:00 PM EST [facility] ([facility]) Name Value Range Interpretation Code Description Data Jie rce(s) Supporting Document(s) Lipase [Enzymatic activity/volume] in Serum or Plasma 36 U/L 13-6 0 [facility] ([facility]) ID Date Data Source [id number] 02/27/2020 08:17:00 PM EST [facility] ([facility]) Name Value Range Interpretation Code Description Data Jie rce(s) Supporting Document(s) Sodium 138 meq/L 134-153 [facility] ([facility]) Comprehensive [facility]abo Laboratory test result [facility] ([facility]) COMPREHENSIVE METABOLIC PANEL Chloride 102 meq/L 98-107 [facility] ([facility]) Potassium 3.8 meq/L 3.6-5.0 [facility] ([facility]) Glucose 98 mg/dL 65-110 [facility] ([facility]) Co2 30 meq/L 22-30 [facility] ([facility]) BUN 13 mg/dL 7-21 [facility] ([facility]) BUN/Creat 16 8-27 [facility] ([facility]) Creatinine 0.8 mg/dL 0.7-1.5 [facility] ([facility]) Albumin 4.6 g/dL 3.9-5.0 [facility] ([facility]) A/G Ratio 1.4 0.8-2.0 [facility] ([facility]) Total Protein 8.0 g/dL 6.3-8.2 [facility] ([facility]) Globulin 3.4 GM/DL 2.4-3.2 Above high normal [facility] ([facility]) Calcium 9.6 mg/dL 8.4-10.2 [facility] ([facility]) Total Bili Laboratory test result 0.2-1.3 ME DENT ([facility]) Alkaline Phos 79 U/L 38-126 [facility] ([facility]) Age 24 yrs [facility] ([facility]) Sgot/Ast 23 U/L 5-40 [facility] ([facility]) Anion Gap 6.0 mmol/L 8.0-16.0 Below low normal [facility] ( [facility]) SGPT/Alt 16 U/L 7-56 [facility] ([facility]) Non-Aa GFR Laboratory test result [facility] ([facility]) Afr Amer GFR Laboratory test result [facility] ([facility]) Male GFR Interprentation 20-49 yrs >60 [...] >32 mL/min Normal ID Date Data Source [id number] 02/27/2020 08:17:00 PM EST [facility] ([facility]) Name Value Range Interpretation Code Description Data Jie rce(s) Supporting Document(s) HCG Serum Qual Laboratory test result [facility] ([facility]) HCG Serum QL [facility] Laboratory test result [facility] ([facility]) { KIT LOT # [id number] ) { KIT EXP DATE 01/28/21 ) { PROCEDURAL CONTROL VALID ) ID Date Data Source [id number] 02/27/2020 08:17:00 PM EST [facility] ([facility]) Name Value Range Interpretation Code Description Data Jie rce(s) Supporting Document(s) CBC W/Automated Diff Laboratory test result [facility] ([facility]) COMPLETE BLOOD COUNT Hemoglobin 13.3 g/dL 12.0-16.0 [facility] ([facility]) Hematocrit 39.2 % 37.0-47.0 [facility] ([facility]) RBC 4.18 10^6/uL 4.20-5.40 Below low normal [facility] ([facility]) WBC 9.7 10^3/uL 4.2-11.0 [facility] ([facility]) MCH 31.8 pg 27.0-34.0 [facility] ([facility]) MCHC 33.9 g/dL 31.0-36.0 [facility] ([facility]) MCV 93.8 fL 81.0-101 [facility] ([facility]) MPV 8.6 fL 7.4-10.4 [facility] ([facility]) Platelets 265 10^3/uL 150-450 [facility] ([facility]) Neut 67.0 % 37.0-80.0 [facility] ([facility]) RDW 11.8 % 11.5-14.5 [facility] ([facility]) Baso 0.5 % 0.0-2.5 [facility] ([facility]) Lymph 22.3 % 25.0-40.0 Below low normal [facility] ( [facility]) Gilpin 7.7 % 3.0-8.0 [facility] ([facility]) Eos 2.3 % 0.0-7.0 [facility] ([facility]) %NRBC 0.0 % 0.0-0.0 [facility] ([facility]) %Ig 0.2 % 0.0-0.0 Above high normal [facility] ([facility]) #Neut 6.53 10^3/uL 2.00-6.90 [facility] ([facility]) #Eos 0.22 10^3/uL 0.00-0.70 [facility] ([facility]) #Lymph 2.17 10^3/uL 0.60-3.40 [facility] ([facility]) #Gilpin 0.75 10^3/uL 0.00-0.90 [facility] ([facility]) #Baso 0.05 10^3/uL 0.00-0.20 [facility] ([facility]) Manual Diff Laboratory test result M [facility] ([facility]) #NRBC 0.00 10^3/uL 0.00-0.00 [facility] ([facility]) #Ig 0.02 10^3/uL 0.00-0.10 [facility] ([facility]) RBC Morph Laboratory test result [facility] ([facility]) ID Date Data Source [id number] 02/27/2020 08:17:00 PM EST [facility] ([facility]) Name Value Range Interpretation Code Description Data Jie rce(s) Supporting Document(s) Lactate [Mass/volume] in Serum or Plasma 1.3 mmol/L 0.2-2.2 [facility] ([facility]) ID Date Data Source [id number] 02/27/2020 08:51:00 PM EST [facility] Name Value Range Interpretation Code Description Data Jie rce(s) Supporting Document(s) Lipase [Enzymatic activity/volume] in Serum or Plasma 36 U/L 13 - 60 [facility] ID Date Data Source [id number] 02/27/2020 08:51:00 PM EST [facility] Name Value Range Interpretation Code Description Data Jie rce(s) Supporting Document(s) COMPREHENSIVE METABOLIC PANEL [facility] COMPREHENSIVE METABOLIC PANEL Sodium [Moles/volume] in Serum or Plasma 138 mEq/L 134 - 153 [facility] Potassium [Moles/volume] in Serum or Plasma 3.8 mEq/L 3.6 - 5.0 [facility] Chloride [Moles/volume] in Serum or Plasma 102 mEq/L 98 - 107 [facility] Carbon dioxide, total [Moles/volume] in Serum or Plasma 30 MEQ/L 22 - 30 [facility] Glucose [Mass/volume] in Serum or Plasma 98 MG/DL 65 - 110 [facility] BUN 13 MG/DL 7 - 21 [facility] al Creatinine [Mass/volume] in Serum or Plasma 0.8 MG/DL 0.7 - 1.5 [facility] BUN/CREAT 16 8 - 27 [facility] Protein [Mass/volume] in Serum or Plasma 8.0 G/DL 6.3 - 8.2 [facility] Albumin [Mass/volume] in Serum or Plasma 4.6 G/DL 3.9 - 5.0 [facility] Globulin [Mass/volume] in Serum by calculation 3.4 GM/DL 2.4 - 3.2 H [facility] A/G RATIO 1.4 0.8 - 2.0 [facility] Calcium [Mass/volume] in Serum or Plasma 9.6 MG/DL 8.4 - 10.2 [facility] Bilirubin.total [Mass/volume] in Serum or Plasma <0.7 MG/DL 0.2 - 1.3 [facility] Alkaline phosphatase [Enzymatic activity/volume] in Serum or Plasma 79 U/L 38 - 126 [facility] Aspartate aminotransferase [Enzymatic activity/volume] in Serum or Plasma 23 U/L 5 - 40 [facility] Alanine aminotransferase [Enzymatic activity/volume] in Seru m or Plasma 16 U/L 7 - 56 [facility] Anion gap 3 in Serum or Plasma 6.0 mmol/L 8.0 - 16.0 L [facility] AGE 24 yrs [facility] NON-AA GFR >60 mL/min [facility] ital AFR AMER GFR >60 mL/min [facility] Ho spital Male GFR In terprentation 20-49 [...] >32 mL/min Normal ID Date Data Source [id number] 02/27/2020 08:38:00 PM EST [facility] Name Value Range Interpretation Code Description Data Jie rce(s) Supporting Document(s) HCG SERUM QUAL NEGATIVE NORMAL: NEGATIVE [facility] HCG SERUM QL REENTER NEGATIVE NORMAL: NEGATIVE [facility] { KIT LOT # [id number] ){ KIT EXP DATE 01/28/21 ){ PROCEDURAL CONTROL VALID ) ID Date Data Source [id number] 02/27/2020 08:30:00 PM [facility] Name Value Range Interpretation Code Description Data Jie rce(s) Supporting Document(s) [facility]IS [facility] sh[facility] URINALYSIS SOURCE Clean Catch [facility] ital COLOR yellow NORMAL: Yellow [facility] CLARITY clear NORMAL: Clear [facility] Specific gravity of Urine by Test strip 1.010 1.001 - 1.030 [facility] pH 8 5 - 9 [facility] Glucose [Mass/volume] in Urine by Test strip NORM NORMAL: [facility]at [facility] Bilirubin.total [Presence] in Urine by Test strip NEG NORMAL: Negative [facility] Ketones [Presence] in Urine by Test strip NEG NORMAL: Negative [facility] Protein [Mass/volume] in Urine by Test strip NEG NORMAL: Negat [facility] Nitrite [Presence] in Urine by Test strip NEG NORMAL: Negative [facility] BLOOD NEG NORMAL: Negative [facility] Leukocyte esterase [Presence] in Urine by Test strip 25 MEKHI L: Negative [facility] Urobilinogen [Mass/volume] in Urine by Test strip NOR less dragan n 1.0 mg/dL [facility] MICROSCOPIC See Below [facility] ital WBC 3 - 5 NORMAL: NONE SEEN [facility] EPITHELIAL FEW NORMAL: NONE SEEN [facility] Bacteria [Presence] in Urine sediment by Light microscopy Tr claudia NORMAL: NONE SEEN [facility] ID Date Data Source [id number] 02/27/2020 08:05:00 PM EST [facility] ([facility]) Name Value Range Interpretation Code Description Data Jie rce(s) Supporting Document(s) Urinalysis Laboratory test result [facility] ([facility]) SOURCE: Clean Catch Source Laboratory test result [facility] ([facility]) SOURCE: Clean Catch Color Laboratory test result [facility] ([facility]) SOURCE: Clean Catch Clarity Laboratory test result [facility] ([facility]) SOURCE: Clean Catch Glucose Laboratory test result [facility] ([facility]) SOURCE: Clean Catch Spec [place] 1.010 1.001-1.030 [facility] ([facility]) SOURCE: Clean Catch pH 8 5-9 [facility] ([facility]) SOURCE: Clean Catch Bilirubin Laboratory test result [facility] ([facility]) SOURCE: Clean Catch Protein Laboratory test result [facility] ([facility]) SOURCE: Clean Catch Ketone Laboratory test result [facility] ([facility]) SOURCE: Clean Catch Blood Laboratory test result [facility] ([facility]) SOURCE: Clean Catch Nitrite Laboratory test result [facility] ([facility]) SOURCE: Clean Catch Urobilinogen Laboratory test result [facility] ([facility]) SOURCE: Clean Catch Leuk Est 25 [facility] ([facility]) SOURCE: Clean Catch Microscopic Laboratory test result M [facility] ([facility]) SOURCE: Clean Catch WBC Laboratory test result [facility] ([facility]) SOURCE: Clean Catch Epithelial Laboratory test result [facility] ([facility]) SOURCE: Clean Catch Bacteria Laboratory test result [facility] ([facility]) SOURCE: Clean Catch ID Date Data Source [id number] 02/19/2020 05:47:00 PM EDT [facility] 1 OrderSheet [facility] Emergency Department [address] [place] [address] Phone #: gve- [phone] 02/19/2020 17:30 Patient: ELYSSA PFEIFFER Sex: F [...] R.N.;Culture, Urine STAT 18:09 02/19/2020 18:10 Sorbero,(Urine, Clean Alexys PALOMO;DIAGNOSTIC STUDY ORDERSOrder Description Priority Entered Acknowledged InitialedMEDICATION/IV/DRIP/FLUID ORDERSOrder Description Priority Entered Acknowledged InitialedGENERAL ORDERSOrder Description Priority Entered Acknowledged InitialedPelvic Exam Setup 18:09 02/19/2020 18:15 Delmi Peraza R.N.; 2 OrderSheet [facility] Emergency Department [address] [place] [address] Phone #: ext- [phone] 02/19/2020 17:30 Patient: ELYSSA PFEIFFER Sex: F : 1995 Age: 24y[Electronically signed by Delmi Peraza R.N. (18:48 02/19/2020)][Electronically signed by Alexys Ramsey (20:56 02/19/2020)][Electronically locked by Delmi Peraza R.N. (18:48 02/19/2020)] Name Value Range Interpretation Code Description Data Jie rce(s) Supporting Document(s) ID Date Data Source [id number] 02/19/2020 05:47:00 PM EDT [facility] 1 Medication Reconciliation Report [facility] Emergency Department [address] [place] [address] Phone #: ext- [phone] 02/19/2020 17:30 Patient: [...] s/spersist. Dispense 2 tablet. Refills: 0. Substitution permitted.[facility] #[id number] [phone]. .Flagyl 500 mg tablet Take 1 tablet twice a day as directed for 7 days -- Dispense 14 tablet. Refills: 0.Substitution permitted.Pharmacy - [facility] #[id number] - [address], [place] [phone]. .Pyridium 200 mg tablet Take 1 tablet three times a day as needed for pain for 2 days -- Dispense 6tablet. Refills: 0. Substitution permitted.[id number] [place] [phone]. . -- STACIA Wade Name Value Range Interpretation Code Description Data Jie rce(s) Supporting Document(s) ID Date Data Source [id number] 02/19/2020 05:47:00 PM EDT [facility] 1 Medication Administration Record [facility] Emergency Department [address] [place] [address] Phone #: ext- [phone] 02/19/2020 17:30 Patient: ELYSSA PFEIFFER Sex: F : 1995 Age: 24yWeight: 81.1 kgHeight/Length: 66 inBMI: 28.9ALLERGIES: PenicillinsDate/Time Medication Administered Medication Ordered Name Value Range Interpretation Code Description Data Jie rce(s) Supporting Document(s) ID Date Data Source [id number] 02/19/2020 05:47:00 PM EDT [facility] 1 General Instructions [facility] Emergency Department [address] [place] [address] Phone #: ext- [phone] 02/19/2020 17:30 Patient: ELYSSA PFEIFFER Sex: F : 1995 Age: 24yAcute moderate vaginitisINSTRUCTIONSYour Current Medications: .No home medication.Prescription Medications:fluconazole 150 mg tablet Take 1 tablet single dose as needed for 1 days -- May repeat in 1 week if s/spersist. Dispense 2 tablet. Refills: 0. Substitution permitted.[id number] [place] [phone]. .Flagyl 500 mg tablet Take 1 tablet twice a day as directed for 7 days -- Dispense 14 tablet. Refills: 0.Substitution permitted.[id number] [phone]. .Pyridium 200 mg tablet Take 1 tablet three times a day as needed for pain for 2 days -- Dispense 6tablet. Refills: 0. Substitution permitted.[id number] [phone]. .Follow-up:Follow up with your doctor in three days if not better. Reason for referral: evaluation and treatment.Summary of care provided to patient.Understanding of the discharge instructions verbalized by patient. ADDITIONAL INFORMATIONYeast Infection (Cheryl Vaginal Infection) 2 General Instructions [facility] Emergency Department [address] [place] [address] Phone #: ext- [phone] 02/19/2020 17:30 Patient: [...] Note: Don't try to treat yourself using ntqr-gke-wpmplrt products without talking to your provider first. He or she will let you know if this is a good option for you. Ask your provider what steps you can take to help reduce your risk of having a yeast infection 3 General Instructions [facility] Emergency Department [address] [place], [place] [address] Phone #: ext- [phone] 02/19/2020 17:30 Patient: ELYSSA PFEIFFER Sex: F : 1995 Age: 24y in [...] as a rash, joint pain, or sores. [id number] [employer] [address] [place] [address]. All rights reserved. This information is not intended as asubstitute for professional medical care. Always follow your healthcare professional's instructions. 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 2 Clinical Report - Nurses [facility] Emergency Department [address] [place] [address] Phone #: ext- [phone] 02/19/2020 17:30 Patient: ELYSSA PFEIFFER Sex: F [...] Ramires R.N.ADDITIONAL SURGERIES:Cholecystectomy. --17:44 02/19/20 [place] Ramires R.N.Rxmkwqe26:37 02/19/20.PAST MEDICAL HX: Possibly : unsure if [...] No risk factors identified. --17:44 02/19/20[place] interiano R.N.Zgerwbdgcv64:37 02/19/20. The patient states feels the same. --17:44 02/19/20 [place] Ramires R.N.Sdzenremmbfbm51:37 02/19/20. Identification band on patient. To treatment room. --17:44 02/19/20 [place] Ramires R.N.PHYSICAL ASSESSMENT 3 Clinical Report - Nurses [facility] Emergency Department [address] [place] [address] Phone #: ext- [phone] 02/19/2020 17:30 Patient: [...] is warm and dry. --18:03 02/19/20 Delmi Peraza R.N.NURSING PROGRESS NOTES17:44 02/19/20. Patient gowned. Reassurance [...] saturation: 99%. Temp: 98.1 F. --18:42 02/19/20 Camilo GAUTHIER [employer] [facility] Tech1 18:45 02/19/20. Condition at departure: stable. No learning barriers present. Discharge instructions provided and reviewed with the patient. Reviewed medication(s) side effects, precautions, dosing and course information. Prescription(s) sent electronically to pharmacy. Patient verbalized understanding. Written instructions provided in Omani. 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 She was discharged home. She left [...] rce(s) Supporting Document(s) ID Date Data Source [id number] 02/19/2020 05:47:00 PM EDT [facility] 1 Clinical Report - Physicians/Mid Levels [facility] Emergency Department [address] [place] [address] Phone #: ext- [phone] 02/19/2020 17:30 Patient: [...] distress. 2 Clinical Report - Physicians/Mid Levels [facility] Emergency Department [address] [place] [address] Phone #: ext- [phone] 02/19/2020 17:30 [id number] Sex: F : 1995 Age: 24y HEENT: [...] process. Culture, Urine: (JELLY: 02/19/2020 18:09) ( [facility] 02/19/[facility] 18:11) Canceled SOURCE: Urine, Clean Catch Urinalysis: (JELLY: 02/19/2020 17:50) ( [facility] 02/19/2020 18:07) Final results Test Result Flag [...] Beta-HCG, Qual Urine: (JELLY: 02/19/2020 17:50) ( [facility] 02/19/2020 18:08) Final results Test Result Flag Units (Reference) HCG URINE QUAL NEGATIVE (NORMAL: NEGAT HCG URINE QL REENTER NEGATIVE (NORMAL: NEGAT { KIT LOT # [id number] ){ KIT EXP DATE 01.28.21 ){ PROCEDURAL CONTROL VALID 3 Clinical Report - Physicians/Mid Levels [facility] Emergency Department [address] [place] [address] Phone #: ext- [phone] 02/19/2020 17:30 Patient: ELYSSA PFEIFFER Sex: F [...] Dispense 2 tablet. Refills: 0. Substitution permitted. [id number] [place] [phone]. . Flagyl 500 mg tablet Take 1 tablet twice a day as directed for 7 days -- Dispense 14 tablet. Refills: 0. Substitution permitted. [id number] [address], [place] [phone]. . Pyridium 200 mg tablet Take 1 tablet three times a day as needed for pain for 2 days -- Dispense 6 tablet. Refills: 0. Substitution permitted. [id number] [address], [place] [phone]. . Follow-up: Follow up with your doctor in three days if not better. Reason for referral: evaluation and treatment. 4 Clinical Report - Physicians/Mid Levels [facility] Emergency Department [address] [place] [address] Phone #: ext- [phone] 02/19/2020 17:30 Patient: [id number] Sex: F : 1995 Age: 24y Summary of care provided to patient. Understanding of the discharge instructions verbalized by patient.(Electronically signed by STACIA Wade 02/19/2020 20:56) Name Value Range Interpretation Code Description Data Jie rce(s) Supporting Document(s) ID Date Data Source [id number] 02/25/2020 09:58:00 AM EST [facility] Name Value Range Interpretation Code Description Data Jie rce(s) Supporting Document(s) CULTURE GENITAL [facility] _GENITAL CULTURE_$$[id number]$$[id number]$$ [id number]$$[id number]$$[id number]$$[id number] DATE/TIME: 02/25/2020 09:05Culture: CULTURE GENITAL Status: FinalGenital Culture, Routine: [id number] genital trini.P1 Test performed by: Gali SARGENT #: [id number] [address] [place] [phone] [facility] [id number] Director : John Crespo MD NPI #:Canal Structure Operator : 02/25/20.0958.XMT.SENT REF ID Date Data Source [id number] 02/23/2020 06:55:00 AM EDT [facility] Value Range Interpretation Code Description Data Jie rce(s) Supporting Document(s) Chlamydia trachomatis rRNA [Presence] in Unspecified specimen by Probe and target amplification method Negative Negative [facility] Neisseria gonorrhoeae rRNA [Presence] in Unspecified specimen by Probe and target amplification method Negative Negative [facility] ID Date Data Source [id number] 02/22/2020 08:28:00 PM EDT [facility] Value Range Interpretation Code Description Data Jie rce(s) Supporting Document(s) Cheryl sp rRNA [Presence] in Vaginal fluid by DNA probe Negative N egative [facility] Gardnerella vaginalis rRNA [Presence] in Genital specimen by DNA probe Negative Negative [facility] Trichomonas vaginalis rRNA [Presence] in Genital specimen by DNA probe Negative Negative [facility] ID Date Data Source [id number] 02/19/2020 06:30:00 PM EDT [facility] ([facility]) Name Value Range Interpretation Code Description Data Jie rce(s) Supporting Document(s) Culture Genital Laboratory test result [facility] ([facility]) _GENITAL CULTURE_ ^^[id number] ^$[id number] $$[id number] ^^[id number] $$[id number] $$[id number] $$[id number] $$[id number] $$[id number] REPORTED DATE/TIME: 02/25/2020 09:05 Culture: CULTURE GENITAL Status: Final Genital Culture, Routine: P1 Routine genital trini. P1 Test performed by: [facility] #: [id number] [address] [place] [phone] [facility] [address] Gage Designer : John Crespo MD NPI #: Canal Structure Operator : 02/25/20.0958.XMT.SENT REF ID Date Data Source [id number] 02/19/2020 06:30:00 PM EDT [facility] ([facility]) Name Value Range Interpretation Code Description Data Jie rce(s) Supporting Document(s) Chlamydia trachomatis,Britni Laboratory test result [facility] ([facility]) Neisseria gonorrhoeae,Britni Laboratory test result [facility] ([facility]) ID Date Data Source [id number] 02/19/2020 06:30:00 PM EDT [facility] ([facility]) Name Value Range Interpretation Code Description Data Jie rce(s) Supporting Document(s) Cheryl species Laboratory test result [facility] ([facility]) Trichomonas vaginalis Laboratory test result [facility] ([facility]) Gardnerella vaginalis Laboratory test result [facility] ([facility]) ID Date Data Source [id number] 02/19/2020 05:50:00 PM EDT [facility] ([facility]) Name Value Range Interpretation Code Description Data Jie rce(s) Supporting Document(s) Culture Urine Laboratory test result [facility] ([facility]) _CULTURE URINE_ ^$[id number] ^^[id number] $$[id number] ^^914345 $$[id number] $$891288 $$244509 $$547726 $$818429 $$850202 $$344978 $$300038 $$276469 $$248937 $$442877 $$664603 $$817607 $$054807 $$506754 $$468217 $$070903 $$321460 $$507387 $$826393 $$003384 $$925930 $$541136 ^^886654 $$831929 $$107923 $$[id number] -- Continued on next page -- Patient: KENTRELL Weiss Order: [id number] Page 2 Culture: CULTURE URINE Status: Final -- Continued on next page -- Patient: KENTRELL Weiss Order: [id number] Page 2 Culture: CULTURE URINE Status: Prelim $$[id number] $$[id number] REPORTED DATE/TIME: 02/24/2020 15:05 Culture: CULTURE URINE Status: Final Urine Culture,Comprehensive: P1 No growth in 36 - 48 hours. Previous result entered on 02/23/2020 09:20 ET No growth after 18-24 hours. P1 Test performed by: [facility] Steven SARGENT #: [id number] [address] [place] [phone] [facility] [address] Gage Designer : John Crespo MD NPI #: Canal Structure Operator : 02/23/20.1024.XMT.SENT REF 02/24/20.1526.XMT.SENT REF ID Date Data Source [id number] 02/24/2020 03:26:00 PM EST [facility] Name Value Range Interpretation Code Description Data Jie rce(s) Supporting Document(s) CULTURE URINE [facility] _CULTURE URINE_$$[id number]$$801652$$238768$$649048$$708292$$920936$$634890$$061423$$974849$$ 318997$$824360$$572503$$456758$$558153$$813236$$506018$$799631$$945234$$451285$$ 209713$$073822$$522141$$451931$$471431$$432043$$571639$$973521 -- Continued on next page --Patient: KENTRELL Weiss Order: [id number] Page 2Culture: CULTURE URINE Status: Final ==== -- Continued on next page --Patient: KENTRELL Weiss Order: [id number] Page 2Culture: CULTURE URINE Status: Prelim =====$$[id number]$$[id number] DATE/TIME: 02/24/2020 15:05Culture: CULTURE URINE Status: FinalUrine Culture,Comprehensive: P1No growth in 36 - 48 hours. Previous result entered on 02/23/2020 09:20 ET No growth after 18-24 hours.P1 Test performed by: [facility] S[facility] #: [id number] [address] [place] [phone] [facility] [address]Medical Director : John Crespo MD NPI #:Lab Di mark : 02/23/20.1024.XMT.SENT REF 02/24/20.1526.XMT.SENT REF ID Date Data Source [id number] 02/19/2020 06:08:00 PM EDT [facility] Name Value Range Interpretation Code Description Data Jie rce(s) Supporting Document(s) HCG URINE QUAL NEGATIVE NORMAL: NEGATIVE [facility] HCG URINE QL REENTER NEGATIVE NORMAL: NEGATIVE [facility] { KIT LOT # [id number] ){ KIT EXP DATE 01.28.21 ){ PROCEDURAL CONTROL VALID ) ID Date Data Source [id number] 02/19/2020 06:06:00 PM EDT [facility] Name Value Range Interpretation Code Description Data Jie rce(s) Supporting Document(s) [facility] COLOR juanita NORMAL: Yellow [facility] CLARITY clear NORMAL: Clear [facility] Specific gravity of Urine by Test strip 1.030 1.001 - 1.030 [facility] pH 5 5 - 9 [facility] Gl[facility] [Mass/volume] in Urine by Test strip NORM NORMAL: Negat [facility] Bilirubin.total [Presence] in Urine by Test strip NEG NORMAL: Negative [facility] Ketones [Presence] in Urine by Test strip 5 NORMAL: Negative A [facility] Protein [Mass/volume] in Urine by Test strip 15 NORMAL: Negat [facility] Nitrite [Presence] in Urine by Test strip POS NORMAL: Negative [facility] BLOOD NEG NORMAL: Negative [facility] Leukocyte esterase [Presence] in Urine by Test strip 25 MEKHI L: Negative [facility] Urobilinogen [Mass/volume] in Urine by Test strip 1 less dragan n 1.0 mg/dL [facility] MICROSCOPIC See Below [facility] Hosp ital WBC 3 - 5 NORMAL: NONE SEEN [facility] Erythrocytes [#/volume] in Urine by Test strip 0 - 1 NORMAL: NON E SEEN [facility] EPITHELIAL MODERATE NORMAL: NONE SEEN A [facility] Bacteria [Presence] in Urine sediment by Light microscopy 2+ MOD NORMAL: NONE SEEN A [facility] Mucus [Presence] in Urine sediment by Light microscopy 2+ NOR MAL: NONE SEEN A [facility] ID Date Data Source [id number] 02/19/2020 05:50:00 PM EDT [facility] ([facility]) Name Value Range Interpretation Code Description Data Jie rce(s) Supporting Document(s) HCG Urine Qual Laboratory test result [facility] ([facility]) HCG Urine QL [place] Laboratory test result [facility] ([facility]) { KIT LOT # [id number] ) { KIT EXP DATE 01.28.21 ) { PROCEDURAL CONTROL VALID ) ID Date Data Source [id number] 02/19/2020 05:50:00 PM EDT [facility] ([facility]) Name Value Range Interpretation Code Description Data Jie rce(s) Supporting Document(s) Urinalysis Laboratory test result [facility] ([facility]) URINALYSIS Source Laboratory test result [facility] ([facility]) Color Laboratory test result [facility] ([facility]) Spec [place] 1.030 1.001-1.030 [facility] ([facility]) Clarity Laboratory test result [facility] ([facility]) Glucose Laboratory test result [facility] ([facility]) pH 5 5-9 [facility] ([facility]) Bilirubin Laboratory test result [facility] ([facility]) Ketone 5 Abnormal (applies to non-numeric res ults) [facility] ([facility]) Protein 15 [facility] ([facility]) Nitrite Laboratory test result [facility] ([facility]) Leuk Est 25 [facility] ([facility]) Blood Laboratory test result [facility] ([facility]) Urobilinogen 1 [facility] ([facility]) Microscopic Laboratory test result M [facility] ([facility]) RBC Laboratory test result [facility] ([facility]) WBC Laboratory test result [facility] ([facility]) Epithelial Laboratory test result Abnormal (applies to non -numeric results) [facility] ([facility]) Bacteria Laboratory test result Abnormal (applies to non -numeric results) [facility] ([facility]) Mucous Laboratory test result Abnormal (applies to non -numeric results) [facility] ([facility]) ID Date Data Source [id number] 11/09/2019 03:19:00 PM EDT [facility] ([facility]) Name Value Range Interpretation Code Description Data Jie rce(s) Supporting Document(s) Thyrotropin [Units/volume] in Serum or Plasma 0.68 uIU/mL 0.47-5.01 [facility] ([facility]) Is patient fasting? N ID Date Data Source [id number] 11/09/2019 03:19:00 PM EDT [facility] ([facility]) Name Value Range Interpretation Code Description Data Jie rce(s) Supporting Document(s) Sodium 138 meq/L 134-153 [facility] ([facility]) Is patient fasting? N Potassium 3.9 meq/L 3.6-5.0 [facility] ([facility]) Is patient fasting? N Comprehensive [place] Laboratory test result [facility] ([facility]) Is patient fasting? N Co2 28 meq/L 22-30 [facility] ([facility]) Is patient fasting? N Glucose 97 mg/dL 65-110 [facility] ([facility]) Is patient fasting? N Chloride 101 meq/L 98-107 [facility] ([facility]) Is patient fasting? N BUN 12 mg/dL 7-21 [facility] ([facility]) Is patient fasting? N Creatinine 0.7 mg/dL 0.7-1.5 [facility] ([facility]) Is patient fasting? N BUN/Creat 17 8-27 [facility] ([facility]) Is patient fasting? N Total Protein 7.0 g/dL 6.3-8.2 [facility] ([facility]) Is patient fasting? N A/G Ratio 2.0 0.8-2.0 [facility] ([facility]) Is patient fasting? N Albumin 4.7 g/dL 3.9-5.0 [facility] ([facility]) Is patient fasting? N Globulin 2.3 GM/DL 2.4-3.2 Below low [facility] Is patient fasting? N Total Bili 0.9 mg/dL 0.2-1.3 [facility] ([facility]) Is patient fasting? N Calcium 9.6 mg/dL 8.4-10.2 [facility] ([facility]) Is patient fasting? N Alkaline Phos 77 U/L 38-126 [facility] ([facility]) Is patient fasting? N Anion Gap 9.0 mmol/L 8.0-16.0 [facility] ([facility]) Is patient fasting? N SGPT/Alt 11 U/L 7-56 [facility] ([facility]) Is patient fasting? N Sgot/Ast 15 U/L 5-40 [facility] ([facility]) Is patient fasting? N Non-Aa GFR Laboratory test result [facility] ([facility]) Is patient fasting? N Age 24 yrs [facility] ([facility]) Is patient fasting? N Afr Amer GFR Laboratory test result [facility] ([facility]) Is patient fasting? N ID Date Data Source [id number] 11/09/2019 03:19:00 PM EDT [facility] ([facility]) Name Value Range Interpretation Code Description Data Jie rce(s) Supporting Document(s) CBC No Diff Laboratory test result M [facility] ([facility]) Is patient fasting? N RBC 3.96 10^6/uL 4.20-5.40 Below low normal [facility] ([facility]) Is patient fasting? N Hemoglobin 12.6 g/dL 12.0-16.0 [facility] ([facility]) Is patient fasting? N WBC 7.6 10^3/uL 4.2-11.0 [facility] ([facility]) Is patient fasting? N Hematocrit 38.2 % 37.0-47.0 [facility] ([facility]) Is patient fasting? N MCV 96.5 fL 81.0-101 [facility] ([facility]) Is patient fasting? N MCH 31.8 pg 27.0-34.0 [facility] ([facility]) Is patient fasting? N MCHC 33.0 g/dL 31.0-36.0 [facility] ([facility]) Is patient fasting? N Platelets 242 10^3/uL 150-450 [facility] ([facility]) Is patient fasting? N RDW 12.0 % 11.5-14.5 [facility] ([facility]) Is patient fasting? N MPV 9.8 fL 7.4-10.4 [facility] ([facility]) Is patient fasting? N ID Date Data Source [id number] 11/09/2019 09:12:00 PM EDT [facility] Name Value Range Interpretation Code Description Data Jie rce(s) Supporting Document(s) Thyrotropin [Units/volume] in Serum or Plasma by Detec tion limit <= 0.05 mIU/L 0.68 uIU/mL 0.47 - 5.01 [facility] ID Date Data Source [id number] 11/09/2019 09:09:00 PM EDT [facility] Name Value Range Interpretation Code Description Data Jie rce(s) Supporting Document(s) COMPREHENSIVE METABOLIC PANEL [facility] COMPREHENSIVE METABOLIC PANEL Sodium [Moles/volume] in Serum or Plasma 138 mEq/L 134 - 153 [facility] Potassium [Moles/volume] in Serum or Plasma 3.9 mEq/L 3.6 - 5.0 [facility] Chloride [Moles/volume] in Serum or Plasma 101 mEq/L 98 - 107 [facility] Carbon dioxide, total [Moles/volume] in Serum or Plasma 28 MEQ/L 22 - 30 [facility] Glucose [Mass/volume] in Serum or Plasma 97 MG/DL 65 - 110 [facility] BUN 12 MG/DL 7 - 21 [facility] Creatinine [Mass/volume] in Serum or Plasma 0.7 MG/DL 0.7 - 1.5 [facility] BUN/CREAT 17 8 - 27 [facility] al Protein [Mass/volume] in Serum or Plasma 7.0 G/DL 6.3 - 8.2 [facility] Albumin [Mass/volume] in Serum or Plasma 4.7 G/DL 3.9 - 5.0 [facility] Globulin [Mass/volume] in Serum by calculation 2.3 GM/DL 2.4 - 3.2 L [facility] A/G RATIO 2.0 0.8 - 2.0 [facility] Calcium [Mass/volume] in Serum or Plasma 9.6 MG/DL 8.4 - 10.2 [facility] Bilirubin.total [Mass/volume] in Serum or Plasma 0.9 MG/DL 0.2 - 1.3 [facility] Alkaline phosphatase [Enzymatic activity/volume] in Serum or Plasma 77 U/L 38 - 126 [facility] Aspartate aminotransferase [Enzymatic activity/volume] in Serum or Plasma 15 U/L 5 - 40 [facility] Alanine aminotransferase [Enzymatic activity/volume] in Seru m or Plasma 11 U/L 7 - 56 [facility] Anion gap 3 in Serum or Plasma 9.0 mmol/L 8.0 - 16.0 [facility] AGE 24 yrs [facility] al NON-AA GFR >60 mL/min [facility] ital AFR AMER GFR >60 mL/min [facility] Ho spital Male GFR In terprentation 20-49 [...] >32 mL/min Normal ID Date Data Source [id number] 11/09/2019 08:37:00 PM EDT [facility] Name Value Range Interpretation Code Description Data Jie rce(s) Supporting Document(s) CBC NO DIFF [facility] ital COMPLETE BLOOD COUNT Leukocytes [#/volume] in Blood by Automated count 7.6 10^3/uL 4.2 - 1 1.0 [facility] Erythrocytes [#/volume] in Blood by Automated count 3.96 10^6/uL 4. 20 - 5.40 L [facility] Hemoglobin [Mass/volume] in Blood 12.6 g/dL 12.0 - 16.0 [facility] Hematocrit [Volume Fraction] of Blood by Automated count 38.2 % 3 7.0 - 47.0 [facility] Erythrocyte mean corpuscular volume [Entitic volume] by Auto mated count 96.5 fL 81.0 - 101 [facility] Erythrocyte mean corpuscular hemoglobin [Entitic mass] by Automated count 31.8 pg 27.0 - 34.0 [facility] Erythrocyte mean corpuscular hemoglobin concentration [Mass/volume] by Automated count 33.0 g/dL 31.0 - 36.0 [facility] Erythrocyte distribution width [Ratio] by Automated count 12.0 % 11.5 - 14.5 [facility] Platelets [#/volume] in Blood by Automated count 242 10^3/uL 150 - 45 0 [facility] Platelet mean volume [Entitic volume] in Blood by Automated count 9.8 fL 7.4 - 10.4 [facility] ID Date Data Source 36N*ENCOUNTER [id number] 09/08/2019 03:46:56 PM EDT [facility] DEPT [address] [place] [id number] Elyssa Crisostomo (Female) [id number] CARID[facility] 3 ED Dispo:DISCHARGE Chief Complaint: Chest Pain Diagnosis: Anxiety [] Gastroesophageal reflux disease without esophagitis [] Atypical chest pain [] Current Providers: Attending: Tashia Byrnes Primary Nurse: VIRGIE KayN: [phone] [employer] [id number] - [facility] Ed Medva MrnMRN: [id number] [employer] [phone] - [facility] Ed Medva Age SexDOB 1995 AGE 24 SEX Female Primary Care Provider: Bairon Gallegos MD Edbqbje Agents Noted Type Reaction(s)PENICILLINS 06/12/2019 9 - Nausea and *Date Reviewed: 09/08/2019Reviewed by: Marisol Kay RN - Review CompleteED Provider Notes: All notesHNO ID: [id number]: Marquise Byrnes MDService: Emergency MedicineAuthor Type: PhysicianFiled: [...] Gets together: Three times a week Attends lutheran service: Never Active member of club or [...] QTC Calculation (Bezet) 389 ms Calculated P [place] 44 degrees Calculated R [place] 79 degrees Calculated T [place] 55 degrees Diagnosis Normal sinus rhythmNormal ECGMETABOLIC [...] @62/m,Nl axis,Nl intervals,No acute ischemic changes.ProceduresED Orders [id number] EKG, 12 LEAD, INITIAL [#[id number]] Priority: STAT Class: Hospital Performed Standing Order Information Remaining Occurrences:0/1 Interval:ONE TIME Last released:09/08/2019 Released orders: Sat September 08, 2019 2:23 PM by: MARISOL KAY Reason for Exam: -> chest tightness [id number] EKG, 12 LEAD, INITIAL [#[id number]] Priority: STAT Class: Hospital Performed Specimen Collected: 09/08/2019 2:25 PM Resulting Agency: [facility] [place] [facility] Test ID: [id number] Reason for Exam: -> chest tightness Released on: 09/08/2019 2:23 PM [id number] METABOLIC PANEL, COMPREHENSIVE [#[id number]] Priority: STAT Class: ER Collect Standing Order Information Remaining Occurrences:0/1 Interval:ONE TIME Last released:09/08/2019 Released orders: Sat September 08, 2019 2:30 PM by: MARQUISE BYRNES [id number] MAGNESIUM [#[id number]] Priority: STAT Class: ER Collect Standing Order Information Remaining Occurrences:0/1 Interval:ONE TIME Last released:09/08/2019 Released orders: Sat September 08, 2019 2:30 PM by: MARQUISE BYRNES [id number] CBC WITH AUTOMATED DIFF [#[id number]] Priority: STAT Class: ER Collect Standing Order Information Remaining Occurrences:0/1 Interval:ONE TIME Last released:09/08/2019 Released orders: Sat September 08, 2019 2:30 PM by: MARQUISE BYRNES [id number] HCG QL SERUM [#[id number]] Priority: STAT Class: ER Collect Standing Order Information Remaining Occurrences:0/1 Interval:ONE TIME Last released:09/08/2019 Released orders: Sat September 08, 2019 2:30 PM by: MARQUISE BYRNES [id number] LIPASE [#[id number]] Priority: STAT Class: ER Collect Standing Order Information Remaining Occurrences:0/1 Interval:ONE TIME Last released:09/08/2019 Released orders: Sat September 08, 2019 2:30 PM by: MARQUISE BYRNES [id number] METABOLIC PANEL, COMPREHENSIVE [#[id number]] Priority: STAT Class: ER Collect Specimen Source: Plasma Specimen Collected: 09/08/2019 2:40 PM Resulting Agency: [facility] Test ID: MPL Released on: 09/08/2019 2:30 PM [id number] MAGNESIUM [#[id number]] Priority: STAT Class: ER Collect Specimen Source: Plasma Specimen Collected: 09/08/2019 2:40 PM Resulting Agency: [facility] Test ID: [id number] Released on: 09/08/2019 2:30 PM [id number] CBC WITH AUTOMATED DIFF [#[id number]] Priority: STAT Class: ER Collect Specimen Source: Whole Blood Specimen Collected: 09/08/2019 2:40 PM Resulting Agency: [facility] Test ID: [id number] Released on: 09/08/2019 2:30 PM [id number] HCG QL SERUM [#[id number]] Priority: STAT Class: ER Collect Specimen Source: Serum Specimen Collected: 09/08/2019 2:40 PM Resulting Agency: [facility] Test ID: [id number] Released on: 09/08/2019 2:30 PM [id number] LIPASE [#[id number]] Priority: STAT Class: ER Collect Specimen Source: Plasma Specimen Collected: 09/08/2019 2:40 PM Resulting Agency: [facility] Test ID: [id number] Released on: 09/08/2019 2:30 PM SODIUM CHLORIDE 0.9% BOLUS IV [#[id number]] Priority: STAT Class: Normal LORAZEPAM 2 MG/ML IJ SOLN [#[id number]] Priority: STAT Class: Normal PANTOPRAZOLE 40 MG + NS 10 ML IV [#[id number]] Priority: STAT Class: Normal PPI INDICATION -> Symptomatic GERD PANTOPRAZOLE 40 MG TAB, DELAYED RELE* [#[id number]] Priority: Routine Class: Elyssa Colvin MR#: [id number] * Rm: [id number]: 5' 6" Wt: 184 lb Code: Not on file Iso:Diagnosis:Allergies: Penicillins Current as of: 09/08/19 1546 GI=Given IC=IV Completed NB=New Bag ---------pantoprazole (PROTONIX) injection 40 mg #[id number] Admin Amount: 40 mg Ordered Dose: 40 mg Route: IntraVENous Freq: ONCE Start Date: 03/16/14 No administration times (back 96 hours, ahead 96 hours). ------pantoprazole (PROTONIX) injection 40 mg #[id number] Admin Amount: 40 mg Ordered Dose: 40 mg Route: IntraVENous Freq: ONCE Start Date: 04/17/14 No administration times (back 96 hours, ahead 96 hours). ------sodium chloride 0.9 % bolus infusion 1,000 mL #[id number] Admin Amount: 1,000 mL Ordered Dose: 1,000 mL Route: IntraVENous Freq: ONCE Start Date: 04/17/14 Rate: 1,000 mL/hr Duration: 60 Minutes No administration times (back 96 hours, ahead 96 hours). ------ondansetron (ZOFRAN) injection 4 mg #[id number] Admin Amount: 2 mL = 4 mg of 4 mg/2 mL Ordered Dose: 4 mg Route: IntraVENous Freq: ONCE Start Date: 04/17/14 No administration times (back 96 hours, ahead 96 hours).----- dicycl omine (BENTYL) capsule 10 mg #[id number] Admin Amount: 1 Cap (1 x 10 mg Cap) Ordered Dose: 10 mg Route: Oral Freq: NOW Start Date: 04/17/14 No administration times (back 96 hours, ahead 96 hours). alum-mag hydroxide-simeth (MYLANTA) oral suspension 30 mL #[id number] Admin Amount: 30 mL Ordered Dose: 30 mL Route: Oral Freq: NOW Start Date: 04/17/14 No administration times (back 96 hours, ahead 96 hours). ------lidocaine (XYLOCAINE) 2 % viscous solution 15 mL #[id number] Admin Amount: 15 mL Ordered Dose: 15 mL Route: Mouth/Throat Freq: NOW Start Date: 04/17/14 No administration times (back 96 hours, ahead 96 hours).Elyssa Crisostomo MR#: [id number] * Rm: [id number]: 5' 6" Wt: 184 lb Code: Not on file Iso:Diagnosis:Allergies: Peni cillins ------ Current as of: 09/08/19 1546 GI=Given IC=IV Completed NB=New Bag lidocaine (XYLOCAINE) 2 % viscous solution 15 mL #[id number] Admin Amount: 15 mL Ordered Dose: 15 mL Route: Mouth/Throat Freq: NOW Start Date: 05/19/14 No administration times (back 96 hours, ahead 96 hours). ------alum-mag hydroxide-simeth (MYLANTA) oral suspension 30 mL #[id number] Admin Amount: 30 mL Ordered Dose: 30 mL Route: Oral Freq: NOW Start Date: 05/19/14 No administration times (back 96 hours, ahead 96 hours). ------famotidine (PF) (PEPCID) 20 mg in sodium chloride 0.9 % 10 mL inject*#[id number] Admin Amount: 20 mg Ordered Dose: 20 mg Route: IntraVENous Freq: NOW Start Date: 05/19/14 No administration times (back 96 hours, ahead 96 hours). ondansetron (ZOFRAN) injection 4 mg #[id number] Admin Amount: 2 mL = 4 mg of 4 mg/2 mL Ordered Dose: 4 mg Route: IntraVENous Freq: ONCE Start Date: 05/19/14 No administration times (back 96 hours, ahead 96 hours). iohexol (OMNIPAQUE) solution 10-50 mL #[id number] Admin Amount: 10-50 mL Ordered Dose: 10-50 mL Route: Oral Freq: RAD ONCE Start Date: 05/19/14 No administration times (back 96 hours, ahead 96 hours). ------ioversol (OPTIRAY) 320 mg iodine/mL contrast injection 51-100 mL #[id number] Admin Amount: 51-100 mL Ordered Dose: 51-100 mL Route: IntraVENous Freq: RAD ONCE Start Date: 05/19/14 No administration times (back 96 hours, ahead 96 hours). ------famotidine (PF) (PEPCID) injection 20 mg #[id number] Admin Amount: 20 mg Ordered Dose: 20 mg Route: IntraVENous Freq: NOW Start Date: 06/15/14 No administration times (back 96 hours, ahead 96 hours). ondansetron (ZOFRAN) injection 4 mg #[id number] Admin Amount: 2 mL = 4 mg of 4 mg/2 mL Ordered Dose: 4 mg Route: IntraVENous Freq: NOW Start Date: 06/15/14 No administration times (back 96 hours, ahead 96 hours).Elyssa Crisostomo MR#: [id number] * Rm: [id number]: 5' 6" Wt: 184 lb Code: Not on file Iso:Diagnosis:Allergies: Penicillins Current as of: 09/08/19 1546 GI=Given IC=IV Completed NB=New Bag --morphine injection 2 mg #[id number] Admin Amount: 0.5 mL = 2 mg of 4 mg/mL Ordered Dose: 2 mg Route: IntraVENous Freq: NOW Start Date: 06/15/14 No administration times (back 96 hours, ahead 96 hours). ------ondansetron (ZOFRAN) injection 4 mg #[id number] Admin Amount: 2 mL = 4 mg of 4 mg/2 mL Ordered Dose: 4 mg Route: IntraVENous Freq: NOW Start Date: 06/24/14 No administration times (back 96 hours, ahead 96 hours).--- famo tidine (PF) (PEPCID) injection 20 mg #[id number] Admin Amount: 20 mg Ordered Dose: 20 mg Route: IntraVENous Freq: NOW Start Date: 06/24/14 No administration times (back 96 hours, ahead 96 hours). bjdmdubdg-fywwmz-hkvclyja-scop () elixir 10 mL #[id number] Admin Amount: 10 mL Ordered Dose: 10 mL Route: Oral Freq: NOW Start Date: 06/24/14 No administration times (back 96 hours, ahead 96 hours). ------sodium chloride 0.9 % bolus infusion 1,000 mL #[id number] Admin Amount: 1,000 mL Ordered Dose: 1,000 mL Route: IntraVENous Freq: ONCE Start Date: 06/24/14 Rate: 1,000 mL/hr Duration: 60 Minutes No administration times (back 96 hours, ahead 96 hours). ------dicyclomine (BENTYL) capsule 20 mg #[id number] Admin Amount: 2 Cap (2 x 10 mg Cap) Ordered Dose: 20 mg Route: Oral Freq: NOW Start Date: 06/24/14 No administration times (back 96 hours, ahead 96 hours). ------0.9% sodium chloride infusion #[id number] Ordered Dose: 1,000 mL/hr Route: IntraVENous Freq: CONTINUOUS Start Date: 07/29/14 Rate: 1,000 mL/hr Duration: No administration times (back 96 hours, ahead 96 hours).Elyssa Crisostomo MR#: [id number] * Rm: [id number]: 5' 6" Wt: 184 lb Code: Not on file Iso:Diagnosis:Allergies: Penicillins Current as of: 09/08/19 1546 GI=Given IC=IV Completed NB=New Bag --ondansetron (ZOFRAN) injection 4 mg #[id number] Admin Amount: 2 mL = 4 mg of 4 mg/2 mL Ordered Dose: 4 mg Route: IntraVENous Freq: NOW Start Date: 07/29/14 No administration times (back 96 hours, ahead 96 hours). ------ketorolac (TORADOL) injection 30 mg #[id number] Admin Amount: 1 mL = 30 mg of 30 mg/mL Ordered Dose: 30 mg Route: IntraVENous Freq: NOW Start Date: 07/29/14 No administration times (back 96 hours, ahead 96 hours). ------0.9% sodium chloride infusion 1,000 mL #[id number] Admin Amount: 1,000 mL Ordered Dose: 1,000 mL Route: IntraVENous Freq: NOW Start Date: 08/13/14 No administration times (back 96 hours, ahead 96 hours).- ke torolac (TORADOL) injection 30 mg #[id number] Admin Amount: 1 mL = 30 mg of 30 mg/mL Ordered Dose: 30 mg Route: IntraVENous Freq: NOW Start Date: 08/13/14 No administration times (back 96 hours, ahead 96 hours). ondansetron (ZOFRAN ODT) tablet 4 mg #[id number] Admin Amount: 1 Tab (1 x 4 mg Tab) Ordered Dose: 4 mg Route: Oral Freq: NOW Start Date: 09/30/14 No administration times (back 96 hours, ahead 96 hours). ------trimethoprim-sulfamethoxazole (BACTRIM DS, SEPTRA DS) 160-800 mg per*#[id number] Admin Amount: 1 Tab Ordered Dose: 1 Tab Route: Oral Freq: NOW Start Date: 09/30/14 No administration times (back 96 hours, ahead 96 hours). ------0.9% sodium chloride infusion #[id number] Ordered Dose: 1,000 mL/hr Route: IntraVENous Freq: CONTINUOUS Start Date: 11/16/14 Rate: 1,000 mL/hr Duration: No administration times (back 96 hours, ahead 96 hours). ------ondansetron (ZOFRAN) injection 4 mg #[id number] Admin Amount: 2 mL = 4 mg of 4 mg/2 mL Ordered Dose: 4 mg Route: IntraVENous Freq: NOW Start Date: 11/16/14 No administration times (back 96 hours, ahead 96 hours).Elyssa Crisostomo MR#: [id number] * Rm: [id number]: 5' 6" Wt: 184 lb Code: Not on file Iso:Diagnosis:Allergies: Penicillins Current as of: 09/08/19 1546 GI=Given IC=IV Completed NB=New Bag --pantoprazole (PROTONIX) injection 40 mg #[id number] Admin Amount: 40 mg Ordered Dose: 40 mg Route: IntraVENous Freq: NOW Start Date: 11/16/14 No a dministration times (back 96 hours, ahead 96 hours). ------ondansetron (ZOFRAN) injection 4 mg #[id number] Admin Amount: 2 mL = 4 mg of 4 mg/2 mL Ordered Dose: 4 mg Route: IntraVENous Freq: ONCE Start Date: 04/04/15 No administration times (back 96 hours, ahead 96 hours). ------ketorolac (TORADOL) injection 60 mg #[id number] Admin Amount: 2 mL = 60 mg of 30 mg/mL Ordered Dose: 60 mg Route: IntraMUSCular Freq: NOW Start Date: 04/11/15 No administration times (back 96 hours, ahead 96 hours). hydrOXYzine HCl (ATARAX) tablet 50 mg #[id number] Admin Amount: 1 Tab (1 x 50 mg Tab) Ordered Dose: 50 mg Route: Oral Freq: NOW Start Date: 04/09/17 No administration times (back 96 hours, ahead 96 hours). acetaminophen (OFIRMEV) infusion 1,000 mg #[id number] Admin Amount: 100 mL = 1,000 mg of 1,000 mg/100 mL Ordered Dose: 1,000 mg Route: IntraVENous Freq: ONCE Start Date: 09/17/17 Rate: 400 mL/hr Duration: 15 Minutes No administration times (back 96 hours, ahead 96 hours). ondansetron (ZOFRAN) injection 4 mg #[id number] Admin Amount: 2 mL = 4 mg of 4 mg/2 mL Ordered Dose: 4 mg Route: IntraVENous Freq: ONCE Start Date: 09/17/17 No administration times (back 96 hours, ahead 96 hours). iohexol (OMNIPAQUE) solution 50 mL #[id number] Admin Amount: 50 mL Ordered Dose: 50 mL Route: Oral Freq: RAD ONCE Start Date: 09/17/17 No administration times (back 96 hours, ahead 96 hours).Elyssa Crisostomo MR#: [id number] * Rm: [id number]: 5' 6" Wt: 184 lb Code: Not on file Iso:Diagnosis:Allergies: Penicillins Current as of: 09/08/19 1546 GI=Given IC=IV Completed NB=New Bag------- iopamido l (ISOVUE 300) 61 % contrast injection 100 mL #[id number] Admin Amount: 100 mL Ordered Dose: 100 mL Route: IntraVENous Freq: RAD ONCE Start Date: 09/17/17 No administration times (back 96 hours, ahead 96 hours). ondansetron (ZOFRAN) injection 4 mg #[id number] Admin Amount: 2 mL = 4 mg of 4 mg/2 mL Ordered Dose: 4 mg Route: IntraVENous Freq: ONCE Start Date: 09/17/17 No administration times (back 96 hours, ahead 96 hours). ------ciprofloxacin HCl (CIPRO) tablet 500 mg #[id number] Admin Amount: 2 Tab (2 x 250 mg Tab) Ordered Dose: 500 mg Route: Oral Freq: NOW Start Date: 09/17/17 No administration times (back 96 hours, ahead 96 hours). ------metroNIDAZOLE (FLAGYL) tablet 500 mg #[id number] Admin Amount: 2 Tab (2 x 250 mg Tab) Ordered Dose: 500 mg Route: Oral Freq: NOW Start Date: 09/17/17 No administration times (back 96 hours, ahead 96 hours). ------ketorolac (TORADOL) injection 30 mg #[id number] Admin Amount: 1 mL = 30 mg of 30 mg/mL Ordered Dose: 30 mg Route: IntraVENous Freq: NOW Start Date: 09/19/17 No administration times (back 96 hours, ahead 96 hours). sodium chloride 0.9 % bolus infusion 1,000 mL #[id number] Admin Amount: 1,000 mL Ordered Dose: 1,000 mL Route: IntraVENous Freq: ONCE Start Date: 09/19/17 Rate: 1,000 mL/hr Duration: 60 Minutes No administration times (back 96 hours, ahead 96 hours). dicyclomine (BENTYL) capsule 20 mg #[id number] Admin Amount: 2 Cap (2 x 10 mg Cap) Ordered Dose: 20 mg Route: Oral Freq: NOW Start Date: 09/19/17 No administration times (back 96 hours, ahead 96 hours).Elyssa Crisostomo MR#: [id number] * Rm: [id number]: 5' 6" Wt: 184 lb Code: Not on file Iso:Diagnosis:Allergies: Penicillins Current as of: 09/08/19 1546 GI=Given IC=IV Completed NB=New Bag --acetaminophen (OFIRMEV) infusion 1,000 mg #[id number] Admin Amount: 100 mL = 1,000 mg of 1,000 mg/100 mL Ordered Dose: 1,000 mg Route: IntraVENous Freq: ONCE Start Date: 09/19/17 Rate: 400 mL/hr Duration: 15 Minutes No administration times (back 96 hours, ahead 96 hours). ------alum-mag hydroxide-simeth (MYLANTA) oral suspension 30 mL #[id number] Admin Amount: 30 mL Ordered Dose: 30 mL Route: Oral Freq: NOW Start Date: 09/19/17 No administration times (back 96 hours, ahead 96 hours). ------lidocaine (XYLOCAINE) 2 % viscous solution 15 mL #[id number] Admin Amount: 15 mL Ordered Dose: 15 mL Route: Mouth/Throat Freq: NOW Start Date: 09/19/17 No administration times (back 96 hours, ahead 96 hours). ondansetron (ZOFRAN ODT) tablet 8 mg #[id number] Admin Amount: 2 Tab (2 x 4 mg Tab) Ordered Dose: 8 mg Route: Oral Freq: NOW Start Date: 04/30/18 No administration times (back 96 hours, ahead 96 hours). -------rho D immune globulin (RHOGAM) 1,500 unit (300 mcg) injection 0.3 mg #[id number] Admin Amount: 1 mL = 0.3 mg of 0.3 mg/mL Ordered Dose: 300 mcg Route: IntraMUSCular Freq: ONCE Start Date: 10/21/18 No administration times (back 96 hours, ahead 96 hours). ------pantoprazole (PROTONIX) tablet 40 mg #[id number] Admin Amount: 1 Tab (1 x 40 mg Tab) Ordered Dose: 40 mg Route: Oral Freq: NOW Start Date: 04/20/19 No ad ministration times (back 96 hours, ahead 96 hours). ------sodium chloride 0.9 % bolus infusion 1,000 mL #[id number] Admin Amount: 1,000 mL Ordered Dose: 1,000 mL Route: IntraVENous Freq: ONCE Start Date: 09/08/19 Rate: 1,000 mL/hr Duration: 60 Minutes Administration times (back 96 hours, ahead 96 hours): 09/08/19: 1445NB 1541Elyssa Jules MR#: [id number] * Rm: [id number]: 5' 6" Wt: 184 lb Code: Not on file Iso:Diagnosis:Allergies: Penicillins Current as of: 09/08/19 1546 GI=Given IC=IV Completed NB=New Bag---- LORaz epam (ATIVAN) injection 1 mg #[id number] Admin Amount: 0.5 mL = 1 mg of 2 mg/mL Ordered Dose: 1 mg Route: IntraVENous Freq: ONCE Start Date: 09/08/19 Administration times (back 96 hours, ahead 96 hours): 09/08/19: 1449GI pantoprazole (PROTONIX) 40 mg in 0.9% sodium chloride 10 mL injection#[id number] Admin Amount: 10 mL = 40 mg of 40 mg/10 mL Ordered Dose: 40 mg Route: IntraVENous Freq: ONCE Start Date: 09/08/19 Administration times (back 96 hours, ahead 96 hours): 09/08/19: 1448GI ED Current OP Medicationspantoprazole (Protonix) 40 mg [...] daily for 20 days.Dispense Amount:20 TabStart Date:09/08/2019End Date:09/28/2019[facility]. Provider: Marquise Byrnes MDFollow-up InformationFollow-up With:[facility] [place] [facility] [place]PTDetails:In 2 daysComments:If symptoms worsenContact Info:[address] [facility] [phone] [id number] With:Bairon Gallegos MDDetails:Schedule an appointment as soon as possible for a visit in 1 dayComments:Contact Info:[address] [facility] [phone] Name Value Range Interpretation Code Description Data Jie rce(s) Supporting Document(s) ID Date Data Source [id number] 09/08/2019 03:41:28 PM EDT [facility] Pt. Discharged with understanding to ret urn if worse, and to follow up with PMD. Name Value Range Interpretation Code Description Data Jie rce(s) Supporting Document(s) ID Date Data Source [id number] 09/08/2019 03:36:48 PM EDT [facility] Pt. Denies chest heaviness, feeling a lo t better. Name Value Range Interpretation Code Description Data Jie rce(s) Supporting Document(s) ID Date Data Source [id number] 09/08/2019 03:33:58 PM EDT [facility] 24 yrs old female with PMHX of [...] Gets together: Three times a week Attends luther[employer] service: Never Active member of club or [...] CASE SUMMARY>Impression/Differential Diagnosis: Chest pain,Anxiety,GERD.Plan: D/C home.ED Course:Time: reviewed imaging results with pt.Pt feels better [...] QTC Calculation (Bezet) 389 ms Calculated P [place] 44 degrees Calculated R [place] 79 degrees Calculated T [place] 55 degrees Diagnosis Normal sinus rhythmNormal ECGMETABOLIC [...] Name Value Range Interpretation Code Description Data [facility](s) Supporting Document(s) ID Date Data Source [id number] 09/08/2019 03:02:56 PM EDT [facility] Pt. Resting, texting on cell phone, stat es feeling "Okay". Will continue tomonitor. Name Value Range Interpretation Code Description Data [facility](s) Supporting Document(s) ID Date Data Source [id number] 09/08/2019 02:53:32 PM EDT [facility] Pt. Medicated as ordered, side rails up. Call mesa in reach. Will monitor. Name Value Range Interpretation Code Description Data [facility](s) Supporting Document(s) ID Date Data Source [id number] 09/08/2019 02:46:21 PM EDT [facility] The patient received Ativan while in the [...] Name Value Range Interpretation Code Description Data [facility](s) Supporting Document(s) ID Date Data Source [id number] 09/08/2019 03:03:22 PM EDT [facility] Name Value Range Interpretation Code Description Data [facility](s) Supporting Document(s) Sodium [Moles/volume] in Serum or Plasma 142 mmol/L 136-145 [facility] Potassium [Moles/volume] in Serum or Plasma 3.6 mmol/L 3.5-5.1 [facility] Chloride [Moles/volume] in Serum or Plasma 103 mmol/L 98-107 [facility] Carbon dioxide, total [Moles/volume] in Serum or Plasma 27 mmol/L 21 -32 [facility] [employer] [facility] Anion gap in Serum or Plasma 12 mmol/L 4-12 [facility] [employer] [facility] Glucose [Mass/volume] in Serum or Plasma 100 mg/dL 74-106 [facility] [employer] [facility] Urea nitrogen [Mass/volume] in Serum or Plasma 12 mg/dL 7-18 [facility] [employer] [facility] Creatinine [Mass/volume] in Serum or Plasma 0.86 mg/dL 0.55-1.02 [facility] [employer] [facility] Glomerular filtration rate/1.73 sq M pre dicted among blacks [Volume Rate/Area] in Serum or Plasma by Creatinine-based formula (MDRD) >60 [facility] [employer] [facility] Glomerular filtration rate/1.73 sq M pre dicted among non-blacks [Volume Rate/Area] in Serum or Plasma by Creatinine-based formula (MDRD) >6 0 [facility] [employer] [facility] (NOTE)Estimated GFR is calculated using the Modification of Diet in RenalDisease (MDRD) Study equation, reported for both Americans(GFRAA) and non- Americans (GFRNA), and normalized to 1.94c0mgux surface area. The physician must decide which value applies tothe patient. The MDRD study equation should only be used inindividuals age 18 or older. It has not been validated for thefollowing: women, patients with serious comorbid conditions,or on certain medications, or persons with extremes of body size,muscle mass, or nutritional status. Calcium [Mass/volume] in Serum or Plasma 9.0 mg/dL 8.5-10.1 [employer] Bilirubin.total [Mass/volume] in Serum or Plasma 1.3 mg/dL 0.2-1.0 Above high normal [facility] Alanine aminotransferase [Enzymatic activity/volume] in Seru m or Plasma 29 U/L 12-78 [email or web address] Aspartate aminotransferase [Enzymatic ac tivity/volume] in Serum or Plasma by With P-5'-P 20 U/L 15-37 [employer] [employer] [facility] Alkaline phosphatase [Enzymatic activity/volume] in Serum or Plasma 112 U/L 46-116 [employer] Protein [Mass/volume] in Serum or Plasma 8.2 g/dL 6.4-8.2 [facility] Albumin [Mass/volume] in Serum or Plasma by Bromocresol purple (BCP) dye binding method 4.2 g/dL 3.4-5.0 [facility] Globulin [Mass/volume] in Serum by calculation 4.0 g/dL 2 .8-3.9 Above high normal [facility] Albumin/Globulin [Mass Ratio] in Serum or Plasma 1.0 1.0-1.5 [employer] ID Date Data Source [id number] 09/08/2019 03:03:22 PM EDT [employer] Name Value Range Interpretation Code Description Data Jie rce(s) Supporting Document(s) Magnesium [Mass/volume] in Serum or Plasma 1.9 mg/dL 1.8-2.4 [employer] ID Date Data Source [id number] 09/08/2019 03:03:06 PM EDT [employer] Name Value Range Interpretation Code Description Data Jie rce(s) Supporting Document(s) Choriogonadotropin ( test) [Presence] in Serum or Plasma NEG [employer] [facility] ID Date Data Source [id number] 09/08/2019 02:57:59 PM EDT [employer] Name Value Range Interpretation Code Description Data Jie rce(s) Supporting Document(s) Lipase [Enzymatic activity/volume] in Serum or Plasma 89 U/L 73-3 93 [facility] [employer] ID Date Data Source [id number] 09/08/2019 02:49:04 PM EDT [facility] Name Value Range Interpretation Code Description Data Jie rce(s) Supporting Document(s) Leukocytes [#/volume] in Blood by Automated count 8.0 K/uL 4.8-10.6 [facility] Erythrocytes [#/volume] in Blood by Automated count 4.41 M/uL 4.20-5 .40 [facility] [employer] [facility] Hemoglobin [Mass/volume] in Blood 14.1 g/dL 12.0-16.0 [facility] Hematocrit [Volume Fraction] of Blood by Automated count 41.5 % 3 6.0-47.0 [facility] [employer] [employer] [facility] Erythrocyte mean corpuscular volume [Entitic volume] by Auto mated count 94.1 FL 81.0-94.0 Above high normal [facility] [employer] Erythrocyte mean corpuscular hemoglobin [Entitic mass] by Automated count 32.0 PG 27.0-35.0 [facility] Erythrocyte mean corpuscular hemoglobin concentration [Mass/volume] by Automated count 34.0 g/dL 30.7-37.3 [facility] Erythrocyte distribution width [Ratio] by Automated count 11.8 % 11.5-14.0 [facility] Platelets [#/volume] in Blood by Automated count 260 K/uL 130-400 [facility] Platelet mean volume [Entitic volume] in Blood by Automated count 8.7 FL 9.2-11.8 Below low normal [facility] [employer] Nucleated erythrocytes/100 leukocytes [Ratio] in Blood 0.0 PER 100 WB C 0 [facility] Nucleated erythrocytes [#/volume] in Blood 0.00 K/uL 0.0-0.01 [facility] [employer] [facility] Segmented neutrophils/100 leukocytes in Blood 63 % 48.0-72.0 [employer] [facility] Lymphocytes/100 leukocytes in Blood 26 % 18.0-40.0 [facility] [employer] [facility] Monocytes/100 leukocytes in Blood 10 % 2.0-12.0 [facility] [employer] [facility] Eosinophils/100 leukocytes in Blood 1 % 0.0-7.0 [employer] [facility] Basophils/100 leukocytes in Blood 1 % 0.0-3.0 [employer] Immature granulocytes/100 leukocytes in Blood by Automated count 0 % 0.0-0.5 [employer] [facility] Segmented neutrophils [#/volume] in Blood 5.0 K/UL 2.3-7.6 [facility] [employer] [facility] Lymphocytes [#/volume] in Blood 2.0 K/UL 0.9-4.2 [facility] [employer] [facility] Monocytes [#/volume] in Blood 0.8 K/UL 0.1-1.7 [employer] [facility] Eosinophils [#/volume] in Blood 0.1 K/UL 0.0-1.0 [employer] [facility] Basophils [#/volume] in Blood 0.1 K/UL 0.0-0.4 [facility] [employer] [facility] Immature granulocytes [#/volume] in Blood by Automated count 0.0 K/UL 0.0-0.17 [facility] [employer] [facility] Differential cell count method - Blood [facility] [employer] [facility] ID Date Data Source [id number] 09/08/2019 02:25:55 PM EDT [facility] Physical assessment completed. The patie nt's level of consciousness is alert.The patient's mood is calm. The patient's appearance shows normal skinassessment. The patient does not indicate signs or symptoms of abuse orneglect. Name Value Range Interpretation Code Description Data Jie rce(s) Supporting Document(s) ID Date Data Source [id number] 09/08/2019 02:25:40 PM EDT [facility] Pt. 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 Name Value Range Interpretation Code Description Data Jie rce(s) Supporting Document(s) ID Date Data Source [id number] 09/08/2019 02:18:11 PM EDT [facility] Pt. C/o tightness in chest, nausea, dizz iness, started 3 days ago, no pain. Novomiting or diarrhea. Name Value Range Interpretation Code Description Data Jie rce(s) Supporting Document(s) ID Date Data Source [id number] 08/14/2019 03:52:33 PM EDT [facility] Patient notified. Name Value Range Interpretation Code Description Data Jie rce(s) Supporting Document(s) ID Date Data Source [id number] 08/14/2019 01:01:01 PM EDT [facility] Please let pt know.she is covid neg Name Value Range Interpretation Code Description Data [facility] rce(s) Supporting Document(s) ID Date Data Source [id number] 08/13/2019 04:59:22 PM EDT [facility] Patient contacted regarding pending COVI D [...] possiblecoordination of alternative options. Provided number to [email or web address] hotline [phone] they have additional questions or to follow up on test results. Name Value Range Interpretation Code Description Data Jie rce(s) Supporting Document(s) ID Date Data Source [id number] 08/14/2019 11:57:31 AM EDT [facility] Name Value Range Interpretation Code Description Data Jie rce(s) Supporting Document(s) SARS coronavirus 2 RNA [Presence] in uns pecified specimen by BRITNI with probe detection Not detected [facility] (NOTE)NOTE: Please consider re-collectio n of a new specimen, if clinicallyindicated.NOTE: The COVID-19 assay has been cleared by the U.S. Food and DrugAdministration under the Emergency Use Authorization (EUA).[facility] is designated as a high complexity laboratory by theClinicalLaboratory Improvement Amendments of 1988(CLIA) and is qualified toperformthis test. ASSAY INFORMATION: Real Time RT-[id number] Michael Reyes [place], [place] [address]JpzlbKailash Camara M.D. ID Date Data Source [id number] 08/09/2019 12:00:00 AM EDT [facility] Name Value Range Interpretation Code Description Data Jie rce(s) Supporting Document(s) 2019-nCoV RNA XXX [facility]-Imp [facility] This lab was ordered by [facility] and reported by [employer] ID Date Data Source [id number] 06/21/2019 03:05:21 AM EST [facility] Name Value Range Interpretation Code Description Data Jie rce(s) Supporting Document(s) [facility] Mycobacterium tuberculosis stimulated gamma interferon [Pres ence] in Blood NEGATIVE [facility] (NOTE)Performed At: [facility] [address] [place] [address] [id number] Crespo MD Ph:[phone] ID Date Data Source [id number] 06/21/2019 03:05:21 AM [facility] Comment(NOTE)The QuantiFERON-TB Gold Plu s result is determined by subtractingthe Nil value from either TB antigen (Ag) tube. The mitogen tubeserves as a control for the test.0.090.110.10>10.00(NOTE)Performed At: [facility] [address] [place], [place] [id number] Crespo MD Ph:[phone] Name Value Range Interpretation Code Description Data Jie rce(s) Supporting Document(s) ID Date Data Source [id number] 06/19/2019 06:05:59 AM [facility] Name Value Range Interpretation Code Description Data Jie rce(s) Supporting Document(s) Hepatitis B virus surface Ab [Presence] in Serum [facility] (NOTE) Non Reactive: Inconsi stent with immunity, less than 10 mIU/mL Reactive: Consistent with immunity, greater than 9.9 mIU/mLPerformed At: [facility] [address] [place], [place] [id number] Crespo MD Ph:[phone] ID Date Data Source [id number] 05/25/2019 09:17:00 [place] [address] PHONE: [phone] FAX: [phone] Name .................. : KENTRELL Weiss Acct Number.................. : [id number] ROOM. ................. : TR-1B MR Number ................... : [id number] Stay type ............. : E/R Discharge Date......... ... : 05/23/19 Admit Date ......... : 05/23/19 Admit Phys .................... : TORRES BARRERA Date of ....... : 1995 Family Phys ................... : SEBASTIEN Phone .................. : [phone] Age ................................ : 24 Film# .................. .:[id number] Sex ................................. : F Unsigned transcriptions are preliminary reports and do not represent a medical or legal document CHEST 2 VIEWS [id number] COMPLETE:05/23/19 18:09 [facility] [place] [id number] Reason(s): Fever CHEST X-RAY: PA AND LATERAL VIEWS HISTORY: Fever. COMPARISON: 06/06/18 FINDINGS: The cardiac and mediastinal silhouettes appear normal and the lungs are clear. The bones and soft tissues are normal. The upper abdomen is unremarkable. IMPRESSION: No acute disease identifiable. Electronically Reviewed and Signed By Vita Goyal MD , 05/25/19 09:17, [facility] Transcribe Initials: DARRIAN , Transcribe Date: 05/23/19 20:46, Dictation Date: Copy for: EVGENY WARE via fax Copy for: ROXY ROBISON via fax Copy for: EMERGENCY DEPT via mode Copy for: 710 MED REC DISCHARGED Page 1 of 1 Name Value Range Interpretation Code Description Data Jie rce(s) Supporting Document(s) ID Date Data Source [id number] 05/23/2019 05:03:00 PM EST [facility] 1 OrderSheet [facility] Emergency Department [address] [place] [address] Phone #: ext- [phone] 05/23/2019 16:53 Patient: ELYSSA PFEIFFER Sex: F : 1995 Age: 24yWEIGHT:86.1 kg (S) HEIGHT:66 inches (S) BMI:30.7ALLERGIES: PenicillinsCHIEF COMPLAINT: fever, coughDIAGNOSIS: PharyngitisLAB ORDERSOrder Description Priority Entered Acknowledged InitialedInfluenza Nasal A B STAT 17:12 05/23/2019 17:12 Kristi Miller Julie R.N.; R.N. Verbal order per; Lc MartinezCRapid Strep Screen STAT 17:12 05/23/2019 17:12 Kristi Miller Julie R.N.; R.N. Verbal order per; Lc Mendez-CCBC w Diff STAT 17:27 05/23/2019 17:27 Kristi Miller R.N. P.A.-C;CMP STAT 17:27 05/23/2019 17:27 Kristi Miller R.N. P.A.-C;Urinalysis (Clean STAT 17:05/23/2019 17:35 Winifred Miller) Lc Roberto R.N. P.A.-C;DIAGNOSTIC STUDY ORDERSOrder Description Priority Entered Acknowledged InitialedChest 2 View STAT 17:27 05/23/2019 17:27 Kristi Miller(Oxygen?(No)) Lc Roberto R.N. P.A.-C; Reason for Study: FeverMEDICATION/IV/DRIP/FLUID ORDERSOrder Description Priority Entered Acknowledged InitialedAcetaminophen PO 17 :16 05/23/2019 17:17 Kristi Miller1000 mg (NOW x1) Kristi Miller R.N.; R.N. 2 OrderSheet [facility] Emergency Department [address] [place] [address] Phone #: ext- [phone] 05/23/2019 16:53 Patient: ELYSSA PFEIFFER Sex: F : 1995 Age: 24y Verbal order per; Lc FIORE NS : Bolus 500 17:27 05/23/2019 17:54 Kathie Miller, then 125 mL/hr Lc Roberto R.N. PMarquisAMarquis-Pablo;Zofran IVP 4 mg 17:05/23/2019 17:55 Kristi Miller R.N.AMarquis-C;GENERAL ORDERSOrder Description Priority Entered Acknowledged InitialedNPO 17:05/23/2019 17:27 Kristi Miller R.N.AMarquis-Pablo;Saline Lock 17:05/23/2019 17:54 Kristi Miller R.N.AMarquis-Pablo;[Electronically signed by Lc Roberto P.A.-C (21:49 05/23/2019)][Electronically signed by Abiola Mckay R.N. (01:31 05/24/2019)][Electronically locked by Abiola Mckay R.N. (01:31 0 05/24/2019)] Name Value Range Interpretation Code Description Data Jie rce(s) Supporting Document(s) ID Date Data Source [id number] 05/23/2019 05:03:00 PM EST [facility] 1 Medication Reconciliation Report [facility] Emergency Department [address] [place] [address] Phone #: ext- [phone] 05/23/2019 16:53 Patient: [...] permitted. Note to Pharmacy -z-pac pack.Pharmacy - [id number] - [address], [place] [id number]. . -- Lc Roberto P.A.-C Name Value Range Interpretation Code Description Data Jie rce(s) Supporting Document(s) ID Date Data Source [id number] 05/23/2019 05:03:00 PM EST [facility] 1 Medication Administration Record [facility] Emergency Department [address] [place] [address] Phone #: ext- [phone] 05/23/2019 16:53 Patient: ELYSSA PFEIFFER Sex: F : 1995 Age: 24yWeight: 86.1 kgHeight/Length: 66 inBMI: 30.7ALLERGIES: Penicillins Date/Time Medication Administered Medication OrderedGiven ACETAMINOPHEN [PO] Acetaminophen PO 1000 mg17:17 05/23/2019 Dose: 1000 mg Tablets PO (NOW x1)Kristi Miller R.N.Start IV NS IV NS : Bolus 500 mL, then 78598:54 05/23/2019 Dose: IV Fluids mL/hrKristi Miller R.N. [...] rce(s) Supporting Document(s) ID Date Data Source [id number] 05/23/2019 05:03:00 PM EST [facility] 1 General Instructions [facility] Emergency Department [address] [place] [address] Phone #: ext- [phone] 05/23/2019 16:53 Patient: [...] 0. Substitution permitted. Note to Pharmacy -z-pac pack.[facility][id number] - [address] [facility] ; [place], [place] [id number]. .Follow-up:Return to the emergency department as needed. Follow up with your healthcare provider in about threedays if not better. Call for an appointment. ADDITIONAL INFORMATIONPharyngitis: Strep (Presumed) 2 General Instructions [facility] Emergency Department [address] [place] [address] Phone #: ext- [phone] 05/23/2019 16:53 Patient: ELYSSA PFEIFFER Sex: Valarie : 1995 Age: 24yYou have pharyngitis (sore [...] to treat the infection. 3 General Instructions [facility] Emergency Department [address] [place] [address] Phone #: ext- [phone] 05/23/2019 16:53 Patient: ELYSSA PFEIFFER Abhishek Sex: F : 1995 Age: 2 4yHome care Rest [...] Muffled voice New rash 4 General Instructions [facility] Emergency Department [address] [place] [address] Phone #: ext- [phone] 05/23/2019 16:53 Patient: ELYSSA PFEIFFER Sex: F : 1995 Age: 24yPreventionHere are steps you can take to help prevent an infection: Keep good hand washing habits. Don't have close contact with people who have sore throats, colds, or other upper respiratory infections. Don't smoke, and stay away from secondhand smoke. Stay up to date with of your vaccines. [id number] [employer] [address] [place] [address], [place] [address]. All rights reserved. This information is not intended as asubstitute for professional medical care. Always follow your healthcare professional's instructions. You have been given the following additional information: Pharyngitis, Strep (Presumed) Do not work tomorrow or go to school tomorrow.(Electronically signed by Lc Roberto P.A.-C 05/23/2019 21:49) Name Value Range Interpretation Code Description Data Jie rce(s) Supporting Document(s) ID Date Data Source [id number] 05/23/2019 05:03:00 PM EST [facility] 1 Clinical Report - Nurses [facility] Emergency Department [address] [place] [address] Phone #: ext- [phone] 05/23/2019 16:53 Patient: ELYSSA PFEIFFER Sex: F : 1995 Age: 24yTRIAGEArrived by private vehicle. Historian: patient.Acuity: LEVEL 3.Chief Complaint: BODY ACHES and SINUS CONGESTION (LEFT EAR PAIN, CHEST CONGESTION,HEADACHE).( Kristi RN was made aware that said pt was positive for sepsis due to the increased HR and Temp).This started yesterday. 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 (0700).SEPSIS SCREEN: POSITIVE temperature greater than [...] use. No 2 Clinical Report - Nurses [facility] Emergency Department [address] [place] [address] Phone #: ext- [phone] 05/23/2019 16:53 Patient: ELYSSA PFEIFFER Sex: F [...] 5 rights. 3 Clinical Report - Nurses [facility] Emergency Department [address] [place] [address] Phone #: ext- [phone] 05/23/2019 16:53 Patient: ELYSSA PFEIFFER Sex: F [...] saturation: 100%. Temp: 99.5 F. 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 4 Clinical Report - Nurses [facility] Emergency Department [address] [place] [address] Phone #: ext- [phone] 05/23/2019 16:53 [id number] Sex: F : 1995 Age: 24y Condition at departure: improved and stable. No learning barriers present. Reviewed medication(s). Prescription(s) sent electronically to pharmacy. Patient verbalized understanding. Written instructions provided in Omani. 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 She was discharged home. She left ambulatory and via private vehicle. --20:03 05/23/19 Abiola Spicer R.N.Locked/Released at 05/24/2019 01:31 by Abiola Spicer R.N. Name Value Range Interpretation Code Description Data Jie rce(s) Supporting Document(s) ID Date Data Source [id number] 05/23/2019 05:03:00 PM [facility] 1 Clinical Report - Physicians/Mid Levels [facility] Emergency Department [address] [place] [address] Phone #: ext- [phone] 05/23/2019 16:53 Patient: [...] up-to-date. 2 Clinical Report - Physicians/Mid Levels [facility] Emergency Department [address] [place] [address] Phone #: ext- [phone] 05/23/2019 16:53 Patient: ELYSSA PFEIFFER Sex: F : 1995 Age: 24y Medications: [...] COUNT 3 Clinical Report - Physicians/Mid Levels [facility] Emergency Department [address] [place] [address] Phone #: ext- [phone] 05/23/2019 16:53 Patient: ELYSSA PFEIFFER Sex: F [...] Male GFR Interprentation 20-49 yrs >60 mL/min Fgazqq87-13 yrs >56 mL/min Normal 60-69 yrs >49 mL/min Normal 70-79yrs>42 mL/min Normal 80 and above >35 mL/min Normal Female GFRInterpretation 20-39 yrs >60 mL/min Normal 40-49 yrs >58 mL/minNormal 50-59 yrs >51 mL/min Normal 60-69 yrs >45 mL/min Ssicth63-67 yrs >39 mL/min Normal 80 and above >32 mL/min NormalUrinalysis: (JELLY: 05/23/2019 17:25) ( MsgRcvd 05/23/2019 19:46) Final results Test Result Flag Units (Reference) URINALYSIS URINALYSIS SOURCE R 4 Clinical Report - Physicians/Mid Levels [facility] Emergency Department [address] [place] [address] Phone #: ext- [phone] 05/23/2019 16:53 Patient: [...] Chest 2 View: (JELLY: 05/23/2019 17:27) ( [facility] 05/23/[place] 18:09) In Progress CHEST 2 VIEWS Reason(s): Fever TRANSPORTATION: IV? O2? Oxygen?(No) Room: ED : Will sign waiver Influenza Nasal A B: (JELLY: 05/23/2019 17:05) ( [facility] 05/23/2019 17:50) Final results Test Result Flag Units (Reference) INFLUENZA A NEGATIVE (NORMAL: NEGAT INFLUENZA B NEGATIVE (NORMAL: NEGAT INFLUENZA A REENTER NEGATIVE (NORMAL: NEGAT INFLUENZA B REENTER NEGATIVE (NORMAL: NEGAT PROCEDURAL CONTROL VALID KIT LOT # _[id number] 05/23/19.[place] . . . KIT EXP DATE _02/23/20 [...] PROCEDURAL CONTROL VALID ){ KIT LOT # [id number] ){ KIT EXP DATE 06/21/20 )The Strep [...] concerns, 5 Clinical Report - Physicians/Mid Levels [facility] Emergency Department [address] [place] [address] Phone #: ext- [phone] 05/23/2019 16:53 Patient: ELYSSA PFEIFFER Sex: F : 1995 Age: 24y or [...] pack. 6 Clinical Report - Physicians/Mid Levels [facility] Emergency Department [address] [place] [address] Phone #: ext- [phone] 05/23/2019 16:53 Patient: [id number] Sex: F : 1995 Age: 24y Pharmacy - [id number] - [address], [place] [id number]. . Follow-up: Return to the emergency department as needed. Follow up with your healthcare provider in about three days if not better. Call for an appointment.(Electronically signed by Lc Roberto P.A.-C 05/23/2019 21:49) Name Value Range Interpretation Code Description Data Jie rce(s) Supporting Document(s) ID Date Data Source [id number] 05/23/2019 06:25:00 PM EST [facility] Name Value Range Interpretation Code Description Data [facility](s) Supporting Document(s) COMPREHENSIVE METABOLIC PANEL [facility] COMPREHENSIVE METABOLIC PANEL Sodium [Moles/volume] in Serum or Plasma 141 mEq/L 134 - 153 [facility] Potassium [Moles/volume] in Serum or Plasma 3.8 mEq/L 3.6 - 5.0 [facility] Chloride [Moles/volume] in Serum or Plasma 103 mEq/L 98 - 107 [facility] Carbon dioxide, total [Moles/volume] in Serum or Plasma 27 MEQ/L 22 - 30 [facility] Glucose [Mass/volume] in Serum or Plasma 107 MG/DL 65 - 110 [facility] BUN 8 MG/DL 7 - 21 [facility] al Creatinine [Mass/volume] in Serum or Plasma 0.6 MG/DL 0.7 - 1.5 L [facility] BUN/CREAT 13 8 - 27 [facility] Protein [Mass/volume] in Serum or Plasma 8.4 G/DL 6.3 - 8.2 H [facility] Albumin [Mass/volume] in Serum or Plasma 4.8 G/DL 3.9 - 5.0 [facility] Globulin [Mass/volume] in Serum by calculation 3.6 GM/DL 2.4 - 3.2 H [facility] A/G RATIO 1.3 0.8 - 2.0 [facility] Calcium [Mass/volume] in Serum or Plasma 9.7 MG/DL 8.4 - 10.2 [facility] Bilirubin.total [Mass/volume] in Serum or Plasma 0.9 MG/DL 0.2 - 1.3 [facility] Alkaline phosphatase [Enzymatic activity/volume] in Serum or Plasma 115 U/L 38 - 126 [facility] Aspartate aminotransferase [Enzymatic activity/volume] in Serum or Plasma 24 U/L 5 - 40 [facility] Alanine aminotransferase [Enzymatic activity/volume] in Seru m or Plasma 20 U/L 7 - 56 [facility] Anion gap 3 in Serum or Plasma 11.0 mmol/L 8.0 - 16.0 [facility] AGE 24 yrs [facility] NON-AA GFR >60 mL/min [facility] H[facility] ital AFR AMER GFR >60 mL/min [facility] Ho spital Male GFR In terprentation 20-49 [...] >32 mL/min Normal ID Date Data Source [id number] 05/23/2019 05:53:00 PM EST [facility] Name Value Range Interpretation Code Description Data Jie rce(s) Supporting Document(s) CBC W/AUTOMATED DIFF [facility] COMPLETE BLOOD COUNT Leukocytes [#/volume] in Blood by Automated count 10.0 10^3/uL 4.2 - 11.0 [facility] Erythrocytes [#/volume] in Blood by Automated count 4.30 10^6/uL 4. 20 - 5.40 [facility] Hemoglobin [Mass/volume] in Blood 13.4 g/dL 12.0 - 16.0 [facility] Hematocrit [Volume Fraction] of Blood by Automated count 40.0 % 3 7.0 - 47.0 [facility] Erythrocyte mean corpuscular volume [Entitic volume] by Auto mated count 93.0 fL 81.0 - 101 [facility] Erythrocyte mean corpuscular hemoglobin [Entitic mass] by Automated count 31.2 pg 27.0 - 34.0 [facility] Erythrocyte mean corpuscular hemoglobin concentration [Mass/volume] by Automated count 33.5 g/dL 31.0 - 36.0 [facility] Erythrocyte distribution width [Ratio] by Automated count 12.2 % 11.5 - 14.5 [facility] Platelets [#/volume] in Blood by Automated count 234 10^3/uL 150 - 45 0 [facility] Platelet mean volume [Entitic volume] in Blood by Automated count 8.7 fL 7.4 - 10.4 [facility] Neutrophils/100 leukocytes in Blood by Automated count 79.5 % 37. 0 - 80.0 [facility] Lymphocytes/100 leukocytes in Blood by Manual count 10.6 % 25.0 - 40.0 L [facility] Monocytes/100 leukocytes in Blood by Automated count 8.3 % 3.0 - 8.0 H [facility] Eosinophils/100 leukocytes in Blood by Automated count 0.7 % 0.0 - 7.0 [facility] Basophils/100 leukocytes in Blood by Automated count 0.5 % 0.0 - 2.5 [facility] %IG 0.4 % 0.0 - 0.0 [facility] %NRBC 0.0 % 0.0 - 0.0 [facility] Neutrophils [#/volume] in Blood by Automated count 7.92 10^3/uL 2.00 - 6.90 H [facility] Lymphocytes [#/volume] in Blood by Automated count 1.06 10^3/uL 0.60 - 3.40 [facility] Monocytes [#/volume] in Blood by Automated count 0.83 10^3/uL 0.00 - 0.90 [facility] Eosinophils [#/volume] in Blood by Automated count 0.07 10^3/uL 0.00 - 0.70 [facility] Basophils [#/volume] in Blood by Automated count 0.05 10^3/uL 0.00 - 0.20 [facility] #IG 0.04 10^3/uL 0.00 - 0.10 [facility] ospital #NRBC 0.00 10^3/uL 0.00 - 0.00 [facility] ospital MANUAL DIFF NOT INDICATED [facility] RBC MORPH NOT INDICATED [facility] Ho spital ID Date Data Source [id number] 05/23/2019 07:46:00 PM EST [facility] Name Value Range Interpretation Code Description Data Jie rce(s) Supporting Document(s) URINALYSIS [facility] Hos[facility] sharmaine URINALYSIS SOURCE R [facility] COLOR yellow NORMAL: Yellow [facility] CLARITY clear NORMAL: Clear [facility] Specific gravity of Urine by Test strip 1.030 1.001 - 1.030 [facility] pH 8 5 - 9 [facility] Glucose [Mass/volume] in Urine by Test strip NORM NORMAL: Negat [facility] Bilirubin.total [Presence] in Urine by Test strip NEG NORMAL: Negative [facility] Ketones [Presence] in Urine by Test strip NEG NORMAL: Negative [facility] Protein [Mass/volume] in Urine by Test strip NEG NORMAL: Negat [facility] Nitrite [Presence] in Urine by Test strip NEG NORMAL: Negative [facility] BLOOD NEG NORMAL: Negative [facility] Leukocyte esterase [Presence] in Urine by Test strip NEG MEKHI L: Negative [facility] Urobilinogen [Mass/volume] in Urine by Test strip NOR less dragan n 1.0 mg/dL [facility] MICROSCOPIC Not Indicate [facility] H ospital ID Date Data Source [id number] 05/23/2019 05:50:00 PM [facility] Name Value Range Interpretation Code Description Data Jie rce(s) Supporting Document(s) Influenza virus A Ag [Presence] in Nasopharynx by Immunoassa y NEGATIVE NORMAL: NEGATIVE [facility] Influenza virus B Ag [Presence] in Nasopharynx by Immunoassa y NEGATIVE NORMAL: NEGATIVE [facility] NEGATIVENEGATIVE PROCEDURAL CO NTROL VALID KIT LOT # [id number] 05/23/19.[place] . . . KIT EXP DATE _02/23/20 [...] other patient managementdecisions. ID Date Data Source [id number] 05/23/2019 05:47:00 PM [facility] Name Value Range Interpretation Code Description Data Jie rce(s) Supporting Document(s) RAPID STREP NEGATIVE NORMAL: NEGATIVE [facility] RAPID STREP REENTER NEGATIVE NORMAL: NEGATIVE [facility] { PROCEDURAL CONTROL VALID ){ KIT LOT # [id number] ){ KIT EXP DATE 06/21/20 )The Strep [...] basis for treatment. ID Date Data Source [id number] 04/20/2019 07:57:11 AM [facility] X-RAY CHEST PA & LATERALPRIOR: Multiple: Most [...] Supporting Document(s) ID Date Data Source 36N*ENCOUNTER [id number] 04/20/2019 05:22:10 AM [facility] DEPT [address] [place] [id number] Elyssa Pfeiffer (Female) [id number] CARID[facility] 3 ED Dispo:DISCHARGE Chief Complaint: Chest Pain Diagnosis: Chest pain, unspecified type [] Gastroesophageal reflux disease, esophagitis presence not specified [] Current Providers: Attending: Jon Clark Primary Nurse: VIRGIE SilvaN: [id number] [employer] [id number] - [facility] Ed Medva MrnMRN: [id number] Print Group [id number] - [facility] Ed Medva Age SexDOB 1995 AGE 23 SEX Female Primary Care Provider: Donnellergies: (No Known Allergies)Date Reviewed: 04/20/2019Reviewed by: Milagros Silva RN - Review CompleteED Provider Notes: All notesHNO ID: [id number]: Libertad Clark MDService: -Author Type: PhysicianFiled: 04/20/19 [...] QTC Calculation (Bezet) 404 ms Calculated P [place] 51 degrees Calculated R [place] 79 degrees Calculated T [place] 55 degrees Diagnosis Normal sinus rhythmNormal ECGNo previous ECGs availableEKG, 12 LEAD, SUBSEQUENT Collection Time: 04/20/19 4:19 AMResult Value Ref Range Ventricular Rate 65 BPM Atrial Rate 65 BPM P-R Interval 148 ms QRS Duration 96 ms Q-T Interval 400 ms QTC Calculation (Bezet) 416 ms Calculated P [place] 47 degrees Calculated R [place] 73 degrees Calculated T [place] 53 degrees Diagnosis Normal sinus rhythm with [...] as needed for Nausea. Yes Other, Phys, MDlansoprazole (PREVACID) 30 mg capsule Take 1 Cap by mouth daily for 20days. 04/20/19 05/10/19 Yes Libertad Clark, NICK Raymond Orders ONDANSETRON HCL 4 MG TAB [#[id number]] Priority: Routine Class: Historical Med PANTOPRAZOLE 40 MG TAB, DELAYED RELE* [#[id number]] Priority: STAT Class: Normal PPI INDICATION -> Other (describe in comments) ALUM-MAG HYDROXIDE-SIMETH 200 MG-200* [#[id number]] Priority: STAT Class: Normal LANSOPRAZOLE 30 MG CAP, DELAYED RELE* [#[id number]] Priority: Routine Class: Normal [id number] EKG, 12 LEAD, INITIAL [#[id number]] Priority: STAT Class: Hospital Performed Standing Order Information Remaining Occurrences:0/1 Interval:ONE TIME Last released:04/20/2019 Released orders: TueApr 20, 2019 4:01 AM by: MILAGROS SILVA Reason for Exam: -> cp [id number] EKG, 12 LEAD, INITIAL [#[id number]] Priority: STAT Class: Hospital Performed Specimen Collected: 04/20/2019 4:06 AM Resulting Agency: [employer] [facility] Test ID: [id number] Reason for Exam: -> cp Released on: 04/20/2019 4:01 AM [id number] EKG, 12 LEAD, SUBSEQUENT [#[id number]] Priority: STAT Class: Hospital Performed Standing Order Information Remaining Occurrences:0/1 Interval:ONE TIME Last released:04/20/2019 Released orders: TueApr 20, 2019 4:15 AM by: LIBERTAD CLARK Reason for Exam: -> chest pain [id number] EKG, 12 LEAD, SUBSEQUENT [#[id number]] Priority: STAT Class: Hospital Performed Specimen Collected: 04/20/2019 4:19 AM Resulting Agency[place] [facility] [place] [facility] Test ID: [id number] Reason for Exam: -> chest pain Released on: 04/20/2019 4:15 AM [id number] CBC WITH AUTOMATED DIFF [#[id number]] Priority: STAT Class: ER Collect Standing Order Information Remaining Occurrences:0/1 Interval:ONE TIME Last released:04/20/2019 Released orders: TueApr 20, 2019 4:15 AM by: LIBERTAD CLARK [id number] METABOLIC PANEL, COMPREHENSIVE [#[id number]] Priority: STAT Class: ER Collect Standing Order Information Remaining Occurrences:0/1 Interval:ONE TIME Last released:04/20/2019 Released orders: TueApr 20, 019 4:15 AM by: LIBERTAD CLARK [id number] LIPASE [#[id number]] Priority: STAT Class: ER Collect Standing Order Information Remaining Occurrences:0/1 Interval:ONE TIME Last released:04/20/2019 Released orders: TueApr 20, 2019 4:15 AM by: LIBERTAD CLARK [id number] TROPONIN I [#[id number]] Priority: STAT Class: ER Collect Standing Order Information Remaining Occurrences:0/1 Interval:ONE TIME Last released:04/20/2019 Released orders: TueApr 20, 2019 4:15 AM by: LIBERTAD CLARK [id number] CBC WITH AUTOMATED DIFF [#[id number]] Priority: STAT Class: ER Collect Specimen Source: Whole Blood Specimen Collected: 04/20/2019 4:23 AM Resulting Agency: [facility] Test ID: [id number] Released on: 04/20/2019 4:15 AM [id number] METABOLIC PANEL, COMPREHENSIVE [#[id number]] Priority: STAT Class: ER Collect Specimen Source: Plasma Specimen Collected: 04/20/2019 4:23 AM Resulting Agency: [facility] Test ID: MPL Released on: 04/20/2019 4:15 AM [id number] LIPASE [#[id number]] Priority: STAT Class: ER Collect Specimen Source: Plasma Specimen Collected: 04/20/2019 4:23 AM Resulting Agency: [facility] Test ID: [id number] Released on: 04/20/2019 4:15 AM [id number] TROPONIN I [#[id number]] Priority: STAT Class: ER Collect Specimen Source: Plasma Specimen Collected: 04/20/2019 4:23 AM Resulting Agency: [facility] Test ID: [id number] Released on: 04/20/2019 4:15 AM [id number] XR CHEST PA LAT [#[id number]] Priority: STAT Class: Hospital Performed Standing Order Information Remaining Occurrences:0/1 Interval:ONE TIME Last released:04/20/2019 Released orders: TueApr 20, 2019 4:21 AM by: LIBERTAD CLARK Reason for Exam -> chest pain [id number] XR CHEST PA LAT [#[id number]] Priority: STAT Class: Hospital Performed Resulting Agency: [facility] Test ID: [id number] Reason for Exam -> chest pain Released on: 04/20/2019 4:21 Elyssa Mishra MR#: [id number] * Rm: [id number]: 5' 6" Wt: 187 lb Code: Not on file Iso:Diagnosis:Allergies: No Known Allergies -------- Current as of: 04/20/19 0522 GI=Given pantoprazole (PROTONIX) injection 40 mg #[id number] Admin Amount: 40 mg Ordered Dose: 40 mg Route: IntraVENous Freq: ONCE Start Date: 03/16/14 No administration times (back 96 hours, ahead 96 hours). ------pantoprazole (PROTONIX) injection 40 mg #[id number] Admin Amount: 40 mg Ordered Dose: 40 mg Route: IntraVENous Freq: ONCE Start Date: 04/17/14 No administration times (back 96 hours, ahead 96 hours). ------sodium chloride 0.9 % bolus infusion 1,000 mL #[id number] Admin Amount: 1,000 mL Ordered Dose: 1,000 mL Route: IntraVENous Freq: ONCE Start Date: 04/17/14 Rate: 1,000 mL/hr Duration: 60 Minutes No administration times (back 96 hours, ahead 96 hours). ------ondansetron (ZOFRAN) injection 4 mg #[id number] Admin Amount: 2 mL = 4 mg of 4 mg/2 mL Ordered Dose: 4 mg Route: IntraVENous Freq: ONCE Start Date: 04/17/14 No administration times (back 96 hours, ahead 96 ho urs). ----dicyclomine (BENTYL) capsule 10 mg #[id number] Admin Amount: 1 Cap (1 x 10 mg Cap) Ordered Dose: 10 mg Route: Oral Freq: NOW Start Date: 04/17/14 No administration times (back 96 hours, ahead 96 hours). alum-mag hydroxide-simeth (MYLANTA) oral suspension 30 mL #[id number] Admin Amount: 30 mL Ordered Dose: 30 mL Route: Oral Freq: NOW Start Date: 04/17/14 No administration times (back 96 hours, ahead 96 hours). ------lidocaine (XYLOCAINE) 2 % viscous solution 15 mL #[id number] Admin Amount: 15 mL Ordered Dose: 15 mL Route: Mouth/Throat Freq: NOW Start Date: 04/17/14 No admin istration times (back 96 hours, ahead 96 hours).Elyssa Pfeiffer MR#: [id number] * Rm: [id number]: 5' 6" Wt: 187 lb Code: Not on file Iso:Diagnosis:Allergies: No Known Allergies -------- Current as of: 04/20/19 0522 GI=Given lidocaine (XYLOCAINE) 2 % viscous solution 15 mL #[id number] Admin Amount: 15 mL Ordered Dose: 15 mL Route: Mouth/Throat Freq: NOW Start Date: 05/19/14 No administration times (back 96 hours, ahead 96 hours). ------alum-mag hydroxide-simeth (MYLANTA) oral suspension 30 mL #[id number] Admin Amount: 30 mL Ordered Dose: 30 mL Route: Oral Freq: NOW Start Date: 05/19/14 No administration times (back 96 hours, ahead 96 hours). ------famotidine (PF) (PEPCID) 20 mg in sodium chloride 0.9 % 10 mL inject*#[id number] Admin Amount: 20 mg Ordered Dose: 20 mg Route: IntraVENous Freq: NOW Start Date: 05/19/14 No administration times (back 96 hours, ahead 96 hours). ondansetron (ZOFRAN) injection 4 mg #[id number] Admin Amount: 2 mL = 4 mg of 4 mg/2 mL Ordered Dose: 4 mg Route: IntraVENous Freq: ONCE Start Date: 05/19/14 No administration times (back 96 hours, ahead 96 hours). iohexol (OMNIPAQUE) solution 10-50 mL #[id number] Admin Amount: 10-50 mL Ordered Dose: 10-50 mL Route: Oral Freq: RAD ONCE Start Date: 05/19/14 No administration times (back 96 hours, ahead 96 hours). ------ioversol (OPTIRAY) 320 mg iodine/mL contrast injection 51-100 mL #[id number] Admin Amount: 51-100 mL Ordered Dose: 51-100 mL Route: IntraVENous Freq: RAD ONCE Start Date: 05/19/14 No administration times (back 96 hours, ahead 96 hours). ------famotidine (PF) (PEPCID) injection 20 mg #[id number] Admin Amount: 20 mg Ordered Dose: 20 mg Route: IntraVENous Freq: NOW Start Date: 06/15/14 No administration times (back 96 hours, ahead 96 hours). ondansetron (ZOFRAN) injection 4 mg #[id number] Admin Amount: 2 mL = 4 mg of 4 mg/2 mL Ordered Dose: 4 mg Route: IntraVENous Freq: NOW Start Date: 06/15/14 No administration times (back 96 hours, ahead 96 hours).Mert Pfeifferen MR#: [id number] * Rm: [id number]: 5' 6" Wt: 187 lb Code: Not on file Iso:Diagnosis:Allergies: No Known Allergies -------- Current as of: 04/20/19 0522 GI=Given -------morphine injection 2 mg #[id number] Admin Amount: 0.5 mL = 2 mg of 4 mg/mL Ordered Dose: 2 mg Route: IntraVENous Freq: NOW Start Date: 06/15/14 No administration times (back 96 hours, ahead 96 hours).---- ondan setron (ZOFRAN) injection 4 mg #[id number] Admin Amount: 2 mL = 4 mg of 4 mg/2 mL Ordered Dose: 4 mg Route: IntraVENous Freq: NOW Start Date: 06/24/14 No administration times (back 96 hours, ahead 96 hours). famotidine (PF) (PEPCID) injection 20 mg #[id number] Admin Amount: 20 mg Ordered Dose: 20 mg Route: IntraVENous Freq: NOW Start Date: 06/24/14 No administration times (back 96 hours, ahead 96 hours). ------vnkyldfny-lbcxvk-dgovqhnp-scop () elixir 10 mL #[id number] Admin Amount: 10 mL Ordered Dose: 10 mL Route: Oral Freq: NOW Start Date: 06/24/14 No administration times (back 96 hours, ahead 96 hours). ------sodium chloride 0.9 % bolus infusion 1,000 mL #[id number] Admin Amount: 1,000 mL Ordered Dose: 1,000 mL Route: IntraVENous Freq: ONCE Start Date: 06/24/14 Rate: 1,000 mL/hr Duration: 60 Minutes No administration times (back 96 hours, ahead 96 hours). ------dicyclomine (BENTYL) capsule 20 mg #[id number] Admin Amount: 2 Cap (2 x 10 mg Cap) Ordered Dose: 20 mg Route: Oral Freq: NOW Start Date: 06/24/14 No administration times (back 96 hours, ahead 96 hours).- 0. 9% sodium chloride infusion #[id number] Ordered Dose: 1,000 mL/hr Route: IntraVENous Freq: CONTINUOUS Start Date: 07/29/14 Rate: 1,000 mL/hr Duration: No administration times (back 96 hours, ahead 96 hours).Elyssa Pfeiffer MR#: [id number] * Rm: [id number]: 5' 6" Wt: 187 lb Code: Not on file Iso:Diagnosis:Allergies: No Known Allergies Current as of: 04/20/19 0522 GI=Given -------ondansetron (ZOFRAN) injection 4 mg #[id number] Admin Amount: 2 mL = 4 mg of 4 mg/2 mL Ordered Dose: 4 mg Route: IntraVENous Freq: NOW Start Date: 07/29/14 No administration times (back 96 hours, ahead 96 hours). ------ketorolac (TORADOL) injection 30 mg #[id number] Admin Amount: 1 mL = 30 mg of 30 mg/mL Ordered Dose: 30 mg Route: IntraVENous Freq: NOW Start Date: 07/29/14 No administration times (back 96 hours, ahead 96 hours). 0.9% sodium chloride infusion 1,000 mL #[id number] Admin Amount: 1,000 mL Ordered Dose: 1,000 mL Route: IntraVENous Freq: NOW Start Date: 08/13/14 No administration times (back 96 hours, ahead 96 hours). ketorolac (TORADOL) injection 30 mg #[id number] Admin Amount: 1 mL = 30 mg of 30 mg/mL Ordered Dose: 30 mg Route: IntraVENous Freq: NOW Start Date: 08/13/14 No administration times (back 96 hours, ahead 96 hours). ------ondansetron (ZOFRAN ODT) tablet 4 mg #[id number] Admin Amount: 1 Tab (1 x 4 mg Tab) Ordered Dose: 4 mg Route: Oral Freq: NOW Start Date: 09/30/14 No administration times (back 96 hours, ahead 96 hours). ------trimethoprim-sulfamethoxazole (BACTRIM DS, SEPTRA DS) 160-800 mg per *#[id number] Admin Amount: 1 Tab Ordered Dose: 1 Tab Route: Oral Freq: NOW Start Date: 09/30/14 No administration times (back 96 hours, ahead 96 hours).-------- 0.9% sodium chloride infusion #[id number] Ordered Dose: 1,000 mL/hr Route: IntraVENous Freq: CONTINUOUS Start Date: 11/16/14 Rate: 1,000 mL/hr Duration: No administration times (back 96 hours, ahead 96 hours). ondansetron (ZOFRAN) injection 4 mg #[id number] Admin Amount: 2 mL = 4 mg of 4 mg/2 mL Ordered Dose: 4 mg Route: IntraVENous Freq: NOW Start Date: 11/16/14 No administration times (back 96 hours, ahead 96 hours).Kentrell Elyssa MR#: [id number] * Rm: [id number]: 5' 6" Wt: 187 lb Code: Not on file Iso:Diagnosis:Allergies: No Known Allergies -------- Current as of: 04/20/19 0522 GI=Given -------pantoprazole (PROTONIX) injection 40 mg #[id number] Admin Amount: 40 mg Ordered Dose: 40 mg Route: IntraVENous Freq: NOW Start Date: 11/16/14 No administration times (back 96 hours, ahead 96 hours). ondansetron (ZOFRAN) injection 4 mg #[id number] Admin Amount: 2 mL = 4 mg of 4 mg/2 mL Ordered Dose: 4 mg Route: IntraVENous Freq: ONCE Start Date: 04/04/15 No administration times (back 96 hours, ahead 96 hours). ketorolac (TORADOL) injection 60 mg #[id number] Admin Amount: 2 mL = 60 mg of 30 mg/mL Ordered Dose: 60 mg Route: IntraMUSCular Freq: NOW Start Date: 04/11/15 No administration times (back 96 hours, ahead 96 hours). ------hydrOXYzine HCl (ATARAX) tablet 50 mg #[id number] Admin Amount: 1 Tab (1 x 50 mg Tab) Ordered Dose: 50 mg Route: Oral Freq: NOW Start Date: 04/09/17 No administration times (back 96 hours, ahead 96 hours). ------acetaminophen (OFIRMEV) infusion 1,000 mg #[id number] Admin Amount: 100 mL = 1,000 mg of 1,000 mg/100 mL Ordered Dose: 1,000 mg Route: IntraVENous Freq: ONCE Start Date: 09/17/17 Rate: 400 mL/hr Duration: 15 Minutes No administration times (back 96 hours, ahead 96 hours). ------ondansetron (ZOFRAN) injection 4 mg #[id number] Admin Amount: 2 mL = 4 mg of 4 mg/2 mL Ordered Dose: 4 mg Route: IntraVENous Freq: ONCE Start Date: 09/17/17 No administration times (back 96 hours, ahead 96 hours). ------iohexol (OMNIPAQUE) solution 50 mL #[id number] Admin Amount: 50 mL Ordered Dose: 50 mL Route: Oral Freq: RAD ONCE Start Date: 09/17/17 No administration times (back 96 hours, ahead 96 hours).Elyssa Pfeiffer MR#: [id number] * Rm: [id number]: 5' 6" Wt: 187 lb Code: Not on file Iso:Diagnosis:Allergies: No Known Allergies Current as of: 04/20/19 0522 GI=Given -------iopamidol (ISOVUE 300) 61 % contrast injection 100 mL #[id number] Admin Amount: 100 mL Ordered Dose: 100 mL Route: IntraVENous Freq: RAD ONCE Start Date: 09/17/17 No administration times (back 96 hours, ahead 96 hours). ------ondansetron (ZOFRAN) injection 4 mg #[id number] Admin Amount: 2 mL = 4 mg of 4 mg/2 mL Ordered Dose: 4 mg Route: IntraVENous Freq: ONCE Start Date: 09/17/17 No administration times (back 96 hours, ahead 96 hours).----- ciprof loxacin HCl (CIPRO) tablet 500 mg #[id number] Admin Amount: 2 Tab (2 x 250 mg Tab) Ordered Dose: 500 mg Route: Oral Freq: NOW Start Date: 09/17/17 No administration times (back 96 hours, ahead 96 hours). metroNIDAZOLE (FLAGYL) tablet 500 mg #[id number] Admin Amount: 2 Tab (2 x 250 mg Tab) Ordered Dose: 500 mg Route: Oral Freq: NOW Start Date: 09/17/17 No administration times (back 96 hours, ahead 96 hours). ------ketorolac (TORADOL) injection 30 mg #[id number] Admin Amount: 1 mL = 30 mg of 30 mg/mL Ordered Dose: 30 mg Route: IntraVENous Freq: NOW Start Date: 09/19/17 No administration times (back 96 hours, ahead 96 hours). ------sodium chloride 0.9 % bolus infusion 1,000 mL #[id number] Admin Amount: 1,000 mL Ordered Dose: 1,000 mL Route: IntraVENous Freq: ONCE Start Date: 09/19/17 Rate: 1,000 mL/hr Duration: 60 Minutes No administration times (back 96 hours, ahead 96 hours). ------dicyclomine (BENTYL) capsule 20 mg #[id number] Admin Amount: 2 Cap (2 x 10 mg Cap) Ordered Dose: 20 mg Route: Oral Freq: NOW Start Date: 09/19/17 No administration times (back 96 hours, ahead 96 hours).Elyssa Pfeiffer MR#: [id number] * Rm: [id number]: 5' 6" Wt: 187 lb Code: Not on file Iso:Diagnosis:Allergies: No Known All ergies ----- Current as of: 04/20/19 0522 GI=Given -------acetaminophen (OFIRMEV) infusion 1,000 mg #[id number] Admin Amount: 100 mL = 1,000 mg of 1,000 mg/100 mL Ordered Dose: 1,000 mg Route: IntraVENous Freq: ONCE Start Date: 09/19/17 Rate: 400 mL/hr Duration: 15 Minutes No administration times (back 96 hours, ahead 96 hours). alum-mag hydroxide-simeth (MYLANTA) oral suspension 30 mL #[id number] Admin Amount: 30 mL Ordered Dose: 30 mL Route: Oral Freq: NOW Start Date: 09/19/17 No administration times (back 96 hours, ahead 96 hours). ------lidocaine (XYLOCAINE) 2 % viscous solution 15 mL #[id number] Admin Amount: 15 mL Ordered Dose: 15 mL Route: Mouth/Throat Freq: NOW Start Date: 09/19/17 No administr ation times (back 96 hours, ahead 96 hours). ------ondansetron (ZOFRAN ODT) tablet 8 mg #[id number] Admin Amount: 2 Tab (2 x 4 mg Tab) Ordered Dose: 8 mg Route: Oral Freq: NOW Start Date: 04/30/18 No administration times (back 96 hours, ahead 96 hours).------ rho D immune globulin (RHOGAM) 1,500 unit (300 mcg) injection 0.3 mg #[id number] Admin Amount: 1 mL = 0.3 mg of 0.3 mg/mL Ordered Dose: 300 mcg Route: IntraMUSCular Freq: ONCE Start Date: 10/21/18 No administration times (back 96 hours, ahead 96 hours). pantoprazole (PROTONIX) tablet 40 mg #[id number] Admin Amount: 1 Tab (1 x 40 mg Tab) Ordered Dose: 40 mg Route: Oral Freq: NOW Start Date: 04/20/19 Administration times (back 96 hours, ahead 96 hours): 04/20/19: 0426GI alum-mag hydroxide-simeth (MYLANTA) oral suspension 30 mL #[id number] Admin Amount: 30 mL Ordered Dose: 30 [...] daily for 20 days.Dispense Amount:20 CapStart Date:04/20/2019End Date:05/10/2019[facility]. Provider: Libertad Clark MDFollow-up InformationFollow-up With:Tommy West DODetails:In 1 weekComments:for further evaluati onContact Info:1 Annamaria Baumann [address] [place] [address] [phone] Name Value Range Interpretation Code Description Data Jie rce(s) Supporting Document(s) ID Date Data Source [id number] 04/20/2019 05:21:49 AM [facility] I have reviewed discharge instructions w ith the patient. The patient verbalizedunderstanding. Instructed to f/u with primary care Stable at CA with adultfemale Name Value Range Interpretation Code Description Data [facility] rce(s) Supporting Document(s) ID Date Data Source [id number] 04/20/2019 05:09:39 AM [facility] CC: Chest tightnessHPI:Patient is a 23 y.o. [...] QTC Calculation (Bezet) 404 ms Calculated P [place] 51 degrees Calculated R [place] 79 degrees Calculated T [place] 55 degrees Diagnosis Normal sinus rhythmNormal ECGNo previous ECGs availableEKG, 12 LEAD, SUBSEQUENT Collection Time: 04/20/19 4:19 AMResult Value Ref Range Ventricular Rate 65 BPM Atrial Rate 65 BPM P-R Interval 148 ms QRS Duration 96 ms Q-T Interval 400 ms QTC Calculation (Bezet) 416 ms Calculated P [place] 47 degrees Calculated R [place] 73 degrees Calculated T [place] 53 degrees Diagnosis Normal sinus rhythm with [...] rce(s) Supporting Document(s) ID Date Data Source [id number] 04/20/2019 04:47:13 AM EST [facility] Name Value Range Interpretation Code Description Data Jie rce(s) Supporting Document(s) Troponin I.cardiac [Mass/volume] in Serum or Plasma 0.00-0 .05 [employer] (NOTE)The presence of detectable troponi n above [...] to 1.50 ng/mL ID Date Data Source [id number] 04/20/2019 04:47:12 AM EST [facility] Name Value Range Interpretation Code Description Data [facility](s) Supporting Document(s) Sodium [Moles/volume] in Serum or Plasma 135 mmol/L 136-145 Below low normal [facility] [employer] [facility] Potassium [Moles/volume] in Serum or Plasma 4.0 mmol/L 3.5-5.1 [facility] Chloride [Moles/volume] in Serum or Plasma 104 mmol/L 98-107 [facility] [employer] [facility] Carbon dioxide, total [Moles/volume] in Serum or Plasma 29 mmol/L 21 -32 [facility] Anion gap in Serum or Plasma 2 mmol/L 4-12 Below low normal [facility] Glucose [Mass/volume] in Serum or Plasma 102 mg/dL 74-106 [facility] Urea nitrogen [Mass/volume] in Serum or Plasma 17 mg/dL 7-18 [facility] Creatinine [Mass/volume] in Serum or Plasma 0.81 mg/dL 0.55-1.02 [facility] Glomerular filtration rate/1.73 sq M pre dicted among blacks [Volume Rate/Area] in Serum or Plasma by Creatinine-based formula (MDRD) >60 [facility] [employer] [facility] Glomerular filtration rate/1.73 sq M pre dicted among non-blacks [Volume Rate/Area] in Serum or Plasma by Creatinine-based formula (MDRD) >6 0 [employer] (NOTE)Estimated GFR is calculated using the Modification of Diet in RenalDisease (MDRD) Study equation, reported for both Americans(GFRAA) and non- Americans (GFRNA), and normalized to 1.45m6pynl surface area. The physician must decide which value applies tothe patient. The MDRD study equation should only be used inindividuals age 18 or older. It has not been validated for thefollowing: women, patients with serious comorbid conditions,or on certain medications, or persons with extremes of body size,muscle mass, or nutritional status. Calcium [Mass/volume] in Serum or Plasma 8.8 mg/dL 8.5-10.1 [employer] Bilirubin.total [Mass/volume] in Serum or Plasma 0.5 mg/dL 0.2-1.0 [employer] Alanine aminotransferase [Enzymatic activity/volume] in Seru m or Plasma 38 U/L 12-78 [email or web address] Aspartate aminotransferase [Enzymatic ac tivity/volume] in Serum or Plasma by With P-5'-P 27 U/L 15-37 [employer] Alkaline phosphatase [Enzymatic activity/volume] in Serum or Plasma 103 U/L 46-116 [email or web address] Protein [Mass/volume] in Serum or Plasma 7.3 g/dL 6.4-8.2 [employer] Albumin [Mass/volume] in Serum or Plasma by Bromocresol purple (BCP) dye binding method 3.7 g/dL 3.4-5.0 [facility] [employer] Globulin [Mass/volume] in Serum by calculation 3.6 g/dL 2.8-3.9 [employer] Albumin/Globulin [Mass Ratio] in Serum or Plasma 1.0 1.0-1.5 [employer] ID Date Data Source [id number] 04/20/2019 04:47:13 AM EST [employer] Name Value Range Interpretation Code Description Data Jie rce(s) Supporting Document(s) Lipase [Enzymatic activity/volume] in Serum or Plasma 122 U/L 73-3 93 [facility] [employer] ID Date Data Source [id number] 04/20/2019 04:29:55 AM EST [employer] [facility] [employer] Name Value Range Interpretation Code Description Data Jie rce(s) Supporting Document(s) Leukocytes [#/volume] in Blood by Automated count 8.6 K/uL 4.8-10.6 [facility] Erythrocytes [#/volume] in Blood by Automated count 4.08 M/uL 4.20-5.40 Below low normal [facility] Hemoglobin [Mass/volume] in Blood 12.8 g/dL 12.0-16.0 [facility] Hematocrit [Volume Fraction] of Blood by Automated count 38.6 % 3 6.0-47.0 [facility] Erythrocyte mean corpuscular volume [Entitic volume] by Auto mated count 94.6 FL 81.0-94.0 Above high normal [facility] Erythrocyte mean corpuscular hemoglobin [Entitic mass] by Automated count 31.4 PG 27.0-35.0 [facility] S [employer] Erythrocyte mean corpuscular hemoglobin concentration [Mass/volume] by Automated count 33.2 g/dL 30.7-37.3 [facility] Erythrocyte distribution width [Ratio] by Automated count 12.0 % 11.5-14.0 [facility] Platelets [#/volume] in Blood by Automated count 232 K/uL 130-400 [facility] Inc Platelet mean volume [Entitic volume] in Blood by Automated count 9.0 FL 9.2-11.8 Below low normal [facility] [employer] Nucleated erythrocytes/100 leukocytes [Ratio] in Blood 0.0 PER 100 WB C 0 [facility] [facility] Inc Nucleated erythrocytes [#/volume] in Blood 0.00 K/uL 0.0-0.01 [facility] Segmented neutrophils/100 leukocytes in Blood 51 % 48.0-72.0 [employer] [facility] Lymphocytes/100 leukocytes in Blood 38 % 18.0-40.0 [employer] [facility] Monocytes/100 leukocytes in Blood 9 % 2.0-12.0 [employer] [facility] Eosinophils/100 leukocytes in Blood 1 % 0.0-7.0 [facility] [employer] [facility] Basophils/100 leukocytes in Blood 1 % 0.0-3.0 [facility] [employer] [facility] Immature granulocytes/100 leukocytes in Blood by Automated count 0 % 0.0-0.5 [facility] [employer] [facility] Segmented neutrophils [#/volume] in Blood 4.4 K/UL 2.3-7.6 [employer] [facility] Lymphocytes [#/volume] in Blood 3.3 K/UL 0.9-4.2 [employer] [facility] Monocytes [#/volume] in Blood 0.8 K/UL 0.1-1.7 [employer] [facility] Eosinophils [#/volume] in Blood 0.1 K/UL 0.0-1.0 [employer] [facility] Basophils [#/volume] in Blood 0.1 K/UL 0.0-0.4 [facility] [employer] [facility] Immature granulocytes [#/volume] in Blood by Automated count 0.0 K/UL 0.0-0.17 [facility] [employer] [facility] Differential cell count method - Blood [facility] Procedure Social History Code Duration Value Status Description Data Source(s ) Smoking 05/29/2020 12:00:00 AM EST Former Smoker completed Former Smoker eCW1 ([facility]) Smoking 05/04/2020 12:00:00 AM EST Former Smoker completed Former Smoker eCW1 ([facility]) Smoking 05/04/2020 12:00:00 AM EST Former Smoker completed Former Smoker eCW1 ([facility]) Smoking 05/04/2020 12:00:00 AM EST Former Smoker completed Former Smoker eCW1 ([facility]) Smoking 05/04/2020 12:00:00 AM EST Former Smoker completed Former Smoker eCW1 ([facility]) Smoking 04/04/2020 12:00:00 AM EST Former Smoker completed Former Smoker eCW1 ([facility]) Smoking 04/04/2020 12:00:00 AM EST Former Smoker completed Former Smoker eCW1 ([facility]) Smoking 04/04/2020 12:00:00 AM EST Former Smoker completed Former Smoker eCW1 ([facility]) Alcohol intake 09/08/2019 12:00:00 AM EDT Ex-drinker (finding) comp leted Ex- drinker (finding) [facility] Smoking 09/08/2019 12:00:00 AM EDT Former smoker completed Former smoker [facility] [employer] [facility] Alcohol intake 08/09/2019 12:00:00 AM EDT Current drinker of al cohol (finding) completed Current drinker of alcohol (finding) [facility] [employer] [facility] Smoking 08/09/2019 12:00:00 AM EDT Former smoker completed Former smoker [facility] [facility] Alcohol intake 06/12/2019 12:00:00 AM EST Current drinker of al cohol (finding) completed Current drinker of alcohol (finding) [facility] [employer] [facility] Smoking 06/12/2019 12:00:00 AM EST Former smoker completed Former smoker [facility] Alcohol intake 04/20/2019 12:00:00 AM EST Current drinker of al cohol (finding) completed Current drinker of alcohol (finding) [facility] [facility] Smoking 04/20/2019 12:00:00 AM EST Former smoker completed Former smoker [facility] [employer] Vital Signs ID Date Data Source UNK Name Value Range Interpretation Code Description Data Source(s) Body mass index (BMI) [Ratio] 27.762 kg/m2 27.7 62 kg/m2 W1 ([facility]) Body height 66 [in_i] 66 [in_i] W1 ([facility]) Body weight 172 [lb_av] 172 [lb_av] W1 ([facility] Diastolic blood pressure 62 mm[Hg] 62 mm[Hg] eCW1 ([facility]) Systolic blood pressure 100 mm[Hg] 100 mm[Hg] e CW1 ([facility]) Diastolic blood pressure 70 mm[Hg] 70 mm[Hg] W1 ([facility]) Systolic blood pressure 110 mm[Hg] 110 mm[Hg] e CW1 ([facility]) Body mass index (BMI) [Ratio] 28.698 kg/m2 28.6 98 kg/m2 eCW1 ([facility]) Body height 66 [in_i] 66 [in_i] W1 ([facility]) Body weight 177.8 [lb_av] 177.8 [lb_av] eCW1 ([facility]) Body weight 83.462 kg 83.462 kg MEDENT ([facility], ) [place] body weight 130 [lb_av] 130 [lb_av] MEDEN T ([facility], ) Body mass index (BMI) [Ratio] 29.7 kg/m2 29.7 k g/m2 MEDENT ([facility]) Body weight 184.00 [lb_av] 184.00 [lb_av] MEDEN T ([facility], ) Body height 66 [in_i] 66 [in_i] MEDENT ([facility], ) 5'6" Diastolic blood pressure 62 mm[Hg] 62 mm[Hg] MEDENT ([facility]) Systolic blood pressure 116 mm[Hg] 116 mm[Hg] [facility], [facility] Body weight 81.194 kg 81.194 kg MEDENT ([facility]) Body mass index (BMI) [Ratio] 28.9 kg/m2 [...] 66 [in_i] 66 [in_i] MEDENT ([facility]) 5'6" Body surface area Derived from formula 1.89 m2 1.89 m2 MEDENT ([facility]) Body mass index (BMI) [Ratio] 28.4 kg/m2 28.4 k g/m2 MEDENT ([facility]) Body height 66 [in_i] 66 [in_i] MEDENT ([facility]) 5'6" Body weight 79.834 kg 79.[facility]34 [facility] Body weight 176.00 [lb_av] 176.00 [lb_av] MEDEN T ([facility]) Oxygen saturation in Arterial blood by Pulse oximetry 97 % 97 % MEDENT ([facility]) Respiratory rate 16 /min 16 /min MEDENT ( [facility]) Body temperature 97.7 [degF] 97.7 [degF] MEDENT ([facility]) Heart rate 71 /min 71 /min MEDENT ([facility]) Diastolic blood pressure 60 mm[Hg] 60 mm[Hg] MEDENT ([facility]) Systolic blood pressure 102 mm[Hg] 102 mm[Hg] M EDENT ([facility]) Body surface area 1.89 m2 1.89 m2 MEDENT ([facility]) Oxygen saturation in Arterial blood by Pulse oximetry 100 % 100 % [employer] Respiratory rate 15 /min 15 /min Bon [employer] Heart rate 75 /min 75 /min Bon [place] [employer] [facility] [employer] Diastolic blood pressure 76 mm[Hg] 76 mm[Hg] [employer] Systolic blood pressure 113 mm[Hg] 113 mm[Hg] B on [employer] Body mass index (BMI) [Ratio] 29.70 kg/m2 29.70 kg/m2 [employer] Body weight 83.462 kg 83.462 kg Bon [employer] Body height 167.6 cm 167.6 cm Bon [employer] Body temperature 36.83 Jeannine 36.83 Jeannine Bon [employer] Oxygen saturation in Arterial blood by Pulse oximetry 98 % 98 % Bon [employer] Body mass index (BMI) [Ratio] 31.31 kg/m2 31.31 kg/m2 [employer] Body weight 87.998 kg 87.998 kg [facility] [employer] Body height 167.6 cm 167.6 cm Bon [employer] Respiratory rate 16 /min 16 /min Bon [employer] Body temperature 37.22 Jeannine 37.22 Jeannine Bon [employer] Heart rate 72 /min 72 /min Bon [employer] Diastolic blood pressure 68 mm[Hg] 68 mm[Hg] Bon [employer] Systolic blood pressure 108 mm[Hg] 108 mm[Hg] B on [employer] [facility] Body mass index (BMI) [Ratio] 30.7 kg/m2 30.7 k g/m2 MEDENT ([facility]) Body height 66 [in_i] 66 [in_i] MEDENT ([facility], [facility]) 5'6" Body weight 190.00 [lb_av] 190.00 [lb_av] MEDEN T ([facility], [facility]) Body temperature 98.6 [degF] 98.6 [degF] MEDENT ([facility], [facility]) Oxygen saturation in Arterial blood by Pulse oximetry 98 % 98 % MEDENT ([facility], [facility]) Respiratory rate 14 /min 14 /min MEDENT ( [facility], [facility]) Heart rate 83 /min 83 /min MEDENT ([facility], [facility]) Diastolic blood pressure 81 mm[Hg] 81 mm[Hg] MEDENT ([facility], [facility]) Systolic blood pressure 125 mm[Hg] 125 mm[Hg] EDENT ([facility], [facility]) Oxygen saturation in Arterial blood by Pulse oximetry 99 % 99 % [employer] Respiratory rate 18 /min 18 /min Bon [employer] Heart rate 67 /min 67 /min [employer] Diastolic blood pressure 74 mm[Hg] 74 mm[Hg] [facility] [employer] Systolic blood pressure 95 mm[Hg] 95 mm[Hg] B on [employer] [facility] Body mass index (BMI) [Ratio] 30.18 kg/m2 30.18 kg/m2 [facility] [employer] [facility] Body weight 84.823 kg 84.823 kg Layo Pawel [employer] [facility] Body height 167.6 cm 167.6 cm [facility]o [facility] Body temperature 36.78 Jeannine 36.78 Jeannine Layo godinez [facility] [facility] Patient Treatment Plan of Care Planned Activity Planned Date Details Description Data Source (s) Azithromycin (5 day) 250 mg 05/30/2020 12:00:00 AM EST eCW1 ([facility]) 24 HR Bupropion Hydrochloride 150 MG Extended Release Oral Tablet [Wellbutrin] 05/27/2020 12:00:00 AM EST eCW1 ([facility]) 24 HR Bupropion Hydrochloride 150 MG Extended Release Oral Tablet [Wellbutrin] 05/27/2020 12:00:00 AM EST eCW1 ([facility]) Metoclopramide 10 MG Oral Tablet [Reglan] 05/14/2020 12:00:00 AM ES T eCW1 ([facility]) Metoclopramide 10 MG Oral Tablet [Reglan] 05/14/2020 12:00:00 AM ES T eCW1 ([facility]) Metoclopramide 10 MG Oral Tablet [Reglan] 05/14/2020 12:00:00 AM ES T eCW1 ([facility]) Metoclopramide 10 MG Oral Tablet [Reglan] 05/14/2020 12:00:00 AM ES T eCW1 ([facility]) Metoclopramide 10 MG Oral Tablet [Reglan] 05/14/2020 12:00:00 AM ES T eCW1 ([facility]) Glycerin 2000 MG Rectal Suppository 04/30/2020 12:00:00 AM EST eCW1 ([facility]) 0.4 ML Enoxaparin sodium 100 MG/ML Prefilled Syringe [ Lovenox] 04/10/2020 12:00:00 AM EST eCW1 ([facility]) 0.4 ML Enoxaparin sodium 100 MG/ML Prefilled Syringe [ Lovenox] 04/10/2020 12:00:00 AM EST eCW1 ([facility]) 0.4 ML Enoxaparin sodium 100 MG/ML Prefilled Syringe [ Lovenox] 04/10/2020 12:00:00 AM EST eCW1 ([facility]) Ondansetron 4 MG Oral Tablet [Zofran] 02/18/2020 12:00:00 AM EDT eCW1 ([facility]) Ondansetron 4 MG Oral Tablet [Zofran] 02/18/2020 12:00:00 AM EDT eCW1 ([facility]) pantoprazole 40 MG Delayed Release Oral Tablet 09/08/2019 12:00:00 AM EDT [facility] HR Bupropion Hydrochloride 150 MG Extended Release Oral Tablet 08/17/2019 12:00:00 AM EDT [facility] Dexamethasone 1 MG/ML / Tobramycin 3 MG/ML Ophthalmic Suspension 08/09/2019 12:00:00 AM EDT [facility] Cefuroxime 250 MG Oral Tablet 06/12/2019 12:00:00 AM EST [facility] lansoprazole 30 MG Delayed Release Oral Capsule 04/20/2019 12:00:00 AM EST [facility]
[2020-06-16 17:23] LABS: BASO % 0.3 % (0.0-1.0); EOS # 0.1 10^3/uL (0.0-0.5); EOS % 1.2 % (0.0-3.0); HEMATOCRIT 37.9 % (36.0-47.0); HEMOGLOBIN 12.7 g/dl (12.0-15.5); LYMPH # 2.4 10^3/uL (1.5-5.0); LYMPH % 23.8 % (24.0-44.0); MEAN CORPUSCULAR HEMOGLOBIN 31.7 pg (27.0-33.0); MEAN CORPUSCULAR HGB CONC 33.5 g/dl (32.0-36.5); MEAN CORPUSCULAR VOLUME 94.5 fl (80.0-96.0); MONO # 0.8 10^3/uL (0.0-0.8); MONO % 7.7 % (2.0-8.0); NEUTROPHILS # 6.6 10^3/uL (1.5-8.5); NEUTROPHILS % 66.3 % (36.0-66.0); PLATELET COUNT, AUTOMATED 257 10^3/uL (150-450); RED BLOOD COUNT 4.01 10^6/uL (4.00-5.40)
[2020-06-16 17:44] LABS: ALBUMIN 3.4 GM/DL (3.2-5.2); ALT/SGPT 13 U/L (12-78); BILIRUBIN,DIRECT 0.2 MG/DL (0.0-0.2); BILIRUBIN,TOTAL 0.5 MG/DL (0.2-1.0); BLOOD UREA NITROGEN 8 MG/DL (7-18); CALCIUM LEVEL 8.9 MG/DL (8.5-10.1); CARBON DIOXIDE LEVEL 27 MEQ/L (21-32); CHLORIDE LEVEL 101 MEQ/L (98-107); GLOMERULAR FILTRATION RATE > 60.0 (>60); GLUCOSE, FASTING 78 MG/DL (70-100); LIPASE 92 U/L (73-393); POTASSIUM SERUM 3.8 MEQ/L (3.5-5.1); SODIUM LEVEL 135 MEQ/L (136-145); TOTAL PROTEIN 7.2 GM/DL (6.4-8.2)
--- NOTE | 2020-06-16 18:21 | REPVR ---
PROCEDURE INFORMATION: Exam: US Abdomen, Limited; Right Upper Quadrant Exam date and time: 06/16/2020 5:40 PM Age: 25 years old Clinical indication: Abdominal pain; Generalized; ; Prior surgery; Surgery date: 6+ months; Additional info: Ruq pain TECHNIQUE: Imaging protocol: US abdomen. Real time ultrasound with image documentation. Limited exam focused on the right upper quadrant. COMPARISON: No relevant prior studies available. FINDINGS: Liver: The liver is normal in size and echogenicity. Gallbladder: The gallbladder has been surgically removed. Common bile duct: The common bile duct is normal in caliber, measuring 2 mm. Pancreas: Visualized pancreas is unremarkable. Right kidney: The right kidney is normal in size and echogenicity measuring 9.2 x 5.2 by 5.5 cm. No echogenic shadowing foci to suggest renal calculi. No hydronephrosis. Aorta: Images of the proximal and mid abdominal aorta are unremarkable. The distal abdominal aorta is obscured by shadowing bowel gas. Intraperitoneal space: No free fluid. IMPRESSION: 1. No acute findings. 2. Status post cholecystectomy. No biliary ductal dilatation. Electronically signed by: Soraya Wei On 06/16/2020 18:21:36 PM
[2020-06-16 19:10] VITALS: BP 114/63
== END 2020-06-16 19:12 | disposition home or self-care (01) ==
LOC: M ED 15:54
DX: O99.612 Diseases of the digestive system complicating pregnancy, second trimester (principal); O26.892 Other specified pregnancy related conditions, second trimester; R11.0 Nausea; Z3A.16 16 weeks gestation of pregnancy; Z79.82 Long term (current) use of aspirin; Z79.899 Other long term (current) drug therapy